=== PATIENT | male | born 1945 | race Caucasian/White ===

== ENCOUNTER 2018-03-16 14:33 | Inpatient (IN) | payer OTHER ==
[2018-03-16 15:20] LABS: Absolute Lymphocytes (CBC) 1.2 K/uL (0.7-4.9); Absolute Monocytes 0.7 K/uL (0.1-1.3); Absolute Neutrophil 5.3 K/uL (1.8-8.0); Basophils % 0.6 % (0-1.3); Hematocrit 48.8 % (39.6-49.0); Lymphocytes % 15.9 % (15.3-44.8); MCH 32.8 pg (27.0-35.0); MCV 97.5 fL (80-100); MPV 10.4 fL (7.6-11.3); Monocytes % 10.1 % (3.3-12.3); Protime INR 1.32
[2018-03-16 15:36] LABS: Albumin 3.5 g/dL (3.4-5.0); Bilirubin Direct 0.5 mg/dL (0-0.2); Magnesium 2.3 mg/dL (1.8-2.4); Potassium 3.6 mmol/L (3.5-5.1); Protein, Total 6.7 g/dL (6.4-8.2)
[2018-03-16] MEDS ORDERED: ALBUTEROL 2.5 MG/3 ML NEB SOL ONE (15:47)
[2018-03-16] MEDS ORDERED: METHYLPREDNISOLONE 125 MG INJ ONE (15:47)
--- NOTE | 2018-03-16 15:47 | EDPHYS ---
Physician Documentation [facility] Name: Manny Tello Age: 72 yrs Sex: Male : 1945 Arrival Date: 03/16/2018 Time: 14:37 Bed 30 Private MD: oBo Elmore H ED Physician Jamal Schuster HPI: 03/16 15:41 This 72 yrs old Male presents to ER via Ambulatory with complaints of jr8 Breathing Difficulty. 15:41 The patient has shortness of breath at rest, with light activity. Onset: The jr8 symptoms/episode began/occurred gradually, 2 week(s) ago, and became worse and became persistent. Duration: The symptoms are continuous. The patient's shortness of breath is aggravated by walking. Associated signs and symptoms: Pertinent positives: dizziness. Severity of symptoms: At their worst the symptoms were moderate in the emergency department the symptoms are unchanged. The patient has not experienced similar symptoms in the past. The patient has not recently seen a physician. Stated that he had history of asthma. Has been using his inhalers as prescribed. Has not had any exacerbations in a few years. Stated that for the last two weeks has had increased shortness of breath. Stated that now he cant even walk across the room without getting short of breath. Historical: - Allergies: 14:48 No Known Allergies; hb - Home Meds: 14:48 Lisinopril Oral [Active]; hb - PMHx: 14:48 Asthma; Hypertension; hb - Immunization history:: Adult Immunizations up to date. - Social history:: Smoking status: Patient uses tobacco products, smokes one pack cigarettes per day. - Ebola Screening: : No symptoms or risks identified at this time. ROS: 15:41 Eyes: Negative for injury, pain, redness, and discharge, ENT: Negative for injury, jr8 pain, and discharge, Neck: Negative for injury, pain, and swelling, Cardiovascular: Negative for chest pain, palpitations, and edema, Abdomen/GI: Negative for abdominal pain, nausea, vomiting, diarrhea, and constipation, Back: Negative for injury and pain, MS/Extremity: Negative for injury and deformity, Skin: Negative for injury, rash, and discoloration, Neuro: Negative for headache, weakness, numbness, tingling, and seizure. 15:41 Respiratory: Positive for dyspnea on exertion, shortness of breath. Exam: 15:41 Eyes: Pupils equal round and reactive to light, extra-ocular motions intact. Lids and jr8 lashes normal. Conjunctiva and sclera are non-icteric and not injected. Cornea within normal limits. Periorbital areas with no swelling, redness, or edema. ENT: Nares patent. No nasal discharge, no septal abnormalities noted. Tympanic membranes are normal and external auditory canals are clear. Oropharynx with no redness, swelling, or masses, exudates, or evidence of obstruction, uvula midline. Mucous membranes moist. Neck: Trachea midline, no thyromegaly or masses palpated, and no cervical lymphadenopathy. Supple, full range of motion without nuchal rigidity, or vertebral point tenderness. No Meningismus. Cardiovascular: Regular rate and rhythm with a normal S1 and S2. No gallops, murmurs, or rubs. Normal PMI, no JVD. No pulse deficits. Abdomen/GI: Soft, non-tender, with normal bowel sounds. No distension or tympany. No guarding or rebound. No evidence of tenderness throughout. Back: No spinal tenderness. No costovertebral tenderness. Full range of motion. Skin: Warm, dry with normal turgor. Normal color with no rashes, no lesions, and no evidence of cellulitis. MS/ Extremity: Pulses equal, no cyanosis. Neurovascular intact. Full, normal range of motion. Neuro: Awake and alert, GCS 15, oriented to person, place, time, and situation. Cranial nerves II-XII grossly intact. Motor strength 5/5 in all extremities. Sensory grossly intact. Cerebellar exam normal. Normal gait. 15:41 Respiratory: the patient does not display signs of respiratory distress, Respirations: tachypnea, that is mild, Breath sounds: wheezing: expiratory that is mild, is heard in the left posterior lower lobe, right posterior middle lobe and right posterior lower lobe. Vital Signs: 14:45 BP 142 / 108; Pulse 89; Resp 24; Temp 97.8; Pulse Ox 96% ; Pain 0/10; hb 15:23 BP 106 / 90; Pulse 95; Pulse Ox 95% on R/A; rv 15:54 Weight 114.31 kg (R); rv 16:28 BP 117 / 97; Pulse 95; Pulse Ox 97% on R/A; rv 17:00 BP 142 / 127; Pulse 102; Pulse Ox 99% on R/A; rv MDM: 14:50 Patient medically screened. [facility] 15:41 Differential diagnosis: asthma, Bronchitis CHF exacerbation, Chronic Obstructive [facility] Pulmonary Disease Myocardial Infarction pneumonia, pulmonary edema, Pulmonary Embolism. Data reviewed: vital signs, nurses notes, lab test result(s), EKG, radiologic studies, plain films, and as a result, I will admit patient. Data interpreted: Pulse oximetry: on room air is 95 %. Interpretation: normal. Counseling: I had a detailed discussion with the patient and/or guardian regarding: the historical points, exam findings, and any diagnostic results supporting the discharge/admit diagnosis, lab results, radiology results, the need for further work-up and treatment in the hospital. 03/16 14:51 Order name: Basic Metabolic Panel [facility] 03/16 14:51 Order name: CBC with Diff [facility] 03/16 14:51 Order name: LFT's [facility] 03/16 14:51 Order name: Magnesium [facility] 03/16 14:51 Order name: NT PRO-BNP [facility] 03/16 14:51 Order name: PT-INR [facility] 03/16 14:51 Order name: Troponin (emerg Dept Use Only) [facility] 03/16 15:28 Order name: CBC with Automated Diff; Complete Time: 15:29 EDMS 03/16 15:29 Order name: Protime (+INR); Complete Time: 15:29 EDMS 03/16 15:36 Order name: Basic Metabolic Panel; Complete Time: 15:40 EDMS 03/16 15:36 Order name: Liver (Hepatic) Function; Complete Time: 15:40 EDMS 03/16 15:36 Order name: NT PRO-BNP; Complete Time: 15:40 EDMS 03/16 15:36 Order name: Magnesium; Complete Time: 15:40 EDMS 03/16 15:43 Order name: Urine Dipstick--Ancillary (enter results) 03/16 14:51 Order name: XRAY Chest (1 view) [facility] 03/16 14:51 Order name: EKG; Complete Time: 14:52 [facility] 03/16 14:51 Order name: Cardiac monitoring; Complete Time: 15:18 [facility] 03/16 14:51 Order name: EKG - Nurse/Tech; Complete Time: 15:18 [facility] 03/16 14:51 Order name: IV Saline Lock; Complete Time: 15:18 [facility] 03/16 14:51 Order name: Labs collected and sent; Complete Time: 15:18 [facility] 03/16 14:51 Order name: O2 Per Protocol; Complete Time: 15:18 [facility] 03/16 14:51 Order name: O2 Sat Monitoring; Complete Time: 15:18 [facility] 03/16 15:44 Order name: Troponin (Emerg Dept Use Only); Complete Time: 15:44 [facility] 03/16 15:47 Order name: Echo w/ Doppler [facility] 03/16 14:51 Order name: Urine Dipstick-Ancillary (obtain specimen); Complete Time: 16:59 [facility] Administered Medications: 15:40 Drug: SOLU-Medrol 125 mg Route: IVP; Site: right antecubital; rv 16:14 Follow up: Response: No adverse reaction rv 15:45 Drug: Albuterol - atroVENT (3:1) (2.5 mg - 0.5 mg) 3 ml Route: Nebulizer; rv 16:14 Follow up: Response: No adverse reaction rv 16:00 Drug: Lovenox 1 mg/kg Route: Sub-Q; Site: left lower abdomen; rv 16:12 Follow up: Response: No adverse reaction rv 16:12 Drug: Aspirin Chewable Tablet 324 mg Route: PO; rv 16:22 Follow up: Response: No adverse reaction rv 16:12 Drug: Effient 60 mg Route: PO; rv 16:22 Follow up: Response: No adverse reaction rv 16:45 Drug: Lasix 40 mg Route: IVP; Site: right antecubital; rv 16:58 Follow up: Response: No adverse reaction rv Disposition: 19:10 Co-signature as Attending Physician, Jamal Schuster MD. rn Disposition: 03/16/18 15:46 Hospitalization ordered by Chari Zhu for Inpatient Admission. Preliminary diagnosis are Non-ST elevation (NSTEMI) myocardial infarction, Shortness of breath, Acute systolic (congestive) heart failure. - Bed requested for Telemetry/MedSurg (Inpatient). - Status is Inpatient Admission. rv - Condition is Fair. - Problem is new. - Symptoms are unchanged. UTI on Admission? No Signatures: Dispatcher [employer] Jocelyn Price RN RN dw Nieto, Roman, MD MD rn Roszak Esteban, PA PA jr8 Fide Samuel, RN RN Asif Valdivia RN RN rv Corrections: (The following items were deleted from the chart) 17:13 15:46 Hospitalization Ordered by Chari Zhu MD for Inpatient Admission. Preliminary dw diagnosis is Non-ST elevation (NSTEMI) myocardial infarction; Shortness of breath; Acute systolic (congestive) heart failure. Bed requested for Telemetry/MedSurg (Inpatient). Status is Inpatient Admission. Condition is Fair. Problem is new. Symptoms are unchanged. UTI on Admission? No. jr8 17:46 17:13 03/16/2018 15:46 Hospitalization Ordered by Chari Zhu MD for Inpatient rv Admission. Preliminary diagnosis is Non-ST elevation (NSTEMI) myocardial infarction; Shortness of breath; Acute systolic (congestive) heart failure. Bed requested for Telemetry/MedSurg (Inpatient). Status is Inpatient Admission. Condition is Fair. Problem is new. Symptoms are unchanged. UTI on Admission? No. dw
--- NOTE | 2018-03-16 15:47 | ER ---
Nurse's Notes [facility] Name: Manny Tello Age: 72 yrs Sex: Male : 1945 Arrival Date: 03/16/2018 Time: 14:37 Bed 30 Private MD: Boo Elmore H Diagnosis: Non-ST elevation (NSTEMI) myocardial infarction;Shortness of breath;Acute systolic (congestive) heart failure Presentation: 03/16 14:44 Presenting complaint: Patient states: SOB and nonproductive cough x 3 weeks. Denies hb fever. Transition of care: patient was not received from another setting of care. Onset of symptoms is unknown. Risk Assessment: Do you want to hurt yourself or someone else? Patient reports no desire to harm self or others. Care prior to arrival: None. 14:44 Method Of Arrival: Ambulatory hb 14:44 Acuity: DAVID 2 hb 15:12 Initial Sepsis Screen: Does the patient meet any 2 criteria? No. Patient's initial rv sepsis screen is negative. Does the patient have a suspected source of infection? No. Patient's initial sepsis screen is negative. Triage Assessment: 15:12 Respiratory: Reports shortness of breath Onset: The symptoms/episode began/occurred rv suddenly, the patient has mild shortness of breath. Historical: - Allergies: 14:48 No Known Allergies; hb - Home Meds: 14:48 Lisinopril Oral [Active]; hb - PMHx: 14:48 Asthma; Hypertension; hb - Immunization history:: Adult Immunizations up to date. - Social history:: Smoking status: Patient uses tobacco products, smokes one pack cigarettes per day. - Ebola Screening: : No symptoms or risks identified at this time. Screenin:12 Abuse screen: Denies threats or abuse. Denies injuries from another. Nutritional rv screening: No deficits noted. Tuberculosis screening: No symptoms or risk factors identified. Fall Risk None identified. Assessment: 15:11 General: Appears in no apparent distress. comfortable, Behavior is calm, cooperative, rv appropriate for age. Pain: Denies pain. Neuro: Level of Consciousness is awake, alert, obeys commands, Oriented to person, place, time, situation. Cardiovascular: Rhythm is irregular. Respiratory: Airway is patent Breath sounds are clear bilaterally. GI: No signs and/or symptoms were reported involving the gastrointestinal system. : No signs and/or symptoms were reported regarding the genitourinary system. EENT: No signs and/or symptoms were reported regarding the EENT system. Derm: Skin is intact. 15:13 Respiratory: Respiratory effort is even. rv 16:30 Reassessment: Patient appears in no apparent distress at this time. Patient and/or rv family updated on plan of care and expected duration. Pain level reassessed. Patient is alert, oriented x 3, equal unlabored respirations, skin warm/dry/pink. PATIENT COMFORTABLE AFTER ALBUTEROL AND SOLU-MEDROL. ONGOING ECHOCARDIOGRAM. 16:59 Reassessment: Patient appears in no apparent distress at this time. Patient and/or rv family updated on plan of care and expected duration. Pain level reassessed. Patient is alert, oriented x 3, equal unlabored respirations, skin warm/dry/pink. AWAITING ADMISSION ORDERS. Vital Signs: 14:45 BP 142 / 108; Pulse 89; Resp 24; Temp 97.8; Pulse Ox 96% ; Pain 0/10; hb 15:23 BP 106 / 90; Pulse 95; Pulse Ox 95% on R/A; rv 15:54 Weight 114.31 kg (R); rv 16:28 BP 117 / 97; Pulse 95; Pulse Ox 97% on R/A; rv 17:00 BP 142 / 127; Pulse 102; Pulse Ox 99% on R/A; rv ED Course: 14:37 Patient arrived in ED. mr 14:37 Boo Elmore DO is Private Physician. mr 14:45 Triage completed. hb 14:45 Arm band placed on left wrist. hb 14:50 Esteban Olivas PA is PHCP. jr8 14:50 Jamal Schuster MD is Attending Physician. jr8 14:55 Initial lab(s) drawn, by wy, sent to lab. Inserted saline lock: 22 gauge in right jp3 antecubital area, using aseptic technique. Blood collected. 15:00 patient monitor on. Pulse ox on. NIBP on. jp3 15:08 Placed in gown. Bed in low position. Call light in reach. Side rails up X 1. jp3 15:43 X-ray completed. Portable x-ray completed in exam room. Patient tolerated procedure bb2 well. 15:46 Chari Zhu MD is Hospitalizing Provider. jr8 16:46 Echocardiogram with Doppler completed by operator technician. tc 16:59 Echo w/ Doppler Sent. rv 17:46 No provider procedures requiring assistance completed. Patient admitted, IV remains in rv place. intact. Administered Medications: 15:40 Drug: SOLU-Medrol 125 mg Route: IVP; Site: right antecubital; rv 16:14 Follow up: Response: No adverse reaction rv 15:45 Drug: Albuterol - atroVENT (3:1) (2.5 mg - 0.5 mg) 3 ml Route: Nebulizer; rv 16:14 Follow up: Response: No adverse reaction rv 16:00 Drug: Lovenox 1 mg/kg Route: Sub-Q; Site: left lower abdomen; rv 16:12 Follow up: Response: No adverse reaction rv 16:12 Drug: Aspirin Chewable Tablet 324 mg Route: PO; rv 16:22 Follow up: Response: No adverse reaction rv 16:12 Drug: Effient 60 mg Route: PO; rv 16:22 Follow up: Response: No adverse reaction rv 16:45 Drug: Lasix 40 mg Route: IVP; Site: right antecubital; rv 16:58 Follow up: Response: No adverse reaction rv Outcome: 15:46 Decision to Hospitalize by Provider. jr8 17:46 Admitted to Tele accompanied by tech, via wheelchair, room 429, with oxygen, with rv chart, Report called to FRANSISCA 17:46 Condition: good 17:46 Instructed on the need for admit. 17:46 Patient left the ED. rv Signatures: Isamar Dominguez mr Esteban Olivas, PA PA jr8 Leticia Lau, jboss developer EKG Ttc Fide Samuel, RN RN hb Zelda Barnhart bb2 Asif Valdivia RN RN rv Chato Lovett jp3 Corrections: (The following items were deleted from the chart) 14:47 14:44 Acuity: DAVID 3 hb hb 14:48 14:45 BP 142 / 108; Pulse 89bpm; Resp 20bpm; Pulse Ox 98%; Temp 97.8F; Pain 0/10; hb hb
[2018-03-16] MEDS ORDERED: ENOXAPARIN 100 MG/ML SYR SQ ONE (16:00)
[2018-03-16] MEDS ORDERED: ASPIRIN 81 MG CHEWABLE TABLET ONE (16:00)
[2018-03-16] MEDS ORDERED: PRASUGREL (EFFIENT) 10 MG TAB ONE (16:01)
[2018-03-16] MEDS ORDERED: FUROSEMIDE 40 MG/4 ML VIAL ONE (16:42)
[2018-03-16] MEDS: FUROSEMIDE 40 MG/4 ML VIAL IV SCH (17:00)
[2018-03-16] MEDS ORDERED: NITROGLYCERIN 0.4 MG/TAB SL PRN (17:08)
[2018-03-16] MEDS ORDERED: LORazepam 2 MG/ML VIAL IV PRN (17:40)
[2018-03-16] MEDS ORDERED: FUROSEMIDE 40 MG/4 ML VIAL IV ONE (18:00)
--- NOTE | 2018-03-16 18:17 | RAD REPORT ---
EXAM DESCRIPTION: Klaus Single View03/16/2018 3:43 pm CLINICAL HISTORY: Cough COMPARISON: 2009 FINDINGS: The right lung base is hazy. The remainder lungs appear clear. The heart is moderately en larged IMPRESSION: Right lung base is hazy which could be secondary to infiltrate, atelectasis or overlying soft tissue Cardiomegaly
--- NOTE | 2018-03-16 18:17 | ECHO ---
HEIGHT: ft in WEIGHT: 252 lb 0 oz DATE OF STUDY: 03/16/[address]: Umesh Olivas 2-DIMENSIONAL: YES M.MODE: YES DOPPLER: YES COLOR FLOW: YES TDS: PORTABLE: YES DEFINITY: BUBBLE STUDY: DIAGNOSIS: NEW ONSET CONGESTIVE HEART FAILURE WITH NON ST ELEVATION MYOCARDIAL INFARCTION CARDIAC HISTORY: CATHERIZATION: NO SURGERY: NO PROSTHETIC VALVE: NO PACEMAKER: NO MEASUREMENTS (cm) DIASTOLIC (NORMALS) SYSTOLIC (NORMALS) IVSd 0.9 (0.6-1.2) LA Diam 4.7 (1.9-4.0) LVEF 34% LVIDd 7.2 (3.5-5.7) LVIDs 6.0 (2.0-3.5) %FS 17% LVPWd 1.2 (0.6-1.2) Ao Diam 3.5 (2.0-3.7) 2 DIMENSIONAL ASSESSMENT: RIGHT ATRIUM: DILATED LEFT ATRIUM: DILATED RIGHT VENTRICLE: DILATED LEFT VENTRICLE: DILATED TRICUSPID VALVE: NORMAL MITRAL VALVE: NORMAL PULMONIC VALVE: NORMAL AORTIC VALVE: SCLEROSIS PERICARDIAL EFFUSION: NONE AORTIC ROOT: NORMAL LEFT VENTRICULAR WALL MOTION: GLOBAL HYPOKINESIS DOPPLER/COLOR FLOW: MILD MITRAL REGURGITATION. MILD AORTIC STENOSIS. PEAK GRADIENT 22 mmHg. MEAN GRADIENT 13 mmHg. ESTIMATED AORTIC VALVE AREA 1.6 CENTIMETERS SQUARED. COMMENTS: 4 CHAMBER DILATION. DEPRESSED LEFT VENTRICULAR EJECTION FRACTION. MILD STENOSIS. NO AORTIC REGURGITATION. MILD MITRAL REGURGITATION. TECHNOLOGIST: LIZZETTE BENITEZ
--- NOTE | 2018-03-16 18:21 | EKG ---
Test Date: 2018-03-16 Test Time: 14:58:10 Flatwork Finisher Hand: MEASUREMENT RESULTS: Intervals: Rate: 95 AR: 192 QRSD: 150 QT: 430 QTc: 540 [place]: P: 53 AR: 192 QRS: -82 T: 86 INTERPRETIVE STATEMENTS: Sinus rhythm with premature atrial complexes Left axis deviation Right bundle branch block Anterior and Inferior infarct, age undetermined Abnormal ECG Compared to ECG 11/13/2010 07:52:27 Ventricular premature complex(es) now present Right bundle-branch block now present Myocardial infarct finding still present Electronically Signed On 03-16-18 18:20:28 CDT by Primo Sagastume
[2018-03-16] MEDS: THIAMINE HCL 100 MG TABLET PO SCH (18:22)
[2018-03-16] MEDS: FOLIC ACID 1 MG TABLET PO SCH (18:23)
[2018-03-16] MEDS ORDERED: ENOXAPARIN 100 MG/ML SYR SQ SCH (21:00)
[2018-03-16 21:08] LABS: Urine Blood TRACE (NEG); Urine Glucose NEGATIVE (NEG); Urine Protein 3+ (NEG); Urine Specific Gravity 1.025 (1.005-1.030)
[2018-03-16] MEDS: METOPROLOL TAR 25 MG TAB PO SCH (21:36)
[2018-03-16] MEDS: TRAMADOL HCL 50 MG TAB PO PRN (23:23)
--- NOTE | 2018-03-17 01:41 | CON ---
History Of Present Illness: Mr. Tello is 72, came to the hospital with shortness of breath, dyspnea on exertion, orthopnea, weight gain. He has been found to have cardiomyopathy, ejection fraction is about 30%. Apparently, he was told he had an enlarged heart. He does not remember being told he had congestive heart failure. He was placed on beta-blockers and angiotensin converting enzyme inhibito rs, took them for a while, then quit, was not really clear why they quit. He has never had a cardiac cath, bypass surgery, stents, or defibrillator. Has not had any followup in sometime. His outpatie nt medications apparently have been basically unknown. There may have been lisinopril in the mix. Gilma dixon feels better than he did. He is a regular tobacco user. He smokes 1 pack per day. He admits to padmini messina 7 alcoholic beverages per day. Allergies: NONE ARE KNOWN. Physical Examination: General: He is 252 pounds. Alert, oriented, pleasant, not in distress. Lungs: Reveal some basilar crackles. No wheezing. Heart: Reveals regular rate and rhythm. No significant murmur. Abdomen: Soft. Extremities: Mild edema. Laboratory Data: Chest x-ray reveals interstitial edema, looks like a pulmonary edema type pattern. There is re-distribution of flow in the upper lobes. There are probably small bilateral pleural eff usions. There is no evidence of an infiltrate. Laboratory Data: Reveals a troponin of 1.04. His B-natriuretic peptide is over 10,000, creatinine 1 .2. Hemoglobin, hematocrit, white blood cell count are all normal. Impression And Plan: The patient probably is not being helped at all by being him on such large dose s of Solu-Medrol. I would recommend we stop that and the diuretics are clearly in order and I would recommend we not give an ANA inhibitor that will preclude us from being able to give the best heart f ailure medicine and ANA inhibitors are not the first choice at all in treating heart failure at this point in time. For at least a few days, I will give him an angiotensin receptor brayan and then rec ommend changing to Entresto. He needs to be taught about sodium restriction. We will do a pharmacol ogic nuclear stress test, try and get Dr. Vicente's records from a few years ago. He is not having c hest pain. His symptoms do not really sound like angina, but if his stress test shows focal defect, we will consider doing a cardiac cath. Troponins in my opinion are elevated where they are because o f rather severe myocardial strain. His echo shows his heart is markedly dilated, the internal dimens ion is 7.2. All 4 chambers are dilated. I believe the patient is probably not taking good care of t he condition that was actually discovered several years ago. He will be compliant with this. He has been instructed he needs to not use another single drop of alcohol or any alcoholic beverages. Stop smoking and we will try and treat his heart failure. We will be ready to do a cardiac cath if his s tress test indicates presence of ischemia. BARBARA/ANIYAH Voice ID: [id number] Report ID: [id number]
--- NOTE | 2018-03-17 01:43 | HP ---
Date of Admission: 03/16/2018 Primary Care Physician: Boo Elmore DO. Experimental Rocketsled Mechanic: Dr. Sagastume, Cardiology. Chief Complaint: Shortness of breath. Code Status: Full. History Of Present Illness: The patient is a 72-year-old male with past medical history of hypertension and asthma, comes in with a 3-day history of progressive shortness of breath, which is intermittent, worse with exertion. Does report some lower extremity edema. Denies any cough, fever, chills, or ill contacts. The patient was placed on amoxicillin for possible acute respiratory tract infection, however, did not have any relief of his symptoms. He did go to see his primary care physician to have refill of his asthma medications; however, his inhalers have not improved his symptoms. The patient also reports some proximal nocturnal dyspnea and orthopnea along with some wheezing. The patient comes into the ER for further evaluation. Upon arrival, his vital signs showed elevated blood pressure 142/108. The patient was tachypneic, saturating 96% on room air. His lab workup revealed normal WBC count. However, troponin was elevated at 1.04. BNP was 26513. The patient was given IV Solu-Medrol, aspirin, Lovenox, and Lasix, and referred for admission. When seen in the ER, he was awake, alert, oriented x3, in some moderate respiratory distress. Past Medical History: Hypertension, asthma, osteoarthritis. Past Surgical History: Cholecystectomy and right knee replacement. Allergies: NO KNOWN DRUG ALLERGIES. Medications: Lisinopril and albuterol inhaler. Social History: The patient smokes 1-1/2-pack per day for the last 30 years. Drinks 6-7 drinks per day. No illicit drug use. No IV drug use. The patient is , has good family support. Independent in his activities of daily living. Family History: Sister of heart attack at age of 55. Review of Systems: An 11-point system reviewed, negative except as per HPI. Physical Examination: Vital Signs: Blood pressure 148/108, pulse 89, respirations 24, temperature 97.8, O2 96% on room air. General: Awake, alert, oriented x3, in some moderate respiratory distress. Elderly male, ill-appearing. HEENT: Normocephalic, atraumatic. PERRLA. EOMI. Moist mucous membranes. Oropharynx is clear. Poor dentition. Conjunctivae anicteric. Neck: Supple. No JVD. Trachea midline. CV: S1 and S2. Regular rate and rhythm. Peripheral pulses present bilaterally , however, weak. Respiratory: Diminished breath sounds bilaterally. Some crackles heard. Some mild expiratory wheezes present. The patient is tachypneic, use of accessory muscles. Gastrointestinal: Abdomen is soft, nontender, and nondistended. Positive bowel sounds. No guarding or rigidity. Extremities: No clubbing or cyanosis. The patient has pedal edema. No calf tenderness. Neuro: Cranial nerves 2 through 12 intact grossly. No focal neurological deficit. Speech is normal. Strength is 5/5 in bilateral upper and lower extremities. Skin: No rashes. Normal skin turgor. Psych: Mood is anxious. Affect is congruent with mood. Insight and judgment are poor. Laboratory Data: Sodium 138, potassium 3.6, chloride 102, CO2 29, BUN 20, creatinine 1.2, glucose 120, calcium 9, magnesium 2.3. Troponin 1.04. BNP 18027. INR 1.32. WBC 7.4, H and H 16.4 and 48.8, platelets 201, neutrophils 72 %. UA is pending. Chest x-ray shows some increased pulmonary opacities. EKG shows right bundle-branch block. Assessment: A 72-year-old male with; 1. Hzv-OL-fljyphjbt myocardial infarction. Troponin is 1.04, likely secondary to above. We will repeat troponin level. Anticoagulated with Lovenox and continue chest pain guidelines with beta-brayan, ANA inhibitor, and aspirin. The patient has already been given the first dose of Lovenox. 2. Acute respiratory distress, likely secondary to congestive heart failure. Continue with supplemental oxygen. 3. Acute systolic congestive heart failure. EF is low based on unofficial echo study report. We will continue with ANA inhibitor, beta-brayan, and we will add Aldactone. Continue Lasix IV with potassium supplementation. Appreciate Dr. Sagastume' input. He has been consulted. 4. Nicotine dependence with cigarette smoking, counseled. 5. Alcohol dependence. We will start on thiamine and folate. We will place on Ativan for withdrawal symptoms. 6. Obesity. 7. Essential hypertension. We will resume home medications as appropriate. Plan: Admit the patient to Med-Surg, place as inpatient. SA/MODL Voice ID: [id number] MICHAEL
[2018-03-17] MEDS ORDERED: PNEUMOCOCCAL VACCINE 0.5 ML IMVAC ONE (08:00)
[2018-03-17] MEDS ORDERED: REGADENOSON 0.4 MG/5 ML SYR IV ONE (08:02)
[2018-03-17] MEDS: ENOXAPARIN 100 MG/ML SYR SQ SCH ×2 (09:00→21:03)
[2018-03-17] MEDS ORDERED: LOSARTAN POTASSIUM 50 MG TABLET PO SCH (09:00)
[2018-03-17] MEDS ORDERED: LISINOPRIL 10 MG TAB PO SCH (09:00)
[2018-03-17] MEDS: ASPIRIN EC 81 MG TAB PO SCH (09:00)
--- NOTE | 2018-03-17 09:14 | RAD REPORT ---
EXAM DESCRIPTION: NM - Rest Stress Cardiac Imaging - 03/17/2018 9:06 am CLINICAL HISTORY: Chest pain COMPARISON: None. TECHNIQUE: The patient was administered 10.2 mCi of Tc 99m Sestamibi prior to resting SPECT imaging of the heart. The patient was then administered 30.6 mCi of Tc 99m Sestamibi following exercise or ph armacologic stress. Multiplanar SPECT images were reviewed. FINDINGS: The end diastolic volume is 378 ml, the end systolic volume is 305 ml, and the ejection fr action is 19 %. Small fixed defect is seen along the inferoseptal wall midportion to apex. There is a large defect in volving all of the inferior wall from base to apex. No stress-induced ischemic changes are identifiab le. With this degree of ventricular dilatation a large inferior wall fixed defect could be scarring o r attenuation artifact. Inferior wall defect extends into the apex. IMPRESSION: No stress-induced ischemic change seen. Large fixed defect involves the inferior wall from base to apex. There is a small anteroseptal fixed defect. Marked ventricular dilatation measuring 378 milliliter end-diastolic volume. Calculated ejection frac tion was 19%. With this degree ventricular dilatation, the inferior wall defect could be scarring or attenuation ar tifact.
--- NOTE | 2018-03-17 09:28 | TREADPHA ---
DX: CHEST PAIN Date of Study: 03/17/2018 Ht: 0 6 Wt: 252 lb 0 oz Consulting Physician: MARLEE MEDICATIONS: ASPIRIN, LOVENOX, ATIVAN, COZAAR, LOPRESSOR, NITROSTAT, ULTRAM HISTORY: 72 YEAR OLD MALE WITH COMPLAINTS OF CHEST PAIN. HISTORY OF HYPERTENSION, ASTHMA AND SMOKES 1 PACK PER DAY. PHYSICIAL EXAMINATION: RESTING B.P.: 102/82 RESTING H.R.: 82 RESTING EKG: SINUS WITH PREMATURE VENTRICULAR COMPLEXES. RIGHT BUNDLE BRANCH BLOCK. ANTERIOR MYOCARDIAL INFARCTION. INFERIOR MYOCARDIAL INFARCTION. PROTOCOL: LEXISCAN EXERCISE TIME: 3:30 B.P. AT PEAK STRESS: 105/77 IMPRESSION: LEXISCAN INJECTED. CARDIOLITE INJECTED PER PROTOCOL. SEE NUCLEAR MEDICINE REPORT. NO CHEST PAIN. FREQUENT PREMATURE VENTRICULAR COMPLEXES AND PREMATURE ATRIAL COMPLEXES NOTED THROUGHOUT TEST. NO VENTRICULAR TACHYCARDIA OR SUPRAVENTRICULAR TACHYCARDIA NOTED. NON DIAGNOSTIC EKG WITH LEXISCAN STRESS TEST.
[2018-03-17] MEDS: POTASSIUM CL SA 10 MEQ TAB PO SCH (10:53)
[2018-03-17] MEDS: METOPROLOL TAR 25 MG TAB PO SCH ×2 (10:53→21:02)
[2018-03-17] MEDS: THIAMINE HCL 100 MG TABLET PO SCH (10:53)
[2018-03-17] MEDS: FOLIC ACID 1 MG TABLET PO SCH (10:53)
[2018-03-17] MEDS: FUROSEMIDE 40 MG/4 ML VIAL IV SCH ×2 (10:54→17:01)
[2018-03-17] MEDS: ALBUTEROL 2.5 MG/3 ML NEB SOL NEB SCH ×2 (13:24→20:00)
[2018-03-17] MEDS: NICOTINE 21 MG/PAT TD SCH (13:52)
[2018-03-17] MEDS: TIOTROPIUM 5 SPRAYS/INHALER IH SCH (13:53)
--- NOTE | 2018-03-17 14:52 | PN ---
Date of Progress Note: 03/17/2018 Subjective: The patient is seen and examined. Chart reviewed and case discussed with RN and Dr. Sagastume. The patient states his breathing is significantly better; however, still on supplemental oxygen and getting dyspneic with mild exertion. Treatment plan explained to family at the bedside. All questions answered. Review of Systems: Negative except as above. Medications: List reviewed. Physical Examination: Vital Signs: Temperature 96.8, heart rate 78, blood pressure 114/73, respirations 15, O2 97% on 3 L via nasal cannula. General: Awake, alert, oriented x3. Some mild distress. Elderly male, obese, BMI 34.2. CV: S1, S2. Regular rate and rhythm. Peripheral pulses weak bilaterally. No murmurs. Respiratory: Diminished breath sounds, improved; however, some mild wheezing and crackles heard. No use of accessory muscles. Gastrointestinal: Abdomen is soft, nontender, nondistended. Positive bowel sounds. No guarding or rigidity. Extremities: No clubbing, cyanosis. Trace pedal edema. Neurologic: Nonfocal. Laboratory Data: Troponin 1.04, 0.88, 0.79, and 0.71. Lipid panel; triglycerides 87, cholesterol 142, LDL 94, HDL 31. Nuclear stress test showed no stress-induced ischemia, large fixed defect involving the inferior wall from base to apex, small anteroseptal fixed defect, marked ventricular dilatation measuring 378 mm, end-diastolic volume. EF was 19%. Pharmacological stress test; frequent premature ventricular complexes and premature atrial complexes. No ventricular tachycardia or supraventricular tachycardia, nondiagnostic EKG with Lexiscan stress test. Echocardiogram showed EF of 34% a 4-chamber dilation , depressed left ventricular ejection fraction, mild stenosis, no aortic regurg , mild mitral regurg. Assessment And Plan: A 72-year-old male with: 1. Acute respiratory distress secondary to congestive heart failure. Continue with supplemental oxygen. Now off non-rebreather. 2. Non-ST segment elevation myocardial infarction, likely secondary to above. We will continue with therapeutic Lovenox, beta-brayan, and we will discontinue ANA inhibitor as he is to be started on Entresto, and we will continue aspirin. 3. Acute systolic congestive heart failure, EF less than 35%. We will continue congestive heart failure guidelines with beta-brayan. Hold off on ANA inhibitor as he will be started on Entresto. Continue IV Lasix and potassium supplementation. Appreciate Dr. Sagastume' input. 4. Dilated alcoholic cardiomyopathy. The patient will need to be set up with LifeVest. Alcohol cessation recommended. The patient voiced understanding. 5. Alcohol dependence. Continue thiamine, folate, place on Ativan for p.r.n. withdrawal symptoms. No active withdrawal or delirium tremens at this time. 6. Essential hypertension, stable. 7. Obesity, BMI 34.2, counseled. 8. Nicotine dependence with cigarette smoking, continuous, counseled. 9. Likely chronic obstructive pulmonary disease. The patient has been smoking for over 30 years. We will add albuterol nebulizer and maintenance inhalers. PFTs as outpt. 10. Gastrointestinal and deep venous thrombosis prophylaxis addressed. Plan: Start Entresto in a.m. Obtain LifeVest. /ANIYAH Voice ID: [id number] Report ID: [id number] MTDHiral
[2018-03-17] MEDS: TRAMADOL HCL 50 MG TAB PO PRN (17:00)
[2018-03-17] MEDS: DULERA 100/5 (MOMETASONE/FORMOTEROL) INHALER IH SCH (21:00)
[2018-03-18] MEDS: TRAMADOL HCL 50 MG TAB PO PRN ×2 (00:20→12:06)
[2018-03-18] MEDS ORDERED: ONDANSETRON 4 MG/2 ML VIAL IV PRN (01:10)
[2018-03-18] MEDS: ALBUTEROL 2.5 MG/3 ML NEB SOL NEB SCH ×4 (02:00→20:16)
[2018-03-18] MEDS: FUROSEMIDE 40 MG/4 ML VIAL IV SCH (09:00)
[2018-03-18] MEDS: METOPROLOL TAR 25 MG TAB PO SCH ×3 (09:00→21:00)
[2018-03-18] MEDS: SACUBITRIL/VALSARTAN 24/26 MG TAB PO SCH ×2 (09:00→21:04)
[2018-03-18] MEDS: ENOXAPARIN 100 MG/ML SYR SQ SCH ×2 (10:34→21:04)
[2018-03-18] MEDS: FOLIC ACID 1 MG TABLET PO SCH (10:35)
[2018-03-18] MEDS: THIAMINE HCL 100 MG TABLET PO SCH (10:35)
[2018-03-18] MEDS: ASPIRIN EC 81 MG TAB PO SCH (10:35)
[2018-03-18] MEDS: POTASSIUM CL SA 10 MEQ TAB PO SCH (10:35)
[2018-03-18] MEDS: TIOTROPIUM 5 SPRAYS/INHALER IH SCH (10:36)
[2018-03-18] MEDS: DULERA 100/5 (MOMETASONE/FORMOTEROL) INHALER IH SCH ×2 (10:36→21:04)
[2018-03-18] MEDS: NICOTINE 21 MG/PAT TD SCH (10:38)
--- NOTE | 2018-03-18 11:02 | PN ---
Mr. Tello seems to be doing much better. We are going to try to have him ambulate today, try to get him on Entresto and try and get him fitted with a LifeVest. If those things all happen and he has a good room air oxygen sat, then he could be discharged either this afternoon or tomorrow. If that is possible and he stays off alcohol, I would recommend repeating an echocardiogram in about 2 months. If he gets any chest pain, we will do a cardiac cath. AUGUSTINA Voice ID: [id number] Report ID: [id number]
--- NOTE | 2018-03-18 14:05 | P.PN ---
Subjective Date of Service: 03/18/18 Subjective: Doing well (No chest pain noted. No shortness of breath noted.) Physical Examination - Vital Signs Temperature: 97.0 F Blood Pressure: 98/78 Pulse: 80 Respirations: 18 Pulse Ox (%): 97 - Physical Exam General: Alert, In no apparent distress, Oriented x3, Cooperative HEENT: Atraumatic Neck: Supple Respiratory: Clear to auscultation bilaterally, Normal air movement Cardiovascular: Normal pulses, Regular rate/rhythm Gastrointestinal: Normal bowel sounds, Soft and benign, Non-distended, No tenderness, No masses, No rebound, No guarding Musculoskeletal: No erythema, No tenderness, No warmth Integumentary: No tenderness/swelling, No erythema, No warmth, No cyanosis Neurological: Normal speech, Normal strength at 5/5 x4 extr, Normal tone, Normal affect - Studies Medications List Reviewed: Yes Assessment & Plan - Problems (Diagnosis) (1) NSTEMI (non-ST elevated myocardial infarction) Onset Date: 03/17/18 Current Visit: Yes Status: Acute Plan: Patient to get life vest. Patient be started on intra still for CHF. Will ambulate patient. Anticipate discharge likely tomorrow once patient is tolerating medication and life vest in place. (2) Systolic heart failure Onset Date: 03/17/18 Current Visit: Yes Status: Acute Plan: Continue as above. Patient will need be on a fluid restriction. Lasix adjusted to oral. Anticipate discharge tomorrow. Qualifiers: Heart failure chronicity: acute on chronic Qualified Code(s): I50.23 - Acute on chronic systolic (congestive) heart failure (3) CAD (coronary artery disease) Current Visit: Yes Status: Chronic Plan: Continue with above plan of care. Patient will give life vest. Patient now on Entresto. If patient stable and life vest is in place then discharged tomorrow Qualifiers: Coronary Disease-Associated Artery/Lesion type: unspecified vessel or lesion type (4) Hypertension Current Visit: Yes Status: Chronic Plan: Medications adjusted by Cardiology Qualifiers: Hypertension type: essential hypertension Qualified Code(s): I10 - Essential (primary) hypertension (5) Alcoholic cardiomyopathy Current Visit: Yes Status: Chronic Plan: Continue as above. Anticipate discharge tomorrow. Patient will get life vest (6) Alcohol abuse Current Visit: Yes Status: Chronic Plan: Continue with the medication. Alcohol cessation addressed in detail. (7) Hyperlipidemia Current Visit: Yes Status: Chronic Plan: LDL elevated. In light of cardiomyopathy will start Lipitor. (8) COPD (chronic obstructive pulmonary disease) Current Visit: Yes Status: Chronic Plan: Continued medication. Qualifiers: COPD type: unspecified COPD Qualified Code(s): J44.9 - Chronic obstructive pulmonary disease, unspecified Discharge Plan: Home Plan to discharge in: 24 Hours Time Spent Managing Pts Care (In Minutes): 55
[2018-03-18] MEDS ORDERED: DOCUSATE NA 100 MG CAP PO PRN (15:31)
[2018-03-18] MEDS ORDERED: LACTULOSE 20 GM/30 ML UCUP PO PRN (15:32)
[2018-03-18] MEDS: FUROSEMIDE 40 MG TABLET PO SCH (15:46)
[2018-03-18] MEDS ORDERED: ATORVASTATIN 40 MG TAB PO SCH (21:00)
[2018-03-19] MEDS: ALBUTEROL 2.5 MG/3 ML NEB SOL NEB SCH ×2 (02:10→08:26)
[2018-03-19 05:55] LABS: Absolute Lymphocytes (CBC) 0.9 K/uL (0.7-4.9); Absolute Monocytes 0.7 K/uL (0.1-1.3); Absolute Neutrophil 3.5 K/uL (1.8-8.0); Basophils % 0.4 % (0-1.3); Eosinophils % 0.7 % (0-4.4); Lymphocytes % 18.1 % (15.3-44.8); MCH 32.6 pg (27.0-35.0); MCV 98.2 fL (80-100); MPV 10.2 fL (7.6-11.3); Monocytes % 13.8 % (3.3-12.3); RBC Red Blood Cell Count 4.48 M/uL (4.33-5.43)
[2018-03-19 06:10] LABS: Magnesium 2.5 mg/dL (1.8-2.4); Potassium 3.3 mmol/L (3.5-5.1)
[2018-03-19] MEDS ORDERED: POTASSIUM CL SA 10 MEQ TAB PO ONE (08:00)
[2018-03-19] MEDS: POTASSIUM CL SA 10 MEQ TAB PO SCH (09:00)
[2018-03-19] MEDS: METOPROLOL TAR 25 MG TAB PO SCH ×2 (09:00→09:06)
[2018-03-19] MEDS: DULERA 100/5 (MOMETASONE/FORMOTEROL) INHALER IH SCH (09:03)
[2018-03-19] MEDS: TIOTROPIUM 5 SPRAYS/INHALER IH SCH (09:04)
[2018-03-19] MEDS: NICOTINE 21 MG/PAT TD SCH (09:05)
[2018-03-19] MEDS: THIAMINE HCL 100 MG TABLET PO SCH (09:06)
[2018-03-19] MEDS: ENOXAPARIN 100 MG/ML SYR SQ SCH (09:06)
[2018-03-19] MEDS: ASPIRIN EC 81 MG TAB PO SCH (09:06)
[2018-03-19] MEDS: SACUBITRIL/VALSARTAN 24/26 MG TAB PO SCH (09:07)
[2018-03-19] MEDS: FOLIC ACID 1 MG TABLET PO SCH (09:07)
[2018-03-19] MEDS: FUROSEMIDE 40 MG TABLET PO SCH (09:07)
[2018-03-19] MEDS ORDERED: PNEUMOCOCCAL VACCINE 0.5 ML IMVAC ONE (11:00)
--- NOTE | 2018-03-19 16:24 | DS ---
Date of Discharge: 03/19/2018 Consultants: Dr. Sagastume with cardiology. Procedure: Nuclear stress test on 03/17/2018 with no stress-induced ischemia. Admitting Diagnoses: 1.Xiz-QJ-xzxrffuhq myocardial infarction. 2.Acute respiratory distress with hypoxia secondary to congestive heart failure. 3.Acute systolic congestive heart failure. 4.Alcoholic cardiomyopathy. 5.Nicotine dependence with cigarette smoking, counseled. 6.Alcohol dependence. 7.Obesity, body mass index 34. 8.Essential hypertension. Discharge Diagnoses: 1.Acute respiratory distress secondary to congestive heart failure, resolved, now on room air. 2.Znm-QB-qtvocxeyn myocardial infarction. 3.Acute systolic congestive heart failure. EF less than 35%. 4.Dilated alcoholic cardiomyopathy. The patient has been counseled, set up with LifeVest. We will repeat echocardiogram in 2 months. 5.Alcohol dependence, counseled. Continue thiamine and folate. No active withdrawals. 6.Essential hypertension. 7.Obesity, body mass index 34.2. 8.Nicotine dependence with cigarette smoking, counseled. 9.Probable chronic obstructive pulmonary disease. The patient will need PFTs as an outpatient. We will continue with inhalers. Hospital Course: The patient is a 72-year-old male with longstanding history of tobacco use, alcohol use, who comes in with gradual onset of shortness of breath, which was likely secondary to CHF. The patient did have an NSTEMI, elevated cardiac enzymes. BNP was elevated. He was felt to have conges tive heart failure exacerbation. Echocardiogram showed EF less than 35%, likely due to alcoholic car diomyopathy. The patient had a stress test done and cardiology evaluation. He was treated medically for his NSTEMI. The patient's respiratory status improved. He was able to be weaned off supplement al oxygen. He was able to ambulate without difficulty or significant dyspnea. He was counseled rega rding his cigarette smoking, alcohol use, and obesity. He will need drastic lifestyle changes to imp rove his health if he wishes to survive past few months. The patient was set up with LifeVest and to have repeat echocardiogram in 2 months. The patient was started on Entresto which he was able to to lerate well. The patient was then cleared for discharge from cardiology standpoint to followup with his primary care physician in the next couple of days and followup with lacing cutter, Dr. Sagastume in 2 weeks. Return to ER for worsening condition. The patient will need outpatient pulmonary function t esting for his probable COPD diagnosis. He will go home with inhalers. He will get a sample of Entr esto discount card from Dr. Sagastume' office. Medications: As per medication reconciliation list. Diet: Low sodium, 1500 mL fluid restriction. No alcohol. Activity: No strenuous activity. Physical Examination: General: Awake, alert, oriented, no acute distress. Obese elderly male. CV: S1, S2. No murmurs. Respiratory: Moving air well bilaterally. No wheezing Gastrointestinal: Abdomen is soft, nontender , nondistended. Positive bowel sounds. Extremities: No clubbing, cyanosis. Trace pedal edema. Neurologic: Nonfocal. Total time spent discharging the patient was 37 minutes. INDU Voice ID: [id number] Report ID: [id number]
== END 2018-03-19 11:05 | disposition home or self-care (01) | DRG 280 ==
LOC: ER 14:33 → ERHOLD 16:15 → 4TH 17:30
PROVIDERS: ADMIT Family Medicine; ATTEND Family Medicine
DX: I21.4 Non-ST elevation (NSTEMI) myocardial infarction (principal); I50.23 Acute on chronic systolic (congestive) heart failure; I42.6 Alcoholic cardiomyopathy; I11.0 Hypertensive heart disease with heart failure; R06.03 Acute respiratory distress; R09.02 Hypoxemia; F17.210 Nicotine dependence, cigarettes, uncomplicated; F10.20 Alcohol dependence, uncomplicated; E66.9 Obesity, unspecified; Z68.34 Body mass index [BMI] 34.0-34.9, adult; J44.9 Chronic obstructive pulmonary disease, unspecified; I25.10 Atherosclerotic heart disease of native coronary artery without angina pectoris; E78.5 Hyperlipidemia, unspecified
CPT/HCPCS: 36415; 71045; 78452; 80048; 80061; 80076; 81003; 83735; 83880; 84484; 85025; 85610; 90670; 93005; 93017; 93306; 94640; 94760; 96372; 96374; 96375; 97163; 99285; A9500; G0009; J1650; J2405; J2785; J2930; J7606

== ENCOUNTER 2018-04-04 03:02 | Inpatient (IN) | payer OTHER ==
--- OUTSIDE RECORDS SUMMARY | 2018-04-04 03:04 | XMS REPORT ---
:1945 Author Organization [employer] Care Team Providers Name Role Phone Jacob Wilmer Provider Role Unavailable Allergies No Known Allergies Problems Problem Type Condition Code Onset Dates Condition Status Problem 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 failure and stage 1 through stage 4 chronic kidney disease, or unspecified chronic kidney disease Problem 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 Problem Mixed hyperlipidemia E78.2 Active Problem Cigarette nicotine dependence in F17.211 Active remission Problem 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 Problem 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 Problem Chronic obstructive pulmonary J44.9 Active disease, unspecified COPD type Medications No Known Medications Results No Known Results Summary Purpose [employer] Submission
--- OUTSIDE RECORDS SUMMARY | 2018-04-04 03:04 | XMS REPORT ---
:1945 Author Organization [employer] Care Team Providers Name Role Phone Jacob Wilmer Provider Role Unavailable Allergies, Adverse Reactions, Alerts Substance Reaction Event Type N.K.D.A. Info Not Available Non Drug Allergy Problems Problem Type Condition Code Onset Dates Condition Status Assessment 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 Assessment 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 failure and stage 1 through stage 4 chronic kidney disease, or unspecified chronic kidney disease Problem Hypertensive heart and chronic I13.0 Active [...] pulmonary J44.9 Active disease, unspecified COPD type Assessment 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 Assessment Cigarette nicotine dependence in F17.211 Active remission Assessment Mixed hyperlipidemia E78.2 Active Assessment 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 Assessment Chronic obstructive pulmonary J44.9 Active disease, unspecified COPD type Medications Medication Code Code Instructions Start End Status Dosage System Date Date Dulera [facility] 92606825559 100-5 MCG/ACT Active 2 puffs Inhalation Twice a day Spiriva [facility] 48496605244 18 MCG Active 1 capsule HandiHaler Inhalation Once a day Albuterol [facility] 04394168341 108 (90 Base) Active 2 puffs as Sulfate HFA MCG/ACT needed Inhalation every [address] [facility] 93145619873 25 MG Orally Active 0.5 tablet Tartrate Twice a day with food Lasix [facility] 34995298524 20 MG Orally Active 1 tablet Once a day Vitamin B-1 ND 29100565936 100 MG Orally Active 1 tablet Once a day Entresto [facility] [place] 34586653216 24-26 MG Orally Active 1 tablet Twice a day Albuterol [facility] 19929632438 (2.5 MG/3ML) Active 3 ml as Sulfate 0.083% needed Inhalation Three times a day PRN Cough, SOB or Wheezing Aspir-81 [facility] 62012037828 81 MG Orally Active 1 tablet Once a day Lisinopril-Hyd [facility] 90784555102 10-12.5 MG Active 1 tablet rochlorothiazi Orally Once a de day Lipitor [facility] 61096997084 40 MG Orally Active 1 tablet Once a day Potassium [facility] 90405573972 10 MEQ Orally Active 1 capsule Chloride Twice a day with food Results No Known Results Summary Purpose [employer] Submission
--- OUTSIDE RECORDS SUMMARY | 2018-04-04 03:05 | XMS REPORT ---
:1945 Author Organization [employer] Care Team Providers Name Role Phone Jason Tavera Provider Role Unavailable Allergies No Known Allergies [...] Medications Results No Known Results Summary Purpose [employer] Dealy Submission
[2018-04-04] MEDS ORDERED: FUROSEMIDE 20 MG/ 2ML VIAL ONE (03:57)
[2018-04-04 04:10] LABS: Potassium 3.8 mmol/L (3.5-5.1)
[2018-04-04 04:24] LABS: Absolute Lymphocytes (CBC) 0.9 K/uL (0.7-4.9); Absolute Monocytes 0.6 K/uL (0.1-1.3); Basophils % 0.5 % (0-1.3); Eosinophils % 0.7 % (0-4.4); Hematocrit 45.4 % (39.6-49.0); Lymphocytes % 11.6 % (15.3-44.8); MCH 32.2 pg (27.0-35.0); MCV 97.2 fL (80-100); MPV 11.2 fL (7.6-11.3); Monocytes % 8.2 % (3.3-12.3); RBC Red Blood Cell Count 4.67 M/uL (4.33-5.43)
--- NOTE | 2018-04-04 04:29 | EDPHYS ---
Physician Documentation [facility] Name: Manny Tello Age: 73 yrs Sex: Male : 1945 Arrival Date: 04/04/2018 Time: 03:04 Bed 7 Private MD: ED Physician Jamal Schuster HPI: 04/04 03:06 This 73 yrs old Male presents to ER via Unassigned with complaints of sob. rn 03:06 The patient has shortness of breath at rest, with light activity. Onset: The rn symptoms/episode began/occurred 1 week(s) ago. Duration: The symptoms are intermittent. The patient's shortness of breath is aggravated by exertion, light activity, supine position, talking, walking. Associated signs and symptoms: Pertinent positives: non-productive cough, Pertinent negatives: chest pain, fever, hemoptysis, loss of consciousness. Severity of symptoms: At their worst the symptoms were moderate in the emergency department the symptoms are unchanged. The patient has experienced similar episodes in the past. Reports told has CHF, put on fluid pills, increased but still feels sob and swollen, no chest pain, no fever.. Historical: - Allergies: 03:16 No Known Allergies; ao - Home Meds: 03:16 lisinopril Oral [Active]; ao 04:03 aspirin 81 mg Oral chew 1 tab once daily [Active]; atorvastatin 40 mg oral tab 1 tab ao once daily [Active]; furosemide 20 mg Oral tab 1 tab 2 times per day [Active]; metoprolol tartrate 12.5 Oral tab 1 tab once daily [Active]; dulera 100 Mcg/5 mcg [Active]; Klor-Con 10 10 mEq Oral TbER 1 tab once daily [Active]; Tiotropium (Spiriva Handihaler) [Active]; - PMHx: 03:16 Asthma; Hypertension; COPD; CHF; PR; ao - PSHx: 03:16 Cholecystectomy; Knee surgery; ao - Immunization history:: Adult Immunizations up to date. - Social history:: Smoking status: Patient/guardian denies using tobacco, Patient/guardian denies using alcohol, street drugs. - Family history:: not pertinent. - Ebola Screening: : Patient negative for fever greater than or equal to 101.5 degrees Fahrenheit, and additional compatible Ebola Virus Disease symptoms Patient denies exposure to infectious person Patient denies travel to an Ebola-affected area in the 21 days before illness onset. - Hospitalizations: : The patient was recently seen at [facility]. ROS: 03:06 Constitutional: Negative for fever, chills, and weight loss, Eyes: Negative for injury, rn pain, redness, and discharge, Neck: Negative for injury, pain, and swelling, Cardiovascular: Negative for chest pain, palpitations Respiratory: Negative for wheezing, and pleuritic chest pain, Abdomen/GI: Negative for abdominal pain, nausea, vomiting, diarrhea, and constipation, MS/Extremity: Negative for injury and deformity, Skin: Negative for injury, rash, and discoloration, Neuro: Negative for headache, weakness, numbness, tingling, and seizure. Exam: 03:06 Constitutional: This is a well developed, well nourished patient who is awake, alert, rn tachypnea with 4-5 word sentences, winded just transferring over to stretcher Head/Face: Normocephalic, atraumatic. Eyes: Pupils equal round and reactive to light, extra-ocular motions intact. Lids and lashes normal. Conjunctiva and sclera are non-icteric and not injected. Cornea within normal limits. Periorbital areas with no swelling, redness, or edema. Chest/axilla: Wearing external defibrillator Cardiovascular: regular rate, irregular rhythm, no murmur Respiratory: + mild to moderate tachypnea with coarse bilateral breath sounds, R>L, no wheezing Abdomen/GI: soft, non-tender MS/ Extremity: Pulses equal, no cyanosis. 2+ pitting edema bilateral lower ext Neuro: Awake and alert, GCS 15, oriented to person, place, time, and situation. Cranial nerves II-XII grossly intact. Motor strength 5/5 in all extremities. Sensory grossly intact. Vital Signs: 03:11 BP 89 / 70; Pulse 106; Resp 26; Temp 97.5(O); Pulse Ox 98% on 2 lpm NC; Weight 102.06 ao kg (R); Height 6 ft. 0 in. (182.88 cm) (R); Pain 0/10; 03:37 BP 97 / 76; Pulse 79; Resp 20; Pulse Ox 97% on 2 lpm NC; Pain 0/10; ao 03:56 BP 84 / 59; Pulse 80; Resp 24; Pulse Ox 97% on 2 lpm NC; ao 04:25 BP 101 / 68; Pulse 83; Resp 16; Pulse Ox 100% on 2 lpm NC; Pain 0/10; ao 04:55 BP 98 / 71; Pulse 91; Resp 20; Pulse Ox 97% on 2 lpm NC; ao 03:11 Body Mass Index 30.52 (102.06 kg, 182.88 cm) ao MDM: 03:04 Patient medically screened. rn 04:25 Differential diagnosis: CHF exacerbation, Myocardial Infarction pneumonia, Pneumothorax rn pulmonary edema. Data reviewed: vital signs, nurses notes, lab test result(s), EKG, radiologic studies, plain films, and as a result, I will admit patient. Counseling: I had a detailed discussion with the patient and/or guardian regarding: the historical points, exam findings, and any diagnostic results supporting the discharge/admit diagnosis, lab results, radiology results, the need for further work-up and treatment in the hospital. Response to treatment: the patient's symptoms have mildly improved after treatment, and as a result, I will admit patient. Admission orders: after a detailed discussion of the patient's condition and case, the admit orders are written by me. ED course: Pt with CHF exacerbation, lasix PO at home not working, taking and adherent to diet, will admit for gentle diuresis given presentation with relatively low blood pressure. . 04/04 03:06 Order name: CBC with Diff; Complete Time: 04:28 rn 04/04 03:06 Order name: Basic Metabolic Panel; Complete Time: 04:11 rn 04/04 03:06 Order name: Troponin (emerg Dept Use Only); Complete Time: 04:10 rn 04/04 03:06 Order name: N-Terminal Pro-brain Natriuretic Peptide; Complete Time: 04:11 rn 04/04 03:06 Order name: Blood Culture Adult (2) rn 04/04 07:11 Order name: Troponin I EDPA 04/04 03:06 Order name: IV Start; Complete Time: 03:36 rn 04/04 03:06 Order name: EKG; Complete Time: 03:06 rn 04/04 03:06 Order name: EKG - Nurse/Tech; Complete Time: 03:20 rn 04/04 03:06 Order name: XRAY Chest (1 view) rn Administered Medications: 03:16 CANCELLED (hypotensive): Lasix 40 mg IVP once rn 04:29 Drug: Lasix 20 mg Route: IVP; Site: left antecubital; ao 04:56 Follow up: Response: No adverse reaction ao Disposition: 04/04/18 04:27 Hospitalization ordered by Hellen Arciniega for Inpatient Admission. Preliminary diagnosis are Unspecified combined systolic (congestive) and diastolic (congestive) heart failure, Pulmonary edema, Dyspnea, unspecified. - Bed requested for Telemetry/MedSurg (observation). - Status is Inpatient Admission. ph - Condition is Stable. - Problem is an ongoing problem. - Symptoms have improved. UTI on Admission? No Signatures: Dispatcher [employer] EDMS Petra Negro RN Jamal Vora MD MD rn Hall, Patricia, RN RN ph Ortiz, Alex RN GABBIE duffy Corrections: (The following items were deleted from the chart) 03:07 03:06 Hospitalizations: No recent hospitalization is reported. rn rn 03:16 03:10 Lasix 40 mg IVP once ordered. rn rn 03:17 03:06 Constitutional: This is a well developed, well nourished patient who is awake, rn alert, tachypnea with 4-5 word sentences, winded just transferring over to stretcher Head/Face: Normocephalic, atraumatic. Eyes: Pupils equal round and reactive to light, extra-ocular motions intact. Lids and lashes normal. Conjunctiva and sclera are non-icteric and not injected. Cornea within normal limits. Periorbital areas with no swelling, redness, or edema. Cardiovascular: regular rate, no murmur Respiratory: + mild to moderate tachypnea with coarse bilateral breath sounds, R>L, no wheezing Abdomen/GI: soft, non-tender MS/ Extremity: Pulses equal, no cyanosis. 2+ pitting edema bilateral lower ext Neuro: Awake and alert, GCS 15, oriented to person, place, time, and situation. Cranial nerves II-XII grossly intact. Motor strength 5/5 in all extremities. Sensory grossly intact. rn 04:35 03:06 Constitutional: This is a well developed, well nourished patient who is awake, rn alert, tachypnea with 4-5 word sentences, winded just transferring over to stretcher Head/Face: Normocephalic, atraumatic. Eyes: Pupils equal round and reactive to light, extra-ocular motions intact. Lids and lashes normal. Conjunctiva and sclera are non-icteric and not injected. Cornea within normal limits. Periorbital areas with no swelling, redness, or edema. Cardiovascular: regular rate, irregular rhythm, no murmur Respiratory: + mild to moderate tachypnea with coarse bilateral breath sounds, R>L, no wheezing Abdomen/GI: soft, non-tender MS/ Extremity: Pulses equal, no cyanosis. 2+ pitting edema bilateral lower ext Neuro: Awake and alert, GCS 15, oriented to person, place, time, and situation. Cranial nerves II-XII grossly intact. Motor strength 5/5 in all extremities. Sensory grossly intact. rn 06:04 04:27 Hospitalization Ordered by Hellen Arciniega MD for Inpatient Admission. Preliminary kl diagnosis is Unspecified combined systolic (congestive) and diastolic (congestive) heart failure; Pulmonary edema; Dyspnea, unspecified. Bed requested for Telemetry/MedSurg (observation). Status is Inpatient Admission. Condition is Stable. Problem is an ongoing problem. Symptoms have improved. UTI on Admission? No. rn 07:54 06:04 04/04/2018 04:27 Hospitalization Ordered by Hellen Arciniega MD for Inpatient ph Admission. Preliminary diagnosis is Unspecified combined systolic (congestive) and diastolic (congestive) heart failure; Pulmonary edema; Dyspnea, unspecified. Bed requested for Telemetry/MedSurg (observation). Status is Inpatient Admission. Condition is Stable. Problem is an ongoing problem. Symptoms have improved. UTI on Admission? No. kl
--- NOTE | 2018-04-04 04:29 | ER ---
Nurse's Notes [facility] Name: Manny Tello Age: 73 yrs Sex: Male : 1945 Arrival Date: 04/04/2018 Time: 03:04 Bed 7 Private MD: Diagnosis: Unspecified combined systolic (congestive) and diastolic (congestive) heart failure;Pulmonary edema;Dyspnea, unspecified Presentation: 04/04 03:06 Presenting complaint: EMS states: Had SD three weeks ago and is waiting on internal ao defibrillator. Patient has being SO breath since SD and is getting worse. Tonight patient has SOB and was put in a C-PAP that was not tolerated and then to a nonrebreather that he tolerated well. Patient currently in NC tolerating well. Transition of care: patient was not received from another setting of care. Onset of symptoms is unknown. Risk Assessment: Do you want to hurt yourself or someone else? Patient reports no desire to harm self or others. Initial Sepsis Screen: Does the patient meet any 2 criteria? RR > 20 per min. No. Patient's initial sepsis screen is negative. Does the patient have a suspected source of infection? No. Patient's initial sepsis screen is negative. Care prior to arrival: None. 03:06 Method Of Arrival: EMS: [facility] ao 03:06 Acuity: DAVID 2 ao Historical: - Allergies: 03:16 No Known Allergies; ao - Home Meds: 03:16 lisinopril Oral [Active]; ao 04:03 aspirin 81 mg Oral chew 1 tab once daily [Active]; atorvastatin 40 mg oral tab 1 tab ao once daily [Active]; furosemide 20 mg Oral tab 1 tab 2 times per day [Active]; metoprolol tartrate 12.5 Oral tab 1 tab once daily [Active]; dulera 100 Mcg/5 mcg [Active]; Klor-Con 10 10 mEq Oral TbER 1 tab once daily [Active]; Tiotropium (Spiriva Handihaler) [Active]; - PMHx: 03:16 Asthma; Hypertension; COPD; CHF; SD; ao - PSHx: 03:16 Cholecystectomy; Knee surgery; ao - Immunization history:: Adult Immunizations up to date. - Social history:: Smoking status: Patient/guardian denies using tobacco, Patient/guardian denies using alcohol, street drugs. - Family history:: not pertinent. - Ebola Screening: : Patient negative for fever greater than or equal to 101.5 degrees Fahrenheit, and additional compatible Ebola Virus Disease symptoms Patient denies exposure to infectious person Patient denies travel to an Ebola-affected area in the 21 days before illness onset. - Hospitalizations: : The patient was recently seen at [facility]. Screenin:19 Abuse screen: Denies threats or abuse. Denies injuries from another. Nutritional ao screening: No deficits noted. Tuberculosis screening: No symptoms or risk factors identified. Fall Risk None identified. Assessment: 03:17 General: Appears in no apparent distress. uncomfortable, Behavior is calm, cooperative, ao appropriate for age. Pain: Denies pain. Neuro: Level of Consciousness is awake, alert, obeys commands, Oriented to person, place, time, situation, Appropriate for age Moves all extremities. Full function Speech is normal, Facial symmetry appears normal. Cardiovascular: Capillary refill < 3 seconds Patient's skin is warm and dry. Respiratory: Reports shortness of breath on exertion labored breathing since SD few week ago Airway is patent Respiratory effort is even, unlabored, Respiratory pattern is regular, symmetrical, Breath sounds with wheezes bilaterally. the patient has moderate shortness of breath. GI: Abdomen is round obese. : No signs and/or symptoms were reported regarding the genitourinary system. EENT: No signs and/or symptoms were reported regarding the EENT system. Derm: No signs and/or symptoms reported regarding the dermatologic system. Musculoskeletal: Circulation, motion, and sensation intact. Range of motion:. 04:10 Reassessment: Patient appears in no apparent distress at this time. Patient and/or ao family updated on plan of care and expected duration. Pain level reassessed. Patient is alert, oriented x 3, equal unlabored respirations, skin warm/dry/pink. Waiting on lab work results. 04:31 Reassessment: Dr Schuster at bedside talking to patient and family. Patient to be admitted ao to the hospital per Dr Schuster. 04:32 Reassessment: Lasix 20 Mg has been given. BP is being monitoring. ao 05:20 Reassessment: See [facility] for future documentation. ao Vital Signs: 03:11 BP 89 / 70; Pulse 106; Resp 26; Temp 97.5(O); Pulse Ox 98% on 2 lpm NC; Weight 102.06 ao kg (R); Height 6 ft. 0 in. (182.88 cm) (R); Pain 0/10; 03:37 BP 97 / 76; Pulse 79; Resp 20; Pulse Ox 97% on 2 lpm NC; Pain 0/10; ao 03:56 BP 84 / 59; Pulse 80; Resp 24; Pulse Ox 97% on 2 lpm NC; ao 04:25 BP 101 / 68; Pulse 83; Resp 16; Pulse Ox 100% on 2 lpm NC; Pain 0/10; ao 04:55 BP 98 / 71; Pulse 91; Resp 20; Pulse Ox 97% on 2 lpm NC; ao 03:11 Body Mass Index 30.52 (102.06 kg, 182.88 cm) ao ED Course: 03:04 Patient arrived in ED. rn 03:04 Jamal Schuster MD is Attending Physician. rn 03:06 Dl Chávez RN is Primary Nurse. ao 03:10 Triage completed. ao 03:17 Arm band placed on right wrist. Patient placed in an exam room, Patient notified of ao wait time. 03:19 Patient has correct armband on for positive identification. assembler tubing on. Pulse ao ox on. NIBP on. 03:24 X-ray completed. Portable x-ray completed in exam room. Patient tolerated procedure mh1 well. 03:24 XRAY Chest (1 view) In Process Unspecified. EDMS 03:25 Inserted saline lock: 20 gauge in right antecubital area, using aseptic technique. ao Blood collected. 04:27 Hellen Arciniega MD is Hospitalizing Provider. rn 05:10 No provider procedures requiring assistance completed. Patient admitted, IV remains in ao place. Administered Medications: 03:16 CANCELLED (hypotensive): Lasix 40 mg IVP once rn 04:29 Drug: Lasix 20 mg Route: IVP; Site: left antecubital; ao 04:56 Follow up: Response: No adverse reaction ao Outcome: 04:27 Decision to Hospitalize by Provider. rn 05:10 Admitted to ER Hold. Please see [facility] for further documentation. ao 05:10 Condition: stable 05:10 Instructed on the need for admit. 07:54 Patient left the ED. ph Signatures: Dispatcher [employer] EDMS Kim Rushing 1 Jamal Schuster MD MD rn Hall, Patricia, RN RN Dl Anderson RN RN ao Corrections: (The following items were deleted from the chart) 03:07 03:06 Hospitalizations: No recent hospitalization is reported. ravi rn 04:31 04:25 BP 101 / 68; Pulse 83bpm; Resp 16bpm; Pulse Ox 100% RA; Pain 0/10; ao ao 06:27 05:50 Reassessment: See [facility] for future documentation ao ao
--- NOTE | 2018-04-04 05:20 | P.HP ---
Certification for Inpatient Patient admitted to: Inpatient With expected LOS: >2 Midnights Practitioner: I am a practitioner with admitting privileges, knowledge of patient current condition, hospital course, and medical plan of care. Services: Services provided to patient in accordance with Admission requirements found in Title 42 Section 412.3 of the Code of Federal Regulations Patient History Date of Service: 04/04/18 Reason for admission: Acute on chronic systolic CHF History of Present Illness: Mr Tello is a 73-year-old male with history of hypertension, COPD, coronary artery disease status post acute GA about 3 weeks ago, chronic systolic CHF last echo in 03/16/2018 showed global hypokinesia with EF estimated at 34%. The patient is wearing a life vest defibrillator, while is awaiting an ICD placement. Since the patient was discharged 3 weeks ago after an acute GA, he was feeling progressively short of breath, he noticed his legs were getting swollen as well. The patient went to see Dr. Sagastume 2 days ago, and his Lasix dose was increased. However, the medication dose change did not improve his symptoms, in fact last night he was feeling worse with the shortness of breath, and came to the ER for further evaluation. He denied any chest pain, fever or chills. He states he has chronic cough, with whitish secretion, which is not different than usual. Chest-x-ray remarkable for bilateral infiltrate consistent with pulmonary edema. Lab work shows significant increase of BNP, troponin I is elevated, but still trending down since the last admission. Allergies No Known Allergies Allergy (Verified 04/04/18 05:04) Home medications list reviewed: Yes Home Medications: Albuterol Sulfate [Ventolin Hfa] 1 puff IH PRN PRN 03/16/18 Aspirin [Aspirin EC 81 MG] 81 mg PO DAILY #30 tablet. 03/19/18 Atorvastatin Calcium [Lipitor] 40 mg PO BEDTIME #30 tab 03/19/18 Furosemide [Lasix] 20 mg PO DAILY #30 tab 03/19/18 Metoprolol Tartrate [Lopressor*] 12.5 mg PO BID #60 tab 03/19/18 Mometasone/Formoterol [Dulera 100 Mcg/5 Mcg Inhaler] 2 puff IH BID #1 inhaler Potassium Oral Tab [Klor-Con 10 mEq Tab*] 10 meq PO DAILY #30 tab 03/19/18 Sacubitril/Valsartan [Entresto 24 mg-26 mg Tablet] 1 tab PO BID #60 tab Thiamine HCl [Vitamin B-1*] 100 mg PO DAILY tablet 03/19/18 Tiotropium [Spiriva Handihaler*] 1 sprays IH DAILY #1 inh 03/19/18 Lisinopril/Hydrochlorothiazide [Lisinopril-Hctz 10-12.5 mg Tab] 10 - 10.5 mg PO DAILY 04/04/18 - Past Medical/Surgical History Has patient received pneumonia vaccine in the past: Yes Diabetic: No -: HTN -: Asthma -: COPD -: CHF -: GA -: Chronic systolic CHF -: Gall bladder removal -: Tonsillectomy -: Knee surgery - Family History Father -: Heart disease Mother -: Heart disease - Social History Smoking Status: Former smoker Alcohol use: No CD- Drugs: No Caffeine use: Yes Place of Residence: Home Review of Systems 10-point ROS is otherwise unremarkable Physical Examination - Physical Exam General: Alert, Mild distress (Due to shortness of breath and stomach bloating) HEENT: Atraumatic, PERRLA, Mucous membr. moist/pink, EOMI, Sclerae nonicteric Neck: Supple, 2+ carotid pulse no bruit, No LAD, Without JVD or thyroid abnormality Respiratory: Diminished, Crackles/rales (Bibasilar rales) Cardiovascular: Regular rate/rhythm, Normal S1 S2 Gastrointestinal: Normal bowel sounds, No tenderness Musculoskeletal: No tenderness, Swelling (Bilateral lower extremity swelling 2+) Integumentary: No rashes Neurological: Normal speech, Normal strength at 5/5 x4 extr, Normal tone, Normal affect Lymphatics: No axilla or inguinal lymphadenopathy - Studies Laboratory Data (last 24 hrs) 04/04/18 03:30: WBC 7.5, Hgb 15.0, Hct 45.4, Plt Count 189 04/04/18 03:30: Sodium 143, Potassium 3.8, BUN 24 H, Creatinine 1.30, Glucose 139 H Assessment and Plan - Problems (Diagnosis) (1) Acute on chronic systolic (congestive) heart failure Current Visit: Yes Status: Acute (2) CAD (coronary artery disease) Current Visit: No Status: Chronic Qualifiers: Coronary Disease-Associated Artery/Lesion type: unspecified vessel or lesion type (3) COPD (chronic obstructive pulmonary disease) Current Visit: No Status: Chronic Qualifiers: COPD type: unspecified COPD Qualified Code(s): J44.9 - Chronic obstructive pulmonary disease, unspecified (4) Hypertension Current Visit: No Status: Chronic Qualifiers: Hypertension type: essential hypertension Qualified Code(s): I10 - Essential (primary) hypertension (5) Acute renal injury Current Visit: Yes Status: Acute - Plan The patient will be admitted to the hospital due to acute on chronic CHF, his BP is on the lower side, will order IV Lasix, strict control of ins and outs, he has a recent echocardiogram showing severe LV depression with EF 34%. Will consult bass string winder, for medication dose adjustment. Will resume home medication when is appropriate and verified. - Advance Directives Does patient have a Living Will: No Does patient have a Durable POA for Healthcare: No - Code Status/Comfort Care Code Status Assessed: Yes Code Status: Full Code
[2018-04-04] MEDS ORDERED: ONDANSETRON 4 MG/2 ML VIAL IV PRN (05:53)
[2018-04-04] MEDS ORDERED: ACETAMINOPHEN 500 MG TAB PO PRN (05:53)
[2018-04-04] MEDS ORDERED: ACETAMINOPHEN 500 MG TAB ONE (06:03)
--- NOTE | 2018-04-04 06:28 | EKG ---
Test Date: 2018-04-04 Test Time: 03:08:28 Dye Range Tender: JOSEPH MEASUREMENT RESULTS: Intervals: Rate: 93 TX: 188 QRSD: 142 QT: 422 QTc: 524 Haslett: P: 31 TX: 188 QRS: -77 T: 86 INTERPRETIVE STATEMENTS: Normal sinus rhythm Left axis deviation Right bundle branch block Inferior infarct, age undetermined Anterior infarct, age undetermined Abnormal ECG Compared to ECG 03/16/2018 17:16:10 Sinus tachycardia no longer present Atrial premature complex(es) no longer present Myocardial infarct finding still present Electronically Signed On 04-04-18 06:27:00 CDT by Primo Sagastume
[2018-04-04] MEDS ORDERED: FUROSEMIDE 40 MG/4 ML VIAL IV SCH (09:00)
--- NOTE | 2018-04-04 09:10 | P.PN ---
Subjective Date of Service: 04/04/18 Primary Care Provider: Unknown; Cardiology-Dr. Sagastume Chief Complaint: Acute on chronic systolic CHF Subjective: Other (Patient doing better with diuresis.) Physical Examination - Vital Signs Temperature: 97.5 F Blood Pressure: 123/64 Pulse: 84 Respirations: 20 Pulse Ox (%): 96 - Physical Exam General: Alert, In no apparent distress, Oriented x3, Cooperative HEENT: Atraumatic Neck: Supple Respiratory: Crackles/rales (Bilateral) Cardiovascular: Normal pulses, Regular rate/rhythm Gastrointestinal: Normal bowel sounds, Soft and benign, Non-distended, No tenderness, No masses, No rebound, No guarding Musculoskeletal: No erythema, No tenderness, No warmth Integumentary: Tenderness/swelling (1+ pitting edema to the lower extremities bilateral) Neurological: Normal speech, Normal strength at 5/5 x4 extr, Normal tone, Normal affect - Studies Laboratory Data (last 24 hrs) 04/04/18 03:30: WBC 7.5, Hgb 15.0, Hct 45.4, Plt Count 189 04/04/18 03:30: Sodium 143, Potassium 3.8, BUN 24 H, Creatinine 1.30, Glucose 139 H Medications List Reviewed: Yes Assessment & Plan - Problems (Diagnosis) (1) Chronic renal disease Current Visit: Yes Status: Suspected Plan: Suspect patient has chronic renal disease. Patient on diuretic therapy. Will need to monitor renal function. Qualifiers: Chronic kidney disease stage: stage 2 (mild) Qualified Code(s): N18.2 - Chronic kidney disease, stage 2 (mild) (2) CAD (coronary artery disease) Current Visit: No Status: Chronic Plan: Patient with known CAD with a recent [place]. Patient with life vest in place. Patient with acute on chronic CHF. Continue with diuresis. Will teach on fluid restriction. Await further recommendations from cardiology. Qualifiers: Coronary Disease-Associated Artery/Lesion type: unspecified vessel or lesion type (3) Hypertension Current Visit: No Status: Chronic Plan: Will continue with blood pressure medication. Will monitor and adjust appropriately. Qualifiers: Hypertension type: essential hypertension Qualified Code(s): I10 - Essential (primary) hypertension (4) Alcoholic cardiomyopathy Current Visit: No Status: Chronic Plan: Patient with history of alcoholic cardiomyopathy. Alcohol cessation will need to be continued. Continue as above for CHF. (5) Alcohol abuse Current Visit: No Status: Chronic Plan: Will continue to address alcohol cessation. (6) Hyperlipidemia Current Visit: No Status: Chronic Plan: Continue with medication. Qualifiers: Hyperlipidemia type: unspecified Qualified Code(s): E78.5 - Hyperlipidemia , unspecified (7) COPD (chronic obstructive pulmonary disease) Current Visit: No Status: Chronic Plan: Continue with his med COPD medication. Will check to see if the patient requires home oxygen at discharge. Qualifiers: COPD type: unspecified COPD Qualified Code(s): J44.9 - Chronic obstructive pulmonary disease, unspecified (8) Acute on chronic systolic (congestive) heart failure Current Visit: Yes Status: Acute Plan: Patient with acute on chronic systolic heart failure. Patient with life vest in place. Continue IV diuresis. Await further recommendations from cardiology. Will continue with Entresto. Address lifestyle modification education. (9) Obesity Current Visit: Yes Status: Chronic Plan: Will continue to address lifestyle modification education. Qualifiers: Obesity type: due to excess calories Obesity classification: adult class 1 (BMI 30 - 34.9) Serious obesity comorbidity presence: with serious comorbidity Body mass index: BMI 30.0-30.9 Qualified Code(s): E66.09 - Other obesity due to excess calories; Z68.30 - Body mass index (BMI) 30.0-30.9, adult (10) Former tobacco use Current Visit: Yes Status: Chronic Plan: Will address tobacco cessation Discharge Plan: Home Plan to discharge in: 24 Hours Time Spent Managing Pts Care (In Minutes): 55
[2018-04-04] MEDS: ASPIRIN EC 81 MG TAB PO SCH (09:35)
[2018-04-04] MEDS: ENOXAPARIN 40 MG/0.4 ML SQ SCH (09:35)
[2018-04-04] MEDS: THIAMINE HCL 100 MG TABLET PO SCH (09:35)
[2018-04-04] MEDS: METOPROLOL TAR 25 MG TAB PO SCH ×2 (09:35→21:52)
[2018-04-04] MEDS: SACUBITRIL/VALSARTAN 24/26 MG TAB PO SCH ×2 (10:15→21:53)
--- NOTE | 2018-04-04 10:57 | RAD REPORT ---
EXAM DESCRIPTION: RAD - Chest Single View - 04/04/2018 3:25 am CLINICAL HISTORY: DYSPNEA Chest pain. COMPARISON: Chest Single View dated 03/16/2018; CHEST SINGLE VIEW dated 07/05/2010 FINDINGS: Portable technique limits examination quality. Mild interstitial pulmonary edema suspected. Small pleural effusions are likely present. The heart is moderately enlarged in size. No displaced fractures. IMPRESSION: Mild CHF/ volume overload pattern.
[2018-04-04] MEDS: SPIRONOLACTONE 25 MG TABLET PO SCH (12:32)
[2018-04-04] MEDS ORDERED: POTASSIUM CL SA 10 MEQ TAB PO ONE (13:00)
[2018-04-04] MEDS ORDERED: PNEUMOCOCCAL VACCINE 0.5 ML IMVAC ONE (14:00)
[2018-04-04] MEDS: ALBUTEROL 2.5 MG/3 ML NEB SOL NEB PRN ×2 (15:10→20:22)
[2018-04-04] MEDS: IPRATROPIUM BROM 0.5MG/2.5ML NEB PRN ×2 (15:10→20:22)
--- NOTE | 2018-04-04 16:15 | CON ---
Reason For Consult: Dyspnea. History Of Present Illness: Mr. 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 He was instructed on a low-sodium diet, placed on diureti cs and beta blockers and sacubitril. He has done a good job taking his medicines, but his diet has c onsisted of very high sodium foods including a pot roast made with a beef Consomme. He also ate [place] food at a [employer] restaurant and enchilada dinner. These are things that apparently he and his f darrelly did not learn from information given to them previously about sodium restriction. Now, they se em to be more interested in learning about sodium restriction. I have instructed them on a 2 g sodiu m diet, given them ideas of how easy it is to exceed it. He went home from our hospital on March 19, this is April 03 that he came back. So, in the 15 days, he has gained a lot of fluid back. Gilma dixon is orthopneic and dyspneic with exertion. Notes a lot of edema. On March 16, he weighed 252 jignesh nds. At the time he was discharged, he weighed less than 220 pounds, now he is 225 pounds. I believ e the 225 pounds is a stated weight rather than an actual measured weight, so we will try and get his measured weight, teach him about sodium restriction and he needs to get a diuresis. Apparently, he has been successful at staying away from alcohol. He has been taking his Xarelto, metoprolol, and fu rosemide. I can't really tell if he is losing fluid yet, but I suspect he has not lost very much. Physical Examination: General: He is mildly dyspneic. Lungs: There are crackles in the lungs nearly up to the scapula. Decreased breath sounds in both ba ses. Extremities: There is no edema of the abdominal wall, presacral area, thighs, calves, feet, and neri s. He has elevated troponins. The troponins are all staying about the same at about 0.2. His N-termin al proBNP is 15,000. It was 10,000 when I saw him on the . We did not check it, but I imagine it got closer to under 5000, now it is over 15,000. Impression: The patient just did not get all of the messages about the things he has to do with hear t failure now. So, we are going to diurese him. He probably needs to lose significant amount of rachael ght. I will make sure they were actually weighing him on a stand-up scale with nothing on, but a hos pital gown and get daily weights. He needs to probably lose about 15 pounds from wherever he is toda yNya JIMENEZ/ANIYAH Voice ID: [id number] Report ID: [id number]
[2018-04-04] MEDS: FUROSEMIDE 40 MG/4 ML VIAL IV SCH (18:38)
[2018-04-04] MEDS ORDERED: DULERA 100/5 (MOMETASONE/FORMOTEROL) INHALER IH SCH (21:00)
[2018-04-04] MEDS: ATORVASTATIN 40 MG TAB PO SCH (21:53)
[2018-04-05] MEDS: FUROSEMIDE 40 MG/4 ML VIAL IV SCH ×3 (00:56→17:00)
[2018-04-05 07:28] LABS: Bilirubin Total 1.3 mg/dL (0.2-1.0); Magnesium 2.1 mg/dL (1.8-2.4); Potassium 3.8 mmol/L (3.5-5.1); Protein, Total 5.8 g/dL (6.4-8.2)
--- NOTE | 2018-04-05 07:50 | RAD REPORT ---
EXAM DESCRIPTION: RAD - Chest Pa And Lat (2 Views) - 04/05/2018 6:50 am CLINICAL HISTORY: CHF COMPARISON: April 04 TECHNIQUE: PA and lateral views of the chest were obtained. FINDINGS: The lungs are normal volume. Interstitial markings are prominent, more so in each lung bas e. Pattern is similar to the prior study. Mild cardiomegaly is present. Vasculature remains mildly prominent. No new or enlarging pleural effusion or pneumothorax. Right costophrenic angle blunting is present. Patient likely has a minimal right-side pleural effusion. No aortic abnormality. IMPRESSION: Mild CHF/ volume overload pattern is similar to prior day study.
[2018-04-05] MEDS ORDERED: POTASSIUM CL SA 10 MEQ TAB PO ONE (09:00)
[2018-04-05] MEDS ORDERED: TIOTROPIUM 5 SPRAYS/INHALER IH SCH (09:00)
[2018-04-05] MEDS: IPRATROPIUM BROM 0.5MG/2.5ML NEB PRN ×2 (09:42→17:01)
[2018-04-05] MEDS: ALBUTEROL 2.5 MG/3 ML NEB SOL NEB PRN ×2 (09:42→17:01)
[2018-04-05] MEDS: SACUBITRIL/VALSARTAN 24/26 MG TAB PO SCH ×2 (10:11→21:00)
[2018-04-05] MEDS: THIAMINE HCL 100 MG TABLET PO SCH (10:11)
[2018-04-05] MEDS: NICOTINE 21 MG/PAT TD SCH (10:11)
[2018-04-05] MEDS: SPIRONOLACTONE 25 MG TABLET PO SCH (10:11)
[2018-04-05] MEDS: ASPIRIN EC 81 MG TAB PO SCH (10:12)
[2018-04-05] MEDS: METOPROLOL TAR 25 MG TAB PO SCH ×2 (10:12→21:00)
[2018-04-05] MEDS: ENOXAPARIN 40 MG/0.4 ML SQ SCH (10:13)
--- NOTE | 2018-04-05 11:14 | PN ---
Mr. Tello has had a significant diuresis, breathing much better. Lungs are clear. Our nursing staff and associated nursing helpers are not following the orders in weighing the patient daily. We will see what his weight is. His initial weight listed as 225 was not accurate on the scale. He was 270 yesterday afternoon and I suspect he has lost between 5 and 7 pounds. We will continue the IV diures is today, teach him about sodium restriction, daily weights. Perhaps he can be discharged this after noon. BARBARA/ANIYAH Voice ID: [id number] Report ID: [id number]
--- NOTE | 2018-04-05 17:26 | P.PN ---
Subjective Date of Service: 04/05/18 Primary Care Provider: Unknown; Cardiology-Dr. Sagastume Chief Complaint: Acute on chronic systolic CHF Subjective: Doing well Physical Examination - Vital Signs Temperature: 96.3 F Blood Pressure: 91/69 Pulse: 82 Respirations: 18 Pulse Ox (%): 96 - Physical Exam General: Alert, In no apparent distress, Oriented x3, Cooperative HEENT: Atraumatic Neck: Supple Respiratory: Clear to auscultation bilaterally, Normal air movement Cardiovascular: Normal pulses, Regular rate/rhythm Gastrointestinal: Normal bowel sounds, Soft and benign, Non-distended, No tenderness, No masses, No rebound, No guarding Musculoskeletal: No tenderness, No warmth Integumentary: Tenderness/swelling (Edema to the lower extremities improved.) Neurological: Normal speech, Normal strength at 5/5 x4 extr, Normal tone, Normal affect Lymphatics: No axilla or inguinal lymphadenopathy - Studies Medications List Reviewed: Yes Assessment & Plan - Problems (Diagnosis) (1) Chronic renal disease Onset Date: 04/05/18 Current Visit: Yes Status: Suspected Plan: Suspect patient has chronic renal disease. Patient responding well to diuretic therapy. Will teach on 1500 cc per day fluid restriction for a congestive heart failure. Cardiology has adjusted medication. Patient will continue with Lasix 80 mg twice daily. Aldactone added. Renal function will need to be monitored on diuretic therapy. Patient also on [employer]. Patient has qualified for home oxygen at discharge. Anticipate discharge tomorrow. I will turn the service over to Dr. Dean tomorrow. I will go over the plan of care with him. Qualifiers: Chronic kidney disease stage: stage 2 (mild) Qualified Code(s): N18.2 - Chronic kidney disease, stage 2 (mild) (2) CAD (coronary artery disease) Onset Date: 04/05/18 Current Visit: Yes Status: Chronic Plan: Patient with known CAD with a recent [place]. Patient with life vest in place. Patient with acute on chronic CHF. Continue with diuresis. Will teach on fluid restriction. Cardiology has made adjustments to medication. Qualifiers: Coronary Disease-Associated Artery/Lesion type: unspecified vessel or lesion type (3) Hypertension Onset Date: 04/05/18 Current Visit: Yes Status: Chronic Plan: Will continue with blood pressure medication. Will monitor and adjust appropriately. Qualifiers: Hypertension type: essential hypertension Qualified Code(s): I10 - Essential (primary) hypertension (4) Alcoholic cardiomyopathy Current Visit: No Status: Chronic Plan: Patient with history of alcoholic cardiomyopathy. Alcohol cessation will need to be continued. Continue as above for CHF. (5) Alcohol abuse Current Visit: No Status: Chronic Plan: Will continue to address alcohol cessation. (6) Hyperlipidemia Current Visit: No Status: Chronic Plan: Continue with medication. Qualifiers: Hyperlipidemia type: unspecified Qualified Code(s): E78.5 - Hyperlipidemia , unspecified (7) COPD (chronic obstructive pulmonary disease) Onset Date: 04/05/18 Current Visit: Yes Status: Chronic Plan: Continue with his med COPD medication. Patient qualifies for home oxygen. This will need to be arranged as an outpatient. Qualifiers: COPD type: unspecified COPD Qualified Code(s): J44.9 - Chronic obstructive pulmonary disease, unspecified (8) Acute on chronic systolic (congestive) heart failure Onset Date: 04/05/18 Current Visit: Yes Status: Acute Plan: Patient with acute on chronic systolic heart failure. Patient with life vest in place. Continue with diuresis. Cardiology adjusted medication. Patient will continue with Lasix 80 mg 1 pill twice daily. Aldactone added. Patient continues with Entresto (9) Obesity Onset Date: 04/05/18 Current Visit: Yes Status: Chronic Plan: Will continue to address lifestyle modification education. Qualifiers: Obesity type: due to excess calories Obesity classification: adult class 1 (BMI 30 - 34.9) Serious obesity comorbidity presence: with serious comorbidity Body mass index: BMI 30.0-30.9 Qualified Code(s): E66.09 - Other obesity due to excess calories; Z68.30 - Body mass index (BMI) 30.0-30.9, adult (10) Former tobacco use Current Visit: Yes Status: Chronic Plan: Will address tobacco cessation Discharge Plan: Home Plan to discharge in: 24 Hours Time Spent Managing Pts Care (In Minutes): 55
[2018-04-05] MEDS: FUROSEMIDE 40 MG TABLET PO SCH (20:59)
[2018-04-05] MEDS: ATORVASTATIN 40 MG TAB PO SCH (21:00)
[2018-04-06] MEDS: FUROSEMIDE 40 MG TABLET PO SCH (08:28)
[2018-04-06] MEDS: SACUBITRIL/VALSARTAN 24/26 MG TAB PO SCH (08:28)
[2018-04-06] MEDS: ASPIRIN EC 81 MG TAB PO SCH (08:28)
[2018-04-06] MEDS: METOPROLOL TAR 25 MG TAB PO SCH (08:29)
[2018-04-06] MEDS: SPIRONOLACTONE 25 MG TABLET PO SCH (08:29)
[2018-04-06] MEDS: ENOXAPARIN 40 MG/0.4 ML SQ SCH (08:30)
[2018-04-06] MEDS: THIAMINE HCL 100 MG TABLET PO SCH (08:30)
[2018-04-06] MEDS: NICOTINE 21 MG/PAT TD SCH (08:30)
--- NOTE | 2018-04-06 12:26 | P.DS ---
Admission Date: 04/04/18 Discharge Date: 04/06/18 Primary Care Provider: Unknown; Cardiology-Dr. Sagastume Disposition: ROUTINE DISCHARGE Discharge Condition: GOOD Reason for Admission: Acute on chronic systolic CHF - Problems (1) Acute on chronic systolic (congestive) heart failure Onset Date: 04/05/18 Current Visit: Yes Status: Acute (2) CAD (coronary artery disease) Onset Date: 04/05/18 Current Visit: Yes Status: Chronic Qualifiers: Coronary Disease-Associated Artery/Lesion type: unspecified vessel or lesion type (3) COPD (chronic obstructive pulmonary disease) Onset Date: 04/05/18 Current Visit: Yes Status: Chronic Qualifiers: COPD type: unspecified COPD Qualified Code(s): J44.9 - Chronic obstructive pulmonary disease, unspecified (4) Hypertension Onset Date: 04/05/18 Current Visit: Yes Status: Chronic Qualifiers: Hypertension type: essential hypertension Qualified Code(s): I10 - Essential (primary) hypertension (5) Acute renal injury Onset Date: 04/05/18 Current Visit: Yes Status: Acute Brief History of Present Illness: Mr Tello is a 73-year-old male with history of hypertension, COPD, coronary artery disease status post acute VA about 3 weeks ago, chronic systolic CHF last echo in 03/16/2018 showed global hypokinesia with EF estimated at 34%. The patient is wearing a life vest defibrillator, while is awaiting an ICD placement. Since the patient was discharged 3 weeks ago after an acute VA, he was feeling progressively short of breath, he noticed his legs were getting swollen as well. The patient went to see Dr. Sagastume 2 days ago, and his Lasix dose was increased. However, the medication dose change did not improve his symptoms, in fact last night he was feeling worse with the shortness of breath, and came to the ER for further evaluation. He denied any chest pain, fever or chills. He states he has chronic cough, with whitish secretion, which is not different than usual. Chest-x-ray remarkable for bilateral infiltrate consistent with pulmonary edema. Lab work shows significant increase of BNP, troponin I is elevated, but still trending down since the last admission. Hospital Course: During his stay in the hospital, the patient received IV Lasix with code diuresis response. He was evaluated by Dr. Sagastume, Aldactone was added. The patient gradually improved his symptoms, resolving dyspnea and decreasing lower extremity edema. His O2 sat of, remained in the lower side. The patient is high -risk for home oxygen. Today the patient will be discharged home, in stable condition, and will be followup by dinkey mechanic later this week. Vital Signs/Physical Exam: Temp Pulse Resp BP Pulse Ox 97.1 F 84 18 103/70 94 04/06/18 08:00 04/06/18 08:29 04/06/18 08:00 04/06/18 08:29 04/06/18 08:00 General: Alert, In no apparent distress Respiratory: Clear to auscultation bilaterally, Diminished Cardiovascular: Normal S1 S2, No gallops Gastrointestinal: Normal bowel sounds, No tenderness Musculoskeletal: No tenderness, Swelling (1+ bilateral lower extremity) Integumentary: No rashes Neurological: Normal speech, Normal tone, Normal affect Lymphatics: No axilla or inguinal lymphadenopathy Laboratory Data at Discharge: WBC 7.5 K/uL (4.3-10.9) 04/04/18 03:30 Hgb 15.0 g/dL (13.6-17.9) 04/04/18 03:30 Hct 45.4 % (39.6-49.0) 04/04/18 03:30 Plt Count 189 K/uL (152-406) 04/04/18 03:30 Sodium 143 mmol/L (136-145) 04/05/18 05:52 Potassium 3.8 mmol/L (3.5-5.1) 04/05/18 05:52 BUN 20 mg/dL (7-18) H 04/05/18 05:52 Creatinine 1.30 mg/dL (0.55-1.3) 04/05/18 05:52 Glucose 112 mg/dL (74-106) H 04/05/18 05:52 Magnesium 2.1 mg/dL (1.8-2.4) 04/05/18 05:52 Total Bilirubin 1.3 mg/dL (0.2-1.0) H 04/05/18 05:52 AST 22 U/L (15-37) 04/05/18 05:52 ALT 49 U/L (12-78) 04/05/18 05:52 Alkaline Phosphatase 79 U/L (45-117) 04/05/18 05:52 Troponin I 0.19 ng/mL (0.0-0.045) H 04/04/18 21:25 Home Medications: Albuterol Sulfate [Ventolin Hfa] 1 puff IH PRN PRN 03/16/18 Aspirin [Aspirin EC 81 MG] 81 mg PO DAILY #30 tablet. 03/19/18 Atorvastatin Calcium [Lipitor] 40 mg PO BEDTIME #30 tab 03/19/18 Metoprolol Tartrate [Lopressor*] 12.5 mg PO BID #60 tab 03/19/18 Mometasone/Formoterol [Dulera 100 Mcg/5 Mcg Inhaler] 2 puff IH BID #1 inhaler Potassium Oral Tab [Klor-Con 10 mEq Tab*] 10 meq PO DAILY #30 tab 03/19/18 Sacubitril/Valsartan [Entresto 24 mg-26 mg Tablet] 1 tab PO BID #60 tab Thiamine HCl [Vitamin B-1*] 100 mg PO DAILY tablet 03/19/18 Tiotropium [Spiriva Handihaler*] 1 sprays IH DAILY #1 inh 03/19/18 Lisinopril/Hydrochlorothiazide [Lisinopril-Hctz 10-12.5 mg Tab] 10 - 10.5 mg PO DAILY 04/04/18 Furosemide [Lasix*] 80 mg PO BID #120 tab 04/06/18 Spironolactone [Aldactone*] 50 mg PO DAILY #60 tab 04/06/18 New Medications: Furosemide [Lasix*] 80 mg PO BID #120 tab Spironolactone [Aldactone*] 50 mg PO DAILY #60 tab Diet: AHA Activity: Ad monika Followup: Primo Sagastume MD [ACTIVE - CAN ADMIT] - 2-3 Days Time spent managing pt's care (in minutes): 45
--- NOTE | 2018-04-07 08:34 | PN ---
Date of Progress Note: 04/06/2018 Mr. Tlelo is 73, who is a patient of Dr. Sagastume, was seen initially on 04/04/2018. He was admitted t o Dr. Schofield. He had alcoholic cardiomyopathy with an ejection fraction of 20%. Has remained alcoho l abstinent, but he is noncompliant with his medications. He is now on beta-blockers, Xarelto, Lasix and Entresto, has diuresed well, he feels well. I feel comfortable with him going home and he needs to have a followup in about 2 weeks. EDGARD/ANIYAH Voice ID: [id number] Report ID: [id number]
== END 2018-04-06 14:07 | disposition home or self-care (01) | DRG 291 ==
LOC: ER 03:02 → ERHOLD 04:27 → 4TH 07:43
PROVIDERS: ADMIT Internal Medicine; ATTEND Internal Medicine
DX: I13.0 Hypertensive heart and chronic kidney disease with heart failure and stage 1 through stage 4 chronic kidney disease, or unspecified chronic kidney disease (principal); I50.23 Acute on chronic systolic (congestive) heart failure; N17.9 Acute kidney failure, unspecified; N18.2 Chronic kidney disease, stage 2 (mild); I42.6 Alcoholic cardiomyopathy; F10.11 Alcohol abuse, in remission; I25.10 Atherosclerotic heart disease of native coronary artery without angina pectoris; E78.5 Hyperlipidemia, unspecified; E66.9 Obesity, unspecified; J44.9 Chronic obstructive pulmonary disease, unspecified; I25.2 Old myocardial infarction; Z99.81 Dependence on supplemental oxygen; Z79.82 Long term (current) use of aspirin; Z68.30 Body mass index [BMI] 30.0-30.9, adult; Z87.891 Personal history of nicotine dependence
CPT/HCPCS: 36415; 71045; 71046; 80048; 80053; 83735; 83880; 84484; 85025; 87040; 93005; 94640; 94760; 96374; 99285; J1650; J1940; J2405

== ENCOUNTER 2018-04-07 13:16 | Emergency (ER) | payer OTHER ==
--- OUTSIDE RECORDS SUMMARY | 2018-04-07 13:18 | XMS REPORT ---
[...] Medications Results No Known Results Summary Purpose [employer] Submission
--- OUTSIDE RECORDS SUMMARY | 2018-04-07 13:18 | XMS REPORT ---
[...] End Status Dosage System Date Date Dulera [facility] 86082274704 100-5 MCG/ACT Active 2 puffs Inhalation Twice a day Spiriva [facility] 28660553359 18 MCG Active 1 capsule HandiHaler Inhalation Once a day Albuterol [facility] 20967908543 108 (90 Base) Active 2 puffs as Sulfate HFA MCG/ACT needed Inhalation every 6 hrs Metoprolol [facility] 30990362486 25 MG Orally Active 0.5 tablet Tartrate Twice a day with food Lasix [facility] 02256185884 20 MG Orally Active 1 tablet Once a day Vitamin B-1 ND 06288590547 100 MG Orally Active 1 tablet Once a day Entresto [facility] 15877810745 24-26 MG Orally Active 1 tablet Twice a day Albuterol [facility] 36483865287 (2.5 MG/3ML) Active 3 ml as Sulfate 0.083% needed Inhalation Three times a day PRN Cough, SOB or Wheezing Aspir-81 [facility] 83582058285 81 MG Orally Active 1 tablet Once a day Lisinopril-Hyd [facility] 36661356069 10-12.5 MG Active 1 tablet rochlorothiazi Orally Once a de day Lipitor [facility] 62642754114 40 MG Orally Active 1 tablet Once a day Potassium [facility] 63372074050 10 MEQ Orally Active 1 capsule Chloride Twice a day with food Results No Known Results Summary Purpose [employer] Submission
--- OUTSIDE RECORDS SUMMARY | 2018-04-07 13:18 | XMS REPORT ---
[...] Medications Results No Known Results Summary Purpose [employer] Submission
[2018-04-07] MEDS ORDERED: FUROSEMIDE 40 MG/4 ML VIAL ONE (13:47)
[2018-04-07 14:15] LABS: Absolute Lymphocytes (CBC) 0.7 K/uL (0.7-4.9); Absolute Monocytes 0.6 K/uL (0.1-1.3); Absolute Neutrophil 5.1 K/uL (1.8-8.0); Basophils % 0.8 % (0-1.3); Eosinophils % 0.6 % (0-4.4); Hematocrit 44.7 % (39.6-49.0); Lymphocytes % 10.6 % (15.3-44.8); MCH 32.4 pg (27.0-35.0); MCV 97.9 fL (80-100); Monocytes % 9.5 % (3.3-12.3); RBC Red Blood Cell Count 4.57 M/uL (4.33-5.43)
[2018-04-07 14:18] LABS: Protime INR 1.29
[2018-04-07 14:27] LABS: Urine Blood NEGATIVE (NEG); Urine Glucose NEGATIVE (NEG); Urine Protein NEGATIVE (NEG)
[2018-04-07 14:39] LABS: Albumin 3.1 g/dL (3.4-5.0); Bilirubin Direct 0.3 mg/dL (0-0.2); Bilirubin Total 1.4 mg/dL (0.2-1.0); Magnesium 2.2 mg/dL (1.8-2.4); Potassium 4.3 mmol/L (3.5-5.1); Protein, Total 6.3 g/dL (6.4-8.2)
--- NOTE | 2018-04-07 15:09 | RAD REPORT ---
EXAM DESCRIPTION: RAD - Chest Single View - 04/07/2018 2:51 pm CLINICAL HISTORY: SOB<Reason For Exam>SOB COMPARISON: Chest Pa And Lat (2 Views) dated 04/05/2018; Chest Single View dated 04/04/2018; Chest Sin gle View dated 03/16/2018; CHEST SINGLE VIEW dated 07/05/2010<Comparisons> TECHNIQUE: AP portable chest image was obtained 1444 hours . FINDINGS: Cardiomegaly is present. Vascular engorgement is present. Interstitial thickening is seen in the lung vazquez primarily central and medial lung base. Body habitus and portable technique are li miting. External defibrillator overlies the chest. Trachea is midline. No pneumothorax or large pleur al effusion. Right costophrenic angle blunting is present and stable. No gross bony abnormality seen. No acute aortic findings suspected. IMPRESSION: CHF/volume overload pattern similar or slightly worse than seen April 05.
--- NOTE | 2018-04-07 16:15 | EKG ---
Test Date: 2018-04-07 Test Time: 13:25:34 [employer] Wh[employer] Machine Operator: KALANI MEASUREMENT RESULTS: Intervals: Rate: 88 MO: 192 QRSD: 146 QT: 434 QTc: 525 [place]: P: MO: 192 QRS: -73 T: 91 INTERPRETIVE STATEMENTS: Sinus rhythm with premature atrial complexes Left axis deviation Right bundle branch block Inferior infarct, age undetermined Anterior infarct, age undetermined Abnormal ECG Compared to ECG 04/04/2018 03:08:28 Atrial premature complex(es) now present Myocardial infarct finding still present Electronically Signed On 04-07-18 16:14:22 CDT by Misbah Rehman
--- NOTE | 2018-04-07 16:17 | ER ---
Nurse's Notes [facility] Name: Manny Tello Age: 73 yrs Sex: Male : 1945 Arrival Date: 04/07/2018 Time: 13:25 Bed 24 Private MD: Diagnosis: Acute on chronic combined systolic (congestive) and diastolic (congestive) heart failure Presentation: 04/07 13:26 Presenting complaint: EMS states: shortness of breath, not producing urine well. tl3 Transition of care: patient was not received from another setting of care. Onset of symptoms was April 07, 2018 at 13:27. Risk Assessment: Do you want to hurt yourself or someone else? Patient reports no desire to harm self or others. Initial Sepsis Screen: Does the patient meet any 2 criteria? No. Patient's initial sepsis screen is negative. Does the patient have a suspected source of infection? No. Patient's initial sepsis screen is negative. Care prior to arrival: IV initiated. 20 GA, in the left antecubital area. 13:26 Method Of Arrival: EMS: [facility] tl3 13:26 Acuity: DAVID 3 tl3 Triage Assessment: 13:29 General: Appears uncomfortable, well groomed, well developed, well nourished, Behavior tl3 is calm, cooperative, appropriate for age. Pain: Denies pain. EENT: No signs and/or symptoms were reported regarding the EENT system. Neuro: Level of Consciousness is awake, alert, obeys commands, Oriented to person, place, time, situation, Appropriate for age. Cardiovascular: Reports shortness of breath, since this morning Heart tones S1 S2 present Capillary refill < 3 seconds Patient's skin is warm and dry. Respiratory: Reports shortness of breath Airway is patent Respiratory effort is even, unlabored, Respiratory pattern is regular, symmetrical, Breath sounds are clear bilaterally. Onset: The symptoms/episode began/occurred gradually, the patient has moderate shortness of breath. Respiratory: Reports air hunger since this am, pt was discharged from hospital yesterday with home O2 for as needed, he put himself on 3 L/M for his SOB, on arrival pt was 96% on RA. GI: No signs and/or symptoms were reported involving the gastrointestinal system. : Reports inability to pass much urine. Derm: No signs and/or symptoms reported regarding the dermatologic system. Musculoskeletal: No signs and/or symptoms reported regarding the musculoskeletal system. Historical: - Home Meds: 13:29 aspirin 81 mg Oral chew 1 tab once daily [Active]; atorvastatin 40 mg Oral tab 1 tab tl3 once daily [Active]; dulera 100 Mcg/5 mcg [Active]; Klor-Con 10 10 mEq Oral TbER 1 tab once daily [Active]; lisinopril Oral [Active]; metoprolol tartrate 12.5 Oral tab 1 tab once daily [Active]; Tiotropium (Spiriva Handihaler) [Active]; 13:55 furosemide 80 mg oral tab once daily [Active]; thiamine HCl (vitamin B1) 50 mg Oral tab tl3 [Active]; Entresto 24-26 mg oral tab twice a day [Active]; Aldactone 50 mg Oral tab 1 tab 2 times per day [Active]; Dulera 100-5 mcg/actuation inhalation HFAA 2 puffs 2 times per day [Active]; - PMHx: 13:29 Asthma; CHF; COPD; Hypertension; [place]; tl3 - PSHx: 13:29 Cholecystectomy; Knee surgery; tl3 - Immunization history:: Adult Immunizations up to date. - Social history:: Smoking status: unknown. - Ebola Screening: : No symptoms or risks identified at this time. Screenin:38 Abuse screen: Denies threats or abuse. Nutritional screening: No deficits noted. tl3 Tuberculosis screening: No symptoms or risk factors identified. Fall Risk None identified. Assessment: 13:38 Reassessment: No changes from previously documented assessment. Cardiovascular: Rhythm tl3 is regular. 15:33 Reassessment: Patient appears in no apparent distress at this time. No changes from tl3 previously documented assessment. Patient and/or family updated on plan of care and expected duration. Pain level reassessed. Patient is alert, oriented x 3, equal unlabored respirations, skin warm/dry/pink. family at bedside. 16:24 Reassessment: Patient appears in no apparent distress at this time. No changes from tl3 previously documented assessment. Patient and/or family updated on plan of care and expected duration. Pain level reassessed. Patient is alert, oriented x 3, equal unlabored respirations, skin warm/dry/pink. 17:22 Reassessment: report called to Pamela Astorga RN. tl3 17:26 Reassessment: Patient appears in no apparent distress at this time. No changes from tl3 previously documented assessment. Patient and/or family updated on plan of care and expected duration. Pain level reassessed. Patient is alert, oriented x 3, equal unlabored respirations, skin warm/dry/pink. 18:17 Reassessment: Patient appears in no apparent distress at this time. No changes from tl3 previously documented assessment. Patient and/or family updated on plan of care and expected duration. Pain level reassessed. Patient is alert, oriented x 3, equal unlabored respirations, skin warm/dry/pink. awaiting EMS for transfer. 19:23 Reassessment: Patient appears in no apparent distress at this time. No changes from tl3 previously documented assessment. Patient and/or family updated on plan of care and expected duration. Pain level reassessed. Patient is alert, oriented x 3, equal unlabored respirations, skin warm/dry/pink. still awaiting EMS, sandwich and drink provided. 19:36 Reassessment: EMS here for transport. tl3 Vital Signs: 13:37 BP 107 / 78; Pulse 79; Resp 20; Pulse Ox 96% on 1.5 lpm NC; tl3 15:33 BP 111 / 96; Pulse 88; Resp 18; Pulse Ox 97% on 1.5 lpm NC; tl3 16:24 BP 115 / 102; Pulse 86; Resp 18; Pulse Ox 98% ; tl3 17:26 BP 113 / 98; Pulse 85; Resp 18; Pulse Ox 97% on 1.5 lpm NC; tl3 18:17 BP 115 / 95; Pulse 90; Resp 18; Pulse Ox 97% ; tl3 19:23 BP 115 / 74; Pulse 92; Resp 18; Pulse Ox 98% on 1.5 lpm NC; tl3 ED Course: 13:25 Patient arrived in ED. tl3 13:25 Michele Castillo NP is PHCP. pm1 13:25 Jamal Schuster MD is Attending Physician. pm1 13:26 Audra Cleveland RN is Primary Nurse. tl3 13:28 Triage completed. tl3 13:37 Arm band placed on right wrist. tl3 13:38 Patient has correct armband on for positive identification. Bed in low position. Call tl3 light in reach. Side rails up X 1. Adult w/ patient. product marketing executive on. Pulse ox on. NIBP on. Warm blanket given. Pillow given. 13:38 No provider procedures requiring assistance completed. Maintain EMS IV. Dressing tl3 intact. Good blood return noted. Site clean \T\ dry. Gauge \T\ site: 20g LAC. 13:38 EKG done, by ED staff. tl3 13:50 Initial lab(s) drawn, by me, sent to lab. Urine collected: clean catch specimen, clear, jp3 portillo colored. 14:02 Basic Metabolic Panel Sent. jp3 14:02 CBC with Diff Sent. jp3 14:02 LFT's Sent. jp3 14:03 Magnesium Sent. jp3 14:03 NT PRO-BNP Sent. jp3 14:03 PT-INR Sent. jp3 14:03 Ptt, Activated Sent. jp3 14:03 Troponin (emerg Dept Use Only) Sent. jp3 14:47 X-ray completed. Portable x-ray completed in exam room. Patient tolerated procedure jb2 well. 14:51 XRAY Chest (1 view) In Process Unspecified. EDMS 16:00 Nurse Practitioner and/or Physician Switching Clerk to see patient. Michele at bedside to 3 discuss transfer. 17:22 Patient transferred, IV remains in place. tl3 Administered Medications: 16:31 Drug: Lasix 40 mg {Note: 20 mg given \T\ 1631 20 mg given \T\ 1705.} Route: IVP; Infused tl 3 Over: 2 mins; Site: left antecubital; 17:25 Follow up: Response: No adverse reaction tl3 Outcome: 16:16 ER care complete, transfer ordered by . pm1 17:21 Transferred by ground EMS to [facility]. tl3 17:21 Condition: stable 17:21 Instructed on the need for transfer, Demonstrated understanding of instructions. 19:40 Patient left the ED. tl3 Signatures: Dispatcher [employer] EDFL Dinh Ring jb2 Michele Castillo, BIG DATA ENGINEER BIG DATA ENGINEER pm1 Audra Cleveland, GABBIE RN tl3 Chato Lovett jp3 Corrections: (The following items were deleted from the chart) 13:55 13:29 Allergies: No Known Allergies; tl3 tl3 13:55 13:29 Home Meds: furosemide 20 mg Oral tab 1 tab 2 times per day; tl3 tl3 17:09 16:31 Lasix 40 mg IVP in left antecubital over 2 mins tl3 tl3
--- NOTE | 2018-04-07 16:17 | EDPHYS ---
Physician Documentation [facility] Name: Manny Tello Age: 73 yrs Sex: Male : 1945 Arrival Date: 04/07/2018 Time: 13:25 Bed 24 Private MD: ED Physician Jamal Schuster HPI: 04/07 14:00 This 73 yrs old Male presents to ER via EMS with complaints of Shortness Of pm1 Breath. 14:00 The patient has shortness of breath at rest. Onset: The symptoms/episode began/occurred pm1 this morning. Duration: The symptoms are continuous. The patient's shortness of breath is aggravated by nothing, is alleviated by nothing. Associated signs and symptoms: Pertinent negatives: chest pain, non-productive cough, productive cough, fever, nausea, vomiting. Severity of symptoms: in the emergency department the symptoms are worse. The patient has experienced similar episodes in the past, several times. The patient has been recently been admitted at [facility], was discharged yesterday, for similar complaints, Patient was admitted for acute on chronic congestive heart failure exacerbation . Patient does not feel that his diuretics are working. Patient reports that he did not urinate much this AM after taking Lasix. Patient took all his medications this AM. Patient was placed on Lasix 80 mg PO BID and spirolactone 50 PO daily as new medications at discharge yesterday. Historical: - Home Meds: 13:29 aspirin 81 mg Oral chew 1 tab once daily [Active]; atorvastatin 40 mg Oral tab 1 tab tl3 once daily [Active]; dulera 100 Mcg/5 mcg [Active]; Klor-Con 10 10 mEq Oral TbER 1 tab once daily [Active]; lisinopril Oral [Active]; metoprolol tartrate 12.5 Oral tab 1 tab once daily [Active]; Tiotropium (Spiriva Handihaler) [Active]; 13:55 furosemide 80 mg oral tab once daily [Active]; thiamine HCl (vitamin B1) 50 mg Oral tab tl3 [Active]; Entresto 24-26 mg oral tab twice a day [Active]; Aldactone 50 mg Oral tab 1 tab 2 times per day [Active]; Dulera 100-5 mcg/actuation inhalation HFAA 2 puffs 2 times per day [Active]; - PMHx: 13:29 Asthma; CHF; COPD; Hypertension; [place]; tl3 - PSHx: 13:29 Cholecystectomy; Knee surgery; tl3 - Immunization history:: Adult Immunizations up to date. - Social history:: Smoking status: unknown. - Ebola Screening: : No symptoms or risks identified at this time. ROS: 14:00 Constitutional: Negative for fever, chills, and weight loss, Eyes: Negative for injury, pm1 pain, redness, and discharge, ENT: Negative for injury, pain, and discharge, Neck: Negative for injury, pain, and swelling, Cardiovascular: Negative for chest pain, palpitations, and edema, Abdomen/GI: Negative for abdominal pain, nausea, vomiting, diarrhea, and constipation. 14:00 Back: Negative for injury and pain, : Negative for injury, bleeding, discharge, and swelling, MS/Extremity: Negative for injury and deformity, Skin: Negative for injury, rash, and discoloration, Neuro: Negative for headache, weakness, numbness, tingling, and seizure. 14:00 Respiratory: Positive for shortness of breath, Negative for cough, sputum production, wheezing. Exam: 14:00 Constitutional: This is a well developed, well nourished patient who is awake, alert, pm1 and in no acute distress. Head/Face: Normocephalic, atraumatic. Eyes: Pupils equal round and reactive to light, extra-ocular motions intact. Lids and lashes normal. Conjunctiva and sclera are non-icteric and not injected. Cornea within normal limits. Periorbital areas with no swelling, redness, or edema. ENT: Nares patent. No nasal discharge, no septal abnormalities noted. Tympanic membranes are normal and external auditory canals are clear. Oropharynx with no redness, swelling, or masses, exudates, or evidence of obstruction, uvula midline. Mucous membranes moist. Neck: Trachea midline, no thyromegaly or masses palpated, and no cervical lymphadenopathy. Supple, full range of motion without nuchal rigidity, or vertebral point tenderness. No Meningismus. Chest/axilla: Normal chest wall appearance and motion. Nontender with no deformity. No lesions are appreciated. 14:00 Abdomen/GI: Soft, non-tender, with normal bowel sounds. No distension or tympany. No guarding or rebound. No evidence of tenderness throughout. Back: No spinal tenderness. No costovertebral tenderness. Full range of motion. Skin: Warm, dry with normal turgor. Normal color with no rashes, no lesions, and no evidence of cellulitis. MS/ Extremity: Pulses equal, no cyanosis. Neurovascular intact. Full, normal range of motion. 14:00 Cardiovascular: Rate: normal, Rhythm: regular, Pulses: no pulse deficits are appreciated, Heart sounds: normal, normal S1and S2, Edema: pedal edema, that is very mild. 14:00 Respiratory: the patient does not display signs of respiratory distress, Respirations: normal, Breath sounds: decreased breath sounds, are located in both bases. 14:00 Neuro: Orientation: is normal, Motor: is normal, moves all fours, Sensation: is normal, no obvious gross deficits. Vital Signs: 13:37 BP 107 / 78; Pulse 79; Resp 20; Pulse Ox 96% on 1.5 lpm NC; tl3 15:33 BP 111 / 96; Pulse 88; Resp 18; Pulse Ox 97% on 1.5 lpm NC; tl3 16:24 BP 115 / 102; Pulse 86; Resp 18; Pulse Ox 98% ; tl3 17:26 BP 113 / 98; Pulse 85; Resp 18; Pulse Ox 97% on 1.5 lpm NC; tl3 18:17 BP 115 / 95; Pulse 90; Resp 18; Pulse Ox 97% ; tl3 19:23 BP 115 / 74; Pulse 92; Resp 18; Pulse Ox 98% on 1.5 lpm NC; tl3 MDM: 13:26 Patient medically screened. pm1 15:00 Data reviewed: vital signs. pm1 15:45 Counseling: I had a detailed discussion with the patient and/or guardian regarding: the pm1 historical points, exam findings, and any diagnostic results supporting the discharge/admit diagnosis, lab results, radiology results, the need for further work-up and treatment in the hospital. 15:50 ED course: Patient does not want to be admitted to the hospital here. He wants to be pm1 transferred to [facility] under the care of Dr. Michele Espinoza - Cardiology. Family reports that they have been in contact with his office to facilitate transfer. 16:00 Physician consultation: Susanna Johnston was contacted at 16:00, regarding regarding pm1 transfer, consult, patient's condition, Will accept the patient at [facility]. 04/07 13:31 Order name: Basic Metabolic Panel; Complete Time: 14:47 pm1 04/07 13:31 Order name: CBC with Diff; Complete Time: 14:26 pm1 04/07 13:31 Order name: LFT's; Complete Time: 14:47 pm1 04/07 13:31 Order name: Magnesium; Complete Time: 14:47 pm1 04/07 13:31 Order name: NT PRO-BNP; Complete Time: 14:47 pm1 04/07 13:31 Order name: PT-INR; Complete Time: 14:26 pm1 04/07 13:31 Order name: Ptt, Activated; Complete Time: 14:26 pm1 04/07 13:31 Order name: Troponin (emerg Dept Use Only); Complete Time: 14:59 pm1 04/07 13:31 Order name: XRAY Chest (1 view); Complete Time: 15:15 pm1 04/07 13:31 Order name: EKG; Complete Time: 13:31 pm1 04/07 13:31 Order name: Cardiac monitoring; Complete Time: 13:41 pm1 04/07 13:31 Order name: EKG - Nurse/Tech; Complete Time: 13:41 pm1 04/07 14:02 Order name: Urine Dipstick--Ancillary (enter results); Complete Time: 14:31 bd 04/07 13:31 Order name: IV Saline Lock; Complete Time: 13:41 pm1 04/07 13:31 Order name: Labs collected and sent; Complete Time: 13:41 pm1 04/07 13:31 Order name: O2 Per Protocol; Complete Time: 13:41 pm1 04/07 13:31 Order name: O2 Sat Monitoring; Complete Time: 13:41 pm1 04/07 13:31 Order name: Urine Dipstick-Ancillary (obtain specimen); Complete Time: 14:03 pm1 Administered Medications: 16:31 Drug: Lasix 40 mg {Note: 20 mg given \T\ 1631 20 mg given \T\ 1705.} Route: IVP; Infused tl 3 Over: 2 mins; Site: left antecubital; 17:25 Follow up: Response: No adverse reaction tl3 Disposition: 04/08 08:09 Co-signature as Attending Physician, Jamal Schuster MD. rn Disposition: 04/07/18 16:16 Transfer ordered to [facility]. Diagnosis is Acute on chronic combined systolic (congestive) and diastolic (congestive) heart failure. - Reason for transfer: Patient request. - Accepting physician is Dr. Susanna Johnston. - Condition is Stable. - Problem is new. - Symptoms have improved. Signatures: Dispatcher [employer] EDMS Jamal Schuster MD MD rn Michele Castillo, SHIPPING AND RECEIVING SUPERVISOR SHIPPING AND RECEIVING SUPERVISOR pm1 Audra Cleveland, RN RN tl3 Corrections: (The following items were deleted from the chart) 04/07 13:55 13:29 Allergies: No Known Allergies; tl3 tl3 13:55 13:29 Home Meds: furosemide 20 mg Oral tab 1 tab 2 times per day; tl3 tl3 19:40 16:16 04/07/2018 16:16 Transfer ordered to [facility]. Diagnosis is tl3 Acute on chronic combined systolic (congestive) and diastolic (congestive) heart failure. Reason for transfer: Patient request. Accepting physician is Dr. Susanna Johnston. Condition is Stable. Problem is new. Symptoms have improved. pm1
[2018-04-07] MEDS ORDERED: ONDANSETRON 4 MG/2 ML VIAL ONE (17:10)
== END 2018-04-07 19:40 | disposition short-term general hospital (02) ==
LOC: ER 13:16
DX: I11.0 Hypertensive heart disease with heart failure (principal); I50.43 Acute on chronic combined systolic (congestive) and diastolic (congestive) heart failure
CPT/HCPCS: 36415; 71045; 80048; 80076; 81003; 83735; 83880; 84484; 85025; 85610; 85730; 93005; 96374; 99285; J2405

== ENCOUNTER 2019-10-28 12:10 | Emergency (ER) | payer OTHER, MEDICARE ==
--- OUTSIDE RECORDS SUMMARY | 2019-10-28 12:14 | XMS REPORT ---
:1945 [facility] [address] [place] [address] Dr. Raygoza [address] [place] [id number] Care Team Providers Name Role Phone BRITTNEY ANGLIN Unavailable Unavailable RAFFI LUCAS Unavailable Unavailable DWAIN KEY Unavailable Unavailable Problems This patient has no known problems. Allergies, Adverse Reactions, Alerts This patient has no known allergies or adverse reactions. Medications This patient has no known medications. Results Test Description Test Time Test Comments Text Results Atomic Results Result Comments B-TYPE NATRIURETIC FACTOR (BNP) 2019-10-08 05:34:00 Test Item Value Reference Range Comments B-TYPE NATRIURETIC PEPTIDE (BEAKER) (test mqzp=339) 266 pg/mL 0-100 [employer] Operations Intelligence Officer ID - [id number] 05:33:00 Test Item Value Reference Range Comments MAGNESIUM (BEAKER) (test blpj=947) 2.1 mg/dL 1.6-2.6 Aoc Operations Intelligence Officer ID - LABASIC METABOLIC [id number] 05:33:00 Test Item Value Reference Range Comments SODIUM (BEAKER) (test 139 meq/L 136-145 yogl=229) POTASSIUM (BEAKER) (test 4.0 meq/L 3.5-5.1 cpvr=827) CHLORIDE (BEAKER) (test 106 meq/L 98-107 onge=454) CO2 (BEAKER) (test 27 meq/L 22-29 efee=566) BLOOD UREA NITROGEN 26 mg/dL 7-21 (BEAKER) (test ssxt=485) CREATININE (BEAKER) (test 1.18 mg/dL 0.57-1.25 mdat=471) GLUCOSE RANDOM (BEAKER) 134 mg/dL 70-105 (test pfdn=105) CALCIUM (BEAKER) (test 8.9 mg/dL 8.4-10.2 ihcl=039) EGFR (BEAKER) (test 60 mL/min/1.73 sq m ESTIMATED GFR IS NOT herl=8956) ACCURATE CREATININE CLEARANCE IN PREDICTING GLOMERULAR FILTRATION RATE. ESTIMATED GFR IS NOT APPLICABLE FOR DIALYSIS PATIENTS. Aoc Operations Intelligence Officer ID - LACBC (HEMOGRAM ONLY)2019-10-08 05:12:00 Test Item Value Reference Range Comments WHITE BLOOD CELL COUNT (BEAKER) (test dewp=760) 6.0 K/ L 3.5-10.5 RED BLOOD CELL COUNT (BEAKER) (test tddr=842) 4.56 M/ L 4.63-6.08 HEMOGLOBIN (BEAKER) (test qmnr=162) 14.1 GM/DL 13.7-17.5 HEMATOCRIT (BEAKER) (test ewae=227) 42.9 % 40.1-51.0 MEAN CORPUSCULAR VOLUME (BEAKER) (test lutj=169) 94.1 fL 79.0-92.2 MEAN CORPUSCULAR HEMOGLOBIN (BEAKER) (test 30.9 pg 25.7-32.2 nyoi=941) MEAN CORPUSCULAR HEMOGLOBIN CONC (BEAKER) (test 32.9 GM/DL 32.3-36.5 newq=210) RED CELL DISTRIBUTION WIDTH (BEAKER) (test 13.2 % 11.6-14.4 hszi=896) PLATELET COUNT (BEAKER) (test ctzi=270) 180 K/CU MM 150-450 MEAN PLATELET VOLUME (BEAKER) (test sfvk=144) 11.1 fL 9.4-12.4 NUCLEATED RED BLOOD CELLS (BEAKER) (test 0 /100 WBC 0-0 lgmh=126) [id number] 06:59:00 Test Item Value Reference Range Comments MAGNESIUM (BEAKER) (test kwqe=389) 2.2 mg/dL 1.6-2.6 Aoc Operations Intelligence Officer ID - PIAYA LBASIC METABOLIC [id number] 06:59:00 Test Item Value Reference Range Comments SODIUM (BEAKER) (test 139 meq/L 136-145 mvfk=762) POTASSIUM (BEAKER) (test 4.0 meq/L 3.5-5.1 gvvu=028) CHLORIDE (BEAKER) (test 107 meq/L 98-107 cvlh=847) CO2 (BEAKER) (test 25 meq/L 22-29 fbvv=292) BLOOD UREA NITROGEN 26 mg/dL 7-21 (BEAKER) (test ylrd=631) CREATININE (BEAKER) (test 1.24 mg/dL 0.57-1.25 yikw=368) GLUCOSE RANDOM (BEAKER) 110 mg/dL 70-105 (test dhqr=583) CALCIUM (BEAKER) (test 8.6 mg/dL 8.4-10.2 zdtl=978) EGFR (BEAKER) (test 57 mL/min/1.73 sq m ESTIMATED GFR IS NOT xogn=1410) ACCURATE CREATININE CLEARANCE IN PREDICTING GLOMERULAR FILTRATION RATE. ESTIMATED GFR IS NOT APPLICABLE FOR DIALYSIS PATIENTS. Aoc Operations Intelligence Officer ID - PIAYA LCBC (HEMOGRAM ONLY)2019-10-07 04:44:00 Test Item Value Reference Range Comments WHITE BLOOD CELL COUNT (BEAKER) (test dqqz=537) 6.0 K/ L 3.5-10.5 RED BLOOD CELL COUNT (BEAKER) (test bgzb=886) 4.44 M/ L 4.63-6.08 HEMOGLOBIN (BEAKER) (test bkvb=472) 13.5 GM/DL 13.7-17.5 HEMATOCRIT (BEAKER) (test tjih=052) 42.0 % 40.1-51.0 MEAN CORPUSCULAR VOLUME (BEAKER) (test bpjj=274) 94.6 fL 79.0-92.2 MEAN CORPUSCULAR HEMOGLOBIN (BEAKER) (test 30.4 pg 25.7-32.2 mrlz=895) MEAN CORPUSCULAR HEMOGLOBIN CONC (BEAKER) (test 32.1 GM/DL 32.3-36.5 wwyh=796) RED CELL DISTRIBUTION WIDTH (BEAKER) (test 13.5 % 11.6-14.4 jdhz=058) PLATELET COUNT (BEAKER) (test djcq=983) 173 K/CU MM 150-450 MEAN PLATELET VOLUME (BEAKER) (test show=981) 10.8 fL 9.4-12.4 NUCLEATED RED BLOOD CELLS (BEAKER) (test 0 /100 WBC 0-0 gyru=037) TROPONIN [id number] 07:05:00 Test Item Value Reference Range Comments TROPONIN I (BEAKER) (test oepd=512) 0.03 ng/mL 0.00-0.03 Troponin I (TnI) levels must be interpreted in the context of the presenting symptoms and the clinical findings. Elevated TnI levels indicate myocardial damage, but are not specific for ischemic heart disease. Elevated TnI levels are seen in patients with other cardiac conditions (including myocarditis and congestive heart failure), and slight TnI elevations occur in patients with other conditions, including sepsis, renal failure, acidosis, acute neurological disease, and persistent tachyarrhythmia.Aoc Operations Intelligence Officer ID Jeff LUNDY [id number] 06:58:00 Test Item Value Reference Range Comments MAGNESIUM (BEAKER) (test upni=442) 2.2 mg/dL 1.6-2.6 Aoc Operations Intelligence Officer ID Jeff LUNDY LBASIC METABOLIC [id number] 06:58:00 Test Item Value Reference Range Comments SODIUM (BEAKER) (test 137 meq/L 136-145 arjj=384) POTASSIUM (BEAKER) (test 4.1 meq/L 3.5-5.1 xhhq=126) CHLORIDE (BEAKER) (test 106 meq/L 98-107 kapv=435) CO2 (BEAKER) (test 24 meq/L 22-29 sbgw=914) BLOOD UREA NITROGEN 25 mg/dL 7-21 (BEAKER) (test ezlk=841) CREATININE (BEAKER) (test 1.08 mg/dL 0.57-1.25 jafp=889) GLUCOSE RANDOM (BEAKER) 117 mg/dL 70-105 (test amjh=946) CALCIUM (BEAKER) (test 8.6 mg/dL 8.4-10.2 qarh=037) EGFR (BEAKER) (test 67 mL/min/1.73 sq m ESTIMATED GFR IS NOT smgw=5535) ACCURATE CREATININE CLEARANCE IN PREDICTING GLOMERULAR FILTRATION RATE. ESTIMATED GFR IS NOT APPLICABLE FOR DIALYSIS PATIENTS. Aoc Operations Intelligence Officer ID Jeff LUNDY LB-TYPE NATRIURETIC FACTOR (BNP)2019-10-06 05:04:00 Test Item Value Reference Range Comments B-TYPE NATRIURETIC PEPTIDE (BEAKER) (test 272 pg/mL 0-100 sfje=211) Aoc Operations Intelligence Officer ID Jeff LUNDY LCBC (HEMOGRAM ONLY)2019-10-06 04:41:00 Test Item Value Reference Range Comments WHITE BLOOD CELL COUNT (BEAKER) (test bewg=794) 5.6 K/ L 3.5-10.5 RED BLOOD CELL COUNT (BEAKER) (test bont=793) 4.54 M/ L 4.63-6.08 HEMOGLOBIN (BEAKER) (test kfbc=010) 14.1 GM/DL 13.7-17.5 HEMATOCRIT (BEAKER) (test fqdv=337) 42.8 % 40.1-51.0 MEAN CORPUSCULAR VOLUME (BEAKER) (test rggp=952) 94.3 fL 79.0-92.2 MEAN CORPUSCULAR HEMOGLOBIN (BEAKER) (test 31.1 pg 25.7-32.2 ubsn=992) MEAN CORPUSCULAR HEMOGLOBIN CONC (BEAKER) (test 32.9 GM/DL 32.3-36.5 dsev=134) RED CELL DISTRIBUTION WIDTH (BEAKER) (test 13.2 % 11.6-14.4 embq=395) PLATELET COUNT (BEAKER) (test uzsv=111) 184 K/CU MM 150-450 MEAN PLATELET VOLUME (BEAKER) (test qtyu=623) 11.3 fL 9.4-12.4 NUCLEATED RED BLOOD CELLS (BEAKER) (test 0 /100 WBC 0-0 vxgp=649) TROPONIN [id number] 01:25:00 Test Item Value Reference Range Comments TROPONIN I (BEAKER) (test xdxb=764) 0.04 ng/mL 0.00-0.03 Troponin I (TnI) levels must be interpreted in the context of the presenting symptoms and the clinical findings. Elevated TnI levels indicate myocardial damage, but are not specific for ischemic heart disease. Elevated TnI levels are seen in patients with other cardiac conditions (including myocarditis and congestive heart failure), and slight TnI elevations occur in patients with other conditions, including sepsis, renal failure, acidosis, acute neurological disease, and persistent tachyarrhythmia.Aoc Operations Intelligence Officer ID - DEZ [id number] 01:16:00 Test Item Value Reference Range Comments MAGNESIUM (BEAKER) (test gdkr=736) 2.2 mg/dL 1.6-2.6 Aoc Operations Intelligence Officer ID - DEZ MBASIC METABOLIC [id number] 01:16:00 Test Item Value Reference Range Comments SODIUM (BEAKER) (test 140 meq/L 136-145 yxhh=526) POTASSIUM (BEAKER) (test 4.4 meq/L 3.5-5.1 ecdh=336) CHLORIDE (BEAKER) (test 109 meq/L 98-107 gccz=503) CO2 (BEAKER) (test 25 meq/L 22-29 lmkq=647) BLOOD UREA NITROGEN 27 mg/dL 7-21 (BEAKER) (test zltf=548) CREATININE (BEAKER) (test 1.24 mg/dL 0.57-1.25 dzfm=110) GLUCOSE RANDOM (BEAKER) 113 mg/dL 70-105 (test yyml=530) CALCIUM (BEAKER) (test 8.8 mg/dL 8.4-10.2 ybms=840) EGFR (BEAKER) (test 57 mL/min/1.73 sq m ESTIMATED GFR IS NOT dzgr=4260) ACCURATE CREATININE CLEARANCE IN PREDICTING GLOMERULAR FILTRATION RATE. ESTIMATED GFR IS NOT APPLICABLE FOR DIALYSIS PATIENTS. Aoc Operations Intelligence Officer ID - DEZ MCBC (HEMOGRAM ONLY)2019-10-05 01:01:00 Test Item Value Reference Range Comments WHITE BLOOD CELL COUNT (BEAKER) (test hepf=441) 6.9 K/ L 3.5-10.5 RED BLOOD CELL COUNT (BEAKER) (test wbun=803) 4.47 M/ L 4.63-6.08 HEMOGLOBIN (BEAKER) (test uuxn=158) 13.7 GM/DL 13.7-17.5 HEMATOCRIT (BEAKER) (test hlcn=602) 42.1 % 40.1-51.0 MEAN CORPUSCULAR VOLUME (BEAKER) (test mtig=046) 94.2 fL 79.0-92.2 MEAN CORPUSCULAR HEMOGLOBIN (BEAKER) (test 30.6 pg 25.7-32.2 obvm=466) MEAN CORPUSCULAR HEMOGLOBIN CONC (BEAKER) (test 32.5 GM/DL 32.3-36.5 kdgt=492) RED CELL DISTRIBUTION WIDTH (BEAKER) (test 13.2 % 11.6-14.4 biqc=096) PLATELET COUNT (BEAKER) (test ygle=881) 194 K/CU MM 150-450 MEAN PLATELET VOLUME (BEAKER) (test kctv=683) 11.3 fL 9.4-12.4 NUCLEATED RED BLOOD CELLS (BEAKER) (test 0 /100 WBC 0-0 onrk=075) RAD, CHEST, PA OR AP, 1 [id number] 11:11:00Reason for exam:->SHORTNESS OF BREATHReason for exam:->DIZZINESSShould this be performed at the bedside?- >NoFINAL REPORT INDICATION: SHORTNESS OF BREATHDIZZINESS COMPARISON: April 20, 2018 TECHNIQUE: Single frontal view of the chest. FINDINGS: Limited by underpenetrationLungs and pleura: Clear lungs. No effusion.Heart and mediastinum: Normal heart size. Unremarkable mediastinal contours.Osseous structures: No acute abnormality.Other: None. IMPRESSION: No acute intrathoracic abnormality. Signed: JR Mckeon Robert MDReport Verified Date/Time: 10/04/2019 11:11:13 Reading Location: [facility] Radiology Reading Room B-TYPE NATRIURETIC FACTOR (BNP)2019-10-04 10: 47:00 Test Item Value Reference Range Comments B-TYPE NATRIURETIC PEPTIDE (BEAKER) (test 466 pg/mL 0-100 okld=768) Aoc Operations Intelligence Officer ID - DEZ MTROPONIN [id number] 10:46:00 Test Item Value Reference Range Comments TROPONIN I (BEAKER) (test vksy=632) 0.04 ng/mL 0.00-0.03 Troponin I (TnI) levels must be interpreted in the context of the presenting symptoms and the clinical findings. Elevated TnI levels indicate myocardial damage, but are not specific for ischemic heart disease. Elevated TnI levels are seen in patients with other cardiac conditions (including myocarditis and congestive heart failure), and slight TnI elevations occur in patients with other conditions, including sepsis, renal failure, acidosis, acute neurological disease, and persistent tachyarrhythmia.Aoc Operations Intelligence Officer ID - DEZ EPATIC FUNCTION [id number] 10:40:00 Test Item Value Reference Range Comments TOTAL PROTEIN (BEAKER) (test acpl=988) 5.8 gm/dL 6.0-8.3 ALBUMIN (BEAKER) (test inle=1963) 3.4 g/dL 3.5-5.0 BILIRUBIN TOTAL (BEAKER) (test tfjx=113) 0.4 mg/dL 0.2-1.2 BILIRUBIN DIRECT (BEAKER) (test yezh=522) 0.2 mg/dL 0.1-0.5 ALKALINE PHOSPHATASE (BEAKER) (test zxdp=076) 66 U/L 40-150 AST (SGOT) (BEAKER) (test usmg=791) 19 U/L 5-34 ALT (SGPT) (BEAKER) (test zyoc=887) 33 U/L 6-55 Aoc Operations Intelligence Officer ID - DEZ MBASIC METABOLIC [id number] 10:40:00 Test Item Value Reference Range Comments SODIUM (BEAKER) (test 139 meq/L 136-145 ocmq=877) POTASSIUM (BEAKER) (test 4.3 meq/L 3.5-5.1 wkrz=024) CHLORIDE (BEAKER) (test 109 meq/L 98-107 lqeh=325) CO2 (BEAKER) (test 27 meq/L 22-29 xxpe=953) BLOOD UREA NITROGEN 31 mg/dL 7-21 (BEAKER) (test skiz=366) CREATININE (BEAKER) (test 1.42 mg/dL 0.57-1.25 nnom=776) GLUCOSE RANDOM (BEAKER) 122 mg/dL 70-105 (test rogf=759) CALCIUM (BEAKER) (test 8.6 mg/dL 8.4-10.2 fyro=978) EGFR (BEAKER) (test 49 mL/min/1.73 sq m ESTIMATED GFR IS NOT regm=1919) ACCURATE CREATININE CLEARANCE IN PREDICTING GLOMERULAR FILTRATION RATE. ESTIMATED GFR IS NOT APPLICABLE FOR DIALYSIS PATIENTS. Aoc Operations Intelligence Officer ID - DEZ MCBC W/PLT COUNT & AUTO [id number] 10:34:00 Test Item Value Reference Range Comments WHITE BLOOD CELL COUNT (BEAKER) (test owcu=032) 7.6 K/ L 3.5-10.5 RED BLOOD CELL COUNT (BEAKER) (test svpi=439) 4.44 M/ L 4.63-6.08 HEMOGLOBIN (BEAKER) (test sidv=439) 13.4 GM/DL 13.7-17.5 HEMATOCRIT (BEAKER) (test kusz=031) 42.2 % 40.1-51.0 MEAN CORPUSCULAR VOLUME (BEAKER) (test zmoj=594) 95.0 fL 79.0-92.2 MEAN CORPUSCULAR HEMOGLOBIN (BEAKER) (test 30.2 pg 25.7-32.2 krlg=781) MEAN CORPUSCULAR HEMOGLOBIN CONC (BEAKER) (test 31.8 GM/DL 32.3-36.5 afon=278) RED CELL DISTRIBUTION WIDTH (BEAKER) (test 13.3 % 11.6-14.4 oelm=234) PLATELET COUNT (BEAKER) (test syva=115) 198 K/CU MM 150-450 MEAN PLATELET VOLUME (BEAKER) (test zryn=332) 11.3 fL 9.4-12.4 NUCLEATED RED BLOOD CELLS (BEAKER) (test 0 /100 WBC 0-0 gqzy=215) NEUTROPHILS RELATIVE PERCENT (BEAKER) (test 72 % jlbb=354) LYMPHOCYTES RELATIVE PERCENT (BEAKER) (test 15 % sbqx=310) MONOCYTES RELATIVE PERCENT (BEAKER) (test 9 % zwwu=540) EOSINOPHILS RELATIVE PERCENT (BEAKER) (test 2 % aoqo=764) BASOPHILS RELATIVE PERCENT (BEAKER) (test 1 % wxsl=338) NEUTROPHILS ABSOLUTE COUNT (BEAKER) (test 5.53 K/ L 1.78-5.38 ppoo=307) LYMPHOCYTES ABSOLUTE COUNT (BEAKER) (test 1.12 K/ L 1.32-3.57 chjh=178) MONOCYTES ABSOLUTE COUNT (BEAKER) (test 0.69 K/ L 0.30-0.82 zarf=137) EOSINOPHILS ABSOLUTE COUNT (BEAKER) (test 0.18 K/ L 0.04-0.54 fdje=538) BASOPHILS ABSOLUTE COUNT (BEAKER) (test 0.05 K/ L 0.01-0.08 qngz=307) IMMATURE GRANULOCYTES-RELATIVE PERCENT (BEAKER) 1 % 0-1 (test fryv=8688) BASIC METABOLIC [id number] 08:42:00 Test Item Value Reference Range Comments SODIUM (BEAKER) (test 142 meq/L 136-145 qmat=163) POTASSIUM (BEAKER) (test 4.3 meq/L 3.5-5.1 lycy=407) CHLORIDE (BEAKER) (test 106 meq/L 98-107 wisi=342) CO2 (BEAKER) (test 30 meq/L 22-29 hwau=040) BLOOD UREA NITROGEN 31 mg/dL 7-21 (BEAKER) (test knvs=300) CREATININE (BEAKER) (test 1.26 mg/dL 0.57-1.25 iwtl=972) GLUCOSE RANDOM (BEAKER) 127 mg/dL 70-105 (test okdu=437) CALCIUM (BEAKER) (test 9.3 mg/dL 8.4-10.2 socg=467) EGFR (BEAKER) (test 56 mL/min/1.73 sq m ESTIMATED GFR IS NOT epqk=0386) ACCURATE CREATININE CLEARANCE IN PREDICTING GLOMERULAR FILTRATION RATE. ESTIMATED GFR IS NOT APPLICABLE FOR DIALYSIS PATIENTS. CBC W/PLT COUNT & AUTO [id number] 08:29:00 Test Item Value Reference Range Comments WHITE BLOOD CELL COUNT (BEAKER) (test iyez=997) 7.1 K/ L 3.5-10.5 RED BLOOD CELL COUNT (BEAKER) (test shou=036) 4.86 M/ L 4.63-6.08 HEMOGLOBIN (BEAKER) (test phic=555) 14.8 GM/DL 13.7-17.5 HEMATOCRIT (BEAKER) (test trir=496) 46.8 % 40.1-51.0 MEAN CORPUSCULAR VOLUME (BEAKER) (test jtkn=490) 96.3 fL 79.0-92.2 MEAN CORPUSCULAR HEMOGLOBIN (BEAKER) (test 30.5 pg 25.7-32.2 yyyt=052) MEAN CORPUSCULAR HEMOGLOBIN CONC (BEAKER) (test 31.6 GM/DL 32.3-36.5 tamj=304) RED CELL DISTRIBUTION WIDTH (BEAKER) (test 13.5 % 11.6-14.4 pteu=894) PLATELET COUNT (BEAKER) (test cnmt=469) 177 K/CU MM 150-450 MEAN PLATELET VOLUME (BEAKER) (test lnwa=989) 11.5 fL 9.4-12.4 NUCLEATED RED BLOOD CELLS (BEAKER) (test 0 /100 WBC 0-0 mdro=057) NEUTROPHILS RELATIVE PERCENT (BEAKER) (test 69 % eluu=827) LYMPHOCYTES RELATIVE PERCENT (BEAKER) (test 20 % oenu=101) MONOCYTES RELATIVE PERCENT (BEAKER) (test 8 % ysea=072) EOSINOPHILS RELATIVE PERCENT (BEAKER) (test 3 % suua=609) BASOPHILS RELATIVE PERCENT (BEAKER) (test 1 % ttvg=692) NEUTROPHILS ABSOLUTE COUNT (BEAKER) (test 4.89 K/ L 1.78-5.38 dwim=777) LYMPHOCYTES ABSOLUTE COUNT (BEAKER) (test 1.41 K/ L 1.32-3.57 qlqb=461) MONOCYTES ABSOLUTE COUNT (BEAKER) (test 0.55 K/ L 0.30-0.82 havj=464) EOSINOPHILS ABSOLUTE COUNT (BEAKER) (test 0.18 K/ L 0.04-0.54 bmeh=850) BASOPHILS ABSOLUTE COUNT (BEAKER) (test 0.05 K/ L 0.01-0.08 cact=985) IMMATURE GRANULOCYTES-RELATIVE PERCENT (BEAKER) 0 % 0-1 (test pyfx=2390) [id number] 06:54:00 Test Item Value Reference Range Comments MAGNESIUM (BEAKER) (test ubop=226) 1.8 mg/dL 1.6-2.6 BASIC METABOLIC [id number] 06:54:00 Test Item Value Reference Range Comments SODIUM (BEAKER) (test 137 meq/L 136-145 inbn=514) POTASSIUM (BEAKER) (test 3.6 meq/L 3.5-5.1 yzfg=226) CHLORIDE (BEAKER) (test 101 meq/L 98-107 fdps=381) CO2 (BEAKER) (test 28 meq/L 22-29 dzux=324) BLOOD UREA NITROGEN 20 mg/dL 7-21 (BEAKER) (test lqvb=038) CREATININE (BEAKER) (test 0.92 mg/dL 0.57-1.25 yadf=040) GLUCOSE RANDOM (BEAKER) 112 mg/dL 70-105 (test pccg=538) CALCIUM (BEAKER) (test 9.0 mg/dL 8.4-10.2 xlku=516) EGFR (BEAKER) (test 81 mL/min/1.73 sq m ESTIMATED GFR IS NOT alta=1412) ACCURATE CREATININE CLEARANCE IN PREDICTING GLOMERULAR FILTRATION RATE. ESTIMATED GFR IS NOT APPLICABLE FOR DIALYSIS PATIENTS. CBC W/PLT COUNT & AUTO [id number] 05:14:00 Test Item Value Reference Range Comments WHITE BLOOD CELL COUNT (BEAKER) (test kotd=850) 5.8 K/ L 3.5-10.5 RED BLOOD CELL COUNT (BEAKER) (test twaf=316) 4.59 M/ L 4.63-6.08 HEMOGLOBIN (BEAKER) (test nbur=148) 14.3 GM/DL 13.7-17.5 HEMATOCRIT (BEAKER) (test hsjh=118) 44.8 % 40.1-51.0 MEAN CORPUSCULAR VOLUME (BEAKER) (test vflw=656) 97.6 fL 79.0-92.2 MEAN CORPUSCULAR HEMOGLOBIN (BEAKER) (test 31.2 pg 25.7-32.2 npbf=040) MEAN CORPUSCULAR HEMOGLOBIN CONC (BEAKER) (test 31.9 GM/DL 32.3-36.5 mpsd=325) RED CELL DISTRIBUTION WIDTH (BEAKER) (test 13.0 % 11.6-14.4 elwq=260) PLATELET COUNT (BEAKER) (test krec=238) 125 K/CU MM 150-450 MEAN PLATELET VOLUME (BEAKER) (test qcmf=492) 12.1 fL 9.4-12.4 NUCLEATED RED BLOOD CELLS (BEAKER) (test 0 /100 WBC 0-0 ltxl=877) NEUTROPHILS RELATIVE PERCENT (BEAKER) (test 61 % lukw=343) LYMPHOCYTES RELATIVE PERCENT (BEAKER) (test 22 % uoky=483) MONOCYTES RELATIVE PERCENT (BEAKER) (test 12 % sapf=323) EOSINOPHILS RELATIVE PERCENT (BEAKER) (test 5 % enba=707) BASOPHILS RELATIVE PERCENT (BEAKER) (test 1 % wyfo=095) NEUTROPHILS ABSOLUTE COUNT (BEAKER) (test 3.51 K/ L 1.78-5.38 uatn=721) LYMPHOCYTES ABSOLUTE COUNT (BEAKER) (test 1.25 K/ L 1.32-3.57 rzqf=173) MONOCYTES ABSOLUTE COUNT (BEAKER) (test 0.71 K/ L 0.30-0.82 ykxf=061) EOSINOPHILS ABSOLUTE COUNT (BEAKER) (test 0.27 K/ L 0.04-0.54 jboa=329) BASOPHILS ABSOLUTE COUNT (BEAKER) (test 0.04 K/ L 0.01-0.08 ovmv=170) IMMATURE GRANULOCYTES-RELATIVE PERCENT (BEAKER) 0 % 0-1 (test ladh=5654) [id number] 18:14:00 Test Item Value Reference Range Comments MAGNESIUM (BEAKER) (test jeaz=651) 1.8 mg/dL 1.6-2.6 BASIC METABOLIC [id number] 18:14:00 Test Item Value Reference Range Comments SODIUM (BEAKER) (test 140 meq/L 136-145 ekou=450) POTASSIUM (BEAKER) (test 3.7 meq/L 3.5-5.1 crdd=015) CHLORIDE (BEAKER) (test 103 meq/L 98-107 mkov=177) CO2 (BEAKER) (test 27 meq/L 22-29 rbwx=973) BLOOD UREA NITROGEN 21 mg/dL 7-21 (BEAKER) (test tceo=966) CREATININE (BEAKER) (test 0.97 mg/dL 0.57-1.25 zatd=066) GLUCOSE RANDOM (BEAKER) 132 mg/dL 70-105 (test aiiv=515) CALCIUM (BEAKER) (test 9.5 mg/dL 8.4-10.2 orgh=952) EGFR (BEAKER) (test 76 mL/min/1.73 sq m ESTIMATED GFR IS NOT ytgr=4702) ACCURATE CREATININE CLEARANCE IN PREDICTING GLOMERULAR FILTRATION RATE. ESTIMATED GFR IS NOT APPLICABLE FOR DIALYSIS PATIENTS. [id number] 17:00:00 Test Item Value Reference Range Comments MAGNESIUM (BEAKER) (test hchp=729) 1.9 mg/dL 1.6-2.6 BASIC METABOLIC [id number] 17:00:00 Test Item Value Reference Range Comments SODIUM (BEAKER) (test 138 meq/L 136-145 otbm=970) POTASSIUM (BEAKER) (test 3.9 meq/L 3.5-5.1 hwad=827) CHLORIDE (BEAKER) (test 103 meq/L 98-107 jgwp=176) CO2 (BEAKER) (test 28 meq/L 22-29 dhnz=449) BLOOD UREA NITROGEN 21 mg/dL 7-21 (BEAKER) (test qdpb=993) CREATININE (BEAKER) (test 0.91 mg/dL 0.57-1.25 lmqz=890) GLUCOSE RANDOM (BEAKER) 96 mg/dL 70-105 (test fwyl=675) CALCIUM (BEAKER) (test 9.2 mg/dL 8.4-10.2 vanm=155) EGFR (BEAKER) (test 82 mL/min/1.73 sq m ESTIMATED GFR IS NOT fdpy=8181) ACCURATE CREATININE CLEARANCE IN PREDICTING GLOMERULAR FILTRATION RATE. ESTIMATED GFR IS NOT APPLICABLE FOR DIALYSIS PATIENTS. [id number] 04:20:00 Test Item Value Reference Range Comments MAGNESIUM (BEAKER) (test txyu=644) 1.9 mg/dL 1.6-2.6 BASIC METABOLIC [id number] 04:20:00 Test Item Value Reference Range Comments SODIUM (BEAKER) (test 138 meq/L 136-145 utdp=555) POTASSIUM (BEAKER) (test 3.4 meq/L 3.5-5.1 awqx=398) CHLORIDE (BEAKER) (test 102 meq/L 98-107 qoyk=365) CO2 (BEAKER) (test 30 meq/L 22-29 ldjz=027) BLOOD UREA NITROGEN 20 mg/dL 7-21 (BEAKER) (test fbgk=170) CREATININE (BEAKER) (test 0.88 mg/dL 0.57-1.25 hvcv=240) GLUCOSE RANDOM (BEAKER) 113 mg/dL 70-105 (test vaaw=220) CALCIUM (BEAKER) (test 8.9 mg/dL 8.4-10.2 wyph=589) EGFR (BEAKER) (test 85 mL/min/1.73 sq m ESTIMATED GFR IS NOT enhj=4009) ACCURATE CREATININE CLEARANCE IN PREDICTING GLOMERULAR FILTRATION RATE. ESTIMATED GFR IS NOT APPLICABLE FOR DIALYSIS PATIENTS. B-TYPE NATRIURETIC FACTOR (BNP)2018-04-21 05:10:00 Test Item Value Reference Range Comments B-TYPE NATRIURETIC PEPTIDE (BEAKER) (test 2031 pg/mL 0-100 xdue=109) [id number] 05:08:00 Test Item Value Reference Range Comments MAGNESIUM (BEAKER) (test akpw=783) 1.8 mg/dL 1.6-2.6 BASIC METABOLIC [id number] 05:08:00 Test Item Value Reference Range Comments SODIUM (BEAKER) (test 140 meq/L 136-145 jhiy=093) POTASSIUM (BEAKER) (test 3.1 meq/L 3.5-5.1 dxqi=154) CHLORIDE (BEAKER) (test 100 meq/L 98-107 htex=805) CO2 (BEAKER) (test 30 meq/L 22-29 vlcu=052) BLOOD UREA NITROGEN 21 mg/dL 7-21 (BEAKER) (test uvtn=107) CREATININE (BEAKER) (test 0.94 mg/dL 0.57-1.25 uhir=172) GLUCOSE RANDOM (BEAKER) 103 mg/dL 70-105 (test ckpf=662) CALCIUM (BEAKER) (test 9.0 mg/dL 8.4-10.2 woeo=265) EGFR (BEAKER) (test 79 mL/min/1.73 sq m ESTIMATED GFR IS NOT hexd=3796) ACCURATE CREATININE CLEARANCE IN PREDICTING GLOMERULAR FILTRATION RATE. ESTIMATED GFR IS NOT APPLICABLE FOR DIALYSIS PATIENTS. RAD, CHEST, 1 VIEW, NON [id number] 07:52:00Reason for exam:->icdShould this be performed at the bedside?->YesFINAL REPORT Chest one view INDICATION: ICD COMPARISON: 04/19/2018 IMPRESSION:A left chest ICD is in place with stable leads where visible. No pneumothorax is seen. The cardiac silhouette is enlarged. Aortic ectasia and mediastinal prominence are stable. There is pulmonary vascular congestion with interstitial edema. Mildly increased left and stable right basilar opacities likely reflect atelectasis with adjacent small pleural effusions. Pneumonitis should be excluded clinically. Signed: Kateryna Garcia MDReport Verified Date/Time: 2017 07:52:28 Reading Location: [facility] Radiology Reading Room [id number] 04:36:00 Test Item Value Reference Range Comments POTASSIUM (BEAKER) (test jsgf=714) 3.5 meq/L 3.5-5.1 Check Serum Potassium level 2 hours after oral potassium replacement completed or 30 min after intravenous potassium replacement.[id number] 04:36:00 Test Item Value Reference Range Comments MAGNESIUM (BEAKER) (test kqvu=845) 2.0 mg/dL 1.6-2.6 Check Serum Potassium level 2 hours after oral potassium replacement completed or 30 min after intravenous potassium replacement.BASIC METABOLIC [id number] 04:36:00 Test Item Value Reference Range Comments SODIUM (BEAKER) (test 139 meq/L 136-145 hbyc=630) POTASSIUM (BEAKER) (test 3.5 meq/L 3.5-5.1 ydyl=524) CHLORIDE (BEAKER) (test 101 meq/L 98-107 gjqv=598) CO2 (BEAKER) (test 30 meq/L 22-29 zrxw=800) BLOOD UREA NITROGEN 23 mg/dL 7-21 (BEAKER) (test gwdw=874) CREATININE (BEAKER) (test 1.05 mg/dL 0.57-1.25 imyp=141) GLUCOSE RANDOM (BEAKER) 100 mg/dL 70-105 (test odjl=829) CALCIUM (BEAKER) (test 8.9 mg/dL 8.4-10.2 pvmw=314) EGFR (BEAKER) (test 69 mL/min/1.73 sq m ESTIMATED GFR IS NOT hbkt=5320) ACCURATE CREATININE CLEARANCE IN PREDICTING GLOMERULAR FILTRATION RATE. ESTIMATED GFR IS NOT APPLICABLE FOR DIALYSIS PATIENTS. Check Serum Potassium level 2 hours after oral potassium replacement completed or 30 min after intravenous potassium replacement.[id number] 04:35:00 Test Item Value Reference Range Comments MAGNESIUM (BEAKER) (test uakc=596) 1.9 mg/dL 1.6-2.6 Check Serum Potassium level 2 hours after oral potassium replacement completed or 30 min after intravenous potassium replacement.BASIC METABOLIC [id number] 04:35:00 Test Item Value Reference Range Comments SODIUM (BEAKER) (test 139 meq/L 136-145 pndg=037) POTASSIUM (BEAKER) (test 3.5 meq/L 3.5-5.1 dukr=943) CHLORIDE (BEAKER) (test 101 meq/L 98-107 jpyb=851) CO2 (BEAKER) (test 29 meq/L 22-29 jigl=191) BLOOD UREA NITROGEN 24 mg/dL 7-21 (BEAKER) (test yjfh=273) CREATININE (BEAKER) (test 1.03 mg/dL 0.57-1.25 vild=318) GLUCOSE RANDOM (BEAKER) 100 mg/dL 70-105 (test lsdq=849) CALCIUM (BEAKER) (test 8.9 mg/dL 8.4-10.2 ijve=302) EGFR (BEAKER) (test 71 mL/min/1.73 sq m ESTIMATED GFR IS NOT dopu=7968) ACCURATE CREATININE CLEARANCE IN PREDICTING GLOMERULAR FILTRATION RATE. ESTIMATED GFR IS NOT APPLICABLE FOR DIALYSIS PATIENTS. Check Serum Potassium level 2 hours after oral potassium replacement completed or 30 min after intravenous potassium replacement.[id number] 04:34:00 Test Item Value Reference Range Comments POTASSIUM (BEAKER) (test feod=162) 3.5 meq/L 3.5-5.1 Check Serum Potassium level 2 hours after oral potassium replacement completed or 30 min after intravenous potassium replacement.[id number] 04:28:00 Test Item Value Reference Range Comments POTASSIUM (BEAKER) (test euko=314) 3.5 meq/L 3.5-5.1 Check Serum Potassium level 2 hours after oral potassium replacement completed or 30 min after intravenous potassium replacement.CBC W/PLT COUNT & AUTO [id number] 04:19:00 Test Item Value Reference Range Comments WHITE BLOOD CELL COUNT (BEAKER) (test sjbc=168) 6.1 K/ L 3.5-10.5 RED BLOOD CELL COUNT (BEAKER) (test xiwc=064) 4.22 M/ L 4.63-6.08 HEMOGLOBIN (BEAKER) (test atki=086) 13.2 GM/DL 13.7-17.5 HEMATOCRIT (BEAKER) (test mdxn=680) 41.2 % 40.1-51.0 MEAN CORPUSCULAR VOLUME (BEAKER) (test ylrm=148) 97.6 fL 79.0-92.2 MEAN CORPUSCULAR HEMOGLOBIN (BEAKER) (test 31.3 pg 25.7-32.2 quyw=217) MEAN CORPUSCULAR HEMOGLOBIN CONC (BEAKER) (test 32.0 GM/DL 32.3-36.5 mhkd=471) RED CELL DISTRIBUTION WIDTH (BEAKER) (test 12.5 % 11.6-14.4 nchw=805) PLATELET COUNT (BEAKER) (test cbih=431) 126 K/CU MM 150-450 MEAN PLATELET VOLUME (BEAKER) (test hmdh=453) 12.6 fL 9.4-12.4 NUCLEATED RED BLOOD CELLS (BEAKER) (test 0 /100 WBC 0-0 siup=981) NEUTROPHILS RELATIVE PERCENT (BEAKER) (test 73 % nsid=631) LYMPHOCYTES RELATIVE PERCENT (BEAKER) (test 14 % xtvk=478) MONOCYTES RELATIVE PERCENT (BEAKER) (test 10 % btus=286) EOSINOPHILS RELATIVE PERCENT (BEAKER) (test 3 % zxea=266) BASOPHILS RELATIVE PERCENT (BEAKER) (test 0 % nmmz=125) NEUTROPHILS ABSOLUTE COUNT (BEAKER) (test 4.42 K/ L 1.78-5.38 hikb=350) LYMPHOCYTES ABSOLUTE COUNT (BEAKER) (test 0.82 K/ L 1.32-3.57 ceip=018) MONOCYTES ABSOLUTE COUNT (BEAKER) (test 0.61 K/ L 0.30-0.82 ykab=575) EOSINOPHILS ABSOLUTE COUNT (BEAKER) (test 0.16 K/ L 0.04-0.54 jyth=330) BASOPHILS ABSOLUTE COUNT (BEAKER) (test 0.02 K/ L 0.01-0.08 lien=737) IMMATURE GRANULOCYTES-RELATIVE PERCENT (BEAKER) 0 % 0-1 (test qkhw=9492) RAD, CHEST, 1 VIEW, NON [id number] 19:47:00Reason for exam:->icdShould this be performed at the bedside?->YesFINAL REPORT AP chest HISTORY: ICD COMPARISON: 04/10/2018 IMPRESSION:Left AICD placed. No postprocedure pneumothorax. Marked cardiomegaly. Lungs grossly clear. Signed: Cuong Butterfield MDReport Verified Date/Time: 04/19/2018 19:47:16 Reading Location: [address] Consult Reading Room [id number] 05:42:00 Test Item Value Reference Range Comments MAGNESIUM (BEAKER) (test xqdm=496) 2.1 mg/dL 1.6-2.6 BASIC METABOLIC [id number] 05:42:00 Test Item Value Reference Range Comments SODIUM (BEAKER) (test 139 meq/L 136-145 eduf=810) POTASSIUM (BEAKER) (test 4.1 meq/L 3.5-5.1 drad=484) CHLORIDE (BEAKER) (test 100 meq/L 98-107 wixe=955) CO2 (BEAKER) (test 32 meq/L 22-29 vmto=944) BLOOD UREA NITROGEN 29 mg/dL 7-21 (BEAKER) (test ydsa=343) CREATININE (BEAKER) (test 1.31 mg/dL 0.57-1.25 cqad=306) GLUCOSE RANDOM (BEAKER) 112 mg/dL 70-105 (test merh=611) CALCIUM (BEAKER) (test 9.5 mg/dL 8.4-10.2 vjvi=339) EGFR (BEAKER) (test 54 mL/min/1.73 sq m ESTIMATED GFR IS NOT evpt=9540) ACCURATE CREATININE CLEARANCE IN PREDICTING GLOMERULAR FILTRATION RATE. ESTIMATED GFR IS NOT APPLICABLE FOR DIALYSIS PATIENTS. B-TYPE NATRIURETIC FACTOR (BNP)2018-04-19 05:41:00 Test Item Value Reference Range Comments B-TYPE NATRIURETIC PEPTIDE (BEAKER) (test 2590 pg/mL 0-100 gdgk=347) CBC W/PLT COUNT & AUTO [id number] 05:14:00 Test Item Value Reference Range Comments WHITE BLOOD CELL COUNT (BEAKER) (test cfjs=746) 5.5 K/ L 3.5-10.5 RED BLOOD CELL COUNT (BEAKER) (test wbtn=342) 4.19 M/ L 4.63-6.08 HEMOGLOBIN (BEAKER) (test ools=186) 13.2 GM/DL 13.7-17.5 HEMATOCRIT (BEAKER) (test dvmm=865) 41.3 % 40.1-51.0 MEAN CORPUSCULAR VOLUME (BEAKER) (test qzix=247) 98.6 fL 79.0-92.2 MEAN CORPUSCULAR HEMOGLOBIN (BEAKER) (test 31.5 pg 25.7-32.2 rxfj=533) MEAN CORPUSCULAR HEMOGLOBIN CONC (BEAKER) (test 32.0 GM/DL 32.3-36.5 fegk=092) RED CELL DISTRIBUTION WIDTH (BEAKER) (test 12.6 % 11.6-14.4 sqis=476) PLATELET COUNT (BEAKER) (test yyvg=346) 145 K/CU MM 150-450 MEAN PLATELET VOLUME (BEAKER) (test hszl=234) 13.2 fL 9.4-12.4 NUCLEATED RED BLOOD CELLS (BEAKER) (test 0 /100 WBC 0-0 bxlr=811) NEUTROPHILS RELATIVE PERCENT (BEAKER) (test 65 % ckjj=255) LYMPHOCYTES RELATIVE PERCENT (BEAKER) (test 20 % vwmo=834) MONOCYTES RELATIVE PERCENT (BEAKER) (test 11 % jgjr=359) EOSINOPHILS RELATIVE PERCENT (BEAKER) (test 3 % axwa=663) BASOPHILS RELATIVE PERCENT (BEAKER) (test 1 % uxjo=758) NEUTROPHILS ABSOLUTE COUNT (BEAKER) (test 3.57 K/ L 1.78-5.38 xyds=850) LYMPHOCYTES ABSOLUTE COUNT (BEAKER) (test 1.08 K/ L 1.32-3.57 hpbi=128) MONOCYTES ABSOLUTE COUNT (BEAKER) (test 0.62 K/ L 0.30-0.82 uzpt=401) EOSINOPHILS ABSOLUTE COUNT (BEAKER) (test 0.16 K/ L 0.04-0.54 qvma=648) BASOPHILS ABSOLUTE COUNT (BEAKER) (test 0.04 K/ L 0.01-0.08 vlpy=442) IMMATURE GRANULOCYTES-RELATIVE PERCENT (BEAKER) 1 % 0-1 (test muan=1197) [id number] 05:31:00 Test Item Value Reference Range Comments MAGNESIUM (BEAKER) (test gdkh=643) 2.2 mg/dL 1.6-2.6 BASIC METABOLIC [id number] 05:31:00 Test Item Value Reference Range Comments SODIUM (BEAKER) (test 137 meq/L 136-145 oymn=348) POTASSIUM (BEAKER) (test 4.8 meq/L 3.5-5.1 gkyd=365) CHLORIDE (BEAKER) (test 99 meq/L 98-107 hwih=065) CO2 (BEAKER) (test 29 meq/L 22-29 ulys=959) BLOOD UREA NITROGEN 31 mg/dL 7-21 (BEAKER) (test fguz=296) CREATININE (BEAKER) (test 1.38 mg/dL 0.57-1.25 qdou=770) GLUCOSE RANDOM (BEAKER) 131 mg/dL 70-105 (test shbr=688) CALCIUM (BEAKER) (test 9.6 mg/dL 8.4-10.2 oizx=012) EGFR (BEAKER) (test 51 mL/min/1.73 sq m ESTIMATED GFR IS NOT jjwx=2598) ACCURATE CREATININE CLEARANCE IN PREDICTING GLOMERULAR FILTRATION RATE. ESTIMATED GFR IS NOT APPLICABLE FOR DIALYSIS PATIENTS. CBC W/PLT COUNT & AUTO [id number] 04:44:00 Test Item Value Reference Range Comments WHITE BLOOD CELL COUNT (BEAKER) (test qkgd=412) 5.3 K/ L 3.5-10.5 RED BLOOD CELL COUNT (BEAKER) (test apod=672) 4.32 M/ L 4.63-6.08 HEMOGLOBIN (BEAKER) (test tykm=096) 13.6 GM/DL 13.7-17.5 HEMATOCRIT (BEAKER) (test lues=011) 42.0 % 40.1-51.0 MEAN CORPUSCULAR VOLUME (BEAKER) (test dtze=204) 97.2 fL 79.0-92.2 MEAN CORPUSCULAR HEMOGLOBIN (BEAKER) (test 31.5 pg 25.7-32.2 qzrw=114) MEAN CORPUSCULAR HEMOGLOBIN CONC (BEAKER) (test 32.4 GM/DL 32.3-36.5 nyoy=240) RED CELL DISTRIBUTION WIDTH (BEAKER) (test 12.4 % 11.6-14.4 gxbp=868) PLATELET COUNT (BEAKER) (test oeei=008) 125 K/CU MM 150-450 MEAN PLATELET VOLUME (BEAKER) (test ncib=706) 12.8 fL 9.4-12.4 NUCLEATED RED BLOOD CELLS (BEAKER) (test 0 /100 WBC 0-0 maaw=013) NEUTROPHILS RELATIVE PERCENT (BEAKER) (test 67 % xovz=758) LYMPHOCYTES RELATIVE PERCENT (BEAKER) (test 18 % uqhu=006) MONOCYTES RELATIVE PERCENT (BEAKER) (test 13 % lunv=798) EOSINOPHILS RELATIVE PERCENT (BEAKER) (test 2 % injm=253) BASOPHILS RELATIVE PERCENT (BEAKER) (test 0 % hxul=680) NEUTROPHILS ABSOLUTE COUNT (BEAKER) (test 3.53 K/ L 1.78-5.38 hflw=826) LYMPHOCYTES ABSOLUTE COUNT (BEAKER) (test 0.97 K/ L 1.32-3.57 vara=046) MONOCYTES ABSOLUTE COUNT (BEAKER) (test 0.66 K/ L 0.30-0.82 jpue=809) EOSINOPHILS ABSOLUTE COUNT (BEAKER) (test 0.09 K/ L 0.04-0.54 pkwj=096) BASOPHILS ABSOLUTE COUNT (BEAKER) (test 0.02 K/ L 0.01-0.08 xiwl=283) IMMATURE GRANULOCYTES-RELATIVE PERCENT (BEAKER) 1 % 0-1 (test zkvm=8710) [id number] 06:24:00 Test Item Value Reference Range Comments MAGNESIUM (BEAKER) (test odon=976) 2.2 mg/dL 1.6-2.6 BASIC METABOLIC [id number] 06:24:00 Test Item Value Reference Range Comments SODIUM (BEAKER) (test 135 meq/L 136-145 lmuw=547) POTASSIUM (BEAKER) (test 3.9 meq/L 3.5-5.1 mxxx=342) CHLORIDE (BEAKER) (test 98 meq/L 98-107 edsc=985) CO2 (BEAKER) (test 25 meq/L 22-29 vqcq=705) BLOOD UREA NITROGEN 25 mg/dL 7-21 (BEAKER) (test gkco=193) CREATININE (BEAKER) (test 1.25 mg/dL 0.57-1.25 gpzt=622) GLUCOSE RANDOM (BEAKER) 154 mg/dL 70-105 (test qzaf=565) CALCIUM (BEAKER) (test 9.5 mg/dL 8.4-10.2 cfbn=653) EGFR (BEAKER) (test 57 mL/min/1.73 sq m ESTIMATED GFR IS NOT vtxz=6704) ACCURATE CREATININE CLEARANCE IN PREDICTING GLOMERULAR FILTRATION RATE. ESTIMATED GFR IS NOT APPLICABLE FOR DIALYSIS PATIENTS. CBC W/PLT COUNT & AUTO [id number] 04:55:00 Test Item Value Reference Range Comments WHITE BLOOD CELL COUNT (BEAKER) (test dkmp=770) 8.5 K/ L 3.5-10.5 RED BLOOD CELL COUNT (BEAKER) (test kzan=345) 4.68 M/ L 4.63-6.08 HEMOGLOBIN (BEAKER) (test hezd=245) 14.4 GM/DL 13.7-17.5 HEMATOCRIT (BEAKER) (test qcnh=106) 45.4 % 40.1-51.0 MEAN CORPUSCULAR VOLUME (BEAKER) (test gmdr=547) 97.0 fL 79.0-92.2 MEAN CORPUSCULAR HEMOGLOBIN (BEAKER) (test 30.8 pg 25.7-32.2 lvlg=813) MEAN CORPUSCULAR HEMOGLOBIN CONC (BEAKER) (test 31.7 GM/DL 32.3-36.5 vrwv=195) RED CELL DISTRIBUTION WIDTH (BEAKER) (test 12.5 % 11.6-14.4 omso=735) PLATELET COUNT (BEAKER) (test mzry=806) 175 K/CU MM 150-450 MEAN PLATELET VOLUME (BEAKER) (test zqog=278) 13.1 fL 9.4-12.4 NUCLEATED RED BLOOD CELLS (BEAKER) (test 0 /100 WBC 0-0 gmac=954) NEUTROPHILS RELATIVE PERCENT (BEAKER) (test 78 % wrfu=246) LYMPHOCYTES RELATIVE PERCENT (BEAKER) (test 10 % zfjg=094) MONOCYTES RELATIVE PERCENT (BEAKER) (test 11 % kaqn=560) EOSINOPHILS RELATIVE PERCENT (BEAKER) (test 1 % isut=578) BASOPHILS RELATIVE PERCENT (BEAKER) (test 0 % wtzj=697) NEUTROPHILS ABSOLUTE COUNT (BEAKER) (test 6.57 K/ L 1.78-5.38 flsr=470) LYMPHOCYTES ABSOLUTE COUNT (BEAKER) (test 0.86 K/ L 1.32-3.57 owmn=434) MONOCYTES ABSOLUTE COUNT (BEAKER) (test 0.89 K/ L 0.30-0.82 cbae=451) EOSINOPHILS ABSOLUTE COUNT (BEAKER) (test 0.07 K/ L 0.04-0.54 wsrg=388) BASOPHILS ABSOLUTE COUNT (BEAKER) (test 0.03 K/ L 0.01-0.08 rxti=918) IMMATURE GRANULOCYTES-RELATIVE PERCENT (BEAKER) 0 % 0-1 (test ghpg=7337) [id number] 06:52:00 Test Item Value Reference Range Comments MAGNESIUM (BEAKER) (test lbpm=402) 2.2 mg/dL 1.6-2.6 BASIC METABOLIC [id number] 06:52:00 Test Item Value Reference Range Comments SODIUM (BEAKER) (test 136 meq/L 136-145 scbo=013) POTASSIUM (BEAKER) (test 3.9 meq/L 3.5-5.1 manm=777) CHLORIDE (BEAKER) (test 101 meq/L 98-107 voeq=050) CO2 (BEAKER) (test 26 meq/L 22-29 jvhm=665) BLOOD UREA NITROGEN 22 mg/dL 7-21 (BEAKER) (test wfro=277) CREATININE (BEAKER) (test 1.00 mg/dL 0.57-1.25 gtzc=166) GLUCOSE RANDOM (BEAKER) 100 mg/dL 70-105 (test eufs=385) CALCIUM (BEAKER) (test 9.2 mg/dL 8.4-10.2 vpye=059) EGFR (BEAKER) (test 73 mL/min/1.73 sq m ESTIMATED GFR IS NOT fwur=1549) ACCURATE CREATININE CLEARANCE IN PREDICTING GLOMERULAR FILTRATION RATE. ESTIMATED GFR IS NOT APPLICABLE FOR DIALYSIS PATIENTS. CBC W/PLT COUNT & AUTO [id number] 06:29:00 Test Item Value Reference Range Comments WHITE BLOOD CELL COUNT (BEAKER) (test gmnc=321) 5.7 K/ L 3.5-10.5 RED BLOOD CELL COUNT (BEAKER) (test xwfb=254) 4.35 M/ L 4.63-6.08 HEMOGLOBIN (BEAKER) (test ooqp=211) 13.7 GM/DL 13.7-17.5 HEMATOCRIT (BEAKER) (test yatr=271) 43.1 % 40.1-51.0 MEAN CORPUSCULAR VOLUME (BEAKER) (test cyow=255) 99.1 fL 79.0-92.2 MEAN CORPUSCULAR HEMOGLOBIN (BEAKER) (test 31.5 pg 25.7-32.2 itqp=985) MEAN CORPUSCULAR HEMOGLOBIN CONC (BEAKER) (test 31.8 GM/DL 32.3-36.5 oyxv=982) RED CELL DISTRIBUTION WIDTH (BEAKER) (test 12.5 % 11.6-14.4 sjgp=032) PLATELET COUNT (BEAKER) (test kupf=859) 126 K/CU MM 150-450 MEAN PLATELET VOLUME (BEAKER) (test aium=753) 12.7 fL 9.4-12.4 NUCLEATED RED BLOOD CELLS (BEAKER) (test 0 /100 WBC 0-0 nyxi=843) NEUTROPHILS RELATIVE PERCENT (BEAKER) (test 67 % tyvz=175) LYMPHOCYTES RELATIVE PERCENT (BEAKER) (test 17 % mmzv=655) MONOCYTES RELATIVE PERCENT (BEAKER) (test 12 % rspr=704) EOSINOPHILS RELATIVE PERCENT (BEAKER) (test 3 % jcjw=295) BASOPHILS RELATIVE PERCENT (BEAKER) (test 1 % xpvb=004) NEUTROPHILS ABSOLUTE COUNT (BEAKER) (test 3.80 K/ L 1.78-5.38 yuks=430) LYMPHOCYTES ABSOLUTE COUNT (BEAKER) (test 0.95 K/ L 1.32-3.57 jawf=884) MONOCYTES ABSOLUTE COUNT (BEAKER) (test 0.67 K/ L 0.30-0.82 ogqs=173) EOSINOPHILS ABSOLUTE COUNT (BEAKER) (test 0.18 K/ L 0.04-0.54 fpet=048) BASOPHILS ABSOLUTE COUNT (BEAKER) (test 0.03 K/ L 0.01-0.08 xzuj=925) IMMATURE GRANULOCYTES-RELATIVE PERCENT (BEAKER) 1 % 0-1 (test jree=3952) [id number] 05:51:00 Test Item Value Reference Range Comments MAGNESIUM (BEAKER) (test gbuv=066) 2.1 mg/dL 1.6-2.6 BASIC METABOLIC [id number] 05:51:00 Test Item Value Reference Range Comments SODIUM (BEAKER) (test 136 meq/L 136-145 gjuv=097) POTASSIUM (BEAKER) (test 4.0 meq/L 3.5-5.1 bggq=817) CHLORIDE (BEAKER) (test 101 meq/L 98-107 mndc=788) CO2 (BEAKER) (test 28 meq/L 22-29 ninx=317) BLOOD UREA NITROGEN 23 mg/dL 7-21 (BEAKER) (test fnjy=932) CREATININE (BEAKER) (test 1.03 mg/dL 0.57-1.25 gjoh=340) GLUCOSE RANDOM (BEAKER) 106 mg/dL 70-105 (test ttkw=225) CALCIUM (BEAKER) (test 9.4 mg/dL 8.4-10.2 tdtl=548) EGFR (BEAKER) (test 71 mL/min/1.73 sq m ESTIMATED GFR IS NOT tnqh=9585) ACCURATE CREATININE CLEARANCE IN PREDICTING GLOMERULAR FILTRATION RATE. ESTIMATED GFR IS NOT APPLICABLE FOR DIALYSIS PATIENTS. CBC W/PLT COUNT & AUTO [id number] 05:34:00 Test Item Value Reference Range Comments WHITE BLOOD CELL COUNT (BEAKER) (test vqwm=650) 5.1 K/ L 3.5-10.5 RED BLOOD CELL COUNT (BEAKER) (test kikk=912) 4.43 M/ L 4.63-6.08 HEMOGLOBIN (BEAKER) (test mtuy=344) 13.8 GM/DL 13.7-17.5 HEMATOCRIT (BEAKER) (test pkwl=468) 43.9 % 40.1-51.0 MEAN CORPUSCULAR VOLUME (BEAKER) (test ydzr=768) 99.1 fL 79.0-92.2 MEAN CORPUSCULAR HEMOGLOBIN (BEAKER) (test 31.2 pg 25.7-32.2 cyxu=162) MEAN CORPUSCULAR HEMOGLOBIN CONC (BEAKER) (test 31.4 GM/DL 32.3-36.5 hyri=562) RED CELL DISTRIBUTION WIDTH (BEAKER) (test 12.7 % 11.6-14.4 tnap=460) PLATELET COUNT (BEAKER) (test ihnv=289) 143 K/CU MM 150-450 MEAN PLATELET VOLUME (BEAKER) (test hxjr=188) 13.0 fL 9.4-12.4 NUCLEATED RED BLOOD CELLS (BEAKER) (test 0 /100 WBC 0-0 rtmc=946) NEUTROPHILS RELATIVE PERCENT (BEAKER) (test 64 % wawh=366) LYMPHOCYTES RELATIVE PERCENT (BEAKER) (test 21 % wquk=914) MONOCYTES RELATIVE PERCENT (BEAKER) (test 12 % haqi=238) EOSINOPHILS RELATIVE PERCENT (BEAKER) (test 3 % nnpy=471) BASOPHILS RELATIVE PERCENT (BEAKER) (test 0 % twih=790) NEUTROPHILS ABSOLUTE COUNT (BEAKER) (test 3.24 K/ L 1.78-5.38 bxoh=843) LYMPHOCYTES ABSOLUTE COUNT (BEAKER) (test 1.04 K/ L 1.32-3.57 zdvc=422) MONOCYTES ABSOLUTE COUNT (BEAKER) (test 0.62 K/ L 0.30-0.82 xlly=766) EOSINOPHILS ABSOLUTE COUNT (BEAKER) (test 0.13 K/ L 0.04-0.54 ezqi=576) BASOPHILS ABSOLUTE COUNT (BEAKER) (test 0.02 K/ L 0.01-0.08 upra=515) IMMATURE GRANULOCYTES-RELATIVE PERCENT (BEAKER) 1 % 0-1 (test mirz=9038) [id number] 18:07:00 Test Item Value Reference Range Comments MAGNESIUM (BEAKER) (test fajn=521) 2.2 mg/dL 1.6-2.6 BASIC METABOLIC [id number] 18:07:00 Test Item Value Reference Range Comments SODIUM (BEAKER) (test 137 meq/L 136-145 hvlx=713) POTASSIUM (BEAKER) (test 4.5 meq/L 3.5-5.1 usft=616) CHLORIDE (BEAKER) (test 100 meq/L 98-107 vqgr=098) CO2 (BEAKER) (test 28 meq/L 22-29 txvm=043) BLOOD UREA NITROGEN 23 mg/dL 7-21 (BEAKER) (test opaw=687) CREATININE (BEAKER) (test 1.05 mg/dL 0.57-1.25 bfia=963) GLUCOSE RANDOM (BEAKER) 109 mg/dL 70-105 (test ybpv=369) CALCIUM (BEAKER) (test 9.4 mg/dL 8.4-10.2 rlsv=480) EGFR (BEAKER) (test 69 mL/min/1.73 sq m ESTIMATED GFR IS NOT oxvi=6787) ACCURATE CREATININE CLEARANCE IN PREDICTING GLOMERULAR FILTRATION RATE. ESTIMATED GFR IS NOT APPLICABLE FOR DIALYSIS PATIENTS. [id number] 06:02:00 Test Item Value Reference Range Comments MAGNESIUM (BEAKER) (test rfqp=906) 2.3 mg/dL 1.6-2.6 BASIC METABOLIC [id number] 06:02:00 Test Item Value Reference Range Comments SODIUM (BEAKER) (test 138 meq/L 136-145 syws=717) POTASSIUM (BEAKER) (test 3.9 meq/L 3.5-5.1 xbbj=984) CHLORIDE (BEAKER) (test 103 meq/L 98-107 ooeq=809) CO2 (BEAKER) (test 26 meq/L 22-29 vwfg=907) BLOOD UREA NITROGEN 23 mg/dL 7-21 (BEAKER) (test ajhc=555) CREATININE (BEAKER) (test 1.04 mg/dL 0.57-1.25 ahix=376) GLUCOSE RANDOM (BEAKER) 114 mg/dL 70-105 (test barv=406) CALCIUM (BEAKER) (test 9.3 mg/dL 8.4-10.2 xcsf=819) EGFR (BEAKER) (test 70 mL/min/1.73 sq m ESTIMATED GFR IS NOT mstd=9224) ACCURATE CREATININE CLEARANCE IN PREDICTING GLOMERULAR FILTRATION RATE. ESTIMATED GFR IS NOT APPLICABLE FOR DIALYSIS PATIENTS. CBC W/PLT COUNT & AUTO [id number] 05:54:00 Test Item Value Reference Range Comments WHITE BLOOD CELL COUNT (BEAKER) (test cuph=629) 5.5 K/ L 3.5-10.5 RED BLOOD CELL COUNT (BEAKER) (test gomo=500) 4.33 M/ L 4.63-6.08 HEMOGLOBIN (BEAKER) (test smzc=489) 13.6 GM/DL 13.7-17.5 HEMATOCRIT (BEAKER) (test fhwq=685) 43.1 % 40.1-51.0 MEAN CORPUSCULAR VOLUME (BEAKER) (test yraa=978) 99.5 fL 79.0-92.2 MEAN CORPUSCULAR HEMOGLOBIN (BEAKER) (test 31.4 pg 25.7-32.2 gmab=835) MEAN CORPUSCULAR HEMOGLOBIN CONC (BEAKER) (test 31.6 GM/DL 32.3-36.5 qlnh=958) RED CELL DISTRIBUTION WIDTH (BEAKER) (test 12.8 % 11.6-14.4 qzrr=517) PLATELET COUNT (BEAKER) (test jnxa=108) 135 K/CU MM 150-450 MEAN PLATELET VOLUME (BEAKER) (test ifot=073) 12.6 fL 9.4-12.4 NUCLEATED RED BLOOD CELLS (BEAKER) (test 0 /100 WBC 0-0 jgew=622) NEUTROPHILS RELATIVE PERCENT (BEAKER) (test 64 % qhqp=427) LYMPHOCYTES RELATIVE PERCENT (BEAKER) (test 20 % ikiw=764) MONOCYTES RELATIVE PERCENT (BEAKER) (test 12 % gxca=512) EOSINOPHILS RELATIVE PERCENT (BEAKER) (test 3 % gchq=960) BASOPHILS RELATIVE PERCENT (BEAKER) (test 1 % bbkv=495) NEUTROPHILS ABSOLUTE COUNT (BEAKER) (test 3.52 K/ L 1.78-5.38 biri=560) LYMPHOCYTES ABSOLUTE COUNT (BEAKER) (test 1.08 K/ L 1.32-3.57 uivk=280) MONOCYTES ABSOLUTE COUNT (BEAKER) (test 0.67 K/ L 0.30-0.82 huqv=012) EOSINOPHILS ABSOLUTE COUNT (BEAKER) (test 0.19 K/ L 0.04-0.54 mppm=174) BASOPHILS ABSOLUTE COUNT (BEAKER) (test 0.04 K/ L 0.01-0.08 fanz=001) IMMATURE GRANULOCYTES-RELATIVE PERCENT (BEAKER) 0 % 0-1 (test ebru=8016) MR, CARDIAC, [id number] 15:18:00 Ngocambrosi[facility]odi wishes to optimize patient' s fluid and respiratory status to ensure safety of patient during transport and 45 minutes of lying flat. Rescheduling for patient optimization.Reason for exam :->cardiomyopathyFINAL REPORT Cardiac MRI dated 13 April 2018 INDICATION: This is a 73 year-old male with cardiomyopathy presents for assessment. This study is performed in order to quantitate left ventricular function, and to determine myocardial viability and damage. TECHNIQUE: [employer] MRI scanner. Morphologic and dynamic cine imaging were performed in multiple projections before and after contrast administration. Thereafter, gadolinium was administered, which was followed by viability/scar imaging. Finally, flow quantification sequences were performed to determine the degree of valvular dysfunction. Patient weighs 244 pounds, with height of 72 inches. Body surface area isapproximately 2.37. Please refer to the contrast sheet scanned in the EPIC system for the amount androute of contrast given. FINDINGS: The chest wall and mediastinum appears unremarkable. No obvious pericardial effusion is identified. The central pulmonary artery is minimally prominent. Bibasal pleural effusion in the lung bases, right greater than left. Note only five sutures somewhat prominent suggesting a degree of cardiac congestion. The cardiac chambers demonstrate normal atrioventricular and ventriculoarterial concordance, and systemic and pulmonary venous return. The thoracic aorta is normal in course, calibre, and contour. Atherosclerotic plaques are identified in the descending thoracic aorta. There is no evidence of acute aortic pathology, such as dissection, intramural hematoma, or contained rupture. The left ventricle is enlarged with severe global systolic dysfunction. Quantitative values are as follows: HDF=231 cc; PUV=769 cc; stroke volume=59 cc; and ejection fraction=13%.Calculated absolute cardiac output=5.6 liters/min. Absolute left ventricular cwyz=362 grams. No imaging evidence to suggest left ventricular noncompaction or hypertrophic cardiomyopathy. The right ventricle is also enlarged, with severe systolic dysfunction. Quantitative values are as follows: FOA=882 cc; VYP=698 cc; stroke volume=63 cc; and ejection fraction=23%. Cine imaging and flow quantification reveals mild mitral regurgitation. There is also trace to mild aortic regurgitation. There is reduction in aortic valve opening, uncertain if related to reduce systolic function. Correlate with echocardiography. Viability/scar imaging reveals no evidence of prior myocardial infarction. Patchy mid myocardial hyperenhancement is identified where the right ventricle inserts into the left ventricular anteroseptum and inferoseptum, suggesting interstitial fibrosis, a nonspecific finding in patient with cardiomyopathy. Ventricular thrombus is not present. Left atrial enlargement is identified. Lipomatous hypertrophy of the interatrial septum is seen. Mild right atrial prominence is also noted. CONCLUSIONS: 1. The left ventricle is significantly enlarged, with severe global systolic dysfunction. Ejection fraction is quantified to be 13%. Quantitative left ventricular functional values are as described above. Viability/scar imaging is normal. There is no evidence of prior myocardial damage. Mid myocardial hyperenhancement is identified, suggesting interstitial fibrosis, a nonspecific finding inpatient with cardiomyopathy. 2. The right ventricle is also enlarged, with severe systolic dysfunction. Ejection fraction is quantified to be 23%. Quantitative right ventricular functional veins as described above. 3. Mild mitral regurgitation. Mild to trace aortic regurgitation. Reduction in excursion is identified in the aortic valve cusps uncertain if it representing aortic stenosis or due to underlying systolic dysfunction. Please correlate with echocardiography. 4. Left and right atrial enlargement. 5. Bibasal pleural effusion right greater than left. Pulmonary vasculature is prominent suggesting underlying cardiac congestion. Signed: Layo Rice MDReport Verified Date/Time: 04/13/2018 15 :18:03 Reading Location: [place] [id number] Cardiology MRI [id number] 01:35:00 Test Item Value Reference Range Comments MAGNESIUM (BEAKER) (test 2.4 mg/dL 1.6-2.6 Specimen slightly hemolyzed vpvk=737) BASIC METABOLIC [id number] 01:35:00 Test Item Value Reference Range Comments SODIUM (BEAKER) (test 138 meq/L 136-145 reis=779) POTASSIUM (BEAKER) (test 3.9 meq/L 3.5-5.1 Specimen slightly sdbf=297) hemolyzed CHLORIDE (BEAKER) (test 101 meq/L 98-107 wkxl=570) CO2 (BEAKER) (test 27 meq/L 22-29 asjs=718) BLOOD UREA NITROGEN 24 mg/dL 7-21 (BEAKER) (test tphy=961) CREATININE (BEAKER) (test 1.00 mg/dL 0.57-1.25 Specimen slightly zuxc=520) hemolyzed GLUCOSE RANDOM (BEAKER) 111 mg/dL 70-105 (test msxw=468) CALCIUM (BEAKER) (test 9.4 mg/dL 8.4-10.2 vutg=819) EGFR (BEAKER) (test 73 mL/min/1.73 sq m ESTIMATED GFR IS NOT tqyt=0101) ACCURATE CREATININE CLEARANCE IN PREDICTING GLOMERULAR FILTRATION RATE. ESTIMATED GFR IS NOT APPLICABLE FOR DIALYSIS PATIENTS. LACTIC ACID, VENOUS, WHOLE [id number] 01:30:00 Test Item Value Reference Range Comments LACTATE BLOOD VENOUS (2) 1.1 mmol/L 0.5-2.2 Specimen slightly hemolyzed (BEAKER) (test togl=9647) Effective 12/12/2015: Units/Reference Range ChangeNew: 0.5-2.2 mmol/L Previous: 5 -20 mg/[id number] 12:23:00 Test Item Value Reference Range Comments MAGNESIUM (BEAKER) (test 2.8 mg/dL 1.6-2.6 Specimen moderately hemolyzed zwie=680) Check Serum Potassium level 2 hours after oral potassium replacement completed or 30 min after intravenous potassium replacement.[id number] 12:23:00 Test Item Value Reference Range Comments POTASSIUM (BEAKER) (test 5.2 meq/L 3.5-5.1 Specimen moderately hemolyzed hejl=787) Check Serum Potassium level 2 hours after oral potassium replacement completed or 30 min after intravenous potassium replacement.[id number] 07:32:00 Test Item Value Reference Range Comments MAGNESIUM (BEAKER) (test rcft=451) 2.7 mg/dL 1.6-2.6 BASIC METABOLIC [id number] 07:32:00 Test Item Value Reference Range Comments SODIUM (BEAKER) (test 136 meq/L 136-145 pshw=465) POTASSIUM (BEAKER) (test 4.1 meq/L 3.5-5.1 oztv=336) CHLORIDE (BEAKER) (test 101 meq/L 98-107 eztg=336) CO2 (BEAKER) (test 24 meq/L 22-29 vugj=214) BLOOD UREA NITROGEN 22 mg/dL 7-21 (BEAKER) (test zejg=342) CREATININE (BEAKER) (test 0.98 mg/dL 0.57-1.25 wksj=216) GLUCOSE RANDOM (BEAKER) 121 mg/dL 70-105 (test rgar=201) CALCIUM (BEAKER) (test 9.0 mg/dL 8.4-10.2 aoxr=312) EGFR (BEAKER) (test 75 mL/min/1.73 sq m ESTIMATED GFR IS NOT dpyz=9267) ACCURATE CREATININE CLEARANCE IN PREDICTING GLOMERULAR FILTRATION RATE. ESTIMATED GFR IS NOT APPLICABLE FOR DIALYSIS PATIENTS. CBC W/PLT COUNT & AUTO [id number] 06:44:00 Test Item Value Reference Range Comments WHITE BLOOD CELL COUNT (BEAKER) (test cekw=830) 5.7 K/ L 3.5-10.5 RED BLOOD CELL COUNT (BEAKER) (test japd=761) 4.82 M/ L 4.63-6.08 HEMOGLOBIN (BEAKER) (test zjbb=295) 15.1 GM/DL 13.7-17.5 HEMATOCRIT (BEAKER) (test aspq=785) 47.4 % 40.1-51.0 MEAN CORPUSCULAR VOLUME (BEAKER) (test abeo=697) 98.3 fL 79.0-92.2 MEAN CORPUSCULAR HEMOGLOBIN (BEAKER) (test 31.3 pg 25.7-32.2 mezs=911) MEAN CORPUSCULAR HEMOGLOBIN CONC (BEAKER) (test 31.9 GM/DL 32.3-36.5 uelx=966) RED CELL DISTRIBUTION WIDTH (BEAKER) (test 12.6 % 11.6-14.4 vktd=446) PLATELET COUNT (BEAKER) (test bqiv=606) 176 K/CU MM 150-450 MEAN PLATELET VOLUME (BEAKER) (test qoff=173) 12.6 fL 9.4-12.4 NUCLEATED RED BLOOD CELLS (BEAKER) (test 0 /100 WBC 0-0 lvqi=821) NEUTROPHILS RELATIVE PERCENT (BEAKER) (test 66 % aomk=962) LYMPHOCYTES RELATIVE PERCENT (BEAKER) (test 18 % qcvs=808) MONOCYTES RELATIVE PERCENT (BEAKER) (test 13 % ttbe=339) EOSINOPHILS RELATIVE PERCENT (BEAKER) (test 2 % tiga=614) BASOPHILS RELATIVE PERCENT (BEAKER) (test 1 % vtcc=759) NEUTROPHILS ABSOLUTE COUNT (BEAKER) (test 3.71 K/ L 1.78-5.38 znsw=946) LYMPHOCYTES ABSOLUTE COUNT (BEAKER) (test 1.02 K/ L 1.32-3.57 kmxv=145) MONOCYTES ABSOLUTE COUNT (BEAKER) (test 0.73 K/ L 0.30-0.82 yxga=190) EOSINOPHILS ABSOLUTE COUNT (BEAKER) (test 0.13 K/ L 0.04-0.54 wgcn=682) BASOPHILS ABSOLUTE COUNT (BEAKER) (test 0.04 K/ L 0.01-0.08 lsjw=231) IMMATURE GRANULOCYTES-RELATIVE PERCENT (BEAKER) 0 % 0-1 (test hrpk=7433) [id number] 00:40:00 Test Item Value Reference Range Comments PHOSPHORUS (BEAKER) (test chdc=562) 4.4 mg/dL 2.3-4.7 [id number] 00:40:00 Test Item Value Reference Range Comments MAGNESIUM (BEAKER) (test ivhp=389) 2.0 mg/dL 1.6-2.6 BASIC METABOLIC [id number] 00:40:00 Test Item Value Reference Range Comments SODIUM (BEAKER) (test 137 meq/L 136-145 puhj=577) POTASSIUM (BEAKER) (test 3.7 meq/L 3.5-5.1 eonj=146) CHLORIDE (BEAKER) (test 99 meq/L 98-107 fmes=959) CO2 (BEAKER) (test 29 meq/L 22-29 okqw=994) BLOOD UREA NITROGEN 24 mg/dL 7-21 (BEAKER) (test tawr=759) CREATININE (BEAKER) (test 1.04 mg/dL 0.57-1.25 vate=953) GLUCOSE RANDOM (BEAKER) 120 mg/dL 70-105 (test bfad=390) CALCIUM (BEAKER) (test 9.2 mg/dL 8.4-10.2 pfud=751) EGFR (BEAKER) (test 70 mL/min/1.73 sq m ESTIMATED GFR IS NOT xqrn=1922) ACCURATE CREATININE CLEARANCE IN PREDICTING GLOMERULAR FILTRATION RATE. ESTIMATED GFR IS NOT APPLICABLE FOR DIALYSIS PATIENTS. [id number] 07:07:00 Test Item Value Reference Range Comments MAGNESIUM (BEAKER) (test 2.0 mg/dL 1.6-2.6 Specimen slightly hemolyzed bqfs=994) Check Serum Potassium level 2 hours after oral potassium replacement completed or 30 min after intravenous potassium replacement.[id number] 07:07:00 Test Item Value Reference Range Comments POTASSIUM (BEAKER) (test 4.1 meq/L 3.5-5.1 Specimen slightly hemolyzed uovg=854) Check Serum Potassium level 2 hours after oral potassium replacement completed or 30 min after intravenous potassium replacement.TSH/FREE T4 IF [id number] 03:55:00 Test Item Value Reference Range Comments THYROID STIMULATING HORMONE (BEAKER) (test 1.93 uIU/mL 0.35-4.94 ltpv=547) B-TYPE NATRIURETIC FACTOR (BNP)2018-04-11 03:39:00 Test Item Value Reference Range Comments B-TYPE NATRIURETIC PEPTIDE (BEAKER) (test 1771 pg/mL 0-100 ipal=055) BASIC METABOLIC [id number] 03:36:00 Test Item Value Reference Range Comments SODIUM (BEAKER) (test 141 meq/L 136-145 sxrk=723) POTASSIUM (BEAKER) (test 3.8 meq/L 3.5-5.1 bcem=186) CHLORIDE (BEAKER) (test 104 meq/L 98-107 rtdt=611) CO2 (BEAKER) (test 28 meq/L 22-29 yqqd=186) BLOOD UREA NITROGEN 16 mg/dL 7-21 (BEAKER) (test pyhz=737) CREATININE (BEAKER) (test 0.89 mg/dL 0.57-1.25 gexc=072) GLUCOSE RANDOM (BEAKER) 111 mg/dL 70-105 (test zefr=569) CALCIUM (BEAKER) (test 9.0 mg/dL 8.4-10.2 krom=129) EGFR (BEAKER) (test 84 mL/min/1.73 sq m ESTIMATED GFR IS NOT ezwo=7661) ACCURATE CREATININE CLEARANCE IN PREDICTING GLOMERULAR FILTRATION RATE. ESTIMATED GFR IS NOT APPLICABLE FOR DIALYSIS PATIENTS. [id number] 01:13:00 Test Item Value Reference Range Comments POTASSIUM (BEAKER) (test 3.9 meq/L 3.5-5.1 Specimen slightly hemolyzed akpg=093) Check Serum Potassium level 2 hours after oral potassium replacement completed or 30 min after intravenous potassium replacement.[id number] 18:22:00 Test Item Value Reference Range Comments POTASSIUM (BEAKER) (test urvn=526) 3.7 meq/L 3.5-5.1 HEPATIC FUNCTION [id number] 18:22:00 Test Item Value Reference Range Comments TOTAL PROTEIN (BEAKER) (test qrec=433) 5.9 gm/dL 6.0-8.3 ALBUMIN (BEAKER) (test wwap=8410) 3.4 g/dL 3.5-5.0 BILIRUBIN TOTAL (BEAKER) (test pqie=056) 1.5 mg/dL 0.2-1.2 BILIRUBIN DIRECT (BEAKER) (test boxo=774) 0.9 mg/dL 0.1-0.5 ALKALINE PHOSPHATASE (BEAKER) (test iybb=601) 77 U/L 40-150 AST (SGOT) (BEAKER) (test iyrv=019) 25 U/L 5-34 ALT (SGPT) (BEAKER) (test qxgn=732) 40 U/L 6-55 RAD, CHEST, 1 VIEW, NON [id number] 14:36:00Reason for exam:->CHFShould this be performed at the bedside?->YesFINAL REPORT CHEST ONE VIEW HISTORY: Congestive heart failure COMPARISON: None FINDINGS: 2 portable AP images of the chest were obtained. There are interstitial opacities in the lower lungs, suggestive of pulmonary edema. No pleural effusions are visualized. No pneumothorax. Thecardiac shadow appears normal in size. Thoracic aorta tortuous. No acute skeletal abnormalities are identified. IMPRESSION: Interstitial pulmonary edema. Signed: Bruce Rodriguez Verified Date/Time: 04/10/2018 14:36:40 Reading Location: [address] Transitional Reading Room Electronicallysigned by: BRUCE RODRIGUEZ MD on 04/10/2018 02:36 PMPROTHROMBIN [id number] 11:59:00 Test Item Value Reference Range Comments PROTIME (BEAKER) (test okur=562) 16.1 seconds 11.7-14.7 INR (BEAKER) (test flem=955) 1.3 <=5.9 RECOMMENDED COUMADIN/WARFARIN INR THERAPY RANGESSTANDARD DOSE: 2.0 - 3.0 Includes: PROPHYLAXIS forvenous thrombosis, systemic embolization; TREATMENT for venous thrombosis and/or pulmonary embolus.HIGH RISK: Target INR is 2.5-3.5 for patients with mechanical heart valves.CBC W/PLT COUNT & AUTO [id number] 11:48:00 Test Item Value Reference Range Comments WHITE BLOOD CELL COUNT (BEAKER) (test yafl=255) 5.2 K/ L 3.5-10.5 RED BLOOD CELL COUNT (BEAKER) (test mqqb=773) 4.87 M/ L 4.63-6.08 HEMOGLOBIN (BEAKER) (test hjvq=359) 15.4 GM/DL 13.7-17.5 HEMATOCRIT (BEAKER) (test gjhe=129) 47.9 % 40.1-51.0 MEAN CORPUSCULAR VOLUME (BEAKER) (test tmch=171) 98.4 fL 79.0-92.2 MEAN CORPUSCULAR HEMOGLOBIN (BEAKER) (test 31.6 pg 25.7-32.2 aoeh=151) MEAN CORPUSCULAR HEMOGLOBIN CONC (BEAKER) (test 32.2 GM/DL 32.3-36.5 kion=279) RED CELL DISTRIBUTION WIDTH (BEAKER) (test 12.7 % 11.6-14.4 ifkl=468) PLATELET COUNT (BEAKER) (test ngmy=993) 152 K/CU MM 150-450 MEAN PLATELET VOLUME (BEAKER) (test fgya=024) 11.8 fL 9.4-12.4 NUCLEATED RED BLOOD CELLS (BEAKER) (test 0 /100 WBC 0-0 angi=074) NEUTROPHILS RELATIVE PERCENT (BEAKER) (test 70 % aoob=342) LYMPHOCYTES RELATIVE PERCENT (BEAKER) (test 17 % vnmw=687) MONOCYTES RELATIVE PERCENT (BEAKER) (test 10 % zmeb=066) EOSINOPHILS RELATIVE PERCENT (BEAKER) (test 2 % oqwp=591) BASOPHILS RELATIVE PERCENT (BEAKER) (test 1 % durj=178) NEUTROPHILS ABSOLUTE COUNT (BEAKER) (test 3.62 K/ L 1.78-5.38 wkou=757) LYMPHOCYTES ABSOLUTE COUNT (BEAKER) (test 0.90 K/ L 1.32-3.57 avhp=889) MONOCYTES ABSOLUTE COUNT (BEAKER) (test 0.51 K/ L 0.30-0.82 nson=778) EOSINOPHILS ABSOLUTE COUNT (BEAKER) (test 0.11 K/ L 0.04-0.54 vtsv=597) BASOPHILS ABSOLUTE COUNT (BEAKER) (test 0.03 K/ L 0.01-0.08 juos=365) IMMATURE GRANULOCYTES-RELATIVE PERCENT (BEAKER) 0 % 0-1 (test uttp=3927) [id number] 06:40:00 Test Item Value Reference Range Comments MAGNESIUM (BEAKER) (test zpeu=034) 2.1 mg/dL 1.6-2.6 BASIC METABOLIC [id number] 06:40:00 Test Item Value Reference Range Comments SODIUM (BEAKER) (test 137 meq/L 136-145 diik=821) POTASSIUM (BEAKER) (test 3.8 meq/L 3.5-5.1 gurc=844) CHLORIDE (BEAKER) (test 101 meq/L 98-107 bkcn=114) CO2 (BEAKER) (test 29 meq/L 22-29 chrf=397) BLOOD UREA NITROGEN 17 mg/dL 7-21 (BEAKER) (test mevv=196) CREATININE (BEAKER) (test 1.03 mg/dL 0.57-1.25 onzi=655) GLUCOSE RANDOM (BEAKER) 108 mg/dL 70-105 (test oqsu=944) CALCIUM (BEAKER) (test 9.2 mg/dL 8.4-10.2 guxy=743) EGFR (BEAKER) (test 71 mL/min/1.73 sq m ESTIMATED GFR IS NOT gqvd=8106) ACCURATE CREATININE CLEARANCE IN PREDICTING GLOMERULAR FILTRATION RATE. ESTIMATED GFR IS NOT APPLICABLE FOR DIALYSIS PATIENTS. [id number] 00:19:00 Test Item Value Reference Range Comments POTASSIUM (BEAKER) (test jsfz=781) 4.1 meq/L 3.5-5.1 [id number] 00:19:00 Test Item Value Reference Range Comments MAGNESIUM (BEAKER) (test uqux=948) 2.2 mg/dL 1.6-2.6 [id number] 17:54:00 Test Item Value Reference Range Comments POTASSIUM (BEAKER) (test bxda=913) 3.4 meq/L 3.5-5.1 [id number] 03:57:00 Test Item Value Reference Range Comments MAGNESIUM (BEAKER) (test mugi=247) 2.1 mg/dL 1.6-2.6 BASIC METABOLIC [id number] 03:57:00 Test Item Value Reference Range Comments SODIUM (BEAKER) (test 139 meq/L 136-145 jxph=923) POTASSIUM (BEAKER) (test 3.3 meq/L 3.5-5.1 bjwq=667) CHLORIDE (BEAKER) (test 100 meq/L 98-107 jbta=791) CO2 (BEAKER) (test 30 meq/L 22-29 mibd=439) BLOOD UREA NITROGEN 19 mg/dL 7-21 (BEAKER) (test hsng=003) CREATININE (BEAKER) (test 0.98 mg/dL 0.57-1.25 cszg=049) GLUCOSE RANDOM (BEAKER) 106 mg/dL 70-105 (test kzbr=191) CALCIUM (BEAKER) (test 8.6 mg/dL 8.4-10.2 tjgf=511) EGFR (BEAKER) (test 75 mL/min/1.73 sq m ESTIMATED GFR IS NOT johj=4204) ACCURATE CREATININE CLEARANCE IN PREDICTING GLOMERULAR FILTRATION RATE. ESTIMATED GFR IS NOT APPLICABLE FOR DIALYSIS PATIENTS. HEMOGLOBIN [id number] 09:16:00 Test Item Value Reference Range Comments HEMOGLOBIN A1C (BEAKER) (test dxzx=389) 5.8 % 4.3-6.1 TROPONIN [id number] 05:49:00 Test Item Value Reference Range Comments TROPONIN I (BEAKER) (test twzd=240) 0.10 ng/mL 0.00-0.03 Troponin I (TnI) levels must be interpreted in the context of the presenting symptoms and the clinical findings. Elevated TnI levels indicate myocardial damage, but are not specific for ischemic heart disease. Elevated TnI levels are seen in patients with other cardiac conditions (including myocarditis and congestive heart failure), and slight TnI elevations occur in patients with other conditions, including sepsis, renal failure, acidosis, acute neurological disease, and persistent tachyarrhythmia.B-TYPE NATRIURETIC FACTOR (BNP) 05:46:00 Test Item Value Reference Range Comments B-TYPE NATRIURETIC PEPTIDE (BEAKER) (test 2715 pg/mL 0-100 fvtr=945) [id number] 05:45:00 Test Item Value Reference Range Comments MAGNESIUM (BEAKER) (test izwr=667) 2.1 mg/dL 1.6-2.6 BASIC METABOLIC [id number] 05:45:00 Test Item Value Reference Range Comments SODIUM (BEAKER) (test 139 meq/L 136-145 hbsg=861) POTASSIUM (BEAKER) (test 3.8 meq/L 3.5-5.1 dqrf=991) CHLORIDE (BEAKER) (test 100 meq/L 98-107 cugi=066) CO2 (BEAKER) (test 30 meq/L 22-29 aave=487) BLOOD UREA NITROGEN 19 mg/dL 7-21 (BEAKER) (test jyyl=886) CREATININE (BEAKER) (test 1.04 mg/dL 0.57-1.25 dzxs=714) GLUCOSE RANDOM (BEAKER) 111 mg/dL 70-105 (test kzea=600) CALCIUM (BEAKER) (test 9.2 mg/dL 8.4-10.2 djwv=596) EGFR (BEAKER) (test 70 mL/min/1.73 sq m ESTIMATED GFR IS NOT crov=0435) ACCURATE CREATININE CLEARANCE IN PREDICTING GLOMERULAR FILTRATION RATE. ESTIMATED GFR IS NOT APPLICABLE FOR DIALYSIS PATIENTS.
--- OUTSIDE RECORDS SUMMARY | 2019-10-28 12:15 | XMS REPORT ---
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 and stage 1 through stage 4 chronic kidney disease, or unspecified chronic kidney disease Problem Cigarette nicotine dependence in F17.211 Active remission Problem Mixed hyperlipidemia E78.2 Active Problem Adult BMI 34.0-34.9 kg/sq m Z68.34 Active Problem Cardiac pacemaker Z95.0 Active Problem Abnormal laboratory test R89.9 Active Problem 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 Problem Chronic obstructive pulmonary J44.9 Active disease, unspecified COPD type Problem 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
--- OUTSIDE RECORDS SUMMARY | 2019-10-28 12:15 | XMS REPORT ---
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 Assessment Left upper limb pain M79.602 Active Problem 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 Assessment Neck pain on left side M54.2 Active Problem Mixed hyperlipidemia E78.2 Active Assessment Cervical radiculopathy M54.12 Active Problem 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 Medications Medication Code Code Instructions Start End Status Dosage System Date Date Entresto [facility] 14479599085 49-51 MG Orally Active 1 tablet Twice a day Vitamin B-1 [facility] 78543809681 100 MG Orally Active 1 tablet Once a day Lipitor [facility] 97935245721 40 MG Orally Active 1 tablet Once a day Lipitor [facility] 38953155464 40 MG Active TAKE ONE TABLET BY MOUTH DAILY Aspir-81 [facility] 22832504467 81 MG Orally Active 1 tablet Once a day Bumex [facility] 98055171801 2 MG Orally BID Active 1 tab am and 1/2 tab pm Spironolactone [facility] 22790141438 50 MG Orally Active 1 tablet Once a day with food Potassium [facility] [address]-46 10 MEQ Active TAKE ONE Chloride ER CAPSULE BY MOUTH TWICE A DAY WITH FOOD Potassium [facility] 70071232086 10 MEQ Active TAKE ONE Chloride ER CAPSULE BY MOUTH TWICE A DAY WITH FOOD Tylenol # 3 [facility] 0 300/30mg PO BID Sep 13Sep Active one tab PRN SEVERE PAIN 2019 Metoprolol [facility] 74458003149 25 MG Orally Active 1/2 Tartrate Twice a day tablet with food Potassium [facility] 72429045566 10 MEQ Orally Active 1 capsule Chloride Twice a day with food Eliquis 5 mg [facility] 88837961323 5 mg by mouth Active one twice daily Results No Known Results Summary Purpose [employer] Submission
--- OUTSIDE RECORDS SUMMARY | 2019-10-28 12:15 | XMS REPORT ---
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 Assessment Cigarette nicotine dependence in Active remission Problem CKD (chronic kidney disease) stage N18.3 Active 3, GFR 30-59 ml/min Problem Acute on chronic systolic I50.23 Active (congestive) heart failure Problem 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 Problem Cardiac pacemaker Z95.0 Active Problem 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 Assessment Mixed hyperlipidemia E78.2 Active Assessment Chronic obstructive pulmonary J44.9 Active disease, unspecified COPD type Assessment 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 Assessment 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 Problem 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 51213495165 25 MG Orally Active 1/2 tablet Tartrate Twice a day with food Lipitor [facility] 74331646302 40 MG Orally Active 1 tablet Once a day Lipitor [facility] 13263995334 40 MG Active TAKE ONE TABLET BY MOUTH DAILY Bumex [facility] 03015825272 2 MG Orally BID Active 1 tab am and 1/2 tab pm Potassium [facility] 43673926587 10 MEQ Orally Active 1 capsule Chloride Twice a day with food Aspir-[address] [facility] 11342057118 81 MG Orally Active 1 tablet Once a day Vitamin B-[address] [facility] 62730764605 100 MG Orally Active 1 tablet Once a day Spironolactone [facility] 36316794003 50 MG Orally Active 1 tablet Once a day with food Eliquis [address] [facility] 23408293895 5 mg by mouth Active one twice daily Entresto [facility] 81033227286 49-51 MG Orally Active 1 tablet Twice a day Results No Known Results Summary Purpose [employer] Submission
--- OUTSIDE RECORDS SUMMARY | 2019-10-28 12:15 | XMS REPORT ---
:1945 Author Organization [employer] Care Team Providers Name Role Phone Mino Jamesh Provider Role Unavailable Allergies, Adverse Reactions, Alerts Substance Reaction Event Type N.K.D.A. 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 Problem Chronic obstructive pulmonary J44.9 Active disease, unspecified COPD type Assessment 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 Problem 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 Problem 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3 Active 3, GFR 30-59 ml/min Problem Abnormal laboratory test R89.9 Active Assessment Moderate aortic valve stenosis I35.0 Active Assessment Acute on chronic systolic I50.23 Active congestive heart failure Assessment 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 Assessment 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 failure and stage 1 through stage 4 chronic kidney disease, or unspecified chronic kidney disease Problem 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 Problem Mixed hyperlipidemia E78.2 Active Problem Cigarette nicotine dependence in F17.211 Active remission Medications Medication Code Code Instructions Start End Status Dosage System Date Date [facility] 84768587129 81 MG Orally Active 1 tablet Once a day Entresto [facility] 17083958888 97-103 MG Active 1 tablet Orally Twice a day Vitamin B-1 [facility] 45051488533 100 MG Orally Active 1 tablet Once a day Potassium [facility] 06283243966 10 MEQ Orally Active 1 capsule Chloride Twice a day with food Lipitor [facility] 33821697289 40 MG Orally Active 1 tablet Once a day Eliquis 5 mg [facility] 62040931214 5 mg by mouth Active one twice daily Spironolactone [facility] 59320473312 50 MG Orally Active 1 tablet Once a day with food Bumex [facility] 33064845873 2 MG Orally BID Active 1 tab am and 1/2 tab pm Metoprolol [facility] 51595210554 25 MG Orally Active 1/2 tablet Tartrate Twice a day with food Results No Known Results Summary Purpose [employer]ClinicalWorks Submission
--- OUTSIDE RECORDS SUMMARY | 2019-10-28 12:15 | XMS REPORT ---
[...] kidney disease Problem Cigarette nicotine dependence in F1. 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 Problem Acute on chronic systolic I50.23 Active (congestive) heart failure Assessment 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 Assessment Mixed hyperlipidemia E78.2 Active Assessment Cardiac pacemaker Z95.0 Active Assessment 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 Assessment 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 failure and stage 1 through stage 4 chronic kidney disease, or unspecified chronic kidney disease Assessment Chronic obstructive pulmonary J44.9 Active disease, unspecified COPD type Problem 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 Assessment Need for influenza vaccination Z23 Active Assessment 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 Problem 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 Medications Medication Code Code Instructions Start End Status Dosage System Date Date Lipitor ND 41885158263 40 MG Active TAKE ONE TABLET BY MOUTH DAILY Bumex ND 52285807183 2 MG Orally BID Active 1 tab am and 1/2 tab pm Metoprolol ND 09346897293 25 MG Orally Active 1/2 tablet Tartrate Twice a day with food Spironolactone [facility] 54934722261 50 MG Orally Active 1 tablet Once a day with food Potassium [facility] 53283568727 10 MEQ Orally Active 1 capsule Chloride Twice a day with food Entresto [facility] 79076324655 49-51 MG Orally Active 1 tablet Twice a day Lipitor [facility] 97406279607 40 MG Orally Active 1 tablet Once a day Vitamin B-1 [facility] 59723616192 100 MG Orally Active 1 tablet Once a day Aspir-81 [facility] 64771522221 81 MG Orally Active 1 tablet Once a day Results No Known Results Immunizations Vaccine Administration Date FluAD May 02, 2019 Summary Purpose eClinicalWorks Submission
--- OUTSIDE RECORDS SUMMARY | 2019-10-28 12:15 | XMS REPORT ---
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
--- OUTSIDE RECORDS SUMMARY | 2019-10-28 12:15 | XMS REPORT ---
[...] (implantable Z95.810 Active cardioverter-defibrillator) in place Medications Medication Code Code Instructions Start End Status Dosage System Date Date [facility] 73757825805 81 MG Orally Active 1 tablet Once a day Potassium [facility] 15739163316 10 MEQ Orally Active 1 capsule Chloride Twice a day with food Spironolactone [facility] 16829797379 50 MG Orally Active 1 tablet Once a day with food Eliquis 5 mg [facility] 69310618234 5 mg by mouth Active one twice daily Potassium [facility] [address]-90 10 MEQ Active TAKE ONE Chloride ER CAPSULE BY MOUTH TWICE A DAY WITH FOOD Entresto [facility] 92248594310 49-51 MG Orally Active 1 tablet Twice a day Vitamin B-1 [facility] 95665725979 100 MG Orally Active 1 tablet Once a day Lipitor [facility] 35097828474 40 MG Active TAKE ONE TABLET BY MOUTH DAILY Potassium [facility] 50934682482 10 MEQ Active TAKE ONE Chloride ER CAPSULE BY MOUTH TWICE A DAY WITH FOOD Lipitor [facility] 54631656890 40 MG Orally Active 1 tablet Once a day Metoprolol [facility] 89416735007 25 MG Orally Active 1/2 Tartrate Twice a day tablet with food Bumex [facility] 21338789637 2 MG Orally Active 1 tablet twice a day Results No Known Results Summary Purpose eClinicalWorks Submission
[2019-10-28] MEDS ORDERED: NA CHLORIDE 0.9% 500 ML ONE (12:56)
[2019-10-28 13:08] LABS: Absolute Lymphocytes (CBC) 1.1 K/uL (0.7-4.9); Basophils % 0.8 % (0-1.3); Hematocrit 43.6 % (39.6-49.0); Lymphocytes % 15.9 % (15.3-44.8); MPV 10.3 fL (7.6-11.3); Protime INR 1.49; RBC Red Blood Cell Count 4.67 M/uL (4.33-5.43)
[2019-10-28 13:21] LABS: Albumin 3.5 g/dL (3.4-5.0); Bilirubin Direct 0.2 mg/dL (0-0.2); Bilirubin Total 0.5 mg/dL (0.2-1.0); Magnesium 2.3 mg/dL (1.8-2.4); Potassium 4.4 mmol/L (3.5-5.1); Protein, Total 6.6 g/dL (6.4-8.2)
--- NOTE | 2019-10-28 13:58 | RAD REPORT ---
EXAM DESCRIPTION: RAD - Chest Single View - 10/28/2019 12:58 pm CLINICAL HISTORY: DYSPNEA COMPARISON: August 2018 chest exam TECHNIQUE: AP portable chest image was obtained 10/28/2019 12:58 pm . FINDINGS: Lungs are clear. Retrocardiac left base is inherently limited on portable imaging. Left he midiaphragm elevation is noted. Defibrillator in place. Heart size is upper normal accentuated by per icardial fat. Heart size is stable from comparison. No measurable pleural effusion and no pneumothora x. No acute bony abnormality seen. No acute aortic findings suspected. IMPRESSION: No acute cardiopulmonary process. No significant interval change.
--- NOTE | 2019-10-28 14:36 | EDPHYS ---
Physician Documentation [facility] Name: Manny Tello Age: 74 yrs Sex: Male : 1945 Arrival Date: 10/28/2019 Time: 12:11 Bed 17 Private MD: ED Physician Mahendra Guevara HPI: 10/27 13:11 This 74 yrs old Male presents to ER via EMS with complaints of Weakness. jr8 13:13 Patient stated that his blood pressure drops from [id number] after having dual pacer jr8 placed. Stated that they have been adjusting his BP meds to help with this but still having dips in BP. Stated that while at cardiac rehab today started to feel lightheaded and was told he was pale. Denies near syncope or syncope. Denies CP or shortness of breath. Denies recent illness or n/v/d episodes. Was told to come to ED for further evaluation. . Severity of symptoms: At their worst the symptoms were mild in the emergency department the symptoms have resolved. The patient has experienced similar episodes in the past, a few times. The patient has not recently seen a physician. Historical: - Allergies: 12:15 No Known Allergies; wh - PMHx: 12:15 Asthma; CHF; COPD; Hypertension; MS; wh - PSHx: 12:15 Pacemaker; Cholecystectomy; wh - Immunization history:: Adult Immunizations up to date. - Social history:: Smoking status: Patient/guardian denies using. ROS: 13:13 Eyes: Negative for injury, pain, redness, and discharge, ENT: Negative for injury, jr8 pain, and discharge, Neck: Negative for injury, pain, and swelling, Cardiovascular: Negative for chest pain, palpitations, and edema, Respiratory: Negative for shortness of breath, cough, wheezing, and pleuritic chest pain, Abdomen/GI: Negative for abdominal pain, nausea, vomiting, diarrhea, and constipation, Back: Negative for injury and pain, MS/Extremity: Negative for injury and deformity, Skin: Negative for injury, rash, and discoloration. 13:13 Neuro: Positive for dizziness. Exam: 13:13 Eyes: Pupils equal round and reactive to light, extra-ocular motions intact. Lids and jr8 lashes normal. Conjunctiva and sclera are non-icteric and not injected. Cornea within normal limits. Periorbital areas with no swelling, redness, or edema. ENT: Nares patent. No nasal discharge, no septal abnormalities noted. Tympanic membranes are normal and external auditory canals are clear. Oropharynx with no redness, swelling, or masses, exudates, or evidence of obstruction, uvula midline. Mucous membranes moist. Neck: Trachea midline, no thyromegaly or masses palpated, and no cervical lymphadenopathy. Supple, full range of motion without nuchal rigidity, or vertebral point tenderness. No Meningismus. Cardiovascular: Regular rate and rhythm with a normal S1 and S2. No gallops, murmurs, or rubs. Normal PMI, no JVD. No pulse deficits. Respiratory: Lungs have equal breath sounds bilaterally, clear to auscultation and percussion. No rales, rhonchi or wheezes noted. No increased work of breathing, no retractions or nasal flaring. Abdomen/GI: Soft, non-tender, with normal bowel sounds. No distension or tympany. No guarding or rebound. No evidence of tenderness throughout. Back: No spinal tenderness. No costovertebral tenderness. Full range of motion. Skin: Warm, dry with normal turgor. Normal color with no rashes, no lesions, and no evidence of cellulitis. MS/ Extremity: Pulses equal, no cyanosis. Neurovascular intact. Full, normal range of motion. Neuro: Awake and alert, GCS 15, oriented to person, place, time, and situation. Cranial nerves II-XII grossly intact. Motor strength 5/5 in all extremities. Sensory grossly intact. Cerebellar exam normal. Normal gait. 14:32 ECG was reviewed by the Attending Physician. jr8 Vital Signs: 12:11 BP 111 / 68; Pulse 61; Resp 18; Temp 98.4; Pulse Ox 97% ; Weight 117.93 kg; Height 6 wh ft. 1 in. (185.42 cm); Pain 0/10; 13:30 BP 90 / 62 Supine; Pulse 60; wh 13:31 BP 102 / 59 Sitting; Pulse 60; wh 13:32 BP 97 / 61 Standing; Pulse 67; Resp 18; Pulse Ox 96% on R/A; wh 14:30 BP 107 / 70; Pulse 59; Resp 18; Pulse Ox 97% on R/A; wh 12:11 Body Mass Index 34.30 (117.93 kg, 185.42 cm) MDM: 12:20 Patient medically screened. jr8 14:13 Data reviewed: vital signs, nurses notes, lab test result(s), EKG, radiologic studies, jr8 plain films. Data interpreted: Pulse oximetry: on room air is 96 %. Interpretation: normal. Counseling: I had a detailed discussion with the patient and/or guardian regarding: the historical points, exam findings, and any diagnostic results supporting the discharge/admit diagnosis, lab results, radiology results, the need for outpatient follow up, a scoop filler, a family practitioner, to return to the emergency department if symptoms worsen or persist or if there are any questions or concerns that arise at home. Response to treatment: the patient's symptoms have markedly improved after treatment, patient is well hydrated. 14:32 ED course: Patient feeling much better. Able to ambulate without dizziness or near jr8 syncope. 14:36 ED course: Addressed with patient that he needs to f/u with sole inker as well to 8 ensure kidney function improves . 10/27 12:21 Order name: Basic Metabolic Panel; Complete Time: 13:26 8 10/27 12:21 Order name: CBC with Diff; Complete Time: 13:11 8 10/27 12:21 Order name: LFT's; Complete Time: 13:26 8 10/27 12:21 Order name: Magnesium; Complete Time: 13:26 8 10/27 12:21 Order name: NT PRO-BNP; Complete Time: 13:26 8 10/27 12:21 Order name: PT-INR; Complete Time: 13:11 10/27 12:21 Order name: XRAY Chest (1 view); Complete Time: 14:13 8 10/27 12:21 Order name: Cardiac monitoring; Complete Time: 12:58 jr8 10/27 12:21 Order name: EKG - Nurse/Tech; Complete Time: 12:21 8 10/27 12:21 Order name: IV Saline Lock; Complete Time: 12:58 8 10/27 12:21 Order name: Labs collected and sent; Complete Time: 12:58 8 10/27 12:21 Order name: O2 Per Protocol; Complete Time: 12:58 [facility] [place] 10/27 14:52 Order name: EKG Electrocardiogram EDNE 03/20 12:21 Order name: O2 Sat Monitoring; Complete Time: 12:58 jr8 10/27 12:21 Order name: Orthostatics; Complete Time: 13:45 jr8 EC:32 Rhythm is regular, Paced. DC interval is normal at 120 msec. QRS interval is prolonged jr8 at 182 msec. QT interval is prolonged at 492 msec. No Q waves. T waves are Normal. No ST changes noted. Clinical impression: No evidence of ischemia and Paced Rhythm with RBBB. Interpreted by me. Reviewed by me. Administered Medications: 12:58 Drug: NS 0.9% 500 ml Route: IV; Rate: bolus; Site: right antecubital; 14:53 Follow up: Response: No adverse reaction; IV Status: Completed infusion Disposition: 17:16 Co-signature as Attending Physician, Mahendra Guevara MD Did not see or evaluate patient. ps1 Signature for administrative purposes. . Disposition: 10/28/19 14:35 Discharged to Home. Impression: Hypotension, Dehydration. - Condition is Stable. - Discharge Instructions: Dehydration, Adult, Hypotension, Acute Kidney Injury, Adult, Chronic Kidney Disease, Adult. - Medication Reconciliation Form, Thank You Letter, Antibiotic Education, Prescription Opioid Use form. - Follow up: Private Physician; When: 2 - 3 days; Reason: Recheck today's complaints, Continuance of care, Re-evaluation by your physician. - Problem is new. - Symptoms have improved. Signatures: Dispatcher [employer] EDNE Esteban Olivas PA PA jr8 Chirag Martinez Mahendra Guevara MD MD ps1 Corrections: (The following items were deleted from the chart) 14:54 14:35 10/28/2019 14:35 Discharged to Home. Impression: Hypotension; Dehydration. Condition is Stable. Forms are Medication Reconciliation Form, Thank You Letter, Antibiotic Education, Prescription Opioid Use. Follow up: Private Physician; When: 2 - 3 days; Reason: Recheck today's complaints, Continuance of care, Re-evaluation by your physician. Problem is new. Symptoms have improved. jr8
--- NOTE | 2019-10-28 14:36 | ER ---
Nurse's Notes [facility] Name: Manny Tello Age: 74 yrs Sex: Male : 1945 Arrival Date: 10/28/2019 Time: 12:11 Bed 17 Private MD: Diagnosis: Hypotension;Dehydration Presentation: 10/27 12:11 Chief complaint: EMS states: Pt was doing out patient rehab when he became lightheaded. wh Pt C/O generalized weakness and SOB. Pt states with Hx of CHF and Pacemaker was placed a year ago. Since then blood pressure was always low. Coronavirus screen: The patient has NOT traveled to a country currently being monitored by the [facility] within the last 14 days. Ebola Screen: Patient negative for fever greater than or equal to 101.5 degrees Fahrenheit, and additional compatible Ebola Virus Disease symptoms Patient denies exposure to infectious person. No acute neurological deficit is noted. The patients blood glucose was checked before arriving to the hospital and was found to be normal. Initial Sepsis Screen: Does the patient meet any 2 criteria? No. Patient's initial sepsis screen is negative. Does the patient have a suspected source of infection? No. Patient's initial sepsis screen is negative. Risk Assessment: Do you want to hurt yourself or someone else? Patient reports no desire to harm self or others. 12:11 Method Of Arrival: EMS: [facility] 12:11 Acuity: DAVID 3 12:20 Onset of symptoms was October 28, 2019. Historical: - Allergies: 12:15 No Known Allergies; - PMHx: 12:15 Asthma; CHF; COPD; Hypertension; KS; - PSHx: 12:15 Pacemaker; Cholecystectomy; wh - Immunization history:: Adult Immunizations up to date. - Social history:: Smoking status: Patient/guardian denies using. Screenin:20 Abuse screen: Denies threats or abuse. Denies injuries from another. Nutritional screening: No deficits noted. Tuberculosis screening: No symptoms or risk factors identified. VAN Screening: Arm Drift: Patient shows no arm weakness. Patient is VAN negative. Visual Disturbance: No visual disturbance noted. Aphasia: No aphasia noted. Neglect: No neglect noted. Fall Risk None identified. Assessment: 12:20 General: Appears in no apparent distress. Behavior is calm, cooperative, appropriate wh for age. Pain: Denies pain. Neuro: Level of Consciousness is awake, alert, obeys commands, Oriented to person, place, time, situation, Appropriate for age Jig Operator are equal bilaterally Moves all extremities. Gait is steady, Speech is normal, Facial symmetry appears normal, Pupils are PERRLA, Reports dizziness, weakness. Cardiovascular: Heart tones S1 S2. Respiratory: Reports shortness of breath Airway is patent Respiratory effort is even, unlabored, Respiratory pattern is regular, symmetrical, Breath sounds are clear bilaterally. GI: Abdomen is flat, non-distended. : No signs and/or symptoms were reported regarding the genitourinary system. EENT: No signs and/or symptoms were reported regarding the EENT system. Derm: Skin is intact, is healthy with good turgor, Skin is pink, warm \T\ dry. Musculoskeletal: Circulation, motion, and sensation intact. 13:40 Reassessment: Patient appears in no apparent distress at this time. No changes from previously documented assessment. Patient and/or family updated on plan of care and expected duration. Pain level reassessed. Patient is alert, oriented x 3, equal unlabored respirations, skin warm/dry/pink. 14:50 Reassessment: Patient appears in no apparent distress at this time. No changes from previously documented assessment. Patient and/or family updated on plan of care and expected duration. Pain level reassessed. Patient is alert, oriented x 3, equal unlabored respirations, skin warm/dry/pink. Patient states feeling better. Patient states symptoms have improved. Vital Signs: 12:11 BP 111 / 68; Pulse 61; Resp 18; Temp 98.4; Pulse Ox 97% ; Weight 117.93 kg; Height 6 wh ft. 1 in. (185.42 cm); Pain 0/10; 13:30 BP 90 / 62 Supine; Pulse 60; wh 13:31 BP 102 / 59 Sitting; Pulse 60; wh 13:32 BP 97 / 61 Standing; Pulse 67; Resp 18; Pulse Ox 96% on R/A; wh 14:30 BP 107 / 70; Pulse 59; Resp 18; Pulse Ox 97% on R/A; wh 12:11 Body Mass Index 34.30 (117.93 kg, 185.42 cm) ED Course: 12:11 Patient arrived in ED. 12:11 Esteban Olivas PA is PHCP. 8 12:11 Mahendra Guevara MD is Attending Physician. [facility] 12:14 Triage completed. 12:20 Arm band placed on right wrist. 12:20 Patient has correct armband on for positive identification. Placed in gown. Bed in low wh position. Call light in reach. Side rails up X 1. monitor technician on. Pulse ox on. NIBP on. 12:34 Chirag Martinez is Primary Nurse. 12:40 Inserted saline lock: 20 gauge in right antecubital area, using aseptic technique. Blood collected. 13:01 XRAY Chest (1 view) In Process Unspecified. EDMS 14:51 No provider procedures requiring assistance completed. IV discontinued, intact, bleeding controlled, No redness/swelling at site. Administered Medications: 12:58 Drug: NS 0.9% 500 ml Route: IV; Rate: bolus; Site: right antecubital; 14:53 Follow up: Response: No adverse reaction; IV Status: Completed infusion Outcome: 14:35 Discharge ordered by . [facility] 14:52 Discharged to home ambulatory, with family. 14:52 Condition: stable 14:52 Discharge instructions given to patient, family, Instructed on discharge instructions, follow up and referral plans. POC Demonstrated understanding of instructions, follow-up care, POC 14:54 Patient left the ED. Signatures: Dispatcher [employer] EDTX Esteban Olivas PA PA jr8 Chirag Martinez
[2019-10-28 15:01] VITALS: TEMP 98.4
[2019-10-28 15:06] VITALS: BP 107/70; O2SAT 97
--- NOTE | 2019-10-30 09:01 | EKG ---
Test Date: 2019-10-28 Test Time: 12:10:05 Painter Supervisor: AIMEE MEASUREMENT RESULTS: Intervals: Rate: 60 PA: 120 QRSD: 182 QT: 492 QTc: 492 Crocker: P: -27 PA: 120 QRS: 257 T: 78 INTERPRETIVE STATEMENTS: Atrial-paced rhythm Right bundle branch block Abnormal ECG Compared to ECG 04/07/2018 13:25:34 Sinus rhythm no longer present Atrial premature complex(es) no longer present Left-axis deviation no longer present Myocardial infarct finding no longer present Electronically Signed On 10-30-19 08:58:09 CDT by Misbah Rehman
== END 2019-10-28 14:54 | disposition home or self-care (01) ==
LOC: ER 12:10
DX: I95.9 Hypotension, unspecified (principal); E86.0 Dehydration; I10 Essential (primary) hypertension; I25.2 Old myocardial infarction; Z95.0 Presence of cardiac pacemaker
CPT/HCPCS: 96361; 93005; 85025; 80048; 36415; 83735; 85610; 80076; 83880; 71045; 96360; 99284; J7040

== ENCOUNTER 2020-06-20 14:01 | Observation (INO) | payer OTHER, MEDICARE ==
--- OUTSIDE RECORDS SUMMARY | 2020-06-20 14:09 | XMS REPORT | Clinical Summary ---
:1945 Author Organization [facility] Address [address] [place] [address] Care Team Providers Name Role Phone Lee James DO Primary Care Provider Allergies No Known Allergies Medications Medication Sig Dispensed Refills Start Date End Date Status aspirin 81 MG EC Take 81 mg 0 Ac tive tablet by mouth daily. atorvastatin Take 40 mg 0 Active (LIPITOR) 40 MG by mouth tablet daily. apixaban (ELIQUIS) 5 Take 5 mg 0 Active mg Tab tablet by mouth 2 (two) times daily. sacubitril-valsartan Take 1 0 Active (ENTRESTO) 97-103 mg tablet by Tab mouth 2 (two) times daily. potassium chloride Take 10 mEq 0 Active (KLOR-CON) 10 MEQ CR by mouth 2 tabletIndications: (two) times hypokalemia daily. prevention spironolactone Take 25 mg 0 Acti ve (ALDACTONE) 25 MG by mouth tabletIndications: daily. edema metoprolol Take 50 mg 0 Active (TOPROL-XL) 50 MG 24 by mouth 2 hr (two) times tabletIndications: daily. chronic heart failure bumetanide (BUMEX) 2 Take 1 60 tablet 1 10/08/2019 Active MG tablet (2 tabletIndications: mg total) edema by mouth 2 (two) times daily. metoprolol Take 50 mg 0 Disconti nued (TOPROL-XL) 25 MG 24 by mouth 2 0 hr (two) times tabletIndications: daily . prevention of a. fib post cardio-thoracic surgery bumetanide (BUMEX) 1 Take 1 mg 0 Discontinued MG by mouth 2 0 (Reorder) tabletIndications: (two) times edema daily. Active Problems Problem Noted Date Shortness of breath 10/04/2019 CHF (congestive heart failure) 10/04/2019 Chronic atrial flutter 12/06/2018 Dilated cardiomyopathy 04/10/2018 Right bundle branch block (RBBB) 04/10/2018 Premature atrial contraction 04/10/2018 Essential hypertension 04/10/2018 Acute on chronic combined systolic (congestive) and di astolic (congestive) 04/07/2018 heart failure Encounters Date Type Specialty Care Team Description 10/08/2019 Outside Orders Central Scheduling Maris Santiago MD 10/04/2019 - Hospital Encounter Cardiology Marcelo Hall Shortness of breath (Primary Dx); 10/08/2019 MD Benitez Aortic valve stenosis, etiology of cardi ac valve disease unspecified Jose De Jesus Lee MD Tran, Tuyen V., MD 10/04/2019 Orders Only General Internal Medicine 10/04/2019 Travel after 06/20/2019 Family History Medical History Relation Name Comments Hyperlipidemia Father Hyperlipidemia Mother Relation Name Status Comments Father Mother Social History Tobacco Use Types Packs/Day Years Used Date Former Smoker 2 35 Quit: 03/16/20 18 Smokeless Tobacco: Never Used Tobacco Cessation: Counseling Given: No Alcohol Use Drinks/Week oz/Week Comments No Sex Assigned at Date Recorded Not on file Last Filed Vital Signs Vital Sign Reading Time Taken Comments Blood Pressure 120/61 10/08/2019 7:10 AM [facility]IT Pulse 86 10/08/2019 7:10 AM [facility]IT Temperature 35.8 C (96.5 F) 10/08/2019 7:10 AM [facility]IT Respiratory Rate 17 10/08/2019 7:10 AM [facility]IT Oxygen Saturation 96% 10/08/2019 7:10 AM [facility]IT Inhaled Oxygen Concentration 21% 10/05/2019 6:14 AM [facility]IT Weight 115.1 kg (253 lb 12 oz) 10/08/2019 7:10 AM [facility]IT Height 185.4 cm (6' 1") 10/04/2019 9:50 AM [facility]IT Body Mass Index 33.48 10/04/2019 9:50 AM [facility]IT Plan of Treatment Health Maintenance Due Date Last Done Comments COLON CANCER SCREENING COLONOSCOPY 1945 PNEUMOCOCCAL 65+ YRS (1 of 1 - [id number]) 2010 MEDICARE ANNUAL WELLNESS (YEAR 2 or FIRST YEAR if no 03/11/2011 IPPE) INFLUENZA VACCINE (#1) 2020 Implants Implanted Type Area Ice Platform Supervisor Device Shelf Model / Identifier Expiration Serial / Date Lot Lead Attain Performa 78cm [id number] - [id number] Cardiovascular [employer]:CARD [id number] / Implanted: Qty: 1 on 04/19/2018 by Scottie Arredondo MD at [facility] RHY:DISEASE MGT / Env Absrb Antibact Tyrx Lg [id number] - [id number] Cardiovascular N/A: [employer]:CARD 06/09/2018 [id number] / Implanted: Qty: 1 on 04/19/2018 by Scottie Arredondo MD at [facility] Chest RHY:DISEASE MGT / [id number] Lead Df4 Active Dc Sprint 62cm [id number] - [id number] Defibrillator s [employer]:CARD [id number] / Implanted: Qty: 1 on 04/19/2018 by Scottie Arredondo MD at [facility] RHY:DISEASE MGT / Lead Pacemkr Capsur Novus 52cm [id number] - [id number] Pacemaker Izabella d [employer]:CARD [id number] / Implanted: Qty: 1 on 04/19/2018 by Scottie Arredondo MD at [facility] RHY:DISEASE MGT / [id number] [employer] [id number] / Implanted: Qty: 1 on 04/19/2018 by Scottie Arredondo MD at [facility] [id number] / Procedures Procedure Name Priority Date/Time Associated Comments Diagnosis RHYTHM STRIP - SCAN 10/11/2019 8:10 AM [facility]IT REPORT OF PROCEDURE - 10/11/2019 8:10 ENDOSCOPY SCAN AM RHIT ECHOCARDIOGRAM REPORT - 10/09/2019 9:10 SCAN PM RHIT B-TYPE NATRIURETIC Routine 10/08/2019 4:58 Resul ts for this FACTOR (BNP) AM RHIT procedure are i n the results section. MAGNESIUM Routine 10/08/2019 4:58 Results for this AM [facility]IT procedure are i n the results section. CBC (HEMOGRAM ONLY) Routine 10/08/2019 4:58 Resu lts for this AM RHIT procedure are i n the results section. BASIC METABOLIC PANEL Routine 10/08/2019 4:58 Re sults for this (7) AM RHIT procedure are i n the results section. MAGNESIUM Routine 10/07/2019 5:47 Results for this AM [facility]IT procedure are i n the results section. BASIC METABOLIC PANEL Routine 10/07/2019 5:47 Re sults for this (7) AM [facility]IT procedure are i n the results section. CBC (HEMOGRAM ONLY) Routine 10/07/2019 4:31 Resu lts for this AM RHIT procedure are i n the results section. TRANSESOPHAGEAL ECHO Routine 10/06/2019 3:54 Res ults for this PM RHIT procedure are i n the results section. MAGNESIUM Routine 10/06/2019 5:44 Results for this AM RHIT procedure are i n the results section. BASIC METABOLIC PANEL Routine 10/06/2019 5:44 Re sults for this (7) AM RHIT procedure are i n the results section. TROPONIN I Routine 10/06/2019 5:44 Results for this AM RHIT procedure are i n the results section. B-TYPE NATRIURETIC Routine 10/06/2019 4:14 Resul ts for this FACTOR (BNP) AM RHIT procedure are i n the results section. CBC (HEMOGRAM ONLY) Routine 10/06/2019 4:14 Resu lts for this AM RHIT procedure are i n the results section. CONT WAVE PULSED DOPPLER Routine 10/05/2019 9:58 AM RHIT COLOR-FLOW MAPPING Routine 10/05/2019 9:58 AM RHIT MAGNESIUM Routine 10/05/2019 12:41 Results for this AM RHIT procedure are i n the results section. CBC (HEMOGRAM ONLY) Routine 10/05/2019 12:41 Resu lts for this AM RHIT procedure are i n the results section. BASIC METABOLIC PANEL Routine 10/05/2019 12:41 Re sults for this (7) AM RHIT procedure are i n the results section. TROPONIN I Routine 10/05/2019 12:41 Results for this AM RHIT procedure are i n the results section. STRESS ECHO WITH YEHUDA 10/04/2019 2:24 Results for this CONTRAST & TRACING PM RHIT procedure are in the results section. TREADMILL Routine 10/04/2019 1:44 Results for this TOLERANCE(NON-NUCLEAR PM RHIT proced ure are in TREADMILL) the results section. XR CHEST PA OR AP 1 VIEW STAT 10/04/2019 10:34 Results for this IN DEPT. AM RHIT procedure are i n the results section. CBC W/PLT COUNT & AUTO STAT 10/04/2019 10:09 R esults for this DIFFERENTIAL AM RHIT procedure are i n the results section. B-TYPE NATRIURETIC STAT 10/04/2019 10:09 Resul ts for this FACTOR (BNP) AM RHIT procedure are i n the results section. TROPONIN I STAT 10/04/2019 10:09 Results for this AM RHIT procedure are i n the results section. HEPATIC FUNCTION PANEL STAT 10/04/2019 10:09 R esults for this AM RHIT procedure are i n the results section. CBC W/PLT COUNT & AUTO STAT 10/04/2019 10:09 R esults for this DIFFERENTIAL AM RHIT procedure are i n the results section. BASIC METABOLIC PANEL STAT 10/04/2019 10:09 Re sults for this (7) AM RHIT procedure are i n the results section. ED ECG INTERPRETATION Routine 10/04/2019 9:59 Re sults for this AM RHIT procedure are i n the results section. ECG 12-LEAD Routine 10/04/2019 9:57 AM RHIT Procedure Note - Interface, External Ris In - 10/04/2019 4:02 PM RHIT Ventricular Rate 61 BPM Atrial Rate 61 BPM P-R Interval 134 ms QRS Duration 178 ms Q-T Interval 488 ms QTC Calculation(Bazett) 491 ms R [place] 257 degrees T [place] 66 degrees AV dual-paced rhythm Abnormal ECG When compared with ECG of 12:34, Vent. rate has decreased BY 24 BPM ECG 12-LEAD Routine 10/04/2019 9:57 AM RHIT Resu lts for this procedure are in the results section . after 06/20/2019 Results RHYTHM STRIP - SCAN (10/11/2019 8:10 AM RHIT) Narrative Performed At This result has an attachment that is no t available. EKG-SCANNED (10/11/2019 8:10 AM RHIT) Narrative Performed At This result has an attachment that is no t available. ECHOCARDIOGRAM REPORT - SCAN (10/09/2019 9:10 PM RHIT) Narrative Performed At This result has an attachment that is no t available. CBC (Hemogram only) (10/08/2019 4:58 AM RHIT)Only the most recent of4 results within the time period is included. Pathologist Sig nature WBC 6.0 3.5 - 10.5 K/L [facility] RBC 4.56 (L) 4.63 - 6.08 M/L [facility] Hemoglobin 14.1 13.7 - 17.5 GM/DL [facility] Hematocrit 42.9 40.1 - 51.0 % [facility] MCV 94.1 (H) 79.0 - 92.2 fL [facility] MCH 30.9 25.7 - 32.2 pg [facility] MCHC 32.9 32.3 - 36.5 GM/DL [facility] RDW 13.2 11.6 - 14.4 % [facility] Platelets 180 150 - 450 K/CU MM [facility] MPV 11.1 9.4 - 12.4 fL [facility] nRBC 0 0 - 0 /100 WBC [facility] Specimen Blood Performing Organization Address City/State/Zipcode Phone Number [address] [address] CENTER B-type Natriuretic Factor (BNP) (10/08/2019 4:58 AM RHIT)Only the most recent of 3 resultswithin the time period is included. Pathologist Sig nature BNP 266 (H) 0 - 100 pg/mL [facility] Specimen Blood Narrative Performed At Inter Com Servicer ID - [facility] Performing Organization Address City/State/Zipcode Phone Number [address] [address] CENTER Magnesium (10/08/2019 4:58 AM RHIT)Only the most recent of4 resultswithin the time period is included. Pathologist Sig nature Magnesium 2.1 1.6 - 2.6 mg/dL [facility] Specimen Blood Narrative Performed At Inter Com Servicer [place] - [facility] Performing Organization Address [facility] Phone Number [facility] [address] [place] [address] [place] Basic Metabolic Panel (10/08/2019 4:58 AM RHIT)Only the most recent of5 results within the time period is included. Sodium 139 136 - 145 meq/L [facility] Potassium 4.0 3.5 - 5.1 meq/L [facility] Chloride 106 98 - 107 meq/L [facility] CO2 27 22 - 29 meq/L [facility] BUN 26 (H) 7 - 21 mg/dL [facility] Creatinine 1.18 0.57 - 1.25 [facility] mg/dL [facility] Glucose 134 (H) 70 - 105 mg/dL [facility] Calcium 8.9 8.4 - 10.2 [facility] mg/dL [facility] EGFR 60Comment: ESTIMATED mL/min/1.[address] [facility] GFR IS NOT m [facility] [place] CREATININE CLEARANCE IN PREDICTING GLOMERULAR FILTRATION RATE. ESTIMATED GFR IS NOT APPLICABLE FOR DIALYSIS PATIENTS. Specimen Blood Narrative Performed At Inter Com Servicer [place] - [facility] Performing Organization Address City/[facility] Corporation[facility] Phone Number [facility] [address] [place] [address] [place] Transesophageal echo (10/06/2019 3:54 PM RHIT) Pathologist Sig nature Ejection Fraction [facility] ECHO [facility] [employer] Specimen Narrative Performed At Transesophageal Echocardiography Report (RAFA) [facility] ECHO [facility] Demographics Patient Name MARK TELLO Date of Study 10/06/2019 KEYANA Gender Male Visit Number [id number] Race Room Number 1018 Number Date of 1945 Referring Physician Jack Pollock MD Age 74 year(s) Blood Bank Custodian Ricardo GREEN Da vid Interpreting Reji bob MD Physician Fellow Mark MARTINEZ The procedure was explained in detail to the patient. Risks, complications and alternative treatments were reviewed. Written consent was obtained. Procedure Type of Study RAFA procedure:TRANSESOPHAGE AL ECHO Indications:Aortic stenosis. Clinical History ARRHYTHMIA,ARTHRITIS,ASTHMA,CHF,COPD,HTN,ATRIAL FLUTTER ABLATION (12-06-18),PACEMAKER,HERNIA REPAIR Height: 73 inches Weight: 117.93 kg (260 lbs) BSA: 2.41 m^2 BMI: 34.3 kg/m^2 HR: 84 bpm BP: 122/72 mmHg Procedure Informed Consent Procedure consent form obtained. Airway assessment performed. RAFA procedure notes Under my direct supervision, intravenous moderate sedation was administered during the course of this procedure, with continuous monitoring of hemodynamic parameters. Moderation sedation was achieved with 2 mgs of Versed and 50 mg of Fentanyl. Monitoring of the patients vital signs, EKG and respiratory status was provided by trained nursing staff during the entire course of the procedures and under my supervision and recoded in the patient's medical record. Total time of sedation was 30 minutes.. Summary 1. Moderate aortic stenosis. AoV area by 3D planimtery is in the range of 1.32 cm2. AoV area by continuity equation is 1.45cm2. AoV resting Peak/mean Gradient 47/25 mmHg. AoV resting dimensionless obstructive index (DOI) 0.31. Mild aortic regurgitation. 2. Global LV systolic function moderately reduced. The right ventricular chamber size and systolic function are within normal limits. 3. Mild mitral regurgitation. 4. Grade 3 plaque (atheroma < 5mm) in the proximal descending aorta. Signature Findings Rhythm/BP Paced rhythm during the exam. Left Global LV systolic function moderately reduced . Ventricle Left Atrium LA is adequately visualiz ed. LA appendage morphology is simple (wind sock) . No LA appendage Thrombus visualized. Right The right ventricular chamber size and systolic function are Ventricle within normal limits. Right Atrium No mass or thrombus is seen in the right atrium. Atrial The interatrial septum is adequately visualized. Septum Lipomatous hypertrophy of the interatrial septum is present. IV saline contrast injection was negative for a PFO (patent foramen ovale) at r est . Aortic Valve Moderate aortic stenosis. AoV area by 3D planimtery is in the range of 1.32 cm2. AoV area by continuity equation is 1.45cm2. AoV resting Peak/mean Gradient 47/25 mmHg. AoV resting dimensionless obstructive index (DOI) 0.31. Mild aortic regurgitatio n. Mitral Valve Vatx-tz-zrmwutfr MV leaflet thickening. Mild mitral regurgi tation. Tricuspid Mild tricuspid regurgita tion. Valve Pulmonic Normal PV structure and function. Valve Aorta Aortic root size (SInus of Valsalva diameter) is normal . Proximal ascending aorta size is normal . Grade 3 plaque (atheroma < 5mm) in the proximal descending aorta. Pericardium No significant pericardial effusion is visualized. Chambers/Structures Left Ventricle LVOT Diameter: 2.44 cm Doppler/Quantitative Measurements Aortic Valve Peak Velocity: 3.1 m/s Mean Velocity: 2.22 m/s Peak Gradient: 38.35 mmHg Mean Gradient: 22.15 mmHg AV Area (continuity): 1.45 cm^2 AV VTI: 65.53 cm AV DVI: 0.31 LVOT Peak Velocity: 0.91 m/s Peak Gradient: 3.33 mmHg Mean Velocity: 0.64 m/s Mean Gradient: 1.86 mmHg LVOT Diameter: 2.44 cm LVOT VTI: 20.28 cm LVOT Area: 4.68 cm^2 LVOT SV:94.78 ml LVOT CO: 7.96 l/min LVOT CI: 3.3 l/min/m^2 Procedure Note Interface, External Ris In - 10/08/2019 11:46 PM [facility]IT Transesophageal Echocardiography Report (RAFA) Demographics Patient Name MARK TELLO Date of Study 10/06/2019 KEYANA PAZ [id number] Alina may Male Visit Number [id number] Race Room Number 1018 Number Date of 1945 Refer [facility] Physician Jack Pollock MD Age 74 year(s) Sonog oj Silva [facility] Reji Miramontes MD Physi aleah Fellow Mark MARTINEZ The procedure was explained in detail t o the patient. Risks, complications and alternative treatment s were reviewed. Written consent was obtained. Procedure Type of Study RAFA procedure:TRANSESOPHAGEAL ECHO Indications:Aortic stenosis. Clinical History ARRHYTHMIA,ARTHRITIS,ASTHMA,CHF,COPD,HTN ,ATRIAL FLUTTER ABLATION (12-06-18),PACEMAKER,HERNIA REPAIR Height: 73 inches Weight: 117.93 kg (260 lbs) BSA: 2.41 m^2 BMI: 34.3 kg/m^2 HR: 84 bpm BP: 122/72 mmHg Procedure Informed Consent Procedure consent form obtained. Airway assessment performed. RAFA procedure notes Under my direct supervision, intravenou s moderate sedation was administered during the course of this procedure, with continuous monitoring of hemodynamic parameters. M oderation sedation was achieved with 2 mgs of Versed and 50 mg of Fenta nyl. Monitoring of the patients vital signs, EKG and respiratory status was provided by trained nursing staff during the entire course of the p rocedures and under my supervision and recoded in the patient's medical re cord. Total time of sedation was 30 minutes.. Summary 1. Moderate aortic stenosis. AoV area b y 3D planimtery is in the range of 1.32 cm2. AoV area by continuity equati on is 1.45cm2. AoV resting Peak/mean Gradient 47/25 mmHg. AoV rest ing dimensionless obstructive index (DOI) 0.31. Mild aortic regurgitation. 2. Global LV systolic function moderate ly reduced. The right ventricular chamber size and systolic function are within normal limits. 3. Mild mitral regurgitation. 4. Grade 3 plaque (atheroma < 5mm) in t he proximal descending aorta. Signature Findings Rhythm/BP Paced rhythm during the ex am. Left Global LV systolic functio n moderately reduced . Ventricle Left Atrium LA is adequately visualize d. LA appendage morphology is simple (wind sock) . No LA appendage Thrombus v isualized. Right The right ventricular han andreea size and systolic function are Ventricle within normal limits. Right Atrium No mass or thrombus is see n in the right atrium. Atrial The interatrial septum is adequately visualized. Septum Lipomatous hypertrophy of the interatrial septum is present. IV saline contrast injecti on was negative for a PFO (patent foramen ovale) at rest . Aortic Valve Moderate aortic stenosis. AoV area by 3D planimtery is in the range of 1.32 cm2. AoV are a by continuity equation is 1.45cm2. AoV resting Peak/ mean Gradient 47/25 mmHg. AoV resting dimensionless obst ructive index (DOI) 0.31. Mild aortic regurgitation. Mitral Valve Rpqj-kg-bqpwyapw MV leafle t thickening. Mild mitral regurgitation. Tricuspid Mild tricuspid regurgitati on. Valve Pulmonic Normal PV structure and fu nction. Valve Aorta Aortic root size (SInus of Valsalva diameter) is normal . Proximal ascending aorta s ize is normal . Grade 3 plaque (atheroma < 5mm) in the proximal descending aorta. Pericardium No significant pericardial effusion is visualized. Chambers/Structures Left Ventricle LVOT Diameter: 2.44 cm Doppler/Quantitative Measurements Aortic Valve Peak Velocity: 3.1 m/s Mean Velocity: 2.22 m/s Peak Gradient: 38.35 mmHg Mean Gradient: 22.15 mmHg AV Area (continuity): 1.45 cm^2 AV VTI: 65.53 cm AV DVI: 0.31 LVOT Peak Velocity: 0.91 m/s Pea k Gradient: 3.33 mmHg Mean Velocity: 0.64 m/s Li n Gradient: 1.86 mmHg LVOT Diameter: 2.44 cm LVO T VTI: 20.28 cm LVOT Area: 4.68 cm^2 LVO T SV:94.78 ml LVOT CO: 7.96 l/min LVO T CI: 3.3 l/min/m^2 Performing Organization Address [facility] Corporation[facility] Phone Number [facility] Troponin I (10/06/2019 5:44 AM RHIT)Only the most recent of3 resultswithin the time period is included. Pathologist Sig nature Troponin I 0.03 0.00 - 0.03 ng/mL [facility] Specimen Blood Narrative Performed At Troponin I (TnI) levels must be interpreted [facility] in the context of the presenting symptoms and the clinical findings. Elevated TnI levels indicate myocardial damage, but are not specific for ischemic heart disease. Elevated TnI levels are seen in patients with other cardiac conditions (including myocarditis and congestive heart failure), and slight TnI elevations occur in patients with other conditions, including sepsis, renal failure, acidosis, acute neurological disease, and persistent tachyarrhythmia. Inter Com Servicer [place] - PIAYA L Performing Organization Address City/[facility] [place] [address] CENTER STRESS ECHO With Contrast & Tracing (10/04/2019 2:24 PM RHIT) Pathologist Sig nature Ejection Fraction [facility] ECHO [employer] [facility] Specimen Narrative Performed At Stress Echocardiography Report [facility] ECHO [facility] Demographics Patient Name MARK TELLO Date of Study 10/04/2019 KEYANA Gender Male Visit Number [id number] Race Room Number 1018 Number Date of 1945 Referring Physician Jack Singh Age 74 year(s) Blood Bank Custodian Ricardo lynn Physician Fellow Tay Lemus MD Procedure Type of Study Stress procedure:STRESS ECHO/TMT W/DOP&TRAC (Routine) Indications:Aortic stenosis. Clinical History ASTHMA CHF COPD HTN RBBB PACEMAKER Height: 73 inches Weight: 117.93 kg (260 lbs) BSA: 2.41 m^2 BMI: 34.3 kg/m^2 HR: 64 bpm BP: 151/77 mmHg Rest ECG A-biv paced rhythm. Stress Stress Type: Pharmacologic Peak HR: 100 bpm HR BP Product: [id number] Peak BP: 129/67 mmHg Predicted HR: 146 bpm % of predicted HR: 68 Test Duration: 11:16 min Stress Interpretation LVOT Diameter 26mm Baseline: AV VTI 72, LVOT VTI = 25, ILENE by continuity: 1.3cm2 5mcg of Dobutamine: AV VTI 72, LVOT VTI = 22 (ILENE by continuity 1.2cm2 10 mcg of dobutamine: AV VTI 63, LVOT VTI = 22 , ILENE by continuity: 1.32 20 mcg of Dobutamine: AV VTI = 58 , LVOT VTI 22, ILENE by continuity = 1.41 At peak Dobutamine infusion Mean gradient = 33mmHg , Peak gradient = 56mmHg AV DVI was > 0.25 throughout and 0.37 at peak dobutamine infusion. This is moderate aortic stenosis. Results ECG no significant changes with peak stress Arrhythmias sporadic PVCs during stress which resolved in recovery. Symptoms Tremor Palpitations Stress Protocol: Pharmacologic - Dobutam ine +--------+-----+------+ +------+-----+--- -----+--+--------+----+------+ !Stage # !Time !Dosage!Other !Dosage!Heart!Blood !CP!Pain !Pain!Pain ! ! ! ! !Medication! !Rate !Pressure! !Location!Type!Acti on! +--------+-----+------+ +------+-----+--- -----+--+--------+----+------+ !1.0 !03:44!5.00 ! ! !61 !101/46 ! ! ! ! ! +--------+-----+------+ +------+-----+--- -----+--+--------+----+------+ !2.0 !04:48!10.00 ! ! !76 !86/40 ! ! ! ! ! +--------+-----+------+ +------+-----+--- -----+--+--------+----+------+ !3.0 !04:04!20.00 ! ! !100 !92/65 ! ! ! ! ! +--------+-----+------+ +------+-----+--- -----+--+--------+----+------+ !Recovery!11:16! ! ! !74 !129/67 ! ! ! ! ! +--------+-----+------+ +------+-----+--- -----+--+--------+----+------+ Signature Electronically signed by G[facility]MA[facility]) on 03/05/2020 12:02 PM Chambers/Structures Left Ventricle LVOT Diameter: 2.2 cm Doppler/Quantitative Measurements LVOT LVOT Diameter: 2.2 cm Mean Gradient: 4.1 mmHg LVOT Area: 3.8 cm^2 Procedure Note Interface, External Ris In - 03/05/2020 12:02 PM CDT Stress Echocardiography Report Demographics Patient Name MARK TELLO Date o f Study 10/04/2019 KEYANA Gender Male Visit Number [id number] Race Room [address] [place] [id number] Number Date of 1945 Referr ing Physician Jack Singh Age 74 year(s) Sonogr denis Payan Interp reting Amanda Adams MD Fellow Tay Lemus MD Procedure Type of Study Stress procedure:STRESS ECHO/ TMT W/DOP&TRAC (Routine) Indications:Aortic stenosis. Clinical History ASTHMA CHF COPD HTN RBBB PACEMAKER Height: 73 inches Weight: 117.93 kg (260 lbs) BSA: 2.41 m^2 BMI: 34.3 kg/m^2 HR: 64 bpm BP: 151/77 mmHg Rest ECG A-biv paced rhythm. Stress Stress Type: Pharmacologic Peak HR: 100 bpm HR BP Product: [id number] Peak BP: 129/67 mmHg Predicted HR: 146 bpm % of predicted HR: 68 Test Duration: 11:16 min Stress Interpretation LVOT Diameter 26mm Baseline: AV VTI 72, LVOT VTI = 25, ILENE by continuity: 1.3cm2 5mcg of Dobutamine: AV VTI 72, LVOT VTI = 22 (ILENE by continuity 1.2cm2 10 mcg of dobutamine: AV VTI 63, LVOT V TI = 22 , ILENE by continuity: 1.32 20 mcg of Dobutamine: AV VTI = 58 , LVO T VTI 22, ILENE by continuity = 1.41 At peak Dobutamine infusion Mean gradie nt = 33mmHg , Peak gradient = 56mmHg AV DVI was > 0.25 throughout and 0.37 a t peak dobutamine infusion. This is moderate aortic stenosis. Results ECG no significant changes with peak stress Arrhythmias sporadic PVCs during stress which resol lexii in recovery. Symptoms Tremor Palpitations Stress Protocol: Pharmacologic - Dobutam ine +--------+-----+------+ +------ +-----+--------+--+--------+----+------+ !Stage # !Time !Dosage!Other !Dosage !Heart!Blood !CP!Pain !Pain!Pain ! ! ! ! !Medication! !Rate !Pressure! !Location!Type!Action! +--------+-----+------+ +------ +-----+--------+--+--------+----+------+ !1.0 !03:44!5.00 ! ! !61 !101/46 ! ! ! ! ! +--------+-----+------+ +------ +-----+--------+--+--------+----+------+ !2.0 !04:48!10.00 ! ! !76 !86/40 ! ! ! ! ! +--------+-----+------+ +------ +-----+--------+--+--------+----+------+ !3.0 !04:04!20.00 ! ! !100 !92/65 ! ! ! ! ! +--------+-----+------+ +------ +-----+--------+--+--------+----+------+ !Recovery!11:16! ! ! !74 !129/67 ! ! ! ! ! +--------+-----+------+ +------ +-----+--------+--+--------+----+------+ Signature Chambers/Structures Left Ventricle LVOT Diameter: 2.2 cm Doppler/Quantitative Measurements LVOT LVOT Diameter: 2.2 cm Mean Gradient: 4.1 mmHg LVOT Area: 3.8 cm^2 Performing Organization Address City/State/Zipcode Phone Number [facility] Treadmill tolerance(Non-Nuclear Treadmill) (10/04/2019 1:44 PM [facility]) Specimen Narrative Performed At Protocol Name DOBUT TM-1 Voxel MUSE Time In Exercise Phase 00:12:33 Max. Systolic BP 151 mmHg Max Diastolic BP 77 mmHg Max Heart Rate 100 BPM Max Predicted Heart Rate 146 BPM Reason For Termination Patient became tr emulous Reason for Test Atrial Stenosis Evaluati on Target HR Formula (220 - Age)*100% Arrhythmias Premature Ventricular Contra ctions-Isolated Resting ECG A-V PACED ST Changes No Significant Changes Overall Impression Indeterminate due to baseline ECG abnormality Chest Pain none HR Response To Exercise appropriate BP Response To Exercise APPROPRIATE RESP ONSE Functional Capacity Indeterminate due to pharmacologic stress See Epic Inpatient record stress images obtained for protocol inconclusive due to intermittent AV and V-pacing Confirmed by MD SCHNEIDER RAYMOND ([id number]) on 10/11/2019 4:55:33 PM Procedure Note Interface, External Ris In - 10/11/2019 4:55 PM [facility] Protocol Name DOBUT TM-1 Time In Exercise Phase 00:12:33 Max. Systolic BP 151 mmHg Max Diastolic BP 77 mmHg Max Heart Rate 100 BPM Max Predicted Heart Rate 146 BPM Reason For Termination Patient became tr emulous Reason for Test Atrial Stenosis Evaluati on Target HR Formula (220 - Age)*100% Arrhythmias Premature Ventricular Contra ctions-Isolated Resting ECG A-V PACED ST Changes No Significant Changes Overall Impression Indeterminate due to baseline ECG abnormality Chest Pain none HR Response To Exercise appropriate BP Response To Exercise APPROPRIATE RESP ONSE Functional Capacity Indeterminate due to pharmacologic stress See [facility] Inpatient record stress images obtained for protocol inconclusive due to intermittent AV and V-pacing Confirmed by MD SCHNEIDER RAYMOND ([id number]) on 10/11/2019 4:55:33 PM Performing Organization Address City/State/Zipcode Phone Number [place] XR chest PA or AP 1 view in dept (10/04/2019 10:34 AM [facility]) Specimen Narrative Performed At FINAL REPORT Image Metrics INDICATION: SHORTNESS OF BREATH DIZZINESS COMPARISON: April 20, 2018 TECHNIQUE: Single frontal view of the est. FINDINGS: Limited by underpenetration Lungs and pleura: Clear lungs. No effusi on. Heart and mediastinum: Normal heart size . Unremarkable mediastinal contours. Osseous structures: No acute abnormality . Other: None. IMPRESSION: No acute intrathoracic abnormality. Signed: JR Mckeon Robert MD Report Verified Date/Time: 10/04/2019 11:11:13 Reading Location: [facility] Reading Room Procedure Note Interface, External Ris In - 10/04/2019 11:13 AM [facility]IT FINAL REPORT INDICATION: SHORTNESS OF BREATH DIZZINESS COMPARISON: April 20, 2018 TECHNIQUE: Single frontal view of the est. FINDINGS: Limited by underpenetration Lungs and pleura: Clear lungs. No effusi on. Heart and mediastinum: Normal heart size . Unremarkable mediastinal contours. Osseous structures: No acute abnormality . Other: None. IMPRESSION: No acute intrathoracic abnormality. Signed: JR Linda, Mark ZENDEJAS Report Verified Date/Time: 10/04/2019 1 1:11:13 Reading Location: [facility] Reading [facility] Performing Organization Address City/State/Zipcode Phone Number GE RIS CBC with platelet count + automated diff (10/04/2019 10:09 AM [facility]IT) Pathologist Sig nature WBC 7.6 3.5 - 10.5 [facility] K/L [facility] RBC 4.44 (L) 4.63 - 6.08 [facility] M/L [facility] Hemoglobin 13.4 (L) 13.7 - 17.5 [facility]/DL [facility] Hematocrit 42.2 40.1 - 51.0 % [facility] MCV 95.0 (H) 79.0 - 92.2 fL [facility] MCH 30.2 25.7 - 32.2 pg [facility] MCHC 31.8 (L) 32.3 - 36.5 [facility] RDW 13.3 11.6 - 14.4 % [facility] Platelets 198 150 - 450 K/CU [facility] MPV 11.3 9.4 - 12.4 fL [facility] nRBC 0 0 - 0 /100 WBC [facility] % Neutros 72 % [facility] % Lymphs 15 % [facility] % Monos 9 % [facility] % Eos 2 % [facility] % Baso 1 % [facility] # Neutros 5.53 (H) 1.78 - 5.38 [facility]/ [facility] # Lymphs 1.12 (L) 1.32 - 3.57 [facility]/L [facility] # Monos 0.69 0.30 - 0.82 [facility]/L [facility] # Eos 0.18 0.04 - 0.54 [facility] K/L [facility] # Baso 0.05 0.01 - 0.08 [facility] K/L [facility] Immature 1 0 - 1 % [facility] Granulocytes-Relative [facility] Specimen Blood Performing Organization Address City/[facility]/Zipcode Phone Number [facility] [address] [place] [address] CENTER Hepatic function panel (10/04/2019 10:09 AM [facility]IT) Pathologist Sig nature Protein, Total 5.8 (L) 6.0 - 8.3 gm/dL [facility] Albumin 3.4 (L) 3.5 - 5.0 g/dL [facility] Total Bilirubin 0.4 0.2 - 1.2 mg/dL [facility] Bilirubin, Direct 0.2 0.1 - 0.5 mg/dL [facility] Alkaline Phosphatase 66 40 - 150 U/L [facility] AST 19 5 - 34 U/L [facility] ALT 33 6 - 55 U/L [facility] Specimen Blood Narrative Performed At Inter Com Servicer MYLES Aguilar DEZ Miller [facility] Performing Organization Address City/State/Zipcode Phone Number [facility] [address] [place] [address] CENTER ECG/EKG Interpretation (10/04/2019 9:59 AM [facility]IT) Narrative Performed At Marcelo Hall MD 10/04/2019 6 :05 PM ECG/EKG Interpretation Date/Time: 10/04/2019 12:26 PM Performed by: Marcelo Hall MD Authorized by: Marcelo Hall MD The ECG was interpreted by ED physician. The ECG is in terpreted as paced. Conduction: conduction normal. ECG revie wed and does not meet STEMI criteria. Patient tolerance: Patient tolerated the pro cedure well with no immediate complications ECG 12 lead (10/04/2019 9:57 AM RHIT) Specimen Narrative Performed At Ventricular Rate 61 BPM GE MUSE Atrial Rate 61 BPM P-R Interval 134 ms QRS Duration 178 ms Q-T Interval 488 ms QTC Calculation(Bazett) 491 ms R [place] 257 degrees T [place] 66 degrees AV dual-paced rhythm Abnormal ECG When compared with ECG of 22-APR-2018 12 :34, Vent. rate has decreased BY 24 BPM Confirmed by Hilda KUHN BASANT ([id number]) on 10/05/2019 1: 30:27 PM Procedure Note Interface, External Ris In - 10/05/2019 1:30 PM RHIT Ventricular Rate 61 BPM Atrial Rate 61 BPM P-R Interval 134 ms QRS Duration 178 ms Q-T Interval 488 ms QTC Calculation(Bazett) 491 ms R [place] 257 degrees T [place] 66 degrees AV dual-paced rhythm Abnormal ECG When compared with ECG of 22-APR-2018 12 :34, Vent. rate has decreased BY 24 BPM Confirmed by Hilda KUHN BASANT ([id number]) o n 10/05/2019 1:30:27 PM Performing Organization Address City/State/Zipcode Phone Number OLEG MORENO after 06/20/2019 Insurance Payer Benefit Plan / Subscriber ID Effective Dates Phone Addre ss Type Group MEDICARE MEDICARE A B [id number] 2010-Present Medicare MCR AARP/UDALL [id number] 2019-Present Medigap SUPPLEMENT/[employer] [facility] [employer] Advance Directives For more information, please contact: [phone] Code Status Date Activated Date Inactivated Comments Full Code 10/06/2019 3:44 PM 10/06/2019 4:52 PM This code status was determined by: Patient Full Code 12/06/2018 8:04 AM 12/06/2018 11:14 PM This code status was determined by: Patient Full Code 04/07/2018 11:45 PM 04/23/2018 2:57 PM This code status was determined by: Patient
--- OUTSIDE RECORDS SUMMARY | 2020-06-20 14:13 | XMS REPORT ---
:[address] [facility] Address 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 Active 635259359 and chronic kidney disease with heart failure and stage 1 through stage 4 chronic kidney disease, or unspecified chronic kidney disease Problem Mixed E78.2 Active 175731625 hyperlipidemia Problem Acute on chronic I50.23 Active 418690574 systolic (congestive) heart failure Problem ICD (implantable Z95.810 Active 205149488 cardioverter-defib rillator) in place Problem Cardiac pacemaker Z95.0 Active 664721378 Problem Moderate aortic I35.0 Active 80577324 valve stenosis Problem Chronic systolic I50.22 Active 299307704 congestive heart failure Problem Acute on chronic I50.23 Active 486949980 systolic congestive heart failure Problem Chronic J44.9 Active 60561315 obstructive pulmonary disease, unspecified COPD type Problem Adult BMI Z68.34 Active 864861346 34.0-34.9 kg/sq m Problem Abnormal R89.9 Active 845116191 laboratory test Problem CKD (chronic N18.3 Active 860660330 kidney disease) stage 3, GFR 30-59 ml/min Problem 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 ALLERGIES No Known Allergies ENCOUNTERS from 1945 to 2020-05-25 Encounter Location Date Provider Diagnosis [address] [place] May, Wilmer James Acute on chronic Drive [address], [place] [address] heart failure I50.23 ; Moderate aortic valve stenosis I35.0 ; Hypertensive he art and chronic kidney disease with heart fail ure and stage 1 through stage 4 chronic kidney disease, or unspecified chronic kidney disease I13.0 ; Chronic systoli c congestive hear t failure I50.22 ; Dilated cardiom yopathy secondary to al cohol I42.6 ; Chronic obstructive pul monary disease, unspec ified COPD type J44.9 ; Mixed hyperlipidemia E78.2 ; Alcohol depende nce in early full jessy ssion F10.21 ; ICD (implantable cardioverter-de fibrilla tor) in place Z 95.810 ; CKD (chronic ki dney disease) stage 3, GFR 30-59 ml/min N1 8.3 ; Cardiac pacemak er Z95.0 ; Cigarette vero otine dependence in r emission F17.211 ; Adult BMI 34.0-34.9 kg/sq m Z68.34 ; Histor y of atrial flutter Z86.79 and Need for in fluenza vaccination Z23 IMMUNIZATIONS Vaccine Route Administration Date Status FluAD IM Intramuscular May 25, 2020 Administered FluAD IM Intramuscular May 02, 2019 Administered FLUZONE HIGH DOSE OVER 65 IM Intramuscular May 27, 2018 Admin istered SOCIAL HISTORY Tobacco Use: Social History Observation Description Date Details (start date - stop date) Former Smoker Sex Assigned At : Social History Observation Description Sex Assigned At Unknown PHQ9 Question Answer Notes Little interest or pleasure in doing things Several days Feeling down, depressed, or hopeless Several days Trouble falling or staying asleep or sleeping too much Not a t all Feeling tired or having little energy Nearly every day Poor appetite or overeating Not at all Feeling bad about yourself, or that you are a failure, or shoemaker ve Several days let yourself or your family down Trouble concentrating on things, such as reading the newspap er Several days or watching television Moving or speaking so slowly that other people could have Se veral days noticed; or the opposite, being so fidgety or restless that you have been moving around a lot more than usual Total Score 8 Interpretation Mild Depression Thoughts that you would be better off or of hurting Not at all yourself in some way Alcohol Screen Question Answer Notes Did you have a drink containing alcohol in the past year? No Points 0 Interpretation Negative Tobacco Use/Smoking Question Answer Notes Are you a former smoker Additional Findings: Tobacco Non-User Ex-moderate cigarette smoker (10-19/day) Tobacco use other than smoking: Question Answer Notes Are you an other tobacco user? No REASON FOR REFERRAL No Information VITAL SIGNS Height 72 in May, Weight 274.9 lbs May, Temperature 97.0 degrees Fahrenheit May, BMI 37.28 kg/m2 May, Oximetry 96 % May, Respiratory Rate 17 /min May, Blood pressure systolic 117 mm Hg May, Blood pressure diastolic 56 mm Hg May, MEDICATIONS Medication SIG (Take, Route, Frequency, Start Date End Date Status Duration) Potassium Chloride 10 MEQ 1 capsule with food Orally Twice Active a day Metoprolol Tartrate 25 MG 1/2 tablet with food Orally Active Twice a day Spironolactone 50 MG 1 tablet with food Orally Once a Active day for 30 day(s) Vitamin B-1 100 MG 1 tablet Orally Once a day Active Lipitor 40 MG 1 tablet Orally Once a day Active Aspir-81 81 MG 1 tablet Orally Once a day Active Bumex 2 MG 1 tab am Orally QD Active Eliquis 5 mg 5 mg one by mouth twice daily for 30 Active days Entresto 97-103 MG 1 tablet Orally Twice a day Active PROCEDURES No Information RESULTS No Results REASON FOR VISIT [address] 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, or unspecified chronic kidney disease Medical History Chronic systolic congestive heart failur e Medical History Mixed hyperlipidemia Medical History Cigarette nicotine dependence in remissi on Medical History Chronic obstructive pulmonary disease, u nspecified COPD type Medical History Alcohol dependence in early full remissi on Surgical History Gallbladder 2009 Surgical History ICD/Pacemaker - 04/2018 Surgical History atrial flutter status post ablation 11/26 Goals Section No Information Health Concerns No Information MEDICAL EQUIPMENT No Information MENTAL STATUS No Information FUNCTIONAL STATUS No Information ASSESSMENTS Encounter Date Diagnosis Notes May, CKD (chronic kidney disease) stage 3, GF R 30-59 ml/min (ICD-10 - N18.3) May, ICD (implantable cardioverter-defibrilla tor) in place (ICD-10 - Z95.810) May, Acute on chronic systolic congestive hea rt failure (ICD-10 - I50.23) May, Cigarette nicotine dependence in remissi on (ICD-10 - F17.211) May, Cardiac pacemaker (ICD-10 - Z95.0) May, Chronic obstructive pulmonary disease, u nspecified COPD type (ICD-10 - J44.9) May, Alcohol dependence in early full remissi on (ICD-10 - F10.21) May, Mixed hyperlipidemia (ICD-10 - E78.2) May, Hypertensive heart and chronic kidney di sease with heart failure and stage 1 through stage 4 chronic kidn ey disease, or unspecified chronic kidney disease (ICD- 10 - I13.0) May, History of atrial flutter (ICD-10 - Z86. 79) May, Moderate aortic valve stenosis (ICD-10 - I35.0) May, Adult BMI 34.0-34.9 kg/sq m (ICD-10 - Z6 8.34) May, Dilated cardiomyopathy secondary to alco hol (ICD-10 - I42.6) May, Chronic systolic congestive heart failur e (ICD-10 - I50.22) May, Need for influenza vaccination (ICD-10 - Z23) PLAN OF TREATMENT Medication Medication Name Sig Start Date Stop Date Potassium Chloride 10 MEQ 1 capsule with food Orally Twice a day Bumex 2 MG 1 tab am Orally QD Vitamin B-1 100 MG 1 tablet Orally Once a day Aspir-81 81 MG 1 tablet Orally Once a day Lipitor 40 MG 1 tablet Orally Once a day Entresto 97-103 MG 1 tablet Orally Twice a day Metoprolol Tartrate 25 MG 1/2 tablet with food Orally Twice a day Treatment Notes Assessment Notes Clinical Notes Acute on chronic systolic Hospital course reviewed with congestive heart failure patient extensively. Answered all questions the best my knowledge. Education given. Labs and imaging reviewed. Medication reconciliation done. Patient compliant with all medications. Encouraged on daily weights and water and salt restriction. Encouraged on scheduling appointment cardiology for further evaluation and follow-ups. Currently patient is asymptomatic in regards to chest pain, shortness of breath, dyspnea on exertion, swelling. Referral to cardiac rehab. Moderate aortic valve stenosis . Education given. Managed by cardiology. Referral to cardiac rehab. Hypertensive heart and chronic Instructed to monitor BP at h ome kidney disease with heart failure and bring in log. Educatio n given. and stage 1 through stage 4 chronic Encouraged to make appoi ntment with kidney disease, or unspecified cardiology YEHUDA. Patient chronic kidney disease verbalized understanding Chronic systolic congestive heart Managed by . Educ ation failure given. COMPLAINT WITH Cardiac Rehab. Referral to cardiac rehab Chronic obstructive pulmonary ?COPD per Cardio. Stopped all disease, unspecified COPD type inhalers. Unsure of Dx. Mixed hyperlipidemia Compliant. Education given. Alcohol dependence in early full Encouarage on cessation. Ed ucation remission given. Counseling done. QUIT. CKD (chronic kidney disease) stage Managed by Dr. Heart. Strongly 3, GFR 30-59 ml/min encouraged to make appointment Cigarette nicotine dependence in Education, counseling done at this remission visit, offered web sites and medicine to help. Patient is refusing at this time. We did discussed not only the CAD risk also the risk for multiples cancers, peripheral neuropathy, etc. www.quit.[employer] gives you tip[s and tricks, quit smoking chelist, download my quit galindo and read quit smoking benefits too. Adult BMI 34.0-34.9 kg/sq m Counseling given. Education give n. Treatment Notes Test Name Order Date Lipid Panel With LDL/HDL Ratio 2020-05-25 proBNP 2020-05-25 Comp. Metabolic Panel (14) (CMP) 2020-05-25 CBC With Differential/Platelet 2020-05-25 Next Appt Details 4 Months + Labs 1 week before Reason: Provider Name:Wilmeralphonso James, 2020-09-14 1 0:00:00 AM, [address], [address], [place], [address], Provider Name:Wilmer James, 2020-09-21 1 0:00:00 AM, [address], [address], [place], [address], Insurance Providers Payer Name Payer Address Payer Insured Patient Coverage Cover age Phone Name Relationship to Start Date End Date Insured AARP [address] [phone] ElishaRobert self 2012 [facility] [address] [place] [address] MEDICARE Attn Part B [id number] ElishaStandestiny horan 2010 [employer] Claims [address] [facility] [id number]
--- OUTSIDE RECORDS SUMMARY | 2020-06-20 14:13 | XMS REPORT ---
:1945 Author Organization [facility] Address 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 Active 739983669 and chronic kidney disease with heart failure and stage 1 through stage 4 chronic kidney disease, or unspecified chronic kidney disease Problem Mixed E78.2 Active 047688197 hyperlipidemia Problem Acute on chronic I50.23 Active 791705812 systolic (congestive) heart failure Problem ICD (implantable Z95.810 Active 906553010 cardioverter-defib rillator) in place Problem Cardiac pacemaker Z95.0 Active 072702379 Problem Moderate aortic I35.0 Active 02926729 valve stenosis Problem Chronic systolic I50.22 Active 566593395 congestive heart failure Problem Acute on chronic I50.23 Active 399584340 systolic congestive heart failure Problem Chronic J44.9 Active 48974247 obstructive pulmonary disease, unspecified COPD type Problem Adult BMI Z68.34 Active 815228388 34.0-34.9 kg/sq m Problem Abnormal R89.9 Active 965171655 laboratory test Problem CKD (chronic N18.3 Active 411308829 kidney disease) stage 3, GFR 30-59 ml/min Problem 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 07985638 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 ALLERGIES No Known Allergies ENCOUNTERS from 1945 to 2020-05-22 Encounter Location Date Provider Diagnosis [facility] [address], [place] [address] IMMUNIZATIONS Vaccine Route Administration Date Status FluAD IM Intramuscular May 02, 2019 Administered [...] REASON FOR REFERRAL No Information VITAL SIGNS No information MEDICATIONS Medication SIG (Take, Route, Frequency, Start Date End Date Status Duration) Spironolactone 50 MG 1 tablet with food Orally Once a Active day for 30 day(s) Bumex 2 MG 1 tab am and 1/2 tab pm Orally Active BID Entresto 97-103 MG 1 tablet Orally Twice a day Active Potassium Chloride 10 MEQ 1 capsule with food Orally Twice Active a day Eliquis 5 mg 5 mg one by mouth twice daily for 30 Active days Metoprolol Tartrate 25 MG 1/2 tablet with food Orally Active Twice a day Lipitor 40 MG 1 tablet Orally Once a day Active Aspir-81 81 MG 1 tablet Orally Once a day Active Vitamin B-1 100 MG 1 tablet Orally Once a day Active PROCEDURES No Information RESULTS No Results REASON FOR VISIT Lab work MEDICAL (GENERAL) HISTORY Type Description Date Medical History Alcoholic cardiomyopathy Medical History Hypertensive heart and chronic kidney di sease with heart failure and stage 1 through 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 4 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 kidney 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, or unspecified chronic kidney [...] No Information FUNCTIONAL STATUS No Information ASSESSMENTS No Information PLAN OF TREATMENT Medication Medication Name Sig Start Date Stop Date Metoprolol Tartrate 25 MG 1/2 tablet with food Orally Twice a day Lipitor 40 MG 1 tablet Orally Once a day Potassium Chloride 10 MEQ 1 capsule with food Orally Twice a day Aspir-81 81 MG 1 tablet Orally Once a day Vitamin B-1 100 MG 1 tablet Orally Once a day Entresto 97-103 MG 1 tablet Orally Twice a day Bumex 2 MG 1 tab am and 1/2 tab pm Orally BID Next Appt Details Provider Name:Wilmer James, 2020-05-25 1 0:20:00 AM, [address], [place], [address], Insurance Providers Payer Name Payer Address Payer Insured Patient Coverage Cover age Phone Name Relationship to Start Date End Date Insured [facility] [address] [phone] Robert Tello [address] [facility] [address] [address] MEDICARE Attn Part B [id number] Robert Tello 2010 [employer] [address] [facility] [address]
--- OUTSIDE RECORDS SUMMARY | 2020-06-20 14:13 | XMS REPORT | Continuity of Care Document ---
:1945 Author Organization [facility] t Address [address] [place] [address] Care Team Providers Name Role Phone Lee James DO Primary Care Physician Lupe Anglin MD Attending Clinician Jesus ZENDEJAS V. Attending Clinician Kae ZENDEJAS V. Attending Clinician Jack ZENDEJAS, Samantha. Attending Clinician LUPE ANGLIN Attending Clinician Unavailable LANCE Attending Clinician Unavailable BRUCE KEY Attending Clinician Unavailable Cirilo LEE Admitting Clinician Unavailable LANCE Admitting Clinician Unavailable BRUCE KEY Admitting Clinician Unavailable Payers Payer Name Policy Type Policy Effective Date Expiration Date Sour ce Number MEDICAREMEDICARE A [id number] 2010 KVNG Campos [id number] 2009-P 00:00:00 - Medical resentMedicare Center MCR [id number] 2019 KVNG Jiang SUPPLEMENT/INDIVIDUALA 00:00:00 - Medical [id number] /08/2019-PresentMedigap Problems Condition Condition Condition Status Onset Resolution Last Treating Co mments Source Name Details Category Date Date Treatment Clinician Date Shortness Shortness Disease Active [facility] of breath 2-25 [facility] - 00:00: Medical 00 Center CHF CHF Disease Active [facility] (congestiv (congestiv 2-25 Julia kes - e heart e heart 00:00: Medical failure) failure) 00 Center Chronic Chronic Disease Active [facility] atrial atrial 4-29 [facility] flutter flutter 00:00: Medical 00 Center [place] 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 04-10 Julia kes - athy athy 00:00: Medical 00 Center 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-10 [facility] - branch branch 00:00: Medical block block 00 Center (RBBB) (RBBB) Premature Premature Disease Active [facility] atrial atrial 04-10 [facility] - contractio contractio 00:00: Me dical n n 00 Center [place] Essential Essential Disease Active [facility] hypertensi hypertensi 04-10 Julia kes - on on 00:00: Medical 00 Center Acute on Acute on Disease Active [facility] chronic chronic 8 [facility] - 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 Family History Family Member Diagnosis Comments Start Date Stop Date Source Natural father Hyperlipidemia [facility] Natural mother Hyperlipidemia [facility] Social History Social Habit Start Date Stop Date Quantity Comments Source Sex Assigned At [facility] Cigarettes smoked 2019-10-04 2019-10-04 [facility] (pack per 00:00:00 00:00:00 [facility] day) - Reported Cigarette 2019-10-04 2019-10-04 [facility] - [facility] 00:[facility]:00 [facility]00 [facility] Tobacco use and 2019-10-04 2019-10-[address] [facility] - exposure 00:00:00 00:00:00 [facility] Alcohol intake 2019-10-04 2019-10-04 Current [facility] es - 00:00:00 00:00:00 non-drinker of Medical Ce nter alcohol (finding) History of tobacco 2018-03-16 [facility] Smoking Status Start Date Stop Date Source Former smoker 2019-10-04 00:00:00 2019-10-04 00:00:[address] [facility] Medications Ordered Filled Start Stop Current Ordering Indication Dosage Frequency Signature Comments Components Source Medication Medication Date Date Medication? Clinician (SIG) Name Name aspirin 81 2019-0 Yes 81mg QD Take [address] MG EC 2-29 by mouth [facility] - tablet 11:44: daily. Medical 03 Center atorvastati 2019- Yes 40mg QD Take [address] n (LIPITOR) 2-29 by mouth Luke s - 40 MG 11:44: daily. Medical tablet 03 Center apixaban Yes 5mg Q.5D Take [address] (ELIQUIS) 5 2-29 by mouth 2 Julia kes - mg Tab 11:44: (two) Medical tablet 03 times Center daily. sacubitril- Yes 1{tbl} Q.5D Take [address] valsartan 2-29 tablet by [facility] - (ENTRESTO) 11:44: mouth 2 Medi shital 97-103 mg 03 (two) Center Tab times daily. potassium Yes hypokalemia 10meq Q.5D Take [address] chloride 2-29 prevention mEq by Andres es - (KLOR-CON) 11:44: mouth 2 Medi shital 10 MEQ CR 03 (two) Center tablet times daily. spironolact Yes edema 25mg QD Take [address] [facility] one 2-29 by mouth [facility] - (ALDACTONE) 11:44: daily. Medi shital 25 MG 03 Center tablet metoprolol Yes chronic 50mg Q.5D Take [address] (TOPROL-XL) 2-29 heart by mouth 2 L ukes - 50 MG 24 hr 11:44: failure (two) Me dical tablet 03 times Center daily. bumetanide 2019- 2020- No edema 1mg Q.5D Take [address] (BUMEX) 1 2-29 02-29 by mouth 2 Andres es - MG tablet 10:42: 00:00 (two) Medica l 45 :00 times Center daily. bumetanide 2019- Yes edema 2mg Q.5D Take [address] (BUMEX) 2 2-29 tablet (2 [facility] - MG tablet 00:00: mg total) Med ical 00 by mouth 2 Center (two) times daily. metoprolol No prevention 50mg Q.5D Take [address] (TOPROL-XL) 2-25 02-25 of a. fib by mouth 2 [facility] - 25 MG 24 hr 12:52: 00:00 post (two) Medi shital tablet 59 :00 cardio-thor times Cente r acic daily . surgery Metoprolol Metoprolol Yes Wilmer 1/[address] Tartrate Tartrate James with food [facility] Potassium Potassium Yes Wilmer [address] Chloride Chloride James with food [facility] Lipitor Lipitor Yes Wilmer [address] [facility] Aspir-81 Aspir-81 Yes Wilmer [address] [facility] Spironolact Spironolact Yes Wilmer [address] [facility] one one James with food [facility] Bumex Bumex Yes Wilmer [address] [facility] and 1/2 [facility] - tab pm [facility] Vitamin B-1 Vitamin B-1 Yes Wilmer [address] [facility] Eliquis 5 Eliquis 5 Yes Wilmer one [facility] mg mg [facility] Entresto Entresto Yes Wilmer [address] [facility] Immunizations Ordered Filled Immunization Date Status Comments [facility] e Immunization Name Name FluAD FluAD 2019-05-[address] [facility] - 00:00:00 [facility] Vital Signs Vital Name Observation Time Observation Value Comments Source Systolic blood 2019-10-08 07:10:00 120 mm[Hg] [facility] Diastolic blood 2019-10-08 07:10:00 61 mm[Hg] [facility] Heart rate 2019-10-08 07:10:00 86 /min [facility] Body temperature 2019-10-08 07:10:00 35.83 Stephanie [facility] Respiratory rate 2019-10-08 07:10:00 17 /min [facility] Body weight 2019-10-08 07:10:00 115.1 kg [facility] BMI 2019-10-08 07:10:00 33.48 kg/m2 [facility] Oxygen saturation in 2019-10-08 07:10:00 96 /min [facility] - Arterial blood by Medical Ce nter Pulse oximetry Body height 2019-10-04 09:50:00 185.4 cm [facility] Procedures Procedure Date / Time Performing Clinician Source Performed RHYTHM STRIP - SCAN 2019-10-11 08:10:15 Provider, Default [facility] REPORT OF PROCEDURE - 2019-10-11 08:10:13 Provider, Default [facility] ENDOSCOPY [facility] ECHOCARDIOGRAM REPORT - 2019-10-09 21:10:41 Provider, Default [facility] BASIC METABOLIC PANEL (7) 2019-10-08 04:58:00 Jose De Jesus Lee V[facility] CBC (HEMOGRAM ONLY) 2019-10-08 04:58:[address] [facility] Cirilo [facility] MAGNESIUM 2019-10-08 04:58:00 [facility] B-TYPE NATRIURETIC FACTOR 2019-10-08 04:58:00 Maris Santiago [facility] ([facility] BASIC METABOLIC PANEL (7) 2019-10-07 05:47:00 Jose De Jesus [facility] MAGNESIUM 2019-10-07 05:47:00 [place] Cirilo [facility] CBC (HEMOGRAM ONLY) 2019-10-07 04:31:00 Javier [place] Cirilo [facility] TRANSESOPHAGEAL ECHO 2019-10-06 15:54:06 Maris Santiago [facility] TROPONIN I 2019-10-06 05:44:00 Jesus [facility] BASIC METABOLIC PANEL (7) 2019-10-06 05:44:00 Jose De Jesus [facility] MAGNESIUM 2019-10-06 05:44:00 [facility] CBC (HEMOGRAM ONLY) 2019-10-06 04:14:00 [facility] B-TYPE NATRIURETIC FACTOR 2019-10-06 04:14:00 Maris Santiago [facility] ([facility] COLOR-FLOW MAPPING 2019-10-05 09:58:15 Maris Santiago [facility] CONT WAVE PULSED DOPPLER 2019-10-05 09:58:15 Maris Santiago I [facility] TROPONIN I 2019-10-05 00:41:00 [facility]OL[facility] PANEL (7) 2019-10-05 00:41:00 [facility] CBC (HEMOGRAM ONLY) 2019-10-05 00:41:00 [facility] MAGNESIUM 2019-10-05 00:41:00 [facility] STRESS ECHO WITH CONTRAST 2019-10-04 14:24:13 Maris Santiago [facility] & TRACING [facility] TREADMILL 2019-10-04 13:44:35 Unknown, Hl7 Doctor [facility] TOLERANCE(NON-NUCLEAR Medical Ce nter TREADMILL) XR CHEST PA OR AP 1 VIEW 2019-10-04 10:34:00 Marcelo Anglin I [facility] - IN DEPT. [facility] BASIC METABOLIC PANEL (7) 2019-10-04 10:09:00 Marcelo Anglin [facility] HEPATIC FUNCTION PANEL 2019-10-04 10:09:00 Marcelo Anglin [facility] TROPONIN I 2019-10-04 10:09:00 Marcelo Anglin [facility] B-TYPE NATRIURETIC FACTOR 2019-10-04 10:09:00 Marcelo Anglin [facility] CBC W/PLT COUNT & AUTO 2019-10-04 10:09:00 [facility] INTERPRET[facility] 2019-10-04 09:59:24 AnglinMarcelo richter [facility] ECG 12-LEAD 2019-10-04 09:57:22 Unknown, Hl7 Doctor [facility] Plan of Care Planned Activity Planned Date Details Comments Source Future Scheduled 2020-04-10 INFLUENZA VACCINE (#1) [facility] Test 00:00:00 [code = INFLUENZA Medical Ce nter VACCINE (#1)] Future Scheduled 2011-03-[address] [facility] - Test 00:00:00 WELLNESS (YEAR 2 or Medical Center FIRST YEAR if no IPPE) [code = MEDICARE ANNUAL WELLNESS (YEAR 2 or FIRST YEAR if no IPPE)] Future Scheduled 2010 PNEUMOCOCCAL 65+ YRS [facility] - Test 00:00:00 (1 of 1 - Medical Center [id number] PCV13) [code = PNEUMOCOCCAL 65+ YRS (1 of 1 - [id number] PCV13)] Future Scheduled [address] [facility] Andres es - Test 00:00:00 malignant neoplasm of Medica l Center colon (procedure) [code = 538245949] Encounters Start End Encounter Admission Attending Care Care Encounter Source Date/Time Date/Time Type Type Clinicians Facility Department ID 2020-05-25 2020-05-25 Outpatient STLMLC [facility] [id number] [facility] 2020-05-21 2020-05-21 Outpatient STLMLC STLMLC [id number] [facility] 2020-02-23 2020-02-23 [facility] [id number] [address] 09:15:00 09:15:00 [employer] [facility] l Medicine Outpati ent Clinics 2020-01-26 2020-01-26 [facility] [id number] 11:00:00 11:00:00 [employer] [facility] l Medicine Outpati ent Clinics 2019-10-13 2019-10-13 [facility] [id number] 13:00:00 13:00:[address] Luke s - [address] [facility] l Medicine Outpati ent Clinics 2019-10-08 2019-10-08 [facility] [id number] 19:28:00 19:28:[address] Luke s - Drive [facility] Medicine l Medicine Outpati ent Clinics 2019-09-14 2019-09-14 [facility] [id number] 13:27:00 13:27:00 [place] [employer] Luke s - Drive [facility] l Medicine Outpati ent Clinics 2019-09-13 2019-09-13 [facility] [id number] 13:15:00 13:15:00 [place] [employer] Luke s - Drive [facility] Medicine l Medicine Outpati ent Clinics 2019-08-16 2019-08-16 [facility] [id number] 09:45:00 09:45:00 [place] [employer] Luke s - Drive [facility] Medicine l Medicine Outpati ent Clinics 2019-07-26 2019-07-26 [facility] [id number] 16:48:00 16:48:00 [place] [employer] Luke s - Drive [facility] Medicine l Medicine Outpati ent Clinics 2019-05-02 2019-05-02 [facility] [id number] 13:45:00 13:45:00 [place] [employer] Luke s - Drive [facility] Medicine l Medicine Outpati ent Clinics 2019-02-18 2019-02-18 [facility] [id number] 09:00:00 09:00:00 [place] [employer] Luke s - Drive [facility] Medicine l Medicine Outpati ent Clinics 2019-01-24 2019-01-24 [facility] [id number] 10:15:00 10:15:00 t [place] [employer] Luke s - Drive [facility] Medicine l Medicine Outpati ent Clinics 2018-11-24 2018-11-24 [facility] [id number] 11:15:00 11:15:00 [place] [employer] Luke s - Drive [facility] Medicine Outpati ent Clinics 2018-11-15 2018-11-15 [facility] [id number] 14:37:00 14:37:[address] Luke s - Drive [facility] Medicine l Medicine Outpati ent Clinics 2018-10-25 2018-10-25 [facility] [id number] 10:45:00 10:45:[address] Luke s - Drive [facility] l Medicine Outpati ent Clinics 2018-07-27 2018-07-27 [facility] [id number] 11:00:00 11:00:[address] Luke s - Drive [facility] Medicine l Medicine Outpati ent Clinics 2018-05-18 2018-05-18 [facility] [id number] 15:17:00 15:17:00 [place] [employer] Luke s - Drive [facility] Medicine l Medicine Outpati ent Clinics 2018-05-06 2018-05-06 [facility] [id number] 09:02:00 09:02:00 [place] [employer] Luke s - Drive [facility] Medicine l Medicine Outpati ent Clinics 2018-04-27 2018-04-27 [facility] [id number] 16:20:00 16:20:00 t [place] [employer] Luke s - Drive [facility] Medicine l Medicine Outpati ent Clinics 2018-04-27 2018-04-27 [facility] [id number] 13:55:00 13:55:00 t [place] [employer] Luke s - Drive [facility] Medicine Medicine Outpati ent Clinics 2018-04-09 2018-04-09 [facility] [id number] 08:59:00 08:59:00 t [place] [employer] Luke s - Drive [facility] Medicine l Medicine Outpati ent Clinics 2018-04-06 2018-04-06 [facility] [id number] 07:33:00 07:33:00 t [place] [employer] Luke s - Drive [facility] Medicine l Medicine Outpati ent Clinics 2018-03-24 2018-03-24 [facility] [id number] 14:15:00 14:15:00 [facility] 2018-03-24 2018-03-24 [facility] [id number] 11:13:00 11:13:00 [facility] 2018-03-22 2018-03-22 [facility] [id number] 13:30:00 13:30:00 [facility] Results Test Description Test Test Results Result Source Time Comments Comments STRESS ECHO With 2020-02- FractionSLEH [facility] Contrast & Tracing 27 ECHO HEARTLAB ISSAC Campos - 12:02:48 CPACSInterface, External Medical Ris In - 03/05/2020 Cente r 12:02 PM CDTStress Echocardiography Report Demographics Patient Name MARK MCINTOSH Date of Study 10/04/2019 KEYANA Gender Male Visit Number [id number] Race Room Number 1018 Number Date of 1945 Referring Physician Jack Singh Age 74 year(s) Pillowcase Turner Ricardo Payan Interpreting Tony Bullock, Physician MD Fellow Tay Lemus MD Procedure Type of Study Stress procedure:STRESS ECHO/TMT W/DOP&TRAC (Routine) Indications:Aortic stenosis.Clinical HistoryASTHMACHFCOPDHTNR BBBPACEMAKERHeight: 73 inches Weight: 117.93 kg (260 lbs) BSA: 2.41 m^2 BMI: 34.3 kg/m^2HR: 64 bpm BP: 151/77 mmHg Rest ECG A-biv paced rhythm. Stress Stress Type: Pharmacologic Peak HR: 100 bpm HR BP Product: [id number] Peak BP: 129/67 mmHg Predicted HR: 146 [...] Symptoms Tremor Palpitations Stress Protocol: Pharmacologic - Dobutamine+--------+---- -+------+ +---- --+-----+--------+--+--- -----+----+------+!Stage # !Time !Dosage!Other !Dosage!Heart!Blood !CP!Pain !Pain!Pain !! ! ! !Medication! !Rate !Pressure! !Location!Type!Action!+- -------+-----+------+--- -------+------+-----+--- -----+--+--------+----+- -----+!1.0 !03:44!5.00 ! ! !61 !101/46 ! ! ! ! !+--------+-----+------+ +------+-----+ --------+--+--------+--- -+------+!2.0 !04:48!10.00 ! ! !76 !86/40 ! ! ! ! !+--------+-----+------+ +------+-----+ --------+--+--------+--- -+------+!3.0 !04:04!20.00 ! ! !100 !92/65 ! ! ! ! !+--------+-----+------+ +------+-----+ --------+--+--------+--- -+------+!Recovery!11:16 ! ! ! !74 !129/67 ! ! ! ! !+--------+-----+------+ +------+-----+ --------+--+--------+--- -+------+ Signature Chambers/Structures Left Ventricle LVOT Diameter: 2.2 cm Doppler/Quantitative Measurements LVOT LVOT Diameter: 2.2 cm Mean Gradient: 4.1 mmHg LVOT Area: 3.8 cm^2 Treadmill 2019-10- Interface, External Ris C HI St tolerance(Non-Nucle 03 In - 10/11/2019 4:55 PM LuMakuCell - ar Treadmill) 16:55:40 CSTProtocol Name Netviewer TM-1 Time In Exercise Figueroa ter Phase 00:12:33 Max. Systolic BP 151 mmHgMax Diastolic BP 77 mmHgMax Heart Rate 100 BPMMax Predicted Heart Rate 146 BPMReason For Termination Patient became tremulous Reason for Test Atrial Stenosis Evaluation Target HR Formula (220 - Age)*100% Arrhythmias Premature Ventricular Contractions-Isolated Resting ECG A-V PACED ST Changes No Significant Changes Overall Impression Indeterminate due to baseline ECG abnormality Chest Pain none HR Response To Exercise appropriate BP Response To Exercise APPROPRIATE RESPONSE Functional Capacity Indeterminate due to pharmacologic stress See [facility] Inpatient recordstress images obtained for protocolinconclusive due to intermittent AV and V-pacing Confirmed by MD SCHNEIDER RAYMOND ([id number]) on 10/11/2019 4:55:33 PM Transesophageal 2019-09- Ejection FractionSLEH [facility] echo 29 ECHO HEARTLAB MKCKMEMEON L ukes - 23:46:25 CPACSInterface, External Medical Ris In - 10/08/2019 Cente r 11:46 PM CSTTransesophageal Echocardiography Report (RAFA) Demographics Patient Name MARK MCINTOSH Date of Study 10/06/2019 KEYANA Gender Male Visit Number [id number] Race Room Number 1018 Number Date of 1945 Referring Physician aJck Pollock MD Age 74 year(s) Pillowcase Turner Ricardo Antonio Interpreting Reji Miramontes MD Physician Fellow Mark MARTINEZ The procedure was explained in detail to the patient. Risks, complications and alternative treatments were reviewed. Written consent was obtained. Procedure Type of Study RAFA procedure:TRANSESOPHAGEA L ECHO Indications:Aortic stenosis.Clinical HistoryARRHYTHMIA,ARTHRI TIS,ASTHMA,CHF,COPD,HTN, ATRIAL FLUTTER ABLATION(12-06-18),PACEMA KER,HERNIA REPAIRHeight: 73 inches Weight: 117.93 kg (260 lbs) BSA: 2.41 m^2 BMI: 34.3 kg/m^2HR: 84 bpm BP: 122/72 mmHg Procedure Informed [...] . Ventricle Left Atrium LA is adequately visualized. LA appendage morphology is simple (wind sock) [...] obstructive index (DOI) 0.31. Mild aortic regurgitation. Mitral Valve Oyzi-lh-nnsjjjji MV leaflet thickening. Mild mitral regurgitation. Tricuspid Mild tricuspid regurgitation. Valve Pulmonic Normal PV structure and function. [...] CO: 7.96 l/min LVOT CI: 3.3 l/min/m^2 B-type Natriuretic Factor (BNP) 2019-10-08 05:34:00 Test Item Value Reference Range Interpretation Comme nts BNP (test code = 19214-6) 266 pg/mL 0-100 H KAR (test code = KAR) Check And Transfer Beader ID - LA Lab Interpretation (test code = 96299-2) [facility]2019-10-08 05:34:00 Test Item Value Reference Range Interpretation Comments B-TYPE NATRIURETIC PEPTIDE (BEAKER) 266 pg/mL 0-100 H (test code = 700) Check And Transfer Beader ID - LABasic Metabolic [id number] 05:33:00 Test Item Value Reference Range Interpretation Comments Sodium (test code = 139 meq/L 775-203 8505-2) Potassium (test code = 4.0 meq/L 3.5-5.1 2823-3) Chloride (test code = 106 meq/L 98-107 5-0) CO2 (test code = 27 meq/L 2028-04) BUN (test code = 26 mg/dL 7-21 H 3094-0) Creatinine (test code 1.18 mg/dL 0.57-1.25 = 2160-0) Glucose (test code = 134 mg/dL 70-105 H 2345-7) Calcium (test code = 8.9 mg/dL 8.4-10.2 39597-6) EGFR (test code = 60 mL/min/1.73 [place] [address]-5) NOT ACCURATE CREATININE CLEARANCE IN PREDICTING GLOMERULAR FILTRATION RATE . ESTIMATED GFR I S NOT APPLICABLE FOR DIALYSIS PATIENTS. KAR (test code = KAR) Check And Transfer Beader ID - LA Lab Interpretation Abnormal (test code = 30046-9) [facility] 05:33[facility]00 Test Item Value Reference Range Interpretation Comments Magnesium (test code = 2.1 mg/dL 1.6-2.6 16331-5) KAR (test code = KAR) Check And Transfer Beader ID - LA Lab Interpretation (test Normal code = 87908-3) [facility]2020-02-29 05:33:00 Test Item Value Reference Range Interpretation Comments MAGNESIUM (BEAKER) (test code = 2.1 mg/dL 1.6-2.6 627) Check And Transfer Beader ID - LABASIC METABOLIC [id number] 05:33:00 Test Item Value Reference Range Interpretation Comments SODIUM (BEAKER) 139 meq/L 136-145 (test code = 381) POTASSIUM (BEAKER) 4.0 meq/L 3.5-5.1 (test code = 379) CHLORIDE (BEAKER) 106 meq/L 98-107 (test code = 382) CO2 (BEAKER) (test 27 meq/L 22-29 code = 355) BLOOD UREA NITROGEN 26 mg/dL 7-21 H (BEAKER) (test code = 354) CREATININE (BEAKER) 1.18 mg/dL 0.57-1.25 (test code = 358) GLUCOSE RANDOM 134 mg/dL 70-105 H (BEAKER) (test code = 652) CALCIUM (BEAKER) 8.9 mg/dL 8.4-10.2 (test code = 697) EGFR (BEAKER) (test 60 mL/min/1.73 ESTIMA KARSTEN GFR IS code = 1092) sq m NOT ACCURATE CREATININE CLEARANCE IN PREDICTING GLOMERULAR FILTRATION RATE . ESTIMATED GFR I S NOT APPLICABLE FOR DIALYSIS PATIEN TS. Check And Transfer Beader ID - LACBC (Hemogram only)2019-10-08 05:12:00 Test Item Value Reference Range Interpretation Comments WBC (test code = 6690-2) 6.0 3.5- 10.5 K/L RBC (test code = 789-8) 4.56 4.63- 6.08 M/L L MCHC (test code = 786-4) 32.9 32.3- 36.5 GM/DL Hematocrit (test code = 4544-3) 42.9 % 40.1-51 MCV (test code = 787-2) 94.1 fL 79-92.2 H MCH (test code = 785-6) 30.9 pg 25.7-32.2 RDW (test code = 788-0) 13.2 % 11.6-14.4 Platelets (test code = 777-3) 180 150- 450 K/CU MM MPV (test code = 78166-6) 11.1 fL 9.4-12.4 nRBC (test code = 413) 0 0- 0 /100 WBC Lab Interpretation (test code = Abnormal 63027-3) [facility] (HEMOGRAM ONLY)2019-10-08 05:12:00 Test Item Value Reference Range Interpretation Comments WHITE BLOOD CELL COUNT (BEAKER) 6.0 K/ L 3.5-10.5 (test code = 775) RED BLOOD CELL COUNT (BEAKER) 4.56 M/ L 4.63-6.08 L (test code = 761) HEMOGLOBIN (BEAKER) (test code = 14.1 GM/DL 13.7-17.5 410) HEMATOCRIT (BEAKER) (test code = 42.9 % 40.1-51.0 411) MEAN CORPUSCULAR VOLUME (BEAKER) 94.1 fL 79.0-92.2 H (test code = 753) MEAN CORPUSCULAR HEMOGLOBIN 30.9 pg 25.7-32.2 (BEAKER) (test code = 751) MEAN CORPUSCULAR HEMOGLOBIN CONC 32.9 GM/DL 32.3-36.5 (BEAKER) (test code = 752) RED CELL DISTRIBUTION WIDTH 13.2 % 11.6-14.4 (BEAKER) (test code = 412) PLATELET COUNT (BEAKER) (test 180 K/CU MM 150-450 code = 756) MEAN PLATELET VOLUME (BEAKER) 11.1 fL 9.4-12.4 (test code = 754) NUCLEATED RED BLOOD CELLS 0 /100 WBC 0-0 (BEAKER) (test code = 413) [id number] 06:59:00 Test Item Value Reference Range Interpretation Comments MAGNESIUM (BEAKER) (test code = 2.2 mg/dL 1.6-2.6 627) Check And Transfer Beader ID - PIAYA LBASIC METABOLIC [id number] 06:59:00 Test Item Value Reference Range Interpretation Comments SODIUM (BEAKER) 139 meq/L 136-145 (test code = 381) POTASSIUM (BEAKER) 4.0 meq/L 3.5-5.1 (test code = 379) CHLORIDE (BEAKER) 107 meq/L 98-107 (test code = 382) CO2 (BEAKER) (test 25 meq/L 22-29 code = 355) BLOOD UREA NITROGEN 26 mg/dL 7-21 H (BEAKER) (test code = 354) CREATININE (BEAKER) 1.24 mg/dL 0.57-1.25 (test code = 358) GLUCOSE RANDOM 110 mg/dL 70-105 H (BEAKER) (test code = 652) CALCIUM (BEAKER) 8.6 mg/dL 8.4-10.2 (test code = 697) EGFR (BEAKER) (test 57 mL/min/1.73 ESTIMA KARSTEN GFR IS code = 1092) sq m NOT ACCURATE CREATININE CLEARANCE IN PREDICTING GLOMERULAR FILTRATION RATE . ESTIMATED GFR I S NOT APPLICABLE FOR DIALYSIS PATIEN TS. Check And Transfer Beader ID - PIAYA LCBC (HEMOGRAM ONLY)2019-10-07 04:44:00 Test Item Value Reference Range Interpretation Comments WHITE BLOOD CELL COUNT (BEAKER) 6.0 K/ L 3.5-10.5 (test code = 775) RED BLOOD CELL COUNT (BEAKER) 4.44 M/ L 4.63-6.08 L (test code = 761) HEMOGLOBIN (BEAKER) (test code = 13.5 GM/DL 13.7-17.5 L 410) HEMATOCRIT (BEAKER) (test code = 42.0 % 40.1-51.0 411) MEAN CORPUSCULAR VOLUME (BEAKER) 94.6 fL 79.0-92.2 H (test code = 753) MEAN CORPUSCULAR HEMOGLOBIN 30.4 pg 25.7-32.2 (BEAKER) (test code = 751) MEAN CORPUSCULAR HEMOGLOBIN CONC 32.1 GM/DL 32.3-36.5 L (BEAKER) (test code = 752) RED CELL DISTRIBUTION WIDTH 13.5 % 11.6-14.4 (BEAKER) (test code = 412) PLATELET COUNT (BEAKER) (test 173 K/CU MM 150-450 code = 756) MEAN PLATELET VOLUME (BEAKER) 10.8 fL 9.4-12.4 (test code = 754) NUCLEATED RED BLOOD CELLS 0 /100 WBC 0-0 (BEAKER) (test code = 413) Troponin [id number] 07:05:00 Test Item Value Reference Range Interpretation Comments Troponin I (test code = 0.03 ng/mL 0-0.03 25755-3) KAR (test code = KAR) Troponin I (TnI) levels must be interpreted [...] failure, acidosis, acute neurological disease, and persistent tachyarrhythmia.Opera tor ID - NIKKIE L Lab Interpretation (test Normal code = 39469-0) [id number]00 Test Item Value Reference Range Interpretation Comments TROPONIN I (BEAKER) (test code = 0.03 ng/mL 0.00-0.03 397) Troponin I (TnI) levels must be interpreted [...] failure, acidosis, acute neurological disease, and persistent tachyarrhythmia.Check And Transfer Beader ID - NIKKIE [id number] 06:58:00 Test Item Value Reference Range Interpretation Comments MAGNESIUM (BEAKER) (test code = 2.2 mg/dL 1.6-2.6 627) Check And Transfer Beader ID - NIKKIE LBASIC METABOLIC [id number] 06:58:00 Test Item Value Reference Range Interpretation Comments SODIUM (BEAKER) 137 meq/L 136-145 (test code = 381) POTASSIUM (BEAKER) 4.1 meq/L 3.5-5.1 (test code = 379) CHLORIDE (BEAKER) 106 meq/L 98-107 (test code = 382) CO2 (BEAKER) (test 24 meq/L 22-29 code = 355) BLOOD UREA NITROGEN 25 mg/dL 7-21 H (BEAKER) (test code = 354) CREATININE (BEAKER) 1.08 mg/dL 0.57-1.25 (test code = 358) GLUCOSE RANDOM 117 mg/dL 70-105 H (BEAKER) (test code = 652) CALCIUM (BEAKER) 8.6 mg/dL 8.4-10.2 (test code = 697) EGFR (BEAKER) (test 67 mL/min/1.73 ESTIMA KARSTEN GFR IS code = 1092) sq m NOT ACCURATE CREATININE CLEARANCE IN PREDICTING GLOMERULAR FILTRATION RATE . ESTIMATED GFR I S NOT APPLICABLE FOR DIALYSIS PATIEN TS. Check And Transfer Beader ID - NIKKIE LB-TYPE NATRIURETIC FACTOR (BNP)2019-10-06 05:04:00 Test Item Value Reference Range Interpretation Comments B-TYPE NATRIURETIC PEPTIDE (BEAKER) 272 pg/mL 0-100 H (test code = 700) Check And Transfer Beader MYLES - NIKKIE LCBC (HEMOGRAM ONLY)2019-10-06 04:41:00 Test Item Value Reference Range Interpretation Comments WHITE BLOOD CELL COUNT (BEAKER) 5.6 K/ L 3.5-10.5 (test code = 775) RED BLOOD CELL COUNT (BEAKER) 4.54 M/ L 4.63-6.08 L (test code = 761) HEMOGLOBIN (BEAKER) (test code = 14.1 GM/DL 13.7-17.5 410) HEMATOCRIT (BEAKER) (test code = 42.8 % 40.1-51.0 411) MEAN CORPUSCULAR VOLUME (BEAKER) 94.3 fL 79.0-92.2 H (test code = 753) MEAN CORPUSCULAR HEMOGLOBIN 31.1 pg 25.7-32.2 (BEAKER) (test code = 751) MEAN CORPUSCULAR HEMOGLOBIN CONC 32.9 GM/DL 32.3-36.5 (BEAKER) (test code = 752) RED CELL DISTRIBUTION WIDTH 13.2 % 11.6-14.4 (BEAKER) (test code = 412) PLATELET COUNT (BEAKER) (test 184 K/CU MM 150-450 code = 756) MEAN PLATELET VOLUME (BEAKER) 11.3 fL 9.4-12.4 (test code = 754) NUCLEATED RED BLOOD CELLS 0 /100 WBC 0-0 (BEAKER) (test code = 413) ECG 12 [id number] 13:30:30Interface, External Ris In - 10/05/2019 1:30 PM CSTVentricular Rate 61 BPMAtrial Rate 61 BPMP-R Interval 134 msQRS Duration 178 msQ-T Interval 488 msQTC Calculation(Bazett) 491 msR [place] 257 degreesT [place] 66 degreesAV dual-paced rhythmAbnormal ECGWhen compared with ECG of 22-APR-2018 12:34,Vent. rate has decreased BY 24 BPMConfirmed by Hilda KUHN, TAMARA ([id number]) on 10/05/2019 1:30:27 [facility]TR[facility] [id number] 01:25:00 Test Item Value Reference Range Interpretation Comments TROPONIN I (BEAKER) (test code = 0.04 ng/mL 0.00-0.03 H 397) Troponin I (TnI) levels must be interpreted [...] failure, acidosis, acute neurological disease, and persistent tachyarrhythmia.Check And Transfer Beader ID - DEZ [id number] 01:16:00 Test Item Value Reference Range Interpretation Comments MAGNESIUM (BEAKER) (test code = 2.2 mg/dL 1.6-2.6 627) Check And Transfer Beader ID - DEZ MBASIC METABOLIC [id number] 01:16:00 Test Item Value Reference Range Interpretation Comments SODIUM (BEAKER) 140 meq/L 136-145 (test code = 381) POTASSIUM (BEAKER) 4.4 meq/L 3.5-5.1 (test code = 379) CHLORIDE (BEAKER) 109 meq/L 98-107 H (test code = 382) CO2 (BEAKER) (test 25 meq/L 22-29 code = 355) BLOOD UREA NITROGEN 27 mg/dL 7-21 H (BEAKER) (test code = 354) CREATININE (BEAKER) 1.24 mg/dL 0.57-1.25 (test code = 358) GLUCOSE RANDOM 113 mg/dL 70-105 H (BEAKER) (test code = 652) CALCIUM (BEAKER) 8.8 mg/dL 8.4-10.2 (test code = 697) EGFR (BEAKER) (test 57 mL/min/1.73 ESTIMA KARSTEN GFR IS code = 1092) sq m NOT ACCURATE CREATININE CLEARANCE IN PREDICTING GLOMERULAR FILTRATION RATE . ESTIMATED GFR I S NOT APPLICABLE FOR DIALYSIS PATIEN TS. Check And Transfer Beader ID - DEZ MCBC (HEMOGRAM ONLY)2019-10-05 01:01:00 Test Item Value Reference Range Interpretation Comments WHITE BLOOD CELL COUNT (BEAKER) 6.9 K/ L 3.5-10.5 (test code = 775) RED BLOOD CELL COUNT (BEAKER) 4.47 M/ L 4.63-6.08 L (test code = 761) HEMOGLOBIN (BEAKER) (test code = 13.7 GM/DL 13.7-17.5 410) HEMATOCRIT (BEAKER) (test code = 42.1 % 40.1-51.0 411) MEAN CORPUSCULAR VOLUME (BEAKER) 94.2 fL 79.0-92.2 H (test code = 753) MEAN CORPUSCULAR HEMOGLOBIN 30.6 pg 25.7-32.2 (BEAKER) (test code = 751) MEAN CORPUSCULAR HEMOGLOBIN CONC 32.5 GM/DL 32.3-36.5 (BEAKER) (test code = 752) RED CELL DISTRIBUTION WIDTH 13.2 % 11.6-14.4 (BEAKER) (test code = 412) PLATELET COUNT (BEAKER) (test 194 K/CU MM 150-450 code = 756) MEAN PLATELET VOLUME (BEAKER) 11.3 fL 9.4-12.4 (test code = 754) NUCLEATED RED BLOOD CELLS 0 /100 WBC 0-0 (BEAKER) (test code = 413) RAD, CHEST, PA OR AP, 1 [id number] 11:11:00Reason for exam:->SHORTNESS OF BREATHReason for exam:->DIZZINESSShould this be performed at the bedside?->NoFINAL REPORT INDICATION: SHORTNESS OF BREATHDIZZINESS COMPARISON: April 20, 2018 TECHNIQUE: Single frontal view of the chest. FINDINGS: Limited by underpenetrationLungs and pleura: Clear lungs. No effusion.Heart and mediastinum: Normal heart size. Unremarkable mediastinal contours.Osseous structures: No acute abnormality.Other: None. IMPRESSION: No acute intrathoracic abnormality. Signed: JR Mckeon Robert MDReport Verified Date/Time: 10/04/2019 11:11:13 Reading Location: [facility] Radiology Reading Room Electronically signed by: MARK MCKEON on 0 10/04/2019 11:11 AMXR chest PA or AP 1 view in [id number] 11:11:00Interface, External Ris In - 10/04/2019 11:13 AM CSTFINAL REPORT INDICATION: SHORTNESS OF BREATHDIZZINESS COMPARISON: April 20, 2018 TECHNIQUE: Single frontal view of the chest. FINDINGS: Limited by underpenetrationLungs and pleura: Clear lungs. No effusion.Heart and mediasti num: Normal heart size. Unremarkable mediastinal contours.Osseous structures: No acute abnormality.Other: None. IMPRESSION: No acute intrathoracic abnormality. Signed: JR Mckeon Robert MDReport Verified Date/Time: 10/04/2019 11:11:13 Reading Location: [facility] Radiology Reading Room E lectronically signed by: MARK MCKEON on 10/04/2019 11:11 [facility]2019-10-04 10:47:00 Test Item Value Reference Range Interpretation Comments B-TYPE NATRIURETIC PEPTIDE (BEAKER) 466 pg/mL 0-100 H (test code = 700) Check And Transfer Beader ID - DEZ STOREYYADY [id number] 10:46:00 Test Item Value Reference Range Interpretation Comments TROPONIN I (BEAKER) (test code = 0.04 ng/mL 0.00-0.03 H 397) Troponin I (TnI) levels must be interpreted [...] failure, acidosis, acute neurological disease, and persistent tachyarrhythmia.Check And Transfer Beader ID - DEZ epatic function [id number] 10:40:00 Test Item Value Reference Range Interpretation Comments Protein, Total (test code 5.8 6.0- 8.3 gm/dL L = 2885-2) Albumin (test code = 3.4 g/dL 3.5-5 L 03354-3) Total Bilirubin (test code 0.4 mg/dL 0.2-1.2 = 1975-2) Bilirubin, Direct (test 0.2 mg/dL 0.1-0.5 code = 1968-7) Alkaline Phosphatase (test 66 U/L 40-150 code = 6768-6) AST (test code = 1920-8) 19 U/L 5-34 ALT (test code = 1742-6) 33 U/L 6-55 KAR (test code = KAR) Check And Transfer Beader ID - DEZ M Lab Interpretation (test Abnormal code = 22022-6) [facility] [id number] 10:40:00 Test Item Value Reference Range Interpretation Comments TOTAL PROTEIN (BEAKER) (test code = 5.8 gm/dL 6.0-8.3 L 770) ALBUMIN (BEAKER) (test code = 1145) 3.4 g/dL 3.5-5.0 L BILIRUBIN TOTAL (BEAKER) (test code 0.4 mg/dL 0.2-1.2 = 377) BILIRUBIN DIRECT (BEAKER) (test 0.2 mg/dL 0.1-0.5 code = 706) ALKALINE PHOSPHATASE (BEAKER) (test 66 U/L 40-150 code = 346) AST (SGOT) (BEAKER) (test code = 19 U/L 5-34 353) ALT (SGPT) (BEAKER) (test code = 33 U/L 6-55 347) Check And Transfer Beader ID - DEZ MBASIC METABOLIC [id number] 10:40:00 Test Item Value Reference Range Interpretation Comments SODIUM (BEAKER) 139 meq/L 136-145 (test code = 381) POTASSIUM (BEAKER) 4.3 meq/L 3.5-5.1 (test code = 379) CHLORIDE (BEAKER) 109 meq/L 98-107 H (test code = 382) CO2 (BEAKER) (test 27 meq/L 22-29 code = 355) BLOOD UREA NITROGEN 31 mg/dL 7-21 H (BEAKER) (test code = 354) CREATININE (BEAKER) 1.42 mg/dL 0.57-1.25 H (test code = 358) GLUCOSE RANDOM 122 mg/dL 70-105 H (BEAKER) (test code = 652) CALCIUM (BEAKER) 8.6 mg/dL 8.4-10.2 (test code = 697) EGFR (BEAKER) (test 49 mL/min/1.73 ESTIMA KARSTEN GFR IS code = 1092) sq m NOT ACCURATE CREATININE CLEARANCE IN PREDICTING GLOMERULAR FILTRATION RATE . ESTIMATED GFR I S NOT APPLICABLE FOR DIALYSIS PATIEN TS. Check And Transfer Beader ID - DEZ MCBC with platelet count + automated [id number] 10:34:00 Test Item Value Reference Range Interpretation Comments WBC (test code = 6690-2) 7.6 3.5- 10.5 K/L RBC (test code = 789-8) 4.44 4.63- 6.08 M/L L MCHC (test code = 786-4) 31.8 32.3- 36.5 GM/DL L Hematocrit (test code = 4544-3) 42.2 % 40.1-51 MCV (test code = 787-2) 95.0 fL 79-92.2 H MCH (test code = 785-6) 30.2 pg 25.7-32.2 RDW (test code = 788-0) 13.3 % 11.6-14.4 Platelets (test code = 777-3) 198 150- 450 K/CU MM MPV (test code = 90211-2) 11.3 fL 9.4-12.4 nRBC (test code = 413) 0 0- 0 /100 WBC % Neutros (test code = 429) 72 % % Lymphs (test code = 430) 15 % % Monos (test code = 431) 9 % % Eos (test code = 432) 2 % % Baso (test code = 437) 1 % # Neutros (test code = 670) 5.53 1.78- 5.38 K/L H # Lymphs (test code = 414) 1.12 1.32- 3.57 K/L L # Monos (test code = 415) 0.69 0.30- 0.82 K/L # Eos (test code = 416) 0.18 0.04- 0.54 K/L # Baso (test code = 417) 0.05 0.01- 0.08 K/L Immature Granulocytes-Relative 1 % 0-1 (test code = 2801) Lab Interpretation (test code = Abnormal 50947-3) [facility] W/PLT COUNT & AUTO [id number] 10:34:00 Test Item Value Reference Range Interpretation Comments WHITE BLOOD CELL COUNT (BEAKER) 7.6 K/ L 3.5-10.5 (test code = 775) RED BLOOD CELL COUNT (BEAKER) 4.44 M/ L 4.63-6.08 L (test code = 761) HEMOGLOBIN (BEAKER) (test code = 13.4 GM/DL 13.7-17.5 L 410) HEMATOCRIT (BEAKER) (test code = 42.2 % 40.1-51.0 411) MEAN CORPUSCULAR VOLUME (BEAKER) 95.0 fL 79.0-92.2 H (test code = 753) MEAN CORPUSCULAR HEMOGLOBIN 30.2 pg 25.7-32.2 (BEAKER) (test code = 751) MEAN CORPUSCULAR HEMOGLOBIN CONC 31.8 GM/DL 32.3-36.5 L (BEAKER) (test code = 752) RED CELL DISTRIBUTION WIDTH 13.3 % 11.6-14.4 (BEAKER) (test code = 412) PLATELET COUNT (BEAKER) (test 198 K/CU MM 150-450 code = 756) MEAN PLATELET VOLUME (BEAKER) 11.3 fL 9.4-12.4 (test code = 754) NUCLEATED RED BLOOD CELLS 0 /100 WBC 0-0 (BEAKER) (test code = 413) NEUTROPHILS RELATIVE PERCENT 72 % (BEAKER) (test code = 429) LYMPHOCYTES RELATIVE PERCENT 15 % (BEAKER) (test code = 430) MONOCYTES RELATIVE PERCENT 9 % (BEAKER) (test code = 431) EOSINOPHILS RELATIVE PERCENT 2 % (BEAKER) (test code = 432) BASOPHILS RELATIVE PERCENT 1 % (BEAKER) (test code = 437) NEUTROPHILS ABSOLUTE COUNT 5.53 K/ L 1.78-5.38 H (BEAKER) (test code = 670) LYMPHOCYTES ABSOLUTE COUNT 1.12 K/ L 1.32-3.57 L (BEAKER) (test code = 414) MONOCYTES ABSOLUTE COUNT (BEAKER) 0.69 K/ L 0.30-0.82 (test code = 415) EOSINOPHILS ABSOLUTE COUNT 0.18 K/ L 0.04-0.54 (BEAKER) (test code = 416) BASOPHILS ABSOLUTE COUNT (BEAKER) 0.05 K/ L 0.01-0.08 (test code = 417) IMMATURE GRANULOCYTES-RELATIVE 1 % 0-1 PERCENT (BEAKER) (test code = 2801) ECG/EKG [id number] 09:59:24Marcelo Anglin MD 10/04/2019 6:05 PMECG/EKG InterpretationDate/Time: 10/04/2019 12:26 PMPerformed by: Marcelo Anglin MDAuthorized by: Marcelo Anglin MD The ECG was interpreted by ED physician. The ECG is interpreted as paced. Conduction: conduction normal. ECG reviewed and does not meet STEMI criteria. Patient tolerance: Patient tolerated the procedure well with no immediate complicationsCH[facility] BASIC METABOLIC [id number] 08:42:00 Test Item Value Reference Range Interpretation Comments SODIUM (BEAKER) 142 meq/L 136-145 (test code = 381) POTASSIUM (BEAKER) 4.3 meq/L 3.5-5.1 (test code = 379) CHLORIDE (BEAKER) 106 meq/L 98-107 (test code = 382) CO2 (BEAKER) (test 30 meq/L 22-29 H code = 355) BLOOD UREA NITROGEN 31 mg/dL 7-21 H (BEAKER) (test code = 354) CREATININE (BEAKER) 1.26 mg/dL 0.57-1.25 H (test code = 358) GLUCOSE RANDOM 127 mg/dL 70-105 H (BEAKER) (test code = 652) CALCIUM (BEAKER) 9.3 mg/dL 8.4-10.2 (test code = 697) EGFR (BEAKER) (test 56 mL/min/1.73 ESTIMA KARSTEN GFR IS code = 1092) sq m NOT ACCURATE CREATININE CLEARANCE IN PREDICTING GLOMERULAR FILTRATION RATE . ESTIMATED GFR I S NOT APPLICABLE FOR DIALYSIS PATIEN TS. CBC W/PLT COUNT & AUTO [id number] 08:29:00 Test Item Value Reference Range Interpretation Comments WHITE BLOOD CELL COUNT (BEAKER) 7.1 K/ L 3.5-10.5 (test code = 775) RED BLOOD CELL COUNT (BEAKER) 4.86 M/ L 4.63-6.08 (test code = 761) HEMOGLOBIN (BEAKER) (test code = 14.8 GM/DL 13.7-17.5 410) HEMATOCRIT (BEAKER) (test code = 46.8 % 40.1-51.0 411) MEAN CORPUSCULAR VOLUME (BEAKER) 96.3 fL 79.0-92.2 H (test code = 753) MEAN CORPUSCULAR HEMOGLOBIN 30.5 pg 25.7-32.2 (BEAKER) (test code = 751) MEAN CORPUSCULAR HEMOGLOBIN CONC 31.6 GM/DL 32.3-36.5 L (BEAKER) (test code = 752) RED CELL DISTRIBUTION WIDTH 13.5 % 11.6-14.4 (BEAKER) (test code = 412) PLATELET COUNT (BEAKER) (test 177 K/CU MM 150-450 code = 756) MEAN PLATELET VOLUME (BEAKER) 11.5 fL 9.4-12.4 (test code = 754) NUCLEATED RED BLOOD CELLS 0 /100 WBC 0-0 (BEAKER) (test code = 413) NEUTROPHILS RELATIVE PERCENT 69 % (BEAKER) (test code = 429) LYMPHOCYTES RELATIVE PERCENT 20 % (BEAKER) (test code = 430) MONOCYTES RELATIVE PERCENT 8 % (BEAKER) (test code = 431) EOSINOPHILS RELATIVE PERCENT 3 % (BEAKER) (test code = 432) BASOPHILS RELATIVE PERCENT 1 % (BEAKER) (test code = 437) NEUTROPHILS ABSOLUTE COUNT 4.89 K/ L 1.78-5.38 (BEAKER) (test code = 670) LYMPHOCYTES ABSOLUTE COUNT 1.41 K/ L 1.32-3.57 (BEAKER) (test code = 414) MONOCYTES ABSOLUTE COUNT (BEAKER) 0.55 K/ L 0.30-0.82 (test code = 415) EOSINOPHILS ABSOLUTE COUNT 0.18 K/ L 0.04-0.54 (BEAKER) (test code = 416) BASOPHILS ABSOLUTE COUNT (BEAKER) 0.05 K/ L 0.01-0.08 (test code = 417) IMMATURE GRANULOCYTES-RELATIVE 0 % 0-1 PERCENT (BEAKER) (test code = 2801) [id number] 06:54:00 Test Item Value Reference Range Interpretation Comments MAGNESIUM (BEAKER) (test code = 1.8 mg/dL 1.6-2.6 627) BASIC METABOLIC [id number] 06:54:00 Test Item Value Reference Range Interpretation Comments SODIUM (BEAKER) 137 meq/L 136-145 (test code = 381) POTASSIUM (BEAKER) 3.6 meq/L 3.5-5.1 (test code = 379) CHLORIDE (BEAKER) 101 meq/L 98-107 (test code = 382) CO2 (BEAKER) (test 28 meq/L 22-29 code = 355) BLOOD UREA NITROGEN 20 mg/dL 7-21 (BEAKER) (test code = 354) CREATININE (BEAKER) 0.92 mg/dL 0.57-1.25 (test code = 358) GLUCOSE RANDOM 112 mg/dL 70-105 H (BEAKER) (test code = 652) CALCIUM (BEAKER) 9.0 mg/dL 8.4-10.2 (test code = 697) EGFR (BEAKER) (test 81 mL/min/1.73 ESTIMA KARSTEN GFR IS code = 1092) sq m NOT ACCURATE CREATININE CLEARANCE IN PREDICTING GLOMERULAR FILTRATION RATE . ESTIMATED GFR I S NOT APPLICABLE FOR DIALYSIS PATIEN TS. CBC W/PLT COUNT & AUTO [id number] 05:14:00 Test Item Value Reference Range Interpretation Comments WHITE BLOOD CELL COUNT (BEAKER) 5.8 K/ L 3.5-10.5 (test code = 775) RED BLOOD CELL COUNT (BEAKER) 4.59 M/ L 4.63-6.08 L (test code = 761) HEMOGLOBIN (BEAKER) (test code = 14.3 GM/DL 13.7-17.5 410) HEMATOCRIT (BEAKER) (test code = 44.8 % 40.1-51.0 411) MEAN CORPUSCULAR VOLUME (BEAKER) 97.6 fL 79.0-92.2 H (test code = 753) MEAN CORPUSCULAR HEMOGLOBIN 31.2 pg 25.7-32.2 (BEAKER) (test code = 751) MEAN CORPUSCULAR HEMOGLOBIN CONC 31.9 GM/DL 32.3-36.5 L (BEAKER) (test code = 752) RED CELL DISTRIBUTION WIDTH 13.0 % 11.6-14.4 (BEAKER) (test code = 412) PLATELET COUNT (BEAKER) (test 125 K/CU MM 150-450 L code = 756) MEAN PLATELET VOLUME (BEAKER) 12.1 fL 9.4-12.4 (test code = 754) NUCLEATED RED BLOOD CELLS 0 /100 WBC 0-0 (BEAKER) (test code = 413) NEUTROPHILS RELATIVE PERCENT 61 % (BEAKER) (test code = 429) LYMPHOCYTES RELATIVE PERCENT 22 % (BEAKER) (test code = 430) MONOCYTES RELATIVE PERCENT 12 % (BEAKER) (test code = 431) EOSINOPHILS RELATIVE PERCENT 5 % (BEAKER) (test code = 432) BASOPHILS RELATIVE PERCENT 1 % (BEAKER) (test code = 437) NEUTROPHILS ABSOLUTE COUNT 3.51 K/ L 1.78-5.38 (BEAKER) (test code = 670) LYMPHOCYTES ABSOLUTE COUNT 1.25 K/ L 1.32-3.57 L (BEAKER) (test code = 414) MONOCYTES ABSOLUTE COUNT (BEAKER) 0.71 K/ L 0.30-0.82 (test code = 415) EOSINOPHILS ABSOLUTE COUNT 0.27 K/ L 0.04-0.54 (BEAKER) (test code = 416) BASOPHILS ABSOLUTE COUNT (BEAKER) 0.04 K/ L 0.01-0.08 (test code = 417) IMMATURE GRANULOCYTES-RELATIVE 0 % 0-1 PERCENT (BEAKER) (test code = 2801) [id number] 18:14:00 Test Item Value Reference Range Interpretation Comments MAGNESIUM (BEAKER) (test code = 1.8 mg/dL 1.6-2.6 627) BASIC METABOLIC [id number] 18:14:00 Test Item Value Reference Range Interpretation Comments SODIUM (BEAKER) 140 meq/L 136-145 (test code = 381) POTASSIUM (BEAKER) 3.7 meq/L 3.5-5.1 (test code = 379) CHLORIDE (BEAKER) 103 meq/L 98-107 (test code = 382) CO2 (BEAKER) (test 27 meq/L 22-29 code = 355) BLOOD UREA NITROGEN 21 mg/dL 7-21 (BEAKER) (test code = 354) CREATININE (BEAKER) 0.97 mg/dL 0.57-1.25 (test code = 358) GLUCOSE RANDOM 132 mg/dL 70-105 H (BEAKER) (test code = 652) CALCIUM (BEAKER) 9.5 mg/dL 8.4-10.2 (test code = 697) EGFR (BEAKER) (test 76 mL/min/1.73 ESTIMA KARSTEN GFR IS code = 1092) sq m NOT ACCURATE CREATININE CLEARANCE IN PREDICTING GLOMERULAR FILTRATION RATE . ESTIMATED GFR I S NOT APPLICABLE FOR DIALYSIS PATIEN TS. [id number] 17:00:00 Test Item Value Reference Range Interpretation Comments MAGNESIUM (BEAKER) (test code = 1.9 mg/dL 1.6-2.6 627) BASIC METABOLIC [id number] 17:00:00 Test Item Value Reference Range Interpretation Comments SODIUM (BEAKER) 138 meq/L 136-145 (test code = 381) POTASSIUM (BEAKER) 3.9 meq/L 3.5-5.1 (test code = 379) CHLORIDE (BEAKER) 103 meq/L 98-107 (test code = 382) CO2 (BEAKER) (test 28 meq/L 22-29 code = 355) BLOOD UREA NITROGEN 21 mg/dL 7-21 (BEAKER) (test code = 354) CREATININE (BEAKER) 0.91 mg/dL 0.57-1.25 (test code = 358) GLUCOSE RANDOM 96 mg/dL 70-105 (BEAKER) (test code = 652) CALCIUM (BEAKER) 9.2 mg/dL 8.4-10.2 (test code = 697) EGFR (BEAKER) (test 82 mL/min/1.73 ESTIMA KARSTEN GFR IS code = 1092) sq m NOT ACCURATE CREATININE CLEARANCE IN PREDICTING GLOMERULAR FILTRATION RATE . ESTIMATED GFR I S NOT APPLICABLE FOR DIALYSIS PATIEN TS. [id number] 04:20:00 Test Item Value Reference Range Interpretation Comments MAGNESIUM (BEAKER) (test code = 1.9 mg/dL 1.6-2.6 627) BASIC METABOLIC [id number] 04:20:00 Test Item Value Reference Range Interpretation Comments SODIUM (BEAKER) 138 meq/L 136-145 (test code = 381) POTASSIUM (BEAKER) 3.4 meq/L 3.5-5.1 L (test code = 379) CHLORIDE (BEAKER) 102 meq/L 98-107 (test code = 382) CO2 (BEAKER) (test 30 meq/L 22-29 H code = 355) BLOOD UREA NITROGEN 20 mg/dL 7-21 (BEAKER) (test code = 354) CREATININE (BEAKER) 0.88 mg/dL 0.57-1.25 (test code = 358) GLUCOSE RANDOM 113 mg/dL 70-105 H (BEAKER) (test code = 652) CALCIUM (BEAKER) 8.9 mg/dL 8.4-10.2 (test code = 697) EGFR (BEAKER) (test 85 mL/min/1.73 ESTIMA KARSTEN GFR IS code = 1092) sq m NOT ACCURATE CREATININE CLEARANCE IN PREDICTING GLOMERULAR FILTRATION RATE . ESTIMATED GFR I S NOT APPLICABLE FOR DIALYSIS PATIEN TS. B-TYPE NATRIURETIC FACTOR (BNP)2018-04-21 05:10:00 Test Item Value Reference Range Interpretation Comments B-TYPE NATRIURETIC PEPTIDE 2031 pg/mL 0-100 H (BEAKER) (test code = 700) [id number] 05:08:00 Test Item Value Reference Range Interpretation Comments MAGNESIUM (BEAKER) (test code = 1.8 mg/dL 1.6-2.6 627) BASIC METABOLIC [id number] 05:08:00 Test Item Value Reference Range Interpretation Comments SODIUM (BEAKER) 140 meq/L 136-145 (test code = 381) POTASSIUM (BEAKER) 3.1 meq/L 3.5-5.1 L (test code = 379) CHLORIDE (BEAKER) 100 meq/L 98-107 (test code = 382) CO2 (BEAKER) (test 30 meq/L 22-29 H code = 355) BLOOD UREA NITROGEN 21 mg/dL 7-21 (BEAKER) (test code = 354) CREATININE (BEAKER) 0.94 mg/dL 0.57-1.25 (test code = 358) GLUCOSE RANDOM 103 mg/dL 70-105 (BEAKER) (test code = 652) CALCIUM (BEAKER) 9.0 mg/dL 8.4-10.2 (test code = 697) EGFR (BEAKER) (test 79 mL/min/1.73 ESTIMA KARSTEN GFR IS code = 1092) sq m NOT ACCURATE CREATININE CLEARANCE IN PREDICTING GLOMERULAR FILTRATION RATE . ESTIMATED GFR I S NOT APPLICABLE FOR DIALYSIS PATIEN TS. RAD, CHEST, 1 VIEW, NON [id number] 07:52:00Reason for exam:->icdShould this be performed at [...] small pleural effusions. Pneumonitis should be excluded clinicall y. Signed: Kateryna Garcia MDReport Verified Date/Time: 04/20/2018 07:52:28 Reading Location: [facility] Radiology Reading Room [id number] 04:36:00 Test Item Value Reference Range Interpretation Comments POTASSIUM (BEAKER) (test code = 3.5 meq/L 3.5-5.1 379) Check Serum Potassium level 2 hours after oral potassium replacement completed or 30 min after intravenous potassium replacement.[id number] 04:36:00 Test Item Value Reference Range Interpretation Comments MAGNESIUM (BEAKER) (test code = 2.0 mg/dL 1.6-2.6 627) Check Serum Potassium level 2 hours after oral potassium replacement completed or 30 min after intravenous potassium replacement.BASIC METABOLIC PANEL 2018-04-20 04:36:00 Test Item Value Reference Range Interpretation Comments SODIUM (BEAKER) 139 meq/L 136-145 (test code = 381) POTASSIUM (BEAKER) 3.5 meq/L 3.5-5.1 (test code = 379) CHLORIDE (BEAKER) 101 meq/L 98-107 (test code = 382) CO2 (BEAKER) (test 30 meq/L 22-29 H code = 355) BLOOD UREA NITROGEN 23 mg/dL 7-21 H (BEAKER) (test code = 354) CREATININE (BEAKER) 1.05 mg/dL 0.57-1.25 (test code = 358) GLUCOSE RANDOM 100 mg/dL 70-105 (BEAKER) (test code = 652) CALCIUM (BEAKER) 8.9 mg/dL 8.4-10.2 (test code = 697) EGFR (BEAKER) (test 69 mL/min/1.73 ESTIMA KARSTEN GFR IS code = 1092) sq m NOT ACCURATE CREATININE CLEARANCE IN PREDICTING GLOMERULAR FILTRATION RATE . ESTIMATED GFR I S NOT APPLICABLE FOR DIALYSIS PATIEN TS. Check Serum Potassium level 2 hours after oral potassium replacement completed or 30 min after intravenous potassium replacement.[id number] 04:35:00 Test Item Value Reference Range Interpretation Comments MAGNESIUM (BEAKER) (test code = 1.9 mg/dL 1.6-2.6 627) Check Serum Potassium level 2 hours after oral potassium replacement completed or 30 min after intravenous potassium replacement.BASIC METABOLIC PANEL 2018-04-20 04:35:00 Test Item Value Reference Range Interpretation Comments SODIUM (BEAKER) 139 meq/L 136-145 (test code = 381) POTASSIUM (BEAKER) 3.5 meq/L 3.5-5.1 (test code = 379) CHLORIDE (BEAKER) 101 meq/L 98-107 (test code = 382) CO2 (BEAKER) (test 29 meq/L 22-29 code = 355) BLOOD UREA NITROGEN 24 mg/dL 7-21 H (BEAKER) (test code = 354) CREATININE (BEAKER) 1.03 mg/dL 0.57-1.25 (test code = 358) GLUCOSE RANDOM 100 mg/dL 70-105 (BEAKER) (test code = 652) CALCIUM (BEAKER) 8.9 mg/dL 8.4-10.2 (test code = 697) EGFR (BEAKER) (test 71 mL/min/1.73 ESTIMA KARSTEN GFR IS code = 1092) sq m NOT ACCURATE CREATININE CLEARANCE IN PREDICTING GLOMERULAR FILTRATION RATE . ESTIMATED GFR I S NOT APPLICABLE FOR DIALYSIS PATIEN TS. Check Serum Potassium level 2 hours after oral potassium replacement completed or 30 min after intravenous potassium replacement.[id number] 04:34:00 Test Item Value Reference Range Interpretation Comments POTASSIUM (BEAKER) (test code = 3.5 meq/L 3.5-5.1 379) Check Serum Potassium level 2 hours after oral potassium replacement completed or 30 min after intravenous potassium replacement.[id number] 04:28:00 Test Item Value Reference Range Interpretation Comments POTASSIUM (BEAKER) (test code = 3.5 meq/L 3.5-5.1 379) Check Serum Potassium level 2 hours after oral potassium replacement completed or 30 min after intravenous potassium replacement.CBC W/PLT COUNT & AUTO [id number] 04:19:00 Test Item Value Reference Range Interpretation Comments WHITE BLOOD CELL COUNT (BEAKER) 6.1 K/ L 3.5-10.5 (test code = 775) RED BLOOD CELL COUNT (BEAKER) 4.22 M/ L 4.63-6.08 L (test code = 761) HEMOGLOBIN (BEAKER) (test code = 13.2 GM/DL 13.7-17.5 L 410) HEMATOCRIT (BEAKER) (test code = 41.2 % 40.1-51.0 411) MEAN CORPUSCULAR VOLUME (BEAKER) 97.6 fL 79.0-92.2 H (test code = 753) MEAN CORPUSCULAR HEMOGLOBIN 31.3 pg 25.7-32.2 (BEAKER) (test code = 751) MEAN CORPUSCULAR HEMOGLOBIN CONC 32.0 GM/DL 32.3-36.5 L (BEAKER) (test code = 752) RED CELL DISTRIBUTION WIDTH 12.5 % 11.6-14.4 (BEAKER) (test code = 412) PLATELET COUNT (BEAKER) (test 126 K/CU MM 150-450 L code = 756) MEAN PLATELET VOLUME (BEAKER) 12.6 fL 9.4-12.4 H (test code = 754) NUCLEATED RED BLOOD CELLS 0 /100 WBC 0-0 (BEAKER) (test code = 413) NEUTROPHILS RELATIVE PERCENT 73 % (BEAKER) (test code = 429) LYMPHOCYTES RELATIVE PERCENT 14 % (BEAKER) (test code = 430) MONOCYTES RELATIVE PERCENT 10 % (BEAKER) (test code = 431) EOSINOPHILS RELATIVE PERCENT 3 % (BEAKER) (test code = 432) BASOPHILS RELATIVE PERCENT 0 % (BEAKER) (test code = 437) NEUTROPHILS ABSOLUTE COUNT 4.42 K/ L 1.78-5.38 (BEAKER) (test code = 670) LYMPHOCYTES ABSOLUTE COUNT 0.82 K/ L 1.32-3.57 L (BEAKER) (test code = 414) MONOCYTES ABSOLUTE COUNT (BEAKER) 0.61 K/ L 0.30-0.82 (test code = 415) EOSINOPHILS ABSOLUTE COUNT 0.16 K/ L 0.04-0.54 (BEAKER) (test code = 416) BASOPHILS ABSOLUTE COUNT (BEAKER) 0.02 K/ L 0.01-0.08 (test code = 417) IMMATURE GRANULOCYTES-RELATIVE 0 % 0-1 PERCENT (BEAKER) (test code = 2801) RAD, CHEST, 1 VIEW, NON [id number] 19:47:00Reason for exam:->icdShould this be performed at the bedside?->YesFINAL REPORT AP chest HISTORY: ICD COMPARISON: 04/10/2018 IMPRESSION:Left AICD placed. No postprocedure pneumothorax. Marked cardiomegaly. Lungs grossly clear. Signed: Cuong Butterfield MDReport Verified Date/Time: 04/19/2018 19:47:16 Reading Location: [address] Consult Reading Room [id number] 05:42:00 Test Item Value Reference Range Interpretation Comments MAGNESIUM (BEAKER) (test code = 2.1 mg/dL 1.6-2.6 627) BASIC METABOLIC [id number] 05:42:00 Test Item Value Reference Range Interpretation Comments SODIUM (BEAKER) 139 meq/L 136-145 (test code = 381) POTASSIUM (BEAKER) 4.1 meq/L 3.5-5.1 (test code = 379) CHLORIDE (BEAKER) 100 meq/L 98-107 (test code = 382) CO2 (BEAKER) (test 32 meq/L 22-29 H code = 355) BLOOD UREA NITROGEN 29 mg/dL 7-21 H (BEAKER) (test code = 354) CREATININE (BEAKER) 1.31 mg/dL 0.57-1.25 H (test code = 358) GLUCOSE RANDOM 112 mg/dL 70-105 H (BEAKER) (test code = 652) CALCIUM (BEAKER) 9.5 mg/dL 8.4-10.2 (test code = 697) EGFR (BEAKER) (test 54 mL/min/1.73 ESTIMA KARSTEN GFR IS code = 1092) sq m NOT ACCURATE CREATININE CLEARANCE IN PREDICTING GLOMERULAR FILTRATION RATE . ESTIMATED GFR I S NOT APPLICABLE FOR DIALYSIS PATIEN TS. B-TYPE NATRIURETIC FACTOR (BNP)2018-04-19 05:41:00 Test Item Value Reference Range Interpretation Comments B-TYPE NATRIURETIC PEPTIDE 2590 pg/mL 0-100 H (BEAKER) (test code = 700) CBC W/PLT COUNT & AUTO [id number] 05:14:00 Test Item Value Reference Range Interpretation Comments WHITE BLOOD CELL COUNT (BEAKER) 5.5 K/ L 3.5-10.5 (test code = 775) RED BLOOD CELL COUNT (BEAKER) 4.19 M/ L 4.63-6.08 L (test code = 761) HEMOGLOBIN (BEAKER) (test code = 13.2 GM/DL 13.7-17.5 L 410) HEMATOCRIT (BEAKER) (test code = 41.3 % 40.1-51.0 411) MEAN CORPUSCULAR VOLUME (BEAKER) 98.6 fL 79.0-92.2 H (test code = 753) MEAN CORPUSCULAR HEMOGLOBIN 31.5 pg 25.7-32.2 (BEAKER) (test code = 751) MEAN CORPUSCULAR HEMOGLOBIN CONC 32.0 GM/DL 32.3-36.5 L (BEAKER) (test code = 752) RED CELL DISTRIBUTION WIDTH 12.6 % 11.6-14.4 (BEAKER) (test code = 412) PLATELET COUNT (BEAKER) (test 145 K/CU MM 150-450 L code = 756) MEAN PLATELET VOLUME (BEAKER) 13.2 fL 9.4-12.4 H (test code = 754) NUCLEATED RED BLOOD CELLS 0 /100 WBC 0-0 (BEAKER) (test code = 413) NEUTROPHILS RELATIVE PERCENT 65 % (BEAKER) (test code = 429) LYMPHOCYTES RELATIVE PERCENT 20 % (BEAKER) (test code = 430) MONOCYTES RELATIVE PERCENT 11 % (BEAKER) (test code = 431) EOSINOPHILS RELATIVE PERCENT 3 % (BEAKER) (test code = 432) BASOPHILS RELATIVE PERCENT 1 % (BEAKER) (test code = 437) NEUTROPHILS ABSOLUTE COUNT 3.57 K/ L 1.78-5.38 (BEAKER) (test code = 670) LYMPHOCYTES ABSOLUTE COUNT 1.08 K/ L 1.32-3.57 L (BEAKER) (test code = 414) MONOCYTES ABSOLUTE COUNT (BEAKER) 0.62 K/ L 0.30-0.82 (test code = 415) EOSINOPHILS ABSOLUTE COUNT 0.16 K/ L 0.04-0.54 (BEAKER) (test code = 416) BASOPHILS ABSOLUTE COUNT (BEAKER) 0.04 K/ L 0.01-0.08 (test code = 417) IMMATURE GRANULOCYTES-RELATIVE 1 % 0-1 PERCENT (BEAKER) (test code = 2801) [id number] 05:31:00 Test Item Value Reference Range Interpretation Comments MAGNESIUM (BEAKER) (test code = 2.2 mg/dL 1.6-2.6 627) BASIC METABOLIC [id number] 05:31:00 Test Item Value Reference Range Interpretation Comments SODIUM (BEAKER) 137 meq/L 136-145 (test code = 381) POTASSIUM (BEAKER) 4.8 meq/L 3.5-5.1 (test code = 379) CHLORIDE (BEAKER) 99 meq/L 98-107 (test code = 382) CO2 (BEAKER) (test 29 meq/L 22-29 code = 355) BLOOD UREA NITROGEN 31 mg/dL 7-21 H (BEAKER) (test code = 354) CREATININE (BEAKER) 1.38 mg/dL 0.57-1.25 H (test code = 358) GLUCOSE RANDOM 131 mg/dL 70-105 H (BEAKER) (test code = 652) CALCIUM (BEAKER) 9.6 mg/dL 8.4-10.2 (test code = 697) EGFR (BEAKER) (test 51 mL/min/1.73 ESTIMA KARSTEN GFR IS code = 1092) sq m NOT ACCURATE CREATININE CLEARANCE IN PREDICTING GLOMERULAR FILTRATION RATE . ESTIMATED GFR I S NOT APPLICABLE FOR DIALYSIS PATIEN TS. CBC W/PLT COUNT & AUTO [id number] 04:44:00 Test Item Value Reference Range Interpretation Comments WHITE BLOOD CELL COUNT (BEAKER) 5.3 K/ L 3.5-10.5 (test code = 775) RED BLOOD CELL COUNT (BEAKER) 4.32 M/ L 4.63-6.08 L (test code = 761) HEMOGLOBIN (BEAKER) (test code = 13.6 GM/DL 13.7-17.5 L 410) HEMATOCRIT (BEAKER) (test code = 42.0 % 40.1-51.0 411) MEAN CORPUSCULAR VOLUME (BEAKER) 97.2 fL 79.0-92.2 H (test code = 753) MEAN CORPUSCULAR HEMOGLOBIN 31.5 pg 25.7-32.2 (BEAKER) (test code = 751) MEAN CORPUSCULAR HEMOGLOBIN CONC 32.4 GM/DL 32.3-36.5 (BEAKER) (test code = 752) RED CELL DISTRIBUTION WIDTH 12.4 % 11.6-14.4 (BEAKER) (test code = 412) PLATELET COUNT (BEAKER) (test 125 K/CU MM 150-450 L code = 756) MEAN PLATELET VOLUME (BEAKER) 12.8 fL 9.4-12.4 H (test code = 754) NUCLEATED RED BLOOD CELLS 0 /100 WBC 0-0 (BEAKER) (test code = 413) NEUTROPHILS RELATIVE PERCENT 67 % (BEAKER) (test code = 429) LYMPHOCYTES RELATIVE PERCENT 18 % (BEAKER) (test code = 430) MONOCYTES RELATIVE PERCENT 13 % (BEAKER) (test code = 431) EOSINOPHILS RELATIVE PERCENT 2 % (BEAKER) (test code = 432) BASOPHILS RELATIVE PERCENT 0 % (BEAKER) (test code = 437) NEUTROPHILS ABSOLUTE COUNT 3.53 K/ L 1.78-5.38 (BEAKER) (test code = 670) LYMPHOCYTES ABSOLUTE COUNT 0.97 K/ L 1.32-3.57 L (BEAKER) (test code = 414) MONOCYTES ABSOLUTE COUNT (BEAKER) 0.66 K/ L 0.30-0.82 (test code = 415) EOSINOPHILS ABSOLUTE COUNT 0.09 K/ L 0.04-0.54 (BEAKER) (test code = 416) BASOPHILS ABSOLUTE COUNT (BEAKER) 0.02 K/ L 0.01-0.08 (test code = 417) IMMATURE GRANULOCYTES-RELATIVE 1 % 0-1 PERCENT (BEAKER) (test code = 2801) [id number] 06:24:00 Test Item Value Reference Range Interpretation Comments MAGNESIUM (BEAKER) (test code = 2.2 mg/dL 1.6-2.6 627) BASIC METABOLIC [id number] 06:24:00 Test Item Value Reference Range Interpretation Comments SODIUM (BEAKER) 135 meq/L 136-145 L (test code = 381) POTASSIUM (BEAKER) 3.9 meq/L 3.5-5.1 (test code = 379) CHLORIDE (BEAKER) 98 meq/L 98-107 (test code = 382) CO2 (BEAKER) (test 25 meq/L 22-29 code = 355) BLOOD UREA NITROGEN 25 mg/dL 7-21 H (BEAKER) (test code = 354) CREATININE (BEAKER) 1.25 mg/dL 0.57-1.25 (test code = 358) GLUCOSE RANDOM 154 mg/dL 70-105 H (BEAKER) (test code = 652) CALCIUM (BEAKER) 9.5 mg/dL 8.4-10.2 (test code = 697) EGFR (BEAKER) (test 57 mL/min/1.73 ESTIMA KARSTEN GFR IS code = 1092) sq m NOT ACCURATE CREATININE CLEARANCE IN PREDICTING GLOMERULAR FILTRATION RATE . ESTIMATED GFR I S NOT APPLICABLE FOR DIALYSIS PATIEN TS. CBC W/PLT COUNT & AUTO [id number] 04:55:00 Test Item Value Reference Range Interpretation Comments WHITE BLOOD CELL COUNT (BEAKER) 8.5 K/ L 3.5-10.5 (test code = 775) RED BLOOD CELL COUNT (BEAKER) 4.68 M/ L 4.63-6.08 (test code = 761) HEMOGLOBIN (BEAKER) (test code = 14.4 GM/DL 13.7-17.5 410) HEMATOCRIT (BEAKER) (test code = 45.4 % 40.1-51.0 411) MEAN CORPUSCULAR VOLUME (BEAKER) 97.0 fL 79.0-92.2 H (test code = 753) MEAN CORPUSCULAR HEMOGLOBIN 30.8 pg 25.7-32.2 (BEAKER) (test code = 751) MEAN CORPUSCULAR HEMOGLOBIN CONC 31.7 GM/DL 32.3-36.5 L (BEAKER) (test code = 752) RED CELL DISTRIBUTION WIDTH 12.5 % 11.6-14.4 (BEAKER) (test code = 412) PLATELET COUNT (BEAKER) (test 175 K/CU MM 150-450 code = 756) MEAN PLATELET VOLUME (BEAKER) 13.1 fL 9.4-12.4 H (test code = 754) NUCLEATED RED BLOOD CELLS 0 /100 WBC 0-0 (BEAKER) (test code = 413) NEUTROPHILS RELATIVE PERCENT 78 % (BEAKER) (test code = 429) LYMPHOCYTES RELATIVE PERCENT 10 % (BEAKER) (test code = 430) MONOCYTES RELATIVE PERCENT 11 % (BEAKER) (test code = 431) EOSINOPHILS RELATIVE PERCENT 1 % (BEAKER) (test code = 432) BASOPHILS RELATIVE PERCENT 0 % (BEAKER) (test code = 437) NEUTROPHILS ABSOLUTE COUNT 6.57 K/ L 1.78-5.38 H (BEAKER) (test code = 670) LYMPHOCYTES ABSOLUTE COUNT 0.86 K/ L 1.32-3.57 L (BEAKER) (test code = 414) MONOCYTES ABSOLUTE COUNT (BEAKER) 0.89 K/ L 0.30-0.82 H (test code = 415) EOSINOPHILS ABSOLUTE COUNT 0.07 K/ L 0.04-0.54 (BEAKER) (test code = 416) BASOPHILS ABSOLUTE COUNT (BEAKER) 0.03 K/ L 0.01-0.08 (test code = 417) IMMATURE GRANULOCYTES-RELATIVE 0 % 0-1 PERCENT (BEAKER) (test code = 2801) [id number] 06:52:00 Test Item Value Reference Range Interpretation Comments MAGNESIUM (BEAKER) (test code = 2.2 mg/dL 1.6-2.6 627) BASIC METABOLIC [id number] 06:52:00 Test Item Value Reference Range Interpretation Comments SODIUM (BEAKER) 136 meq/L 136-145 (test code = 381) POTASSIUM (BEAKER) 3.9 meq/L 3.5-5.1 (test code = 379) CHLORIDE (BEAKER) 101 meq/L 98-107 (test code = 382) CO2 (BEAKER) (test 26 meq/L 22-29 code = 355) BLOOD UREA NITROGEN 22 mg/dL 7-21 H (BEAKER) (test code = 354) CREATININE (BEAKER) 1.00 mg/dL 0.57-1.25 (test code = 358) GLUCOSE RANDOM 100 mg/dL 70-105 (BEAKER) (test code = 652) CALCIUM (BEAKER) 9.2 mg/dL 8.4-10.2 (test code = 697) EGFR (BEAKER) (test 73 mL/min/1.73 ESTIMA KARSTEN GFR IS code = 1092) sq m NOT ACCURATE CREATININE CLEARANCE IN PREDICTING GLOMERULAR FILTRATION RATE . ESTIMATED GFR I S NOT APPLICABLE FOR DIALYSIS PATIEN TS. CBC W/PLT COUNT & AUTO [id number] 06:29:00 Test Item Value Reference Range Interpretation Comments WHITE BLOOD CELL COUNT (BEAKER) 5.7 K/ L 3.5-10.5 (test code = 775) RED BLOOD CELL COUNT (BEAKER) 4.35 M/ L 4.63-6.08 L (test code = 761) HEMOGLOBIN (BEAKER) (test code = 13.7 GM/DL 13.7-17.5 410) HEMATOCRIT (BEAKER) (test code = 43.1 % 40.1-51.0 411) MEAN CORPUSCULAR VOLUME (BEAKER) 99.1 fL 79.0-92.2 H (test code = 753) MEAN CORPUSCULAR HEMOGLOBIN 31.5 pg 25.7-32.2 (BEAKER) (test code = 751) MEAN CORPUSCULAR HEMOGLOBIN CONC 31.8 GM/DL 32.3-36.5 L (BEAKER) (test code = 752) RED CELL DISTRIBUTION WIDTH 12.5 % 11.6-14.4 (BEAKER) (test code = 412) PLATELET COUNT (BEAKER) (test 126 K/CU MM 150-450 L code = 756) MEAN PLATELET VOLUME (BEAKER) 12.7 fL 9.4-12.4 H (test code = 754) NUCLEATED RED BLOOD CELLS 0 /100 WBC 0-0 (BEAKER) (test code = 413) NEUTROPHILS RELATIVE PERCENT 67 % (BEAKER) (test code = 429) LYMPHOCYTES RELATIVE PERCENT 17 % (BEAKER) (test code = 430) MONOCYTES RELATIVE PERCENT 12 % (BEAKER) (test code = 431) EOSINOPHILS RELATIVE PERCENT 3 % (BEAKER) (test code = 432) BASOPHILS RELATIVE PERCENT 1 % (BEAKER) (test code = 437) NEUTROPHILS ABSOLUTE COUNT 3.80 K/ L 1.78-5.38 (BEAKER) (test code = 670) LYMPHOCYTES ABSOLUTE COUNT 0.95 K/ L 1.32-3.57 L (BEAKER) (test code = 414) MONOCYTES ABSOLUTE COUNT (BEAKER) 0.67 K/ L 0.30-0.82 (test code = 415) EOSINOPHILS ABSOLUTE COUNT 0.18 K/ L 0.04-0.54 (BEAKER) (test code = 416) BASOPHILS ABSOLUTE COUNT (BEAKER) 0.03 K/ L 0.01-0.08 (test code = 417) IMMATURE GRANULOCYTES-RELATIVE 1 % 0-1 PERCENT (BEAKER) (test code = 2801) [id number] 05:51:00 Test Item Value Reference Range Interpretation Comments MAGNESIUM (BEAKER) (test code = 2.1 mg/dL 1.6-2.6 627) BASIC METABOLIC [id number] 05:51:00 Test Item Value Reference Range Interpretation Comments SODIUM (BEAKER) 136 meq/L 136-145 (test code = 381) POTASSIUM (BEAKER) 4.0 meq/L 3.5-5.1 (test code = 379) CHLORIDE (BEAKER) 101 meq/L 98-107 (test code = 382) CO2 (BEAKER) (test 28 meq/L 22-29 code = 355) BLOOD UREA NITROGEN 23 mg/dL 7-21 H (BEAKER) (test code = 354) CREATININE (BEAKER) 1.03 mg/dL 0.57-1.25 (test code = 358) GLUCOSE RANDOM 106 mg/dL 70-105 H (BEAKER) (test code = 652) CALCIUM (BEAKER) 9.4 mg/dL 8.4-10.2 (test code = 697) EGFR (BEAKER) (test 71 mL/min/1.73 ESTIMA KARSTEN GFR IS code = 1092) sq m NOT ACCURATE CREATININE CLEARANCE IN PREDICTING GLOMERULAR FILTRATION RATE . ESTIMATED GFR I S NOT APPLICABLE FOR DIALYSIS PATIEN TS. CBC W/PLT COUNT & AUTO [id number] 05:34:00 Test Item Value Reference Range Interpretation Comments WHITE BLOOD CELL COUNT (BEAKER) 5.1 K/ L 3.5-10.5 (test code = 775) RED BLOOD CELL COUNT (BEAKER) 4.43 M/ L 4.63-6.08 L (test code = 761) HEMOGLOBIN (BEAKER) (test code = 13.8 GM/DL 13.7-17.5 410) HEMATOCRIT (BEAKER) (test code = 43.9 % 40.1-51.0 411) MEAN CORPUSCULAR VOLUME (BEAKER) 99.1 fL 79.0-92.2 H (test code = 753) MEAN CORPUSCULAR HEMOGLOBIN 31.2 pg 25.7-32.2 (BEAKER) (test code = 751) MEAN CORPUSCULAR HEMOGLOBIN CONC 31.4 GM/DL 32.3-36.5 L (BEAKER) (test code = 752) RED CELL DISTRIBUTION WIDTH 12.7 % 11.6-14.4 (BEAKER) (test code = 412) PLATELET COUNT (BEAKER) (test 143 K/CU MM 150-450 L code = 756) MEAN PLATELET VOLUME (BEAKER) 13.0 fL 9.4-12.4 H (test code = 754) NUCLEATED RED BLOOD CELLS 0 /100 WBC 0-0 (BEAKER) (test code = 413) NEUTROPHILS RELATIVE PERCENT 64 % (BEAKER) (test code = 429) LYMPHOCYTES RELATIVE PERCENT 21 % (BEAKER) (test code = 430) MONOCYTES RELATIVE PERCENT 12 % (BEAKER) (test code = 431) EOSINOPHILS RELATIVE PERCENT 3 % (BEAKER) (test code = 432) BASOPHILS RELATIVE PERCENT 0 % (BEAKER) (test code = 437) NEUTROPHILS ABSOLUTE COUNT 3.24 K/ L 1.78-5.38 (BEAKER) (test code = 670) LYMPHOCYTES ABSOLUTE COUNT 1.04 K/ L 1.32-3.57 L (BEAKER) (test code = 414) MONOCYTES ABSOLUTE COUNT (BEAKER) 0.62 K/ L 0.30-0.82 (test code = 415) EOSINOPHILS ABSOLUTE COUNT 0.13 K/ L 0.04-0.54 (BEAKER) (test code = 416) BASOPHILS ABSOLUTE COUNT (BEAKER) 0.02 K/ L 0.01-0.08 (test code = 417) IMMATURE GRANULOCYTES-RELATIVE 1 % 0-1 PERCENT (BEAKER) (test code = 2801) [id number] 18:07:00 Test Item Value Reference Range Interpretation Comments MAGNESIUM (BEAKER) (test code = 2.2 mg/dL 1.6-2.6 627) BASIC METABOLIC [id number] 18:07:00 Test Item Value Reference Range Interpretation Comments SODIUM (BEAKER) 137 meq/L 136-145 (test code = 381) POTASSIUM (BEAKER) 4.5 meq/L 3.5-5.1 (test code = 379) CHLORIDE (BEAKER) 100 meq/L 98-107 (test code = 382) CO2 (BEAKER) (test 28 meq/L 22-29 code = 355) BLOOD UREA NITROGEN 23 mg/dL 7-21 H (BEAKER) (test code = 354) CREATININE (BEAKER) 1.05 mg/dL 0.57-1.25 (test code = 358) GLUCOSE RANDOM 109 mg/dL 70-105 H (BEAKER) (test code = 652) CALCIUM (BEAKER) 9.4 mg/dL 8.4-10.2 (test code = 697) EGFR (BEAKER) (test 69 mL/min/1.73 ESTIMA KARSTEN GFR IS code = 1092) sq m NOT ACCURATE CREATININE CLEARANCE IN PREDICTING GLOMERULAR FILTRATION RATE . ESTIMATED GFR I S NOT APPLICABLE FOR DIALYSIS PATIEN TS. [id number] 06:02:00 Test Item Value Reference Range Interpretation Comments MAGNESIUM (BEAKER) (test code = 2.3 mg/dL 1.6-2.6 627) BASIC METABOLIC [id number] 06:02:00 Test Item Value Reference Range Interpretation Comments SODIUM (BEAKER) 138 meq/L 136-145 (test code = 381) POTASSIUM (BEAKER) 3.9 meq/L 3.5-5.1 (test code = 379) CHLORIDE (BEAKER) 103 meq/L 98-107 (test code = 382) CO2 (BEAKER) (test 26 meq/L 22-29 code = 355) BLOOD UREA NITROGEN 23 mg/dL 7-21 H (BEAKER) (test code = 354) CREATININE (BEAKER) 1.04 mg/dL 0.57-1.25 (test code = 358) GLUCOSE RANDOM 114 mg/dL 70-105 H (BEAKER) (test code = 652) CALCIUM (BEAKER) 9.3 mg/dL 8.4-10.2 (test code = 697) EGFR (BEAKER) (test 70 mL/min/1.73 ESTIMA KARSTEN GFR IS code = 1092) sq m NOT ACCURATE CREATININE CLEARANCE IN PREDICTING GLOMERULAR FILTRATION RATE . ESTIMATED GFR I S NOT APPLICABLE FOR DIALYSIS PATIEN TS. CBC W/PLT COUNT & AUTO [id number] 05:54:00 Test Item Value Reference Range Interpretation Comments WHITE BLOOD CELL COUNT (BEAKER) 5.5 K/ L 3.5-10.5 (test code = 775) RED BLOOD CELL COUNT (BEAKER) 4.33 M/ L 4.63-6.08 L (test code = 761) HEMOGLOBIN (BEAKER) (test code = 13.6 GM/DL 13.7-17.5 L 410) HEMATOCRIT (BEAKER) (test code = 43.1 % 40.1-51.0 411) MEAN CORPUSCULAR VOLUME (BEAKER) 99.5 fL 79.0-92.2 H (test code = 753) MEAN CORPUSCULAR HEMOGLOBIN 31.4 pg 25.7-32.2 (BEAKER) (test code = 751) MEAN CORPUSCULAR HEMOGLOBIN CONC 31.6 GM/DL 32.3-36.5 L (BEAKER) (test code = 752) RED CELL DISTRIBUTION WIDTH 12.8 % 11.6-14.4 (BEAKER) (test code = 412) PLATELET COUNT (BEAKER) (test 135 K/CU MM 150-450 L code = 756) MEAN PLATELET VOLUME (BEAKER) 12.6 fL 9.4-12.4 H (test code = 754) NUCLEATED RED BLOOD CELLS 0 /100 WBC 0-0 (BEAKER) (test code = 413) NEUTROPHILS RELATIVE PERCENT 64 % (BEAKER) (test code = 429) LYMPHOCYTES RELATIVE PERCENT 20 % (BEAKER) (test code = 430) MONOCYTES RELATIVE PERCENT 12 % (BEAKER) (test code = 431) EOSINOPHILS RELATIVE PERCENT 3 % (BEAKER) (test code = 432) BASOPHILS RELATIVE PERCENT 1 % (BEAKER) (test code = 437) NEUTROPHILS ABSOLUTE COUNT 3.52 K/ L 1.78-5.38 (BEAKER) (test code = 670) LYMPHOCYTES ABSOLUTE COUNT 1.08 K/ L 1.32-3.57 L (BEAKER) (test code = 414) MONOCYTES ABSOLUTE COUNT (BEAKER) 0.67 K/ L 0.30-0.82 (test code = 415) EOSINOPHILS ABSOLUTE COUNT 0.19 K/ L 0.04-0.54 (BEAKER) (test code = 416) BASOPHILS ABSOLUTE COUNT (BEAKER) 0.04 K/ L 0.01-0.08 (test code = 417) IMMATURE GRANULOCYTES-RELATIVE 0 % 0-1 PERCENT (BEAKER) (test code = 2801) MR, CARDIAC, [id number] 15:18:00DrNya Cárdenas wishes to optimize patient's fluid and respiratory status to ensure safety of patient during transport and 45 minutes of lying flat. Rescheduling for patient optimization.Reason for exam:- >cardiomyopathyFINAL REPORT Cardiac MRI dated 13 April 2018 [...] wall and mediastinum appears unremarkable. No obvious pe ricardial effusion is identified. The central pulmonary artery is minimally prominent. Bibasal pleural effusion in the lung bases, right greater than left. Note only five sutures somewhat prominent suggesting a degree of cardiac congestion. The cardiac chambers demonstrate normal atrioventricular and v entriculoarterial concordance, and systemic and pulmonary venous return. The thoracic aorta is normal in course, calibre, and contour. Atherosclerotic plaques are identified in the descending thoracic aorta. There is no evidence of acute aortic pathology, such as dissection, intramural hematoma, or contained rupture. The left ventricle is enlarged with severe global systolic dysfunction. Quantitative values are as follows: EDV = 450 cc; ESV = 392 cc; stroke volume = 59 cc; and ejection fraction= 13%. Calculated absolute cardiac output = 5.6 liters/min. Absolute left ventricular mass = 189 grams. No imaging evidence to suggest left ventricular noncompaction or hypertrophic cardiomyopathy. The right ventricle is also enlarged, with severe systolic dysfunction. Quantitative values are as follows: EDV = 278 cc; ESV = 215 cc; stroke volume = 63 cc; and ejection fraction = 23%. Cine imaging and flow quantification reveals mild mitral regurgitation. There is also trace to mild aortic regurgitation. There is reduction in aortic valve opening, uncertain if related to reduce systolic function.Correlate with echocardiography. Viability/scar imaging reveals no evidence of prior myocardial infarction. Patchy mid myocardial hyperenhancement is identified where the right ventricle inserts into the left ventricular anteroseptum and inferoseptum, suggesting interstitial fibrosis, a nonspecific finding in patient with cardiomyopathy. Ventricular thrombus is not present. Left atrial enlargement isidentified. Lipomatous hypertrophy of the interatrial septum is [...] identified, suggesting interstitial fibrosis, a nonspecific finding in patient with cardiomyopathy. 2. The right ventricle is also enlarged, with severe systolic dysfunction. Ejection fraction is quantified to be 23%. Quantitative right ventricular functional veins as described above. 3. Mild mitral regurgitation. Mild to trace aortic regurgitation.Reduction in excursion is identified in the aortic valve cusps uncertain if it representing aortic stenosis or due to underlying systolic dysfunction. Please correlate with echocardiography. 4. Left and right atrial enlargement. 5. Bibasal pleural effusion right greater than left. Pulmonary vasculature is prominent suggesting underlying cardiac congestion. Signed: Layo Galeas VerifiedDate/Time: 04/13/2018 15:18:03 Reading Location: [place] [address] Cardiology MRI [id number] 01:35:00 Test Item Value Reference Range Interpretation Comments MAGNESIUM (BEAKER) 2.4 mg/dL 1.6-2.6 Specimen slightly (test code = 627) hemolyzed BASIC METABOLIC [id number] 01:35:00 Test Item Value Reference Range Interpretation Comments SODIUM (BEAKER) 138 meq/L 136-145 (test code = 381) POTASSIUM (BEAKER) 3.9 meq/L 3.5-5.1 Specimen slightly (test code = 379) hemolyzed CHLORIDE (BEAKER) 101 meq/L 98-107 (test code = 382) CO2 (BEAKER) (test 27 meq/L 22-29 code = 355) BLOOD UREA NITROGEN 24 mg/dL 7-21 H (BEAKER) (test code = 354) CREATININE (BEAKER) 1.00 mg/dL 0.57-1.25 Specimen slightly (test code = 358) hemolyzed GLUCOSE RANDOM 111 mg/dL 70-105 H (BEAKER) (test code = 652) CALCIUM (BEAKER) 9.4 mg/dL 8.4-10.2 (test code = 697) EGFR (BEAKER) (test 73 mL/min/1.73 ESTIMA KARSTEN GFR IS code = 1092) sq m NOT ACCURATE CREATININE CLEARANCE IN PREDICTING GLOMERULAR FILTRATION RATE . ESTIMATED GFR I S NOT APPLICABLE FOR DIALYSIS PATIEN TS. LACTIC ACID, VENOUS, WHOLE [id number] 01:30:00 Test Item Value Reference Range Interpretation Comments LACTATE BLOOD VENOUS 1.1 mmol/L 0.5-2.2 Specime n slightly (2) (BEAKER) (test hemolyzed code = 2872) Effective 12/12/2015: Units/Reference Range ChangeNew: 0.5-2.2 mmol/L Previous: 5-20 mg/[id number] 12:23:00 Test Item Value Reference Range Interpretation Comments MAGNESIUM (BEAKER) 2.8 mg/dL 1.6-2.6 H Specimen moderately (test code = 627) hemolyzed Check Serum Potassium level 2 hours after oral potassium replacement completed or 30 min after intravenous potassium replacement.[id number] 12:23:00 Test Item Value Reference Range Interpretation Comments POTASSIUM (BEAKER) 5.2 meq/L 3.5-5.1 H Specimen moderately (test code = 379) hemolyzed Check Serum Potassium level 2 hours after oral potassium replacement completed or 30 min after intravenous potassium replacement.[id number] 07:32:00 Test Item Value Reference Range Interpretation Comments MAGNESIUM (BEAKER) (test code = 2.7 mg/dL 1.6-2.6 H 627) BASIC METABOLIC [id number] 07:32:00 Test Item Value Reference Range Interpretation Comments SODIUM (BEAKER) 136 meq/L 136-145 (test code = 381) POTASSIUM (BEAKER) 4.1 meq/L 3.5-5.1 (test code = 379) CHLORIDE (BEAKER) 101 meq/L 98-107 (test code = 382) CO2 (BEAKER) (test 24 meq/L 22-29 code = 355) BLOOD UREA NITROGEN 22 mg/dL 7-21 H (BEAKER) (test code = 354) CREATININE (BEAKER) 0.98 mg/dL 0.57-1.25 (test code = 358) GLUCOSE RANDOM 121 mg/dL 70-105 H (BEAKER) (test code = 652) CALCIUM (BEAKER) 9.0 mg/dL 8.4-10.2 (test code = 697) EGFR (BEAKER) (test 75 mL/min/1.73 ESTIMA KARSTEN GFR IS code = 1092) sq m NOT ACCURATE CREATININE CLEARANCE IN PREDICTING GLOMERULAR FILTRATION RATE . ESTIMATED GFR I S NOT APPLICABLE FOR DIALYSIS PATIEN TS. CBC W/PLT COUNT & AUTO [id number] 06:44:00 Test Item Value Reference Range Interpretation Comments WHITE BLOOD CELL COUNT (BEAKER) 5.7 K/ L 3.5-10.5 (test code = 775) RED BLOOD CELL COUNT (BEAKER) 4.82 M/ L 4.63-6.08 (test code = 761) HEMOGLOBIN (BEAKER) (test code = 15.1 GM/DL 13.7-17.5 410) HEMATOCRIT (BEAKER) (test code = 47.4 % 40.1-51.0 411) MEAN CORPUSCULAR VOLUME (BEAKER) 98.3 fL 79.0-92.2 H (test code = 753) MEAN CORPUSCULAR HEMOGLOBIN 31.3 pg 25.7-32.2 (BEAKER) (test code = 751) MEAN CORPUSCULAR HEMOGLOBIN CONC 31.9 GM/DL 32.3-36.5 L (BEAKER) (test code = 752) RED CELL DISTRIBUTION WIDTH 12.6 % 11.6-14.4 (BEAKER) (test code = 412) PLATELET COUNT (BEAKER) (test 176 K/CU MM 150-450 code = 756) MEAN PLATELET VOLUME (BEAKER) 12.6 fL 9.4-12.4 H (test code = 754) NUCLEATED RED BLOOD CELLS 0 /100 WBC 0-0 (BEAKER) (test code = 413) NEUTROPHILS RELATIVE PERCENT 66 % (BEAKER) (test code = 429) LYMPHOCYTES RELATIVE PERCENT 18 % (BEAKER) (test code = 430) MONOCYTES RELATIVE PERCENT 13 % (BEAKER) (test code = 431) EOSINOPHILS RELATIVE PERCENT 2 % (BEAKER) (test code = 432) BASOPHILS RELATIVE PERCENT 1 % (BEAKER) (test code = 437) NEUTROPHILS ABSOLUTE COUNT 3.71 K/ L 1.78-5.38 (BEAKER) (test code = 670) LYMPHOCYTES ABSOLUTE COUNT 1.02 K/ L 1.32-3.57 L (BEAKER) (test code = 414) MONOCYTES ABSOLUTE COUNT (BEAKER) 0.73 K/ L 0.30-0.82 (test code = 415) EOSINOPHILS ABSOLUTE COUNT 0.13 K/ L 0.04-0.54 (BEAKER) (test code = 416) BASOPHILS ABSOLUTE COUNT (BEAKER) 0.04 K/ L 0.01-0.08 (test code = 417) IMMATURE GRANULOCYTES-RELATIVE 0 % 0-1 PERCENT (BEAKER) (test code = 2801) [id number] 00:40:00 Test Item Value Reference Range Interpretation Comments PHOSPHORUS (BEAKER) (test code = 4.4 mg/dL 2.3-4.7 604) [id number] 00:40:00 Test Item Value Reference Range Interpretation Comments MAGNESIUM (BEAKER) (test code = 2.0 mg/dL 1.6-2.6 627) BASIC METABOLIC [id number] 00:40:00 Test Item Value Reference Range Interpretation Comments SODIUM (BEAKER) 137 meq/L 136-145 (test code = 381) POTASSIUM (BEAKER) 3.7 meq/L 3.5-5.1 (test code = 379) CHLORIDE (BEAKER) 99 meq/L 98-107 (test code = 382) CO2 (BEAKER) (test 29 meq/L 22-29 code = 355) BLOOD UREA NITROGEN 24 mg/dL 7-21 H (BEAKER) (test code = 354) CREATININE (BEAKER) 1.04 mg/dL 0.57-1.25 (test code = 358) GLUCOSE RANDOM 120 mg/dL 70-105 H (BEAKER) (test code = 652) CALCIUM (BEAKER) 9.2 mg/dL 8.4-10.2 (test code = 697) EGFR (BEAKER) (test 70 mL/min/1.73 ESTIMA KARSTEN GFR IS code = 1092) sq m NOT ACCURATE CREATININE CLEARANCE IN PREDICTING GLOMERULAR FILTRATION RATE . ESTIMATED GFR I S NOT APPLICABLE FOR DIALYSIS PATIEN TS. [id number] 07:07:00 Test Item Value Reference Range Interpretation Comments MAGNESIUM (BEAKER) 2.0 mg/dL 1.6-2.6 Specimen slightly (test code = 627) hemolyzed Check Serum Potassium level 2 hours after oral potassium replacement completed or 30 min after intravenous potassium replacement.[id number] 07:07:00 Test Item Value Reference Range Interpretation Comments POTASSIUM (BEAKER) 4.1 meq/L 3.5-5.1 Specimen slightly (test code = 379) hemolyzed Check Serum Potassium level 2 hours after oral potassium replacement completed or 30 min after intravenous potassium replacement.TSH/FREE T4 IF INDICATED 2018-04-11 03:55:00 Test Item Value Reference Range Interpretation Comments THYROID STIMULATING HORMONE 1.93 uIU/mL 0.35-4.94 (BEAKER) (test code = 772) B-TYPE NATRIURETIC FACTOR (BNP)2018-04-11 03:39:00 Test Item Value Reference Range Interpretation Comments B-TYPE NATRIURETIC PEPTIDE 1771 pg/mL 0-100 H (BEAKER) (test code = 700) BASIC METABOLIC [id number] 03:36:00 Test Item Value Reference Range Interpretation Comments SODIUM (BEAKER) 141 meq/L 136-145 (test code = 381) POTASSIUM (BEAKER) 3.8 meq/L 3.5-5.1 (test code = 379) CHLORIDE (BEAKER) 104 meq/L 98-107 (test code = 382) CO2 (BEAKER) (test 28 meq/L 22-29 code = 355) BLOOD UREA NITROGEN 16 mg/dL 7-21 (BEAKER) (test code = 354) CREATININE (BEAKER) 0.89 mg/dL 0.57-1.25 (test code = 358) GLUCOSE RANDOM 111 mg/dL 70-105 H (BEAKER) (test code = 652) CALCIUM (BEAKER) 9.0 mg/dL 8.4-10.2 (test code = 697) EGFR (BEAKER) (test 84 mL/min/1.73 ESTIMA KARSTEN GFR IS code = 1092) sq m NOT ACCURATE CREATININE CLEARANCE IN PREDICTING GLOMERULAR FILTRATION RATE . ESTIMATED GFR I S NOT APPLICABLE FOR DIALYSIS PATIEN TS. [id number] 01:13:00 Test Item Value Reference Range Interpretation Comments POTASSIUM (BEAKER) 3.9 meq/L 3.5-5.1 Specimen slightly (test code = 379) hemolyzed Check Serum Potassium level 2 hours after oral potassium replacement completed or 30 min after intravenous potassium replacement.[id number] 18:22:00 Test Item Value Reference Range Interpretation Comments POTASSIUM (BEAKER) (test code = 3.7 meq/L 3.5-5.1 379) HEPATIC FUNCTION [id number] 18:22:00 Test Item Value Reference Range Interpretation Comments TOTAL PROTEIN (BEAKER) (test code = 5.9 gm/dL 6.0-8.3 L 770) ALBUMIN (BEAKER) (test code = 1145) 3.4 g/dL 3.5-5.0 L BILIRUBIN TOTAL (BEAKER) (test code 1.5 mg/dL 0.2-1.2 H = 377) BILIRUBIN DIRECT (BEAKER) (test 0.9 mg/dL 0.1-0.5 H code = 706) ALKALINE PHOSPHATASE (BEAKER) (test 77 U/L 40-150 code = 346) AST (SGOT) (BEAKER) (test code = 25 U/L 5-34 353) ALT (SGPT) (BEAKER) (test code = 40 U/L 6-55 347) RAD, CHEST, 1 VIEW, NON [id number] 14:36:00Reason for exam:->CHFShould this be performed at [...] are identified. IMPRESSION: Interstitial pulmonary edema. Signed: Burce Rodriguez MDReport Verified Date/Time: 04/10/2018 14:36:40 Reading Location: [address] Transitional Reading Room Electronicallysigned by: BRUCE RODRIGUEZ MD on 04/10/2018 02:36 PMPROTHROMBIN [id number] 11:59:00 Test Item Value Reference Range Interpretation Comments PROTIME (BEAKER) (test code = 16.1 seconds 11.7-14.7 H 759) INR (BEAKER) (test code = 370) 1.3 <=5.9 RECOMMENDED COUMADIN/WARFARIN INR THERAPY RANGESSTANDARD DOSE: 2.0 - 3.0 Includes: PROPHYLAXIS forvenous thrombosis, systemic embolization; TREATMENT for venous thrombosis and/or pulmonary embolus.HIGH RISK: Target INR is 2.5-3.5 for patients with mechanical heart valves.CBC W/PLT COUNT & AUTO DIFFERENTIAL 2018-04-10 11:48:00 Test Item Value Reference Range Interpretation Comments WHITE BLOOD CELL COUNT (BEAKER) 5.2 K/ L 3.5-10.5 (test code = 775) RED BLOOD CELL COUNT (BEAKER) 4.87 M/ L 4.63-6.08 (test code = 761) HEMOGLOBIN (BEAKER) (test code = 15.4 GM/DL 13.7-17.5 410) HEMATOCRIT (BEAKER) (test code = 47.9 % 40.1-51.0 411) MEAN CORPUSCULAR VOLUME (BEAKER) 98.4 fL 79.0-92.2 H (test code = 753) MEAN CORPUSCULAR HEMOGLOBIN 31.6 pg 25.7-32.2 (BEAKER) (test code = 751) MEAN CORPUSCULAR HEMOGLOBIN CONC 32.2 GM/DL 32.3-36.5 L (BEAKER) (test code = 752) RED CELL DISTRIBUTION WIDTH 12.7 % 11.6-14.4 (BEAKER) (test code = 412) PLATELET COUNT (BEAKER) (test 152 K/CU MM 150-450 code = 756) MEAN PLATELET VOLUME (BEAKER) 11.8 fL 9.4-12.4 (test code = 754) NUCLEATED RED BLOOD CELLS 0 /100 WBC 0-0 (BEAKER) (test code = 413) NEUTROPHILS RELATIVE PERCENT 70 % (BEAKER) (test code = 429) LYMPHOCYTES RELATIVE PERCENT 17 % (BEAKER) (test code = 430) MONOCYTES RELATIVE PERCENT 10 % (BEAKER) (test code = 431) EOSINOPHILS RELATIVE PERCENT 2 % (BEAKER) (test code = 432) BASOPHILS RELATIVE PERCENT 1 % (BEAKER) (test code = 437) NEUTROPHILS ABSOLUTE COUNT 3.62 K/ L 1.78-5.38 (BEAKER) (test code = 670) LYMPHOCYTES ABSOLUTE COUNT 0.90 K/ L 1.32-3.57 L (BEAKER) (test code = 414) MONOCYTES ABSOLUTE COUNT (BEAKER) 0.51 K/ L 0.30-0.82 (test code = 415) EOSINOPHILS ABSOLUTE COUNT 0.11 K/ L 0.04-0.54 (BEAKER) (test code = 416) BASOPHILS ABSOLUTE COUNT (BEAKER) 0.03 K/ L 0.01-0.08 (test code = 417) IMMATURE GRANULOCYTES-RELATIVE 0 % 0-1 PERCENT (BEAKER) (test code = 2801) [id number] 06:40:00 Test Item Value Reference Range Interpretation Comments MAGNESIUM (BEAKER) (test code = 2.1 mg/dL 1.6-2.6 627) BASIC METABOLIC [id number] 06:40:00 Test Item Value Reference Range Interpretation Comments SODIUM (BEAKER) 137 meq/L 136-145 (test code = 381) POTASSIUM (BEAKER) 3.8 meq/L 3.5-5.1 (test code = 379) CHLORIDE (BEAKER) 101 meq/L 98-107 (test code = 382) CO2 (BEAKER) (test 29 meq/L 22-29 code = 355) BLOOD UREA NITROGEN 17 mg/dL 7-21 (BEAKER) (test code = 354) CREATININE (BEAKER) 1.03 mg/dL 0.57-1.25 (test code = 358) GLUCOSE RANDOM 108 mg/dL 70-105 H (BEAKER) (test code = 652) CALCIUM (BEAKER) 9.2 mg/dL 8.4-10.2 (test code = 697) EGFR (BEAKER) (test 71 mL/min/1.73 ESTIMA KARSTEN GFR IS code = 1092) sq m NOT ACCURATE CREATININE CLEARANCE IN PREDICTING GLOMERULAR FILTRATION RATE . ESTIMATED GFR I S NOT APPLICABLE FOR DIALYSIS PATIEN TS. [id number] 00:19:00 Test Item Value Reference Range Interpretation Comments POTASSIUM (BEAKER) (test code = 4.1 meq/L 3.5-5.1 379) [id number] 00:19:00 Test Item Value Reference Range Interpretation Comments MAGNESIUM (BEAKER) (test code = 2.2 mg/dL 1.6-2.6 627) [id number] 17:54:00 Test Item Value Reference Range Interpretation Comments POTASSIUM (BEAKER) (test code = 3.4 meq/L 3.5-5.1 L 379) [id number] 03:57:00 Test Item Value Reference Range Interpretation Comments MAGNESIUM (BEAKER) (test code = 2.1 mg/dL 1.6-2.6 627) BASIC METABOLIC [id number] 03:57:00 Test Item Value Reference Range Interpretation Comments SODIUM (BEAKER) 139 meq/L 136-145 (test code = 381) POTASSIUM (BEAKER) 3.3 meq/L 3.5-5.1 L (test code = 379) CHLORIDE (BEAKER) 100 meq/L 98-107 (test code = 382) CO2 (BEAKER) (test 30 meq/L 22-29 H code = 355) BLOOD UREA NITROGEN 19 mg/dL 7-21 (BEAKER) (test code = 354) CREATININE (BEAKER) 0.98 mg/dL 0.57-1.25 (test code = 358) GLUCOSE RANDOM 106 mg/dL 70-105 H (BEAKER) (test code = 652) CALCIUM (BEAKER) 8.6 mg/dL 8.4-10.2 (test code = 697) EGFR (BEAKER) (test 75 mL/min/1.73 ESTIMA KARSTEN GFR IS code = 1092) sq m NOT ACCURATE CREATININE CLEARANCE IN PREDICTING GLOMERULAR FILTRATION RATE . ESTIMATED GFR I S NOT APPLICABLE FOR DIALYSIS PATIEN TS. HEMOGLOBIN [id number] 09:16:00 Test Item Value Reference Range Interpretation Comments HEMOGLOBIN A1C (BEAKER) (test code = 5.8 % 4.3-6.1 368) TROPONIN [id number] 05:49:00 Test Item Value Reference Range Interpretation Comments TROPONIN I (BEAKER) (test code = 0.10 ng/mL 0.00-0.03 H 397) Troponin I (TnI) levels must be interpreted [...] disease, and persistent tachyarrhythmia.B-TYPE NATRIURETIC FACTOR (BNP) 2018-04-08 05:46:00 Test Item Value Reference Range Interpretation Comments B-TYPE NATRIURETIC PEPTIDE 2715 pg/mL 0-100 H (BEAKER) (test code = 700) [id number] 05:45:00 Test Item Value Reference Range Interpretation Comments MAGNESIUM (BEAKER) (test code = 2.1 mg/dL 1.6-2.6 627) BASIC METABOLIC [id number] 05:45:00 Test Item Value Reference Range Interpretation Comments SODIUM (BEAKER) 139 meq/L 136-145 (test code = 381) POTASSIUM (BEAKER) 3.8 meq/L 3.5-5.1 (test code = 379) CHLORIDE (BEAKER) 100 meq/L 98-107 (test code = 382) CO2 (BEAKER) (test 30 meq/L 22-29 H code = 355) BLOOD UREA NITROGEN 19 mg/dL 7-21 (BEAKER) (test code = 354) CREATININE (BEAKER) 1.04 mg/dL 0.57-1.25 (test code = 358) GLUCOSE RANDOM 111 mg/dL 70-105 H (BEAKER) (test code = 652) CALCIUM (BEAKER) 9.2 mg/dL 8.4-10.2 (test code = 697) EGFR (BEAKER) (test 70 mL/min/1.73 ESTIMA KARSTEN GFR IS code = 1092) sq m NOT ACCURATE CREATININE CLEARANCE IN PREDICTING GLOMERULAR FILTRATION RATE . ESTIMATED GFR I S NOT APPLICABLE FOR DIALYSIS PATIEN TS.
--- NOTE | 2020-06-20 14:44 | RAD REPORT ---
EXAM DESCRIPTION: CT - Head Brain Wo Cont - 06/20/2020 2:33 pm CLINICAL HISTORY: Headache;Visual disturbances COMPARISON: No comparisons TECHNIQUE: Axial 5 mm thick images of the head were obtained without IV contrast. All CT scans are performed using dose optimization technique as appropriate and may include automated exposure control or mA/KV adjustment according to patient size. FINDINGS: No intracranial hemorrhage, mass, edema or shift of mid-line structures. No acute cortical based infarction identified. Mild atrophy changes are present. Ventricles are in proportion to the v olume loss. Scattered chronic ischemic changes are present primarily in the periventricular white mat ter of the left parietal lobe and posterior left frontal lobe. Dense arterial tree calcifications are present. Mastoid air cells and visualized portions of the paranasal sinuses are clear. No acute bony findings. IMPRESSION: Mild atrophy changes are present and chronic ischemic changes are present, greater in th e left cerebral hemisphere. No acute intracranial finding identifiable.
[2020-06-20] MEDS ORDERED: ONDANSETRON 4 MG/2 ML VIAL ONE (15:46)
[2020-06-20] MEDS ORDERED: NA CHLORIDE 0.9% 1,000 ML ONE ×2 (15:46→23:14)
[2020-06-20] MEDS ORDERED: ACETAMINOPHEN 500 MG TAB ONE (15:46)
[2020-06-20] MEDS ORDERED: MORPHINE 2 MG/ML SYR ONE (15:46)
[2020-06-20 15:59] LABS: Absolute Lymphocytes (CBC) 1.4 K/uL (0.7-4.9); Basophils % 0.9 % (0-1.3); Hematocrit 43.8 % (39.6-49.0); Lymphocytes % 20.1 % (15.3-44.8); MPV 10.3 fL (7.6-11.3); Protime INR 1.36; RBC Red Blood Cell Count 4.78 M/uL (4.33-5.43)
[2020-06-20 16:15] LABS: Albumin 3.5 g/dL (3.4-5.0); Bilirubin Direct 0.2 mg/dL (0-0.2); Bilirubin Total 0.8 mg/dL (0.2-1.0); Magnesium 2.2 mg/dL (1.8-2.4); Potassium 4.7 mmol/L (3.5-5.1); Protein, Total 6.7 g/dL (6.4-8.2); Troponin (Emerg Dept Use Only) 0.05 ng/mL (0.0-0.045)
--- NOTE | 2020-06-20 16:18 | RAD REPORT ---
EXAM DESCRIPTION: RAD - Chest Single View - 06/20/2020 3:53 pm CLINICAL HISTORY: COUGH COMPARISON: Portable October 2019 TECHNIQUE: AP portable chest image was obtained 06/20/2020 3:53 pm . FINDINGS: No focal lung parenchymal process. Cardiac silhouette is enlarged similar to comparison. C entral vasculature is mildly prominent and is stable. Defibrillator is in place. No measurable pleura l effusion and no pneumothorax. No acute bony abnormality seen. No acute aortic findings suspected. IMPRESSION: No acute cardiopulmonary process. Chest findings are stable from October imaging.
--- NOTE | 2020-06-20 17:39 | EDPHYS ---
Physician Documentation [facility] Name: Manny Tello Age: 75 yrs Sex: Male : 1945 Arrival Date: 06/20/2020 Time: 14:03 Bed 16 Private MD: ED Physician Richard Blackwell HPI: 06/20 15:15 This 75 yrs old Male presents to ER via Wheelchair with complaints of Blurred coretta Vision, Shortness Of Breath. 15:15 The patient has shortness of breath at rest, with light activity. Onset: The coretta symptoms/episode began/occurred just prior to arrival. Duration: The symptoms are intermittent. The patient's shortness of breath has no apparent modifying factors. Severity of symptoms: At their worst the symptoms were moderate in the emergency department the symptoms have improved moderately. The patient has not experienced similar symptoms in the past. Historical: - Allergies: 14:21 No Known Allergies; aa5 - PMHx: 14:21 Asthma; CHF; COPD; Hypertension; [place]; aa5 - PSHx: 14:21 Pacemaker; Cholecystectomy; aa5 - Immunization history:: Adult Immunizations unknown. - Social history:: Smoking status: Patient denies any tobacco usage or history of. - Family history:: not pertinent. ROS: 15:15 Constitutional: Negative for fever, chills, and weight loss, Eyes: Negative for injury, coretta pain, redness, and discharge, ENT: Negative for injury, pain, and discharge, Neck: Negative for injury, pain, and swelling, Cardiovascular: Negative for chest pain, palpitations, and edema, Abdomen/GI: Negative for abdominal pain, nausea, vomiting, diarrhea, and constipation, Back: Negative for injury and pain, : Negative for injury, bleeding, discharge, and swelling, MS/Extremity: Negative for injury and deformity, Skin: Negative for injury, rash, and discoloration, Neuro: Negative for headache, weakness, numbness, tingling, and seizure, Psych: Negative for depression, anxiety, suicide ideation, homicidal ideation, and hallucinations, Allergy/Immunology: Negative for hives, rash, and allergies, Endocrine: Negative for neck swelling, polydipsia, polyuria, polyphagia, and marked weight changes, Hematologic/Lymphatic: Negative for swollen nodes, abnormal bleeding, and unusual bruising. 15:15 Respiratory: Positive for shortness of breath. 15:15 Neuro: Positive for headache. Exam: 15:15 Constitutional: This is a well developed, well nourished patient who is awake, alert, coretta and in no acute distress. Head/Face: Normocephalic, atraumatic. Eyes: Pupils equal round and reactive to light, extra-ocular motions intact. Lids and lashes normal. Conjunctiva and sclera are non-icteric and not injected. Cornea within normal limits. Periorbital areas with no swelling, redness, or edema. ENT: Nares patent. No nasal discharge, no septal abnormalities noted. Tympanic membranes are normal and external auditory canals are clear. Oropharynx with no redness, swelling, or masses, exudates, or evidence of obstruction, uvula midline. Mucous membranes moist. Neck: Trachea midline, no thyromegaly or masses palpated, and no cervical lymphadenopathy. Supple, full range of motion without nuchal rigidity, or vertebral point tenderness. No Meningismus. Chest/axilla: Normal chest wall appearance and motion. Nontender with no deformity. No lesions are appreciated. Cardiovascular: Regular rate and rhythm with a normal S1 and S2. No gallops, murmurs, or rubs. Normal PMI, no JVD. No pulse deficits. Respiratory: Lungs have equal breath sounds bilaterally, clear to auscultation and percussion. No rales, rhonchi or wheezes noted. No increased work of breathing, no retractions or nasal flaring. Abdomen/GI: Soft, non-tender, with normal bowel sounds. No distension or tympany. No guarding or rebound. No evidence of tenderness throughout. Back: No spinal tenderness. No costovertebral tenderness. Full range of motion. Male : Normal genitalia with no discharge or lesions. Skin: Warm, dry with normal turgor. Normal color with no rashes, no lesions, and no evidence of cellulitis. MS/ Extremity: Pulses equal, no cyanosis. Neurovascular intact. Full, normal range of motion. Neuro: Awake and alert, GCS 15, oriented to person, place, time, and situation. Cranial nerves II-XII grossly intact. Motor strength 5/5 in all extremities. Sensory grossly intact. Cerebellar exam normal. Normal gait. Psych: Awake, alert, with orientation to person, place and time. Behavior, mood, and affect are within normal limits. 15:55 ECG was reviewed by the Attending Physician. [facility] Vital Signs: 14:19 BP 121 / 71; Pulse 56; Resp 18 S; Temp 97.6(TE); Pulse Ox 97% on R/A; Weight 120.2 kg aa5 (R); Height 6 ft. 0 in. (182.88 cm) (R); Pain 5/10; 15:15 BP 107 / 76; Pulse 60; Resp 14; Pulse Ox 96% on R/A; tw2 15:52 BP 110 / 81; Pulse 63; Resp 15; Pulse Ox 95% on R/A; tw2 16:53 BP 105 / 93; Pulse 60; Resp 17; Pulse Ox 96% on R/A; tw2 17:30 BP 101 / 49; Pulse 81; Resp 17; Pulse Ox 96% on R/A; tw2 18:14 BP 101 / 61; Pulse 76; Resp 17; Pulse Ox 99% on R/A; tw2 19:00 BP 136 / 80; Pulse 74; Resp 16; Pulse Ox 97% on R/A; jb4 14:19 Body Mass Index 35.94 (120.20 kg, 182.88 cm) aa5 MDM: 14:56 Patient medically screened. coretta 15:22 Differential diagnosis: Anemia Bronchitis CHF exacerbation, Chronic Obstructive coretta Pulmonary Disease pneumonia, pulmonary edema. Antibiotic administration: Not indicated. The patient's Wells Deep Vein Thrombosis Score was calculated as follows: Total Score: 0-2 Pts- Low Risk. The patient's pulmonary embolism risk score was calculated as follows: Total Score: 0-2 points. This patient was found to be at low risk for a pulmonary embolism by using the Well's assessment criteria. Immunization status: Pneumococcal vaccine: Influenza vaccine: Data reviewed: vital signs, nurses notes, lab test result(s), EKG, radiologic studies, CT scan, plain films. Data interpreted: metal baler: rate is 56 beats/min, rhythm is regular, Pulse oximetry: on room air is 97 %. Test interpretation: by ED physician or midlevel provider: ECG, plain radiologic studies. Counseling: I had a detailed discussion with the patient and/or guardian regarding: the historical points, exam findings, and any diagnostic results supporting the discharge/admit diagnosis, the presence of at least one elevated blood pressure reading (>120/80) during this emergency department visit, lab results, radiology results. 06/20 14:38 Order name: Glucose, Ancillary Testing; Complete Time: 15:23 [facility] 06/20 15:14 Order name: Basic Metabolic Panel; Complete Time: 17:26 [facility] 06/20 15:14 Order name: CBC with Diff; Complete Time: 17:26 [facility] 06/20 15:14 Order name: LFT's; Complete Time: 17:26 [facility] 06/20 15:14 Order name: Magnesium; Complete Time: 17:26 [facility] 06/20 15:14 Order name: NT PRO-BNP; Complete Time: 17:26 [facility] 06/20 15:14 Order name: PT-INR; Complete Time: 17:26 [facility] 06/20 15:14 Order name: Troponin (emerg Dept Use Only); Complete Time: 17:26 [facility] 06/20 15:14 Order name: Urine Culture [facility] 06/20 20:39 Order name: Urine Dipstick--Ancillary (enter results) ar 06/20 20:52 Order name: Urine Dipstick-Ancillary [facility] 06/20 23:55 Order name: Troponin I [facility] 06/21 05:30 Order name: CBC with Automated Diff [facility] 06/21 06:01 Order name: Basic Metabolic Panel [facility] 06/20 14:22 Order name: CT Head Brain wo Cont; Complete Time: 15:23 [facility] 06/20 15:14 Order name: XRAY Chest (1 view); Complete Time: 17:26 [facility] 06/20 15:14 Order name: EKG; Complete Time: 15:14 [facility] 06/20 15:14 Order name: Cardiac monitoring; Complete Time: 15:46 [facility] 06/20 15:14 Order name: EKG - Nurse/Tech; Complete Time: 15:56 [facility] 06/21 06:01 Order name: Lipid Profile [facility] 06/21 06:01 Order name: T4 Free [facility] 06/21 06:01 Order name: Magnesium [facility] 06/21 06:01 Order name: Thyroid Stimulating Hormone [facility] 06/21 06:38 Order name: Troponin I [facility] 06/20 15:14 Order name: IV Saline Lock; Complete Time: 15:46 [facility] 06/20 15:14 Order name: Labs collected and sent; Complete Time: 15:46 [facility] 06/20 15:14 Order name: O2 Per Protocol; Complete Time: 15:46 [facility] 06/20 15:14 Order name: O2 Sat Monitoring; Complete Time: 15:46 [facility] 06/20 15:14 Order name: Urine Dipstick-Ancillary (obtain specimen); Complete Time: 02:09 [facility] 06/20 17:34 Order name: Bladder Scanner: note pvr; Complete Time: 18:05 [facility] EC:55 Rate is 60 beats/min. Rhythm is regular. QRS Martha is Normal. [place] interval is normal. QRS coretta interval is normal. QT interval is normal. No Q waves. T waves are Normal. No ST changes noted. Clinical impression: No evidence of ischemia. Interpreted by me. Reviewed by me. Administered Medications: 15:38 Drug: Tylenol 1000 mg Route: PO; tw2 18:14 Follow up: Response: No adverse reaction tw2 15:38 Drug: Zofran (Ondansetron) 4 mg Route: IVP; Site: left antecubital; tw2 18:14 Follow up: Response: No adverse reaction tw2 15:38 Drug: NS 0.9% 1000 ml Route: IV; Rate: 125 ml/hr; Site: left antecubital; tw2 22:30 Follow up: Response: No adverse reaction; IV Status: Completed infusion; IV Intake: jb4 875ml 15:40 Drug: morphine 2 mg {Note: RASS 0.} Route: IVP; Site: left antecubital; tw2 18:13 Follow up: Response: No adverse reaction; Pain is decreased; RASS: Alert and Calm (0) tw2 18:12 Drug: NS 0.9% 500 ml Route: IV; Rate: bolus; Site: left antecubital; tw2 19:00 Follow up: Response: No adverse reaction; IV Status: Completed infusion; IV Intake: tw2 500ml 18:12 Drug: Pepcid 20 mg Route: IVP; Site: left antecubital; tw2 19:12 Follow up: Response: No adverse reaction tw2 Point of Care Testing: Blood Glucose: 14:26 Blood Glucose: 115 mg/dL; aa5 Ranges: Critical Glucose Levels:Adult <50 mg/dl or >400 mg/dl <40 mg/dl or >180 mg/dl Disposition: 06/20/20 17:38 Hospitalization ordered by Wade Schuster for Observation. Preliminary diagnosis are Dyspnea, Obesity, unspecified, Systolic (congestive) heart failure, Syncope and collapse - near, Unspecified kidney failure - acute on chronic. - Bed requested for Telemetry/MedSurg (observation). - Status is Observation. hb - Condition is Fair. - Problem is new. - Symptoms have improved. Signatures: Dispatcher [employer] EDMS YanickMirta perdomo Richard Trujillo MD MD cha Calderon, Audri, RN RN aa5 Rosa Isela Schafer RN RN tl1 Fide Samuel RN RN Minerva Gasca RN RN tw2 Richmond Saxena RN jb4 Corrections: (The following items were deleted from the chart) 17:42 17:38 Hospitalization Ordered by Wade Schuster MD for Observation. Preliminary coretta diagnosis is Dyspnea; Obesity, unspecified; Systolic (congestive) heart failure. Bed requested for Telemetry/MedSurg (observation). Status is Observation. Condition is Fair. Problem is new. Symptoms have improved. coretta 20:54 17:42 06/20/2020 17:38 Hospitalization Ordered by Wade Schuster MD for Observation. tl1 Preliminary diagnosis is Dyspnea; Obesity, unspecified; Systolic (congestive) heart failure; Syncope and collapse - near; Unspecified kidney failure - acute on chronic. Bed requested for Telemetry/MedSurg (observation). Status is Observation. Condition is Fair. Problem is new. Symptoms have improved. coretta 06/21 10:28 06/20 20:54 06/20/2020 17:38 Hospitalization Ordered by Wade Schuster MD for bd Observation. Preliminary diagnosis is Dyspnea; Obesity, unspecified; Systolic (congestive) heart failure; Syncope and collapse - near; Unspecified kidney failure - acute on chronic. Bed requested for RUST ER HOLD. Status is Observation. Condition is Fair. Problem is new. Symptoms have improved. tl1 06/21 10:32 10:28 06/20/2020 17:38 Hospitalization Ordered by Wade Schuster MD for Observation. hb Preliminary diagnosis is Dyspnea; Obesity, unspecified; Systolic (congestive) heart failure; Syncope and collapse - near; Unspecified kidney failure - acute on chronic. Bed requested for Telemetry/MedSurg (observation). Status is Observation. Condition is Fair. Problem is new. Symptoms have improved. bd
--- NOTE | 2020-06-20 17:39 | ER ---
Nurse's Notes [facility] Name: Manny Tello Age: 75 yrs Sex: Male : 1945 Arrival Date: 06/20/2020 Time: 14:03 Bed 16 Private MD: Diagnosis: Dyspnea;Obesity, unspecified;Systolic (congestive) heart failure;Syncope and collapse-near;Unspecified kidney failure-acute on chronic Presentation: 06/20 14:19 Chief complaint: Patient states: "2 hours ago I just started feeling weak and short of aa5 breath, having a headache and my vision is blurry". pt states "I was also having trouble with my eyes focusing together". Negative VAN, no neuro deficits noted at this time. Coronavirus screen: shortness of breath. Ebola Screen: Patient negative for fever greater than or equal to 101.5 degrees Fahrenheit, and additional compatible Ebola Virus Disease symptoms. Initial Sepsis Screen: Does the patient meet any 2 criteria? No. Patient's initial sepsis screen is negative. Does the patient have a suspected source of infection? No. Patient's initial sepsis screen is negative. Risk Assessment: Do you want to hurt yourself or someone else? Patient reports no desire to harm self or others. Onset of symptoms was June 2020. 14:19 Acuity: DAVID 2 aa5 14:19 Method Of Arrival: Wheelchair aa5 Historical: - Allergies: 14:21 No Known Allergies; aa5 - PMHx: 14:21 Asthma; CHF; COPD; Hypertension; [place]; aa5 - PSHx: 14:21 Pacemaker; Cholecystectomy; aa5 - Immunization history:: Adult Immunizations unknown. - Social history:: Smoking status: Patient denies any tobacco usage or history of. - Family history:: not pertinent. Screenin:47 Abuse screen: Denies threats or abuse. Nutritional screening: No deficits noted. tw2 Tuberculosis screening: No symptoms or risk factors identified. Fall Risk Secondary diagnosis (15 points) impaired mobility. Assessment: 15:01 Reassessment: provider at bedside at this time. tw2 15:05 Reassessment: "my old back bothers me". General: Appears in no apparent distress. tw2 obese, well groomed, Behavior is calm, cooperative, appropriate for age. Pain: Complains of pain in back. Neuro: Level of Consciousness is awake, alert, obeys commands, Oriented to person, place, time, situation. Cardiovascular: Heart tones S1 S2 Capillary refill < 3 seconds Patient's skin is warm and dry. Rhythm is Respiratory: Reports shortness of breath Airway is patent Respiratory effort is even, unlabored, Respiratory pattern is regular, symmetrical, Breath sounds are clear bilaterally. GI: No signs and/or symptoms were reported involving the gastrointestinal system. Abdomen is round non-distended, obese, Bowel sounds present X 4 quads. : No signs and/or symptoms were reported regarding the genitourinary system. EENT: No signs and/or symptoms were reported regarding the EENT system. Derm: No signs and/or symptoms reported regarding the dermatologic system. Musculoskeletal: Range of motion: intact in all extremities. 15:50 Reassessment: Patient appears in no apparent distress at this time. Patient and/or tw2 family updated on plan of care and expected duration. Pain level reassessed. Patient is alert, oriented x 3, equal unlabored respirations, skin warm/dry/pink. pt talking with family members at bedside at this time. 16:52 Reassessment: Patient appears in no apparent distress at this time. Patient and/or tw2 family updated on plan of care and expected duration. Pain level reassessed. Patient is alert, oriented x 3, equal unlabored respirations, skin warm/dry/pink. 17:50 Reassessment: Patient appears in no apparent distress at this time. Patient and/or tw2 family updated on plan of care and expected duration. Pain level reassessed. Patient is alert, oriented x 3, equal unlabored respirations, skin warm/dry/pink. 18:50 Reassessment: Patient appears in no apparent distress at this time. Patient and/or tw2 family updated on plan of care and expected duration. Pain level reassessed. Patient is alert, oriented x 3, equal unlabored respirations, skin warm/dry/pink. 19:10 Reassessment: Patient appears in no apparent distress at this time. Patient and/or jb4 family updated on plan of care and expected duration. Pain level reassessed. Patient is alert, oriented x 3, equal unlabored respirations, skin warm/dry/pink. 20:45 Reassessment: Patient appears in no apparent distress at this time. Patient and/or jb4 family updated on plan of care and expected duration. Pain level reassessed. Patient is alert, oriented x 3, equal unlabored respirations, skin warm/dry/pink. PT admitted to ER HOLD, IV site clean, dry, and intact. Fluids infusing with ease. Vital Signs: 14:19 BP 121 / 71; Pulse 56; Resp 18 S; Temp 97.6(TE); Pulse Ox 97% on R/A; Weight 120.2 kg aa5 (R); Height 6 ft. 0 in. (182.88 cm) (R); Pain 5/10; 15:15 BP 107 / 76; Pulse 60; Resp 14; Pulse Ox 96% on R/A; tw2 15:52 BP 110 / 81; Pulse 63; Resp 15; Pulse Ox 95% on R/A; tw2 16:53 BP 105 / 93; Pulse 60; Resp 17; Pulse Ox 96% on R/A; tw2 17:30 BP 101 / 49; Pulse 81; Resp 17; Pulse Ox 96% on R/A; tw2 18:14 BP 101 / 61; Pulse 76; Resp 17; Pulse Ox 99% on R/A; tw2 19:00 BP 136 / 80; Pulse 74; Resp 16; Pulse Ox 97% on R/A; jb4 14:19 Body Mass Index 35.94 (120.20 kg, 182.88 cm) aa5 ED Course: 14:03 Patient arrived in ED. ds1 14:19 Arm band placed on. aa5 14:21 Triage completed. aa5 14:33 CT Head Brain wo Cont In Process Unspecified. EDMS 14:56 Richard Blackwell MD is Attending Physician. coretat 14:58 Placed in gown. Bed in low position. Adult w/ patient. maintenance aide on. Pulse ox on. tw2 NIBP on. 15:01 Minerva Gasca, GABBIE is Primary Nurse. tw2 15:38 Initial lab(s) drawn. Inserted saline lock: 20 gauge in left antecubital area, using tw2 aseptic technique. Blood collected. 15:54 XRAY Chest (1 view) In Process Unspecified. EDMS 15:56 EKG done, by ED staff, reviewed by Richard Blackwell MD. dh3 17:37 Wade Schuster MD is Hospitalizing Provider. coretta 18:06 Bladder scan completed. 214mL. dh3 19:00 Report given to GABBIE Barraza. tw2 20:45 No provider procedures requiring assistance completed. Patient admitted, IV remains in jb4 place. 21:24 Primary Nurse role handed off by Minerva Gasca RN jb4 21:24 Richmond Saxena, RN is Primary Nurse. jb4 Administered Medications: 15:38 Drug: Tylenol 1000 mg Route: PO; tw2 18:14 Follow up: Response: No adverse reaction tw2 15:38 Drug: Zofran (Ondansetron) 4 mg Route: IVP; Site: left antecubital; tw2 18:14 Follow up: Response: No adverse reaction tw2 15:38 Drug: NS 0.9% 1000 ml Route: IV; Rate: 125 ml/hr; Site: left antecubital; tw2 22:30 Follow up: Response: No adverse reaction; IV Status: Completed infusion; IV Intake: jb4 875ml 15:40 Drug: morphine 2 mg {Note: RASS 0.} Route: IVP; Site: left antecubital; tw2 18:13 Follow up: Response: No adverse reaction; Pain is decreased; RASS: Alert and Calm (0) tw2 18:12 Drug: NS 0.9% 500 ml Route: IV; Rate: bolus; Site: left antecubital; tw2 19:00 Follow up: Response: No adverse reaction; IV Status: Completed infusion; IV Intake: tw2 500ml 18:12 Drug: Pepcid 20 mg Route: IVP; Site: left antecubital; tw2 19:12 Follow up: Response: No adverse reaction tw2 Point of Care Testing: Blood Glucose: 14:26 Blood Glucose: 115 mg/dL; aa5 Ranges: Intake: 19:00 IV: 500ml; Total: 500ml. tw2 22:30 IV: 875ml; Total: 1375ml. jb4 Outcome: 17:38 Decision to Hospitalize by Provider. [facility] 20:45 Admitted to ER Hold. Please see [facility] for further documentation. jb4 20:45 Condition: stable 20:45 Discharge instructions given to patient, Instructed on the need for admit, Demonstrated understanding of instructions. 06/21 10:32 Patient left the ED. hb Signatures: Dispatcher [employer] EDRcihard Marie MD MD cha Sanford, Demi ds1 Radha Nielsen, RN RN aa5 Fide Samuel, RN RN hb Minerva Gasca RN RN tw2 Richmond Saxena RN RN jb4 Sharron Hook 3 Corrections: (The following items were deleted from the chart) 06/20 15:44 15:40 morphine 2 mg IVP in left antecubital tw2 tw2
[2020-06-20] MEDS ORDERED: FAMOTIDINE 20 MG/2 ML VIAL IV ONE (18:14)
[2020-06-20] MEDS ORDERED: NA CHLORIDE 0.9% 500 ML ONE (18:14)
--- NOTE | 2020-06-20 20:48 | P.HP ---
Certification for Inpatient Patient admitted to: Observation With expected LOS: <2 Midnights Patient will require the following post-hospital care: None Practitioner: I am a practitioner with admitting privileges, knowledge of patient current condition, hospital course, and medical plan of care. Services: Services provided to patient in accordance with Admission requirements found in Title 42 Section 412.3 of the Code of Federal Regulations <Norbert Smith - Last Filed: 06/20/20 21:34> Patient History Date of Service: 06/20/20 Primary Care Provider: Dr James Reason for admission: Near Syncope History of Present Illness: 75-year-old male with history of high blood pressure, CAD, CKD 3, syst olic congestive heart failure, history of alcohol abuse presents emergency department for near syncope. 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 Patient reports that during this time he was also having diplopia. Patient reports that his symptoms lasted for approximately 25-30 min during which time he called his family for a ride to the hospital. Upon arrival patient's family noted that he was very pale but did not notice any facial droop, trouble speaking, unilateral weakness or leaning. Patient denies any chest pain, palpitations, headache during this time. Patient return to baseline after the 25-30 min. Patient states that he feels like he is dehydrated from his medications. Reports last echocardiogram 1 month ago with his damage assessor at [facility] in [place], patient states damage assessor: There have been no significant changes. Last echocardiogram here shows ejection fraction 34% but patient reports that he has had some improvement since starting the medications with his current damage assessor. Initial troponin 0.05, creatinine 1.6, GFR 42. ED provider wishes to admit patient under observation for further evaluation and management. Patient does have pacemaker/defibrillator. When I saw the patient in the emergency department is awake, alert, oriented x3 with family at bedside. Patient without any focal neurological deficits. Vital signs stable this time. Patient be admitted for further evaluation and management. 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 - Family History Father -: Heart disease Mother -: Heart disease - Social History Smoking Status: Never smoker Alcohol use: No CD- Drugs: No Caffeine use: Yes Place of Residence: Home <Norbert Smith - Last Filed: 06/20/20 21:34> Date of Service: 06/26/20 <Wade Schuster - Last Filed: 06/26/20 14:38> Allergies No Known Allergies Allergy (Verified 04/04/18 05:04) Home Medications: Albuterol Sulfate [Ventolin Hfa] 1 puff IH PRN PRN 03/16/18 Aspirin [Aspirin EC 81 MG] 81 mg PO DAILY #30 tablet. 03/19/18 Atorvastatin Calcium [Lipitor] 40 mg PO BEDTIME #30 tab 03/19/18 Mometasone/Formoterol [Dulera 100 Mcg/5 Mcg Inhaler] 2 puff IH BID #1 inhaler 03/19/18 Tiotropium [Spiriva Handihaler*] 1 sprays IH DAILY #1 inh 03/19/18 Apixaban [Eliquis] 5 mg PO BID 06/20/20 Bumetanide 1 mg PO DAILY 06/20/20 Metoprolol Tartrate [Lopressor*] 50 mg PO BID 06/20/20 Potassium Oral Tab [Klor-Con 10 mEq Tab*] 10 meq PO BID 06/20/20 Sacubitril/Valsartan [Entresto 97 mg-103 mg Tablet] 1 tab PO BID 06/20/20 Spironolactone [Aldactone*] 25 mg PO DAILY 06/20/20 Thiamine HCl [Vitamin B-1*] 25 mg PO DAILY 06/20/20 Review of Systems 10-point ROS is otherwise unremarkable Cardiovascular: Light Headedness, As per HPI Neurological: As per HPI <Norbert Smith - Last Filed: 06/20/20 21:34> Physical Examination - Physical Exam General: Alert, In no apparent distress HEENT: Atraumatic, PERRLA, Mucous membr. moist/pink Neck: Supple, 2+ carotid pulse no bruit, No LAD Respiratory: Clear to auscultation bilaterally, Normal air movement Cardiovascular: Regular rate/rhythm, Normal S1 S2 Gastrointestinal: Normal bowel sounds, No tenderness Musculoskeletal: No tenderness Integumentary: No rashes Neurological: Normal gait, Normal speech, Normal strength at 5/5 x4 extr, Normal tone, Normal affect - Studies Laboratory Data (last 24 hrs) 06/20/20 15:38: PT 15.9 H, INR 1.36 06/20/20 15:38: WBC 7.2, Hgb 14.5, Hct 43.8, Plt Count 192 06/20/20 15:38: Sodium 141, Potassium 4.7, BUN 32 H, Creatinine 1.61 H, Glucose 110 H, Magnesium 2.2, Total Bilirubin 0.8, AST 15, ALT 28, Alkaline Phosphatase 67 <Norbert Smith - Last Filed: 06/20/20 21:34> Assessment and Plan - Plan Assessment Near syncopal episode with associated diplopia Chronic systolic congestive heart failure CKD stage 3 Hypertension Hyperlipidemia Plan Near syncopal episode with associated diplopia: Monitor on telemetry, obtain orthostatics vital signs. Trend troponins. Patient reports recent echocardiogram without significant change, can follow outpatient with cardiology in this regard. Due to diplopia would like to obtain MRI although patient does have pacemaker/defibrillator. Will have radiology staff determine if patient can have MRI stroke protocol. Will continue with aspirin, folic acid. Chronic systolic congestive heart failure: Obtain and continue home medications, appears stable this time. CKD stage 3: Patient does appear a little dry with slight bump in creatinine and mild decrease and GFR. Will give patient light IV hydration overnight and recheck morning labs. Hypertension: Obtain and continue home medications. Hyperlipidemia: Obtain and continue home medications. Discharge Plan: Home Plan to discharge in: 24 Hours - Advance Directives Does patient have a Living Will: No Does patient have a Durable POA for Healthcare: No - Code Status/Comfort Care Code Status Assessed: Yes (Full code) Critical Care: No Time Spent Managing Pts Care (In Minutes): 55 <Norbert Smith - Last Filed: 06/20/20 21:34> - Plan Plan of care reviewed with Norbert Smith. Agree with plan as noted above. <Wade Schuster - Last Filed: 06/26/20 14:38>
[2020-06-20 20:51] LABS: Urine Blood NEGATIVE (NEG); Urine Glucose NEGATIVE (NEG); Urine Protein NEGATIVE (NEG); Urine Specific Gravity >1.030 (1.005-1.030); Urine pH 5.5 (5.0-7.0)
[2020-06-20] MEDS ORDERED: HEPARIN 5000 UNIT/ML 1 ML VIAL SQ SCH (22:28)
[2020-06-20] MEDS ORDERED: NA CHLORIDE 0.9% 1,000 ML IV SCH (22:28)
[2020-06-20] MEDS ORDERED: ACETAMINOPHEN 500 MG TAB PO PRN (22:28)
[2020-06-20] MEDS ORDERED: ATORVASTATIN 20 MG TAB PO SCH (22:28)
[2020-06-20] MEDS ORDERED: ONDANSETRON 4 MG/2 ML VIAL IV PRN (22:28)
[2020-06-20] MEDS ORDERED: HEPARIN 5000 UNIT/ML 1 ML VIAL ONE (23:14)
[2020-06-20] MEDS ORDERED: ATORVASTATIN 20 MG TAB ONE (23:14)
[2020-06-20] MEDS ORDERED: APIXABAN 5 MG TABLET PO ONE (23:39)
[2020-06-21] MEDS ORDERED: APIXABAN 5 MG TABLET ONE (00:27)
[2020-06-21 01:59] VITALS: BMI 35.9
[2020-06-21 05:28] LABS: Absolute Lymphocytes (CBC) 1.4 K/uL (0.7-4.9); Basophils % 1.1 % (0-1.3); Hematocrit 39.9 % (39.6-49.0); MPV 10.2 fL (7.6-11.3); RBC Red Blood Cell Count 4.34 M/uL (4.33-5.43)
[2020-06-21 06:00] LABS: Magnesium 2.2 mg/dL (1.8-2.4); Potassium 4.7 mmol/L (3.5-5.1); Thyroid Stimulating Hormone 2.3 uIU/mL (0.360-3.740)
[2020-06-21] MEDS ORDERED: METOPROLOL TAR 50 MG TAB PO SCH (09:00)
[2020-06-21] MEDS ORDERED: ASPIRIN EC 81 MG TAB PO SCH ×2 (09:00)
[2020-06-21] MEDS ORDERED: APIXABAN 5 MG TABLET PO SCH (09:00)
[2020-06-21] MEDS ORDERED: FOLIC ACID 1 MG TABLET PO SCH (09:00)
[2020-06-21] MEDS ORDERED: METOPROLOL TAR 50 MG TAB ONE ×2 (09:01→09:40)
[2020-06-21] MEDS ORDERED: FOLIC ACID 1 MG TABLET ONE (09:02)
[2020-06-21] MEDS ORDERED: ASPIRIN EC 81 MG TAB PO ONE ×2 (09:02→09:39)
[2020-06-21 12:00] VITALS: BP 110/57; TEMP 97.6
--- NOTE | 2020-06-21 12:18 | P.DS ---
Admission Date: 06/20/20 Discharge Date: 06/21/20 Primary Care Provider: Dr James Disposition: ROUTINE DISCHARGE Discharge Condition: GOOD Reason for Admission: Near Syncope Consultations: Neurology - Dr. Flannery Procedures: CXR (06/20): FINDINGS: No focal lung parenchymal process. Cardiac silhouette is enlarged similar to comparison. Central vasculature is mildly prominent and is stable. Defibrillator is in place. No measurable pleural effusion and no pneumothorax. No acute bony abnormality seen. No acute aortic findings suspected. IMPRESSION: No acute cardiopulmonary process. CT Head (06/20): Mild atrophy changes are present and chronic ischemic changes are present, greater in the left cerebral hemisphere. No acute intracranial finding identifiable. Problem List: Near syncopal episode with associated diplopia Chronic systolic congestive heart failure CKD stage 3 Hypertension Hyperlipidemia Brief History of Present Illness: 75yo male, PMH: HTN, CAD, CKD3, systolic CHF, h/o alcohol abuse presented to ED after a near syncopal episode. He was sitting on a stool at work when he felt extremely week, had diplopia, and felt as if he was going to pass out. This episode lasted ~20-30minutes. Resolved prior to arrival to ED. Workup was notable for negative CT head and mild MADYSON (Cr: 1.61). Hospital Course: He was monitored on telemetry without acute events and received IVF. The following morning, patient felt significantly better and back to his baseline. His renal function improved with IVF hydration (Cr: 1.61 -> 1.33). Initially an MRI was ordered, however was unable to be obtained due to inability to confirm if patient's AICD/defibrillator was compatible. His case was discussed with Dr. Flannery, neurology, who agreed that patient was stable enough to be discharged home. He was likely dehydrated and orthostatic secondary to overdiuresis. Cardiology reviewed his medications and advised cutting back on his bumex. Patient reported he was actually told by his lithographic general worker ~3-4 weeks ago to decrease bumex dosage to 1mg daily, however patient continued with 2mg daily. On discharge he was advised to restart bumex at 1mg daily in 2 days. He stated he will monitor his weight and urine output and ensure adequate hydration. He will follow up with his PCP and Drying Machine Operator. Dr. Flannery advised patient to follow up with him in a few weeks as well to reassess and determine if continued need for further evaluation. Vital Signs/Physical Exam: Temp Pulse Resp BP Pulse Ox 97.6 F 55 18 110/57 L 94 06/21/20 12:00 06/21/20 12:00 06/21/20 12:00 06/21/20 12:00 06/21/20 12:00 General: Alert, In no apparent distress, Oriented x3 HEENT: Mucous membr. moist/pink, Sclerae nonicteric Neck: Supple Respiratory: Clear to auscultation bilaterally Cardiovascular: No edema, Regular rate/rhythm, Normal S1 S2 Gastrointestinal: Soft and benign, Non-distended, No tenderness Musculoskeletal: No tenderness Integumentary: No rashes Neurological: Normal speech, Normal strength at 5/5 x4 extr, Cranial nerves 3-12 intact, Normal affect Laboratory Data at Discharge: WBC 5.9 K/uL (4.3-10.9) D 06/21/20 05:13 Hgb 13.1 g/dL (13.6-17.9) L 06/21/20 05:13 Hct 39.9 % (39.6-49.0) 06/21/20 05:13 Plt Count 158 K/uL (152-406) 06/21/20 05:13 PT 15.9 SECONDS (9.5-12.5) H 06/20/20 15:38 INR 1.36 06/20/20 15:38 Sodium 143 mmol/L (136-145) 06/21/20 05:13 Potassium 4.7 mmol/L (3.5-5.1) 06/21/20 05:13 BUN 29 mg/dL (7-18) H 06/21/20 05:13 Creatinine 1.33 mg/dL (0.55-1.3) H 06/21/20 05:13 Glucose 106 mg/dL (74-106) 06/21/20 05:13 Magnesium 2.2 mg/dL (1.8-2.4) 06/21/20 05:13 Total Bilirubin 0.8 mg/dL (0.2-1.0) 06/20/20 15:38 AST 15 U/L (15-37) 06/20/20 15:38 ALT 28 U/L (12-78) 06/20/20 15:38 Alkaline Phosphatase 67 U/L (45-117) 06/20/20 15:38 Troponin I 0.05 ng/mL (0.0-0.045) H 06/21/20 05:13 Triglycerides 92 mg/dL (<150) 06/21/20 05:13 Cholesterol 95 mg/dL (<200) 06/21/20 05:13 HDL Cholesterol 32 mg/dL (40-60) L 06/21/20 05:13 Cholesterol/HDL Ratio 2.97 06/21/20 05:13 Home Medications: Albuterol Sulfate [Ventolin Hfa] 1 puff IH PRN PRN 03/16/18 Aspirin [Aspirin EC 81 MG] 81 mg PO DAILY #30 tablet. 03/19/18 Atorvastatin Calcium [Lipitor] 40 mg PO BEDTIME #30 tab 03/19/18 Mometasone/Formoterol [Dulera 100 Mcg/5 Mcg Inhaler] 2 puff IH BID #1 inhaler 03/19/18 Tiotropium [Spiriva Handihaler*] 1 sprays IH DAILY #1 inh 03/19/18 Apixaban [Eliquis] 5 mg PO BID 06/20/20 Bumetanide 1 mg PO DAILY 06/20/20 Metoprolol Tartrate [Lopressor*] 50 mg PO BID 06/20/20 Potassium Oral Tab [Klor-Con 10 mEq Tab*] 10 meq PO BID 06/20/20 Sacubitril/Valsartan [Entresto 97 mg-103 mg Tablet] 1 tab PO BID 06/20/20 Spironolactone [Aldactone*] 25 mg PO DAILY 06/20/20 Thiamine HCl [Vitamin B-1*] 25 mg PO DAILY 06/20/20 Patient Discharge Instructions: follow up with PCP within 1 week. Follow up with Drying Machine Operator as soon as possible - discuss dosage of bumex. -recommend holding bumex for 2 days, then restart at half dose (1mg) every day, continue daily weights. Call to schedule appointment with Dr. Flannery (neurology) in the next few weeks. Diet: AHA Activity: Ad monika Followup: Reginaldo Flannery MD [ASSOCIATE-ACTIVE - CAN ADMIT] - 1-2 Weeks (Follow up in office in 2 weeks. Call to schedule an appointment.) Wilmer James, [Primary Care Provider] - 1 Week (Follow up in office in 1 week. Call to schedule an appointment.) Time spent managing pt's care (in minutes): 35
[2020-06-21 12:56] VITALS: O2SAT 97
[2020-06-21] MEDS ORDERED: ATORVASTATIN 40 MG TAB PO SCH (21:00)
--- NOTE | 2020-06-23 22:21 | CON ---
Date of Consultation: 06/20/2020 Reason For Consultation: Episode of shortness of breath and blurred vision that was thought secondar y to orthostatic hypotension. History Of Present Illness: Mr. Tello is a 75-year-old white male. He sees Dr. Santiago, Cardiology [facility] in [place] for congestive heart failure. He has a history of pacemaker/defibrillator, conges tive heart failure, COPD, hypertension, CAD. He has had a cholecystectomy in the past. He has recen tly had his pacemaker/defibrillator checked. He has had a history of paroxysmal atrial fibrillation, for which he takes Eliquis. His CAD and hypertension have been followed carefully and he has been s table. He also has a history of chronic renal disease. He came in with slight shortness of breath w ith light activities. He felt like he was going to faint, but he did not. He had an episode of blur ry vision when he stood up. Denied any chest pain, nausea, vomiting, diaphoresis, PND, orthopnea, pe laxmi edema, or palpitation. Past Medical History: As stated above. Allergies: NONE. Review of Systems: Negative. Social History: Negative. Family History: Noncontributory. Medications: At home include Eliquis, inhalers, aspirin, Lipitor 40 mg daily, bumetanide 1 mg daily, metoprolol 50 b.i.d. He is on potassium. He is on Entresto 97-103 one p.o. b.i.d. He is on Aldact one 25 mg daily. He is on thiamine and Spiriva. Physical Examination: General: When I saw him, he was in no acute distress. Vital Signs: His blood pressure was 124/61, pulse 73, respiratory rate of 12. He was afebrile, pace d rhythm. I's and O's were adequate. O2 saturation was 97% on room air. HEENT: Negative. Neck: Supple with no bruit. Chest: Clear. Cardiac: Regular rhythm and rate. No murmurs, gallops, or rubs. Abdomen: Benign. Extremities: No clubbing, cyanosis, or edema. Diagnostic Data: His initial creatinine was 1.61. It was repeated. Later, it was 1.33 after a gent le hydration. Rest of the blood work was fairly unremarkable. His troponin was 0.05 x2, not consist ent with an acute coronary syndrome. His BNP was 2005, which is chronic because of his CHF. Chest x -ray was unremarkable. EKG was paced rhythm. Impression And Plan: Episode of blurry vision and presyncope, probably secondary to orthostatic hypo tension. I would probably have him stop the bumetanide for now, continue his other regimen, and foll ow up with Dr. Santiago as soon as possible. I do not think we need to do any extensive cardiac workup on him at this point. His chest x-ray was normal. His BNP elevation and mild troponin elevation ar e secondary to chronic congestive heart failure, which is systolic. I would continue obviously the E ntresto and his other medications except for the bumetanide for now. I think he can go home in a day or so. His other problems including asthma, chronic obstructive pulmonary disease, status post chol ecystectomy, atrial fibrillation, and chronic renal disease are stable. Dr. Santiago is keeping an eye on his defibrillator/pacemaker check. He is to continue his Eliquis for his atrial fibrillation. C ase was discussed with Dr. Schuster. EDGARD/ANIYAH Voice ID: [id number] Report ID: [id number]
== END 2020-06-21 13:20 | disposition home or self-care (01) ==
LOC: ER 14:01 → ERHOLD 19:13 → 4TH 06-21 11:56
PROVIDERS: ADMIT Emergency Medicine; ATTEND Hospitalist
DX: R55 Syncope and collapse (principal); H53.2 Diplopia; I13.0 Hypertensive heart and chronic kidney disease with heart failure and stage 1 through stage 4 chronic kidney disease, or unspecified chronic kidney disease; N18.30 Chronic kidney disease, stage 3 unspecified; I50.22 Chronic systolic (congestive) heart failure; Z20.828 Contact with and (suspected) exposure to other viral communicable diseases; E78.5 Hyperlipidemia, unspecified; J44.9 Chronic obstructive pulmonary disease, unspecified; I25.10 Atherosclerotic heart disease of native coronary artery without angina pectoris; Z79.01 Long term (current) use of anticoagulants; Z79.82 Long term (current) use of aspirin; Z95.810 Presence of automatic (implantable) cardiac defibrillator; I25.2 Old myocardial infarction; R94.31 Abnormal electrocardiogram [ECG] [EKG]
CPT/HCPCS: 96361; 87088; 85025 ×2; 87086; 80048 ×2; 36415; 83735 ×2; 85610; 80061; 82947; 80076; 84443; 81003; 84484 ×3; 84439; 83880; 70450; 71045; 96375; 96374; 99285; U0002; J2270; J7040; J7030 ×2; J2405; G0378 ×3; J1644

== ENCOUNTER 2021-09-23 11:45 | Day surgery (SDC) | payer OTHER, MEDICARE ==
[2021-09-20 15:35] LABS: Absolute Lymphocytes (CBC) 1.2 K/uL (0.7-4.9); Hematocrit 49.3 % (39.6-49.0); Lymphocytes % 20.7 % (15.3-44.8); MPV 9.4 fL (7.6-11.3); RBC Red Blood Cell Count 5.15 M/uL (4.33-5.43)
[2021-09-20 15:45] LABS: Protime INR 1.27
--- NOTE | 2021-09-20 15:51 | RAD REPORT ---
EXAM DESCRIPTION: RAD - Chest Pa And Lat (2 Views) - 09/20/2021 3:30 pm CLINICAL HISTORY: Pre op pending heart cathdefibrillator, pacemaker in place COMPARISON: Portable 06/20/2020 TECHNIQUE: Frontal and lateral views of the chest were obtained. FINDINGS: The lungs are clear. Interstitial pattern matches comparison. Defibrillator is in place. Heart size is normal and central vasculature is within normal limits. No pleural effusion or pneumot horax seen. No acute bony finding noted. No acute aortic finding. Tortuosity noted. IMPRESSION: No acute cardiopulmonary process. No significant change from comparison study.
[2021-09-20 16:00] LABS: Potassium 4.6 mmol/L (3.5-5.1)
[2021-09-23] MEDS ORDERED: NA CHLORIDE 0.9% 500 ML ONE (12:07)
[2021-09-23] MEDS ORDERED: LIDOCAINE 1% 20 ML MDV ONE (15:58)
[2021-09-23] MEDS ORDERED: HEPA 1000U/500MLS 2,000 UNIT/1,000 ML BAG IV ONE (15:58)
[2021-09-23] MEDS ORDERED: MIDAZOLAM HCL 2 MG/2 ML INJ ONE (15:58)
[2021-09-23] MEDS ORDERED: FENTANYL CITR 100 MCG/2 ML ONE (15:58)
[2021-09-23] MEDS ORDERED: HEPARIN 5000 UNIT/ML 1 ML VIAL ONE (15:58)
[2021-09-23] MEDS ORDERED: NITROGLYCERIN 100 MCG/ML SYR (for cath lab use only) IV ONE (15:59)
[2021-09-23] MEDS ORDERED: VERAPAMIL HCL 10 MG/4 ML VIAL IV ONE (15:59)
[2021-09-23] MEDS ORDERED: ATROPINE SULF 1 MG/10 ML SYR IV ONE (15:59)
[2021-09-23 18:23] VITALS: BP 88/62; O2SAT 97
--- NOTE | 2021-09-24 04:13 | OP ---
Date of Procedure: 09/23/2021 Surgeon: AVIVA REESE Procedure Performed: Selective coronary angiogram. Indication: Severe aortic valve stenosis before TAVR. Access: Right radial artery 6-Macedonian closed with TR band. Complications: None. Bleeding: Less than 10 mL. Description Of Procedure: After risks, benefits, and alternatives were explained, the patient agreed to procedure and signed informed consent. The patient was brought into cardiac catheterization labo [facility], prepped and draped in sterile fashion. functional sheath and took a 5-Macedonian Tig er 4.0 catheter into the aortic root and engaged left main, right coronary artery, took standard view s and then removed the catheter and the sheath and placed TR band with good hemostasis. Findings: 1.Left main; large, normal. 2.LAD, large, with luminal irregularities, normal diagonal branches. 3.Left circumflex, very large and codominant circulation. No disease. 4.RCA; large codominant circulation with 2 long lesions in the midsection ranging from 60% to 70% __ with MISBAH-3 flow. 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 Otherwise, the rest of the coronary arteries are normal . Plan: Proceed with TAVR first and then stress test to evaluate the need for PCI of the RCA. SR/MODL Voice ID: [id number] Report ID: [id number]
== END 2021-09-23 18:20 | disposition home or self-care (01) ==
LOC: CCL 11:45
PROVIDERS: ATTEND Internal Medicine
DX: I35.2 Nonrheumatic aortic (valve) stenosis with insufficiency (principal); I25.10 Atherosclerotic heart disease of native coronary artery without angina pectoris; I10 Essential (primary) hypertension; G45.9 Transient cerebral ischemic attack, unspecified; E78.5 Hyperlipidemia, unspecified; Z87.891 Personal history of nicotine dependence; Z20.822 Contact with and (suspected) exposure to COVID-19
CPT/HCPCS: 93005; 85025; 80048; 36415; 85610; 85730; 71046; 93454; U0003; C1893; J1644 ×2; J7040; J2250; J3010

== ENCOUNTER 2024-07-31 16:40 | Emergency (ER) | payer OTHER, MEDICARE ==
[2024-07-31 17:30] LABS: Sqamous Epithelial None Seen /HPF (None Seen); Urine Bacteria None Seen /HPF (<20); Urine Crystals Unidentified Many /HPF (None Seen); Urine Culture Reflex Order REFLEXED; Urine Micro Reflex YN NO BILL MICROSCOPIC; Urine RBC >50 /HPF (None Seen); Urine WBC >50 /HPF (<5); Urine WBC Clump Many /HPF (None Seen); Urine Yeast (Budding) Many /HPF (None Seen)
--- NOTE | 2024-07-31 17:55 | RAD REPORT ---
EXAMINATION: ONE VIEW CHEST XR CLINICAL INDICATION: gross hematuria TECHNIQUE: Frontal chest projection is submitted. Examination is limited by patient positioning and t echnique. COMPARISON: 10/09/2023 FINDINGS: The lungs are well inflated and clear. The heart is moderately enlarged. Multilead pacer/stimulator d evice present. Right-sided stimulator device seen. IMPRESSION: No acute intrathoracic abnormalities.
[2024-07-31 17:59] LABS: Absolute Basophils 0.1 K/uL (0-0.5); Absolute Eosinophils 0.1 K/uL (0-0.5); Absolute Lymphocytes (CBC) 1.2 K/uL (0.7-4.9); Absolute Monocytes 0.7 K/uL (0.1-1.3); Absolute Neutrophil 5.7 K/uL (1.8-8.0); Basophils % 1.1 % (0-1.3); Eosinophils % 1.4 % (0-4.4); Hematocrit 46.3 % (39.6-49.0); Lymphocytes % 15.2 % (15.3-44.8); MCH 30.8 pg (27.0-35.0); MCHC 32.4 g/dL (32.0-36.0); MCV 94.9 fL (80-100); MPV 8.4 fL (7.6-11.3); Neutrophils % 73.3 % (41.7-73.7); Platelets 207 thou/uL (152-406); RBC Red Blood Cell Count 4.88 M/uL (4.33-5.43); Red Cell Distribution Width 15.2 % (12.1-15.2)
[2024-07-31] MEDS ORDERED: CEFTRIAXONE 1000 MG/VIAL ONE (18:15)
[2024-07-31] MEDS ORDERED: NA CHLORIDE 0.9% 100 ML ONE (18:15)
[2024-07-31 18:17] LABS: PT Prothrombin Time 16.1 SECONDS (9.4-12.5); PTT, Activated Partial Thromb 34.7 SECONDS (24.3-36.9); Protime INR 1.45
[2024-07-31 18:37] LABS: Albumin 3.1 g/dL (3.4-5.0); Albumin/Globulin Ratio 0.9 (1.1-1.8); Anion Gap 13.2 mEq/L (5.0-15.0); Bilirubin Total 0.6 mg/dL (0.2-1.0); Globulin 3.4 g/dL (2.3-3.5); Potassium 4.2 mEq/L (3.5-5.1); Protein, Total 6.5 g/dL (6.4-8.2); Troponin High Sensitivity 56.1 pg/mL (<58.9)
--- NOTE | 2024-07-31 19:19 | RAD REPORT ---
EXAMINATION: CT ABDOMEN AND PELVIS WITHOUT CONTRAST CLINICAL INDICATION: Abd pain;Pain TECHNIQUE: CT abdomen and pelvis was performed, without IV contrast, as per department protocol. Axia l, sagittal and coronal reconstructions were obtained. One or more of the following dose reduction techniques were used: Automated exposure control, adjustment of the mA and kV according to the patien t size, and iterative reconstruction. Unless otherwise specified, incidental findings do not require dedicated imaging follow-up. COMPARISON: No prior exam. FINDINGS: The lack of intravenous contrast limits the sensitivity of this exam for evaluation of solid visceral organs, vascular structures, and retroperitoneum. LOWER CHEST: The visualized lung bases are clear. LIVER:Normal in size and contour. No focal lesion. Cholecystectomy clips. SPLEEN: Normal size. No focal lesion. PANCREAS: No mass, ductal dilation, or christy-pancreatic fluid. ADRENALS: 12 mm nodule left adrenal gland. Normal right adrenal gland. KIDNEYS AND URETERS: Normal size and contour. No hydronephrosis. URINARY BLADDER: Normal contour. GASTROINTESTINAL TRACT: No evidence of bowel obstruction, significant free fluid, free air or abscess . Sigmoid diverticulosis coli is present with mild diverticulitis suspected. APPENDIX: Normal appendix. LYMPH NODES: No lymphadenopathy. MUSCULOSKELETAL: No acute or suspicious osseous abnormality. Moderate fat-containing umbilical hernia . ADDITIONAL FINDINGS: 6.0 cm infrarenal abdominal aortic aneurysm. 5.1 cm right common iliac artery an eurysm. IMPRESSION: Left lower quadrant sigmoid diverticulosis with mild/early acute diverticulitis suspected. 6.0 cm infrarenal abdominal aortic aneurysm. For management of fusiform aneurysmal abdominal aortas: Recommend referral to or continued care with a vascular specialist. Note: For AAA enlargement of > 0.5 cm in 6 months or > 1 cm in 1 year, recommend vascular consultat ion. References: J Am Maurice Radiol 2013; 10(10):789-794; J Vasc Surg. 2018; 67:2-77
--- NOTE | 2024-07-31 19:33 | RAD REPORT ---
EXAM: CTA of the chest, abdomen and pelvis HISTORY: Chest pain and back pain Dissection;Flank pain COMPARISON: None TECHNIQUE: Multiple contiguous axial images were obtained a CTA of the chest and abdomen with contras t per aortic dissection protocol. This involves 3D reconstructions, MIPs, volume rendered images and/or shaded surface rendering. One or more of the following dose reduction techniques were used: Au tomated exposure control, adjustment of the mA and/or kV according to patient size, and/or iterative reconstruction. Unless otherwise specified, incidental findings do not require dedicated im aging follow-up. Sagittal and coronal 3-D MIP reformats were performed. FINDINGS: PULMONARY ARTERIES: Normal in caliber without filling defects to suggest pulmonary emboli. ASCENDING THORACIC AORTA: Normal caliber without evidence of dissection or aneurysmal dilatation. DESCENDING THORACIC AORTA: Normal caliber without evidence of dissection or aneurysmal dilatation. ABDOMINAL AORTA: 6.0 cm infrarenal abdominal aortic aneurysm is present, fusiform type with moderate mural thrombus. 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 CELIAC TRUNK: Moderate ostial plaque. SMA: Moderate ostial plaque. JACKIE: Patent RENAL ARTERIES: Bilateral single renal arteries with moderate ostial plaquing. MEDIASTINUM: No hilar or mediastinal lymphadenopathy. LUNGS: No focal infiltrates or masses. PLEURAL SPACE: No pleural effusion or pneumothorax. LIVER: Unremarkable. SPLEEN: Unremarkable. PANCREAS: Unremarkable. KIDNEYS: Unremarkable. ADRENALS: 12 mm left adrenal nodule.. BOWEL: Moderate sigmoid diverticulosis coli is present. There is mild induration in the adjacent fat. . RETROPERITONEUM: No lymphadenopathy. BONES: Mild lumbar degenerative changes. ADDITIONAL FINDINGS: Prominent prostate gland with Pleitez catheter in place. IMPRESSION: Sigmoid diverticulosis coli with early findings of acute diverticulitis. 6.0 cm fusiform intrarenal abdominal aortic aneurysm. For management of fusiform aneurysmal abdominal aortas: Recommend referral to or continued care with a vascular specialist. Note: For AAA enlargement of > 0.5 cm in 6 months or > 1 cm in 1 year, recommend vascular consultat ion. References: J Am Maurice Radiol 2013; 10(10):789-794; J Vasc Surg. 2018; 67:2-77
--- NOTE | 2024-07-31 20:34 | EDPHYS ---
Physician Documentation [facility] Name: Manny Tello Age: 79 yrs Sex: Male : 1945 Arrival Date: 07/31/2024 Time: 16:40 Bed 16 Private MD: ED Physician Richard Blackwell HPI: 07/31 17:15 This 79 yrs old Male presents to ER via Ambulatory with complaints of Urinary Problem - cp blood. 17:15 The patient presents with urinary symptoms, gross hematuria. Onset: The cp symptoms/episode began/occurred today. Associated signs and symptoms: Pertinent positives: low back pain, Pertinent negatives: abdominal pain, fever. Severity of symptoms: in the emergency department the symptoms are unchanged, despite home interventions. Patient takes prescribed Eliquis. Historical: - Allergies: 16:50 No Known Allergies; tm6 - PMHx: 16:50 Asthma; CHF; Hypertension; PR; tm6 - PSHx: 16:50 Cholecystectomy; tm6 - Immunization history:: Flu vaccine is not up to date. - Infectious Disease History:: Denies. - Social history:: Smoking status: Patient/guardian denies using tobacco, the patient reports quitting approximately 6 years ago. ROS: 17:17 Eyes: Negative for injury, pain, redness, and discharge, cp 17:17 Constitutional: Negative for body aches, chills, fever, poor PO intake, 17:17 Cardiovascular: Negative for chest pain, 17:17 Respiratory: Negative for cough, shortness of breath, wheezing, 17:17 Abdomen/GI: Negative for abdominal pain, nausea, vomiting, and diarrhea, 17:17 Back: Positive for low back pain, 17:17 : Positive for hematuria, Negative for flank pain, burning with urination, testicular pain 17:17 Neuro: Negative for altered mental status, dizziness, headache, syncope, near syncope, weakness, 17:17 All other systems are negative, Exam: 17:20 Head/Face: Normocephalic, atraumatic. cp 17:20 Constitutional: The patient appears in no acute distress, alert, awake, comfortable, non-diaphoretic, non-toxic, well developed, well nourished, 17:20 Eyes: Periorbital structures: appear normal, Conjunctiva: normal, no exudate, no injection, Sclera: no appreciated abnormality, Lids and lashes: appear normal, bilaterally, 17:20 ENT: External ear(s): are unremarkable, Nose: is normal, Mouth: Lips: moist, Oral mucosa: moist, Posterior pharynx: Airway: no evidence of obstruction, patent, 17:20 Chest/axilla: Inspection: normal, 17:20 Cardiovascular: Rate: normal, Rhythm: regular, 17:20 Respiratory: the patient does not display signs of respiratory distress, Respirations: normal, no use of accessory muscles, no retractions, labored breathing, is not present, Breath sounds: are clear throughout, no decreased breath sounds, no stridor, no wheezing, 17:20 Abdomen/GI: Inspection: abdomen appears normal, Palpation: abdomen is soft and non-tender, in all quadrants, 17:20 Back: CVA tenderness, is absent, 17:20 Neuro: Orientation: to person, place \T\ time. Mentation: is normal, Motor: moves all cp fours, strength is normal, Sensation: is normal, 21:07 ECG was reviewed by the Attending Physician. Vital Signs: 16:50 Weight 117.93 kg; Height 6 ft. 0 in. ; Pain 0/10; tm6 16:52 BP 108 / 91; Pulse 82; Resp 19; Temp 96.7(TE); Pulse Ox 97% on R/A; tm6 21:21 BP 143 / 92; Pulse 80; Resp 18; Pulse Ox 98% on R/A; kj2 16:50 Body Mass Index 35.26 (117.93 kg, 182.88 cm) tm6 16:50 Pain Scale: Adult tm6 MDM: 16:52 Medical Screening Exam initiated 18:00 Differential diagnosis: UTI, urinary retention, prostatitis, urethritis, anemia, cp bladder carcinoma, kidney stone. 20:35 Data reviewed: vital signs, nurses notes, lab test result(s), EKG, radiologic studies, cp CT scan, plain films, I have discussed the patient's presentation/case with the attending Emergency Department Physician; and as a result, I will transfer patient. 20:35 I considered the following discharge prescriptions or medication management in the emergency department Medications were administered in the Emergency Department. See MAR. Independent interpretation of the following test(s) in the Emergency Department EKG: See my EKG interpretation above. Care significantly affected by the following chronic conditions: Hypertension, Congestive Heart Failure. Counseling: I had a detailed discussion with the patient and/or guardian regarding the historical points, exam findings, and any diagnostic results supporting the discharge/admit diagnosis, lab results, radiology results, the need to transfer to another facility, for higher level of care. Response to treatment: the patient's symptoms have mildly improved after treatment. 21:30 ED course: patient to be transferred to accepting physician, DR Jung, film sound engineer at [facility] after discussion. 07/31 17:15 Order name: Type And Screen; Complete Time: 18:45 07/31 17:15 Order name: Blood Culture Adult (2) 07/31 17:15 Order name: CBC with Diff; Complete Time: 18:21 07/31 18:21 Interpretation: Normal except: LYM% 15.2. 07/31 17:15 Order name: CMP; Complete Time: 18:45 07/31 18:45 Interpretation: Normal except: GLUC 173; BUN 40; CRE 1.68; GFR 41; ALT 71; ALB 3.1; A/G cp 0.9. 07/31 17:15 Order name: Lactate w/ 2H reflex if indic.; Complete Time: 18:45 07/31 17:15 Order name: Protime (+inr); Complete Time: 18:21 07/31 17:15 Order name: Ptt, Activated; Complete Time: 18:21 07/31 17:15 Order name: Troponin High Sensitivity; Complete Time: 18:45 07/31 17:20 Order name: Urine Microscopic Only; Complete Time: 17:44 [facility] 07/31 17:45 Interpretation: Normal except: UWBC >50; URBC >50; UNCX Many; UWBC Clump Many; BYST cp Many. 07/31 17:33 Order name: Urine Culture EDRI 07/31 17:15 Order name: Chest Single View XRAY; Complete Time: 18:21 07/31 18:59 Order name: CT Aorta for Dissection; Complete Time: 19:38 [facility] 07/31 19:00 Order name: CT Stone Protocol; Complete Time: 19:21 [facility] 07/31 17:15 Order name: Ple[address]-[address]; Complete Time: 18:10 07/31 17:15 Order name: Bladder Irrigation; Complete Time: 18:10 07/31 17:15 Order name: Accucheck; Complete Time: 18:56 cp 07/31 17:15 Order name: Cardiac monitoring; Complete Time: 18:10 cp 07/31 17:15 Order name: IV Saline Lock - Large Bore; Complete Time: 17:49 cp 07/31 17:15 Order name: Labs collected and sent; Complete Time: 17:49 cp 07/31 17:15 Order name: O2 Per Protocol; Complete Time: 17:16 cp 07/31 17:15 Order name: O2 Sat Monitoring; Complete Time: 17:16 cp 07/31 17:15 Order name: Vital Signs; Complete Time: 17:16 cp EC:07 Rhythm is regular. QRS interval is prolonged at 140 msec. QT interval is normal. cp Interpreted by me. Reviewed by me. Administered Medications: 19:20 Drug: Rocephin IV 1 grams IV at calculated rate once; Given slow IV push per pharmacy kj2 instructions Route: IV; Rate: calculated rate; Site: left antecubital; 21:15 Drug: metroNIDAZOLE IVPB 500 mg 100 ml IVPB once over 30 mins Volume: 100 ml; Route: kj2 IVPB; Infused Over: 30 mins; Site: left antecubital; 22:29 Follow up: IV Status: Completed infusion; IV Intake: 100ml kj2 21:58 Drug: fentaNYL (PF) IVP 50 mcg IVP once Route: IVP; Site: left antecubital; kj2 22:29 Follow up: Response: No adverse reaction kj2 21:59 Drug: Mucomyst - Acetylcysteine PO 600 mg PO once Route: PO; kj2 22:30 Follow up: Response: No adverse reaction kj2 Disposition Summary: 07/31/24 20:33 Transfer Ordered Notes: Transfer Location: [facility] cp Reason: Higher level of care cp Condition: Stable cp Problem: new cp Symptoms: have improved cp Accepting Physician: DR Gilbert Jung(07/31/24 22:30) kj2 Diagnosis - Gross hematuria cp - Abdominal aortic aneurysm, without rupture cp - Diverticulitis of large intestine without perforation or abscess without bleeding cp Forms: - Medication Reconciliation Form cp - SBAR form cp Critical care time excluding procedures: 08/01 16:24 Critical care time: Bedside Care: 5 minutes, Consultation: 25 minutes, Family cp Intervention: 10 minutes. Total time: 40 minutes Addendum: 08/04/2024 12:42 Co-signature as Attending Physician, Richard Blackwell MD I agree with the assessment and c shoemaker plan of care. Signatures: Dispatcher [employer] Richard Mcdowell MD MD cha Page, Corey, PA PA Marlon Leonard, RN RN tm6 Betsey Mercado, RN RN kj2 Corrections: (The following items were deleted from the chart) 07/31 16:51 16:50 PMHx: COPD; tm6 tm6 17:15 17:15 TYPE AND SCREEN+BB.LAB.BRZ ordered. EDMS EDMS 17:15 17:15 BLOOD CULTURE*+BA.LAB.BRZ ordered. EDMS EDMS 17:15 17:15 CBC+H.LAB.BRZ ordered. EDMS EDMS 17:15 17:15 COMPREHENSIVE METABOLIC PANEL+C.LAB.BRZ ordered. EDMS EDMS 17:15 17:15 LACTATE+C.LAB.BRZ ordered. EDMS EDMS 17:15 17:15 PROTIME (+INR)+COAG.LAB.BRZ ordered. EDMS EDMS 17:15 17:15 PTT, ACTIVATED+COAG.LAB.BRZ ordered. EDMS EDMS 17:15 17:15 Troponin High Sensitivity+C.LAB.BRZ ordered. EDMS EDMS 17:15 17:15 Chest Single View+RAD.RAD.BRZ ordered. EDMS EDMS 17:19 16:53 Urinalysis+U.LAB.BRZ ordered. EDMS EDMS 18:52 17:45 Abdomen Pelvis W/Wo Con+CT.RAD.BRZ ordered. EDMS EDMS 19:00 19:00 Angio Aorta For Dissection+CT.RAD.BRZ ordered. EDMS EDMS 19:00 19:00 Stone Protocol+CT.RAD.BRZ ordered. EDMS EDMS 19:10 18:45 Stone Protocol+CT.RAD.BRZ ordered. EDMS EDMS 20:57 20:33 DR Tony cp cp 22:30 20:57 DR Gilbert Jung cp kj2
--- NOTE | 2024-07-31 20:34 | ER ---
Nurse's Notes [facility] Name: Manny Tello Age: 79 yrs Sex: Male : 1945 Arrival Date: 07/31/2024 Time: 16:40 Bed 16 Private MD: Diagnosis: Gross hematuria;Abdominal aortic aneurysm, without rupture;Diverticulitis of large intestine without perforation or abscess without bleeding Presentation: 07/31 16:47 Chief complaint: Patient states: I have heart problems, and started to have kidney tm6 problems. A week ago, I lost all control of my bladder, having episodes of incontinence. I take bumex, but I was continuously going to the bathroom. I saw my web site designer, and he recommended me to a urologist. Today when I went to the bathroom I filled the commode up with blood (bright red). Some irritation while urinating. I am also on Eliquis. Coronavirus screen: Client denies travel out of the [place] in the last 14 days. Ebola Screen: Patient negative for fever greater than or equal to 101.5 degrees Fahrenheit, and additional compatible Ebola Virus Disease symptoms Patient denies exposure to infectious person. Patient denies travel to an Ebola-affected area in the 21 days before illness onset. No symptoms or risks identified at this time. Initial Sepsis Screen:. Risk Assessment: Do you want to hurt yourself or someone else? Patient reports no desire to harm self or others. Onset of symptoms was July 23, 2024. 16:47 Method Of Arrival: Ambulatory tm6 16:47 Acuity: DAVID 3 tm6 20:30 Initial Sepsis Screen: Does the patient meet any 2 criteria? No. Patient's initial kj2 sepsis screen is negative. Does the patient have a suspected source of infection? No. Patient's initial sepsis screen is negative. Triage Assessment: 16:52 General: Appears in no apparent distress. Behavior is calm, cooperative. Pain: Denies tm6 pain. EENT: No signs and/or symptoms were reported regarding the EENT system. Neuro: Level of Consciousness is awake, alert, obeys commands, Oriented to person, place, time, situation. Cardiovascular: Patient's skin is warm and dry. Respiratory: Airway is patent Respiratory effort is even, unlabored, Respiratory pattern is regular, symmetrical. GI: No signs and/or symptoms were reported involving the gastrointestinal system. Abdomen is round. : Reports incontinence, urinary frequency, blood in urine. Derm: No signs and/or symptoms reported regarding the dermatologic system. Musculoskeletal: No signs and/or symptoms reported regarding the musculoskeletal system. Historical: - Allergies: 16:50 No Known Allergies; tm6 - PMHx: 16:50 Asthma; CHF; Hypertension; MD; tm6 - PSHx: 16:50 Cholecystectomy; tm6 - Immunization history:: Flu vaccine is not up to date. - Infectious Disease History:: Denies. - Social history:: Smoking status: Patient/guardian denies using tobacco, the patient reports quitting approximately 6 years ago. Screenin:16 Abuse screen: Denies threats or abuse. Nutritional screening: No deficits noted. ap3 Tuberculosis screening: No symptoms or risk factors identified. 20:30 [facility] ED Fall Risk Assessment (Adult) History of falling in the last 3 months, kj2 including since admission No falls in past 3 months (0 pts) Confusion or Disorientation No (0 pts) Intoxicated or Sedated No (0 pts) Impaired Gait No (0 pts) Mobility Assist Device Used No (0 pt) Altered Elimination No (0 pt) Score/Fall Risk Level 0 - 2 = Low Risk Maintained a safe environment, Hourly rounding (assess needs \T\ fall precautionary measures) done. Assessment: 17:15 General: Appears in no apparent distress. Behavior is calm, cooperative, appropriate ap3 for age. Pain: Complains of pain in low back area Pain began gradually. Neuro: Level of Consciousness is awake, alert, obeys commands, Oriented to person, place, time, situation, Appropriate for age. Cardiovascular: Patient's skin is warm and dry. Respiratory: Airway is patent Respiratory effort is even, unlabored, Respiratory pattern is regular, symmetrical. : Reports blood in urine. 21:12 Reassessment: REPORT GIVEN TO Vineet AT 2100 AT [facility]. kj2 21:21 Reassessment: Patient appears in no apparent distress at this time. Patient and/or kj2 family updated on plan of care and expected duration. Pain level reassessed. Patient is alert, oriented x 3, equal unlabored respirations, skin warm/dry/pink. 22:26 Reassessment: UNABLE TO IRRIGATE ANGUIANO SUCCESSFULLY, AFTER 2 ATTEMPTS, PROVIDER AWARE. kj2 Vital Signs: 16:50 Weight 117.93 kg; Height 6 ft. 0 in. ; Pain 0/10; tm6 16:52 BP 108 / 91; Pulse 82; Resp 19; Temp 96.7(TE); Pulse Ox 97% on R/A; tm6 21:21 BP 143 / 92; Pulse 80; Resp 18; Pulse Ox 98% on R/A; kj2 16:50 Body Mass Index 35.26 (117.93 kg, 182.88 cm) tm6 16:50 Pain Scale: Adult tm6 ED Course: 16:42 Patient arrived in ED. im 16:48 Richard Rojas PA is PHCP. cp 16:49 Richard Blackwell MD is Attending Physician. cp 16:50 Triage completed. tm6 16:50 Arm band placed on right wrist. tm6 16:55 Malathi Rondon, GABBIE is Primary Nurse. ap3 17:16 Patient has correct armband on for positive identification. Bed in low position. Call ap3 light in reach. Side rails up X 1. Adult w/ patient. 17:28 Urine Microscopic Only Sent. ap3 17:50 Chest Single View XRAY In Process Unspecified. EDMS 18:00 Initial lab(s) drawn, by nj, sent to lab. First set of blood cultures drawn by me, bp Second set of blood cultures drawn by me. 18:10 3-way catheter inserted, using sterile technique, 18 Fr. Specimen obtained. Inserted bp saline lock: 20 gauge in left antecubital area, using aseptic technique. Blood collected. Flushed with 10 mL NS. 19:12 CT Stone Protocol In Process Unspecified. EDMS 19:18 CT Aorta for Dissection In Process Unspecified. EDMS 20:30 Provided Education on: CALL LIGHT. kj2 20:30 No provider procedures requiring assistance completed. kj2 22:28 Patient transferred, IV remains in place. kj2 Administered Medications: 19:20 Drug: Rocephin IV 1 grams IV at calculated rate once; Given slow IV push per pharmacy kj2 instructions Route: IV; Rate: calculated rate; Site: left antecubital; 21:15 Drug: metroNIDAZOLE IVPB 500 mg 100 ml IVPB once over 30 mins Volume: 100 ml; Route: kj2 IVPB; Infused Over: 30 mins; Site: left antecubital; 22:29 Follow up: IV Status: Completed infusion; IV Intake: 100ml kj2 21:58 Drug: fentaNYL (PF) IVP 50 mcg IVP once Route: IVP; Site: left antecubital; kj2 22:29 Follow up: Response: No adverse reaction kj2 21:59 Drug: Mucomyst - Acetylcysteine PO 600 mg PO once Route: PO; kj2 22:30 Follow up: Response: No adverse reaction kj2 Medication: 20:30 VIS not applicable for this client. kj2 Intake: 22:29 IV: 100ml; Total: 100ml. kj2 Outcome: 20:33 ER care complete, transfer ordered by MD. cp 22:27 Transferred by ground EMS to [facility]2 22:27 Condition: stable 22:27 Instructed on the need for transfer, 22:30 Patient left the ED. kj2 Addendum: 08/03/2024 11:58 Addendum: Culture Results: Positive urine culture. Phone call Attempt #1 report faxed i w to [facility] [phone]. Signatures: Dispatcher [employer] Sandra Walsh, RN RN Richard Eubanks PA PA cp Peltier, Brian RN RN bp Malathi Rondon RN RN ap3 Spring Walker Tawney, RN RN tm6 Betsey Mercado RN RN kj2 Corrections: (The following items were deleted from the chart) 07/31 16:51 16:50 PMHx: COPD; tm6 tm6
[2024-07-31] MEDS ORDERED: METRONIDAZOLE 500mg IVPB 500 MG/100 ML BAG IV ONE (21:16)
[2024-07-31] MEDS ORDERED: FENTANYL CITR 100 MCG/2 ML ONE (21:45)
[2024-07-31] MEDS ORDERED: ACETYLCYST 6,000 MG/30 ML VIAL ONE (21:47)
[2024-07-31 22:45] VITALS: TEMP 96.7
[2024-07-31 22:50] VITALS: BP 143/92; O2SAT 98
--- NOTE | 2024-08-01 11:07 | EKG ---
Test Date: 2024-07-31 Test Time: 21:01:29 Donor Relations Associate: JORGE MEASUREMENT RESULTS: Intervals: Rate: 197 AR: QRSD: 140 QT: 248 QTc: 449 [place]: P: AR: QRS: 181 T: 109 INTERPRETIVE STATEMENTS: Suspect arm lead reversal, interpretation assumes no reversal Undetermined rhythm Right superior axis deviation Nonspecific intraventricular block T wave abnormality, consider inferolateral ischemia Abnormal ECG Compared to ECG 10/09/2023 15:23:35 Right superior axis now present T-wave abnormality now present Possible ischemia now present Electronically Signed On 08-01-24 11:06:30 [employer]RIER WASHER by Hermelindo Bartlett
== END 2024-07-31 22:30 | disposition short-term general hospital (02) ==
LOC: ER 16:40
DX: R31.0 Gross hematuria (principal); I71.40 Abdominal aortic aneurysm, without rupture, unspecified; K57.32 Diverticulitis of large intestine without perforation or abscess without bleeding; M54.50 Low back pain, unspecified; Z79.01 Long term (current) use of anticoagulants
CPT/HCPCS: 96365; 93005; 87040 ×2; 87088; 85025; 87086; 36415; 86900; 86850; 85610; 86901; 83605; 85730; 87077; 87186; 81015; 84484; 80053; 76377; 71275; 74175; 74176; 71045; 96375; 99285; Q9967; J7608; J3010; J0696